=== PATIENT | male | born 1930 | race American Indian/Alaskan Native ===

== ENCOUNTER 2017-10-19 05:39 | Day surgery (SDC) | payer MEDICARE ==
[2017-10-19] MEDS ORDERED: TETRACAINE 0.5% OS PRN (06:00)
[2017-10-19] MEDS ORDERED: NACL BACTERIOSTATIC INFILTRATI ONE (06:23)
[2017-10-19] MEDS: AK-Dilate OS SCH ×3 (06:30→06:40)
[2017-10-19] MEDS: MYDRIACYL OS SCH ×3 (06:30→06:40)
[2017-10-19] MEDS: VIGAMOX OS SCH ×3 (06:30→06:40)
--- NOTE | 2017-10-19 07:54 | Anesthesia Consultation ---
Anesthesia Consult and Med Hx Date of service: 10/19/17 - Airway Anesthetic Teeth Evaluation: Dentures, Edentulous ROM Head & Neck: Adequate Mental/Hyoid Distance: Adequate Mallampati Class: Class II Intubation Access Assessment: Probably Good - Pulmonary Exam CTA: Yes - Cardiac Exam Cardiac Exam: RRR - Pre-Operative Health Status ASA Pre-Surgery Classification: ASA3 Proposed Anesthetic Plan: IV Sedation - Pulmonary Hx Smoking: Yes (SINCE HE WAS 13 STOPPED IN ) Hx Sleep Apnea: No - Cardiovascular System Hx Hypertension: Yes (2 YEARS) Hx Heart Attack/AMI: No - Central Nervous System Hx Psychiatric Problems: No - Gastrointestinal Hx Ulcer: Yes - Other Systems Hx Alcohol Use: No Hx Substance Use: No Hx Cancer: Yes (prostate CA)
[2017-10-19] MEDS ORDERED: SUBLIMAZE ONE (07:58)
[2017-10-19] MEDS ORDERED: VERSED ONE (07:59)
--- NOTE | 2017-10-19 08:25 | Operative Report ---
Operative Report Operative Report: PATIENT'S NAME: DATE OF : DATE OF SURGERY: 10/19/2017 PREOPERATIVE DIAGNOSIS: Cataract left eye POSTOPERATIVE DIAGNOSIS: Same OPERATIVE PROCEDURE: Phacoemulsification with intraocular lens implantation, left eye SURGEON: Gaviota Vidal M.D. LAMPS TESTER AND INSPECTOR SURGEON: Tamy Lens: [id number] 20.5 D ANESTHESIA: Monitored anesthesia care in combination with topical and intracameral anesthesia because of the established specific risk of reflux, arrhythmias, or anxiety attacks associated with ocular manipulation, as well as the difficulty of the crew dispatcher to manage such potentially catastrophic events while simultaneously attempting to complete the surgical procedure and was deemed necessary for the patient's safety to have an Media Intern present during the procedure whenever possible. An Media Intern was utilized to regulate the intravenous sedation of the patient so the patient was cooperative yet not asleep in order for the patient to successfully maintain fixation of the eye on the operating light of the microscope. COMPLICATIONS: No surgical complications No blood loss. ALLERGIES: No known drug allergies PROGNOSIS: Excellent INDICATIONS FOR SURGERY: The patient is undergoing surgery in the hopes of eliminating or improving these visual difficulties. PROCEDURE: After arriving at the surgery center, the patient was given topical anesthetic and dilating drops, as noted in the record. The patient was then taken into the operating room and given more anesthetic drops. The eyelids , lashes, and lid margins were scrubbed with Betadine solution, and the patient was draped. The Nurse Media Intern administered IV sedation and monitored the patient during the procedure. The eye was then fixated with a 0.12, and a stab incision was made in the peripheral clear cornea into the anterior chamber. This was made on my left side. Viscoelastic was next used to fill the anterior chamber. The eye was once again fixated with the 0.12 forceps and a keratome was used make an incision in clear cornea peripherally on my right hand side temporally. The capsule forceps were used to open the central anterior capsule and then make a continuous round capsulotomy. Hydrodissection was carried out utilizing a cannula and balanced salt solution to delineate the cortical material from the capsule and the nucleus from the cortical material. The phaco tip was introduced into the eye and used to remove the anterior cortical material in the area of the capsulotomy. Then the phaco tip was buried into the nucleus, and a chopping instrument was introduced into the eye and used to provide countertraction in the nucleus between this instrument and the phaco tip fracturing the nucleus. This procedure was repeated multiple times, providing multiple small segments of the lens, and then the phaco tip was used to remove each of these segments. An I/A tip was then used to remove the remaining cortex. The anterior chamber was refilled with viscoelastic. An one-piece, acrylic intraocular lens was then placed into an inserting cartridge. The tip of the inserting cartridge was introduced into the keratome incision and into the anterior chamber. The implant was gently advanced through the cartridge and into the eye, where it unfolded, and both haptics were placed in the capsular bag, where it centered nicely and appeared to be well fixated. After placement of the intraocular lens, the I~and~A handpiece was placed back into the eye and used to remove the viscoelastic, including viscoelastic that was behind the optic of the intraocular lens. The anterior chamber was then filled with balanced salt solution, and hydration of the wound was used to cause swelling of the wound and more appropriate watertight closure. When the wound was found to be firm, the patient was asked to comment on how bright the light was. If there was no light perception at all or if the light was substantially dimmer than during the rest of the surgery, the amount of fluid in the eye was decompressed to lower the intraocular pressure until the patient could see the bright light again. This was done to avoid any damage or decreased blood flow to the optic nerve. MEDICATIONS APPLIED AT END OF SURGERY: One drop of Pred Forte and Vigamox The patient was given a shield to wear at night and was instructed not to rub or push on the eye. DISCHARGE SUMMARY: The patient was released in stable condition. The patient and those with the patient were given a written sheet of postoperative instructions and counseling on any abnormal laboratory studies. The patient is to see us tomorrow for follow-up in the office and is to call immediately for any difficulties. Gaviota Vidal M.D. Date
--- NOTE | 2017-10-19 08:26 | Short Stay Summary ---
Short Stay Documentation Date of service: 10/19/17 - History H&P: obtained from office - Allergies and Medications Current Medications: Allergies No Known Allergies Allergy (Verified 10/11/17 15:29) Home Medications Medication Instructions Recorded Confirmed Last Taken Type Latanoprost 1 drops OU QHS 07/14/16 10/11/17 07/13/16 History Losartan Potassium 100 mg PO QDAY 07/14/16 10/11/17 07/13/16 History Nebivolol (Nf) [Bystolic (Nf)] 5 mg PO QDAY 07/14/16 10/11/17 07/13/16 History Diazepam [Valium] 10 mg PO DAILY 10/11/17 10/11/17 Unknown History Active Medications Moxifloxacin HCl (Vigamox) 1 drops OS Q5MIN [facility] Stop: 10/19/17 23:59 Last Admin: 10/19/17 06:40 Dose: 1 drops Phenylephrine HCl (Ak-Dilate) 1 drops OS Q5MIN [facility] Stop: 10/19/17 23:59 Last Admin: 10/19/17 06:40 Dose: 1 drops Prednisolone Acetate (Pred Forte 1%) 1 drops OS QID [facility] Tetracaine HCl (Tetracaine 0.5%) 1 drops OS Q5M PRN PRN Reason: Analgesia Stop: 10/19/17 23:59 Last Admin: 10/19/17 06:26 Dose: 1 drops Tropicamide (Mydriacyl) 1 drops OS Q5M [facility] Stop: 10/19/17 23:59 Last Admin: 10/19/17 06:40 Dose: 1 drops - Brief post op/procedure progress note Date of procedure: 10/19/17 Pre-op diagnosis: left cataract Post-op diagnosis: same Procedure: Phacoemulsification with intraocular lens insertion left eye Anesthesia: MAC Surgeon: ZHANG BEAUCHAMP Pathology: none Condition: stable - Disposition Condition at discharge: Good Disposition: [id number] TO HOME OR SELFCARE - Discharge Diagnoses (1) Cataract Status: Resolved Qualifiers: Cataract type: age-related Age-related cataract type: nuclear Laterality : left Qualified Code(s): H25.12 - Age-related nuclear cataract, left eye Short Stay Discharge Plan Follow up with: VALENTINA MORATAYA MD, PHD [Primary Care Provider] - 7 Days
[2017-10-19 09:21] VITALS: BP 132/86
--- NOTE | 2017-10-19 09:37 | Post Anesthesia Evaluation ---
- Post Anesthesia Evaluation Patient Participated: Yes Airway Patent: Yes Stable Respiratory Function: Yes Temp > 96.8F: Yes Pain Manageable: Yes Adequeate Hydration: Yes Anesthesia Complications: No Block Receding Appropriately: Not Applicable
--- NOTE | 2017-10-19 09:37 | Anesthesia Day of Surgery ---
Anesthesia Day of Surgery - Day of Surgery Patient Examined: Yes Patient H&P Reviewed: Yes Patient is NPO: Yes
[2017-10-19] MEDS ORDERED: PRED FORTE 1% OS SCH (10:00)
--- NOTE | 2017-10-19 11:17 | Post Anesthesia Evaluation ---
- Post Anesthesia Evaluation Patient Participated: Yes Airway Patent: Yes Stable Respiratory Function: Yes Nausea/Vomiting: No Temp > 96.8F: Yes Pain Manageable: Yes Adequeate Hydration: Yes Anesthesia Complications: No
== END 2017-10-19 09:25 | disposition home or self-care (01) ==
LOC: OR 05:39
DX: H26.9 Unspecified cataract (principal)
CPT/HCPCS: 66984; J2250; J3010; V2632

== ENCOUNTER 2017-10-30 09:51 | Outpatient (CLI) | payer MEDICARE ==
--- NOTE | 2017-10-30 14:45 | Cat Scan Report ---
The CT abdomen without and with IV contrast: Abdominal pain. Following administration of both intravenous and oral contrast transverse images are obtained from lower chest to the iliac crest with coronal and sagittal reformatted images. Images seem to include the low lungs demonstrates some coronary vascular calcification as well as increased interstitial pulmonary markings. There are few scattered calcifications in the liver. The liver is normal in size and contour. 2 small circumscribed masses are noted consistent with cysts. The abdominal and retroperitoneal organs are otherwise unremarkable. There is no periaortic adenopathy. The abdominal aorta is normal in size and contour throughout most of its course however distally just proximal to the bifurcation it dilates to maximum dimension of 3.7 cm with an area of asymmetric mural thrombus on the left. The bifurcation is not completely included but the thrombus diminishes at the bifurcation. Small bowel is mostly opacified and appears unremarkable. The unopacified colon also appears grossly normal with only mild areas of gaseous distention. The normal appearing appendix is visualized. The bones are demineralized but no destructive lesion is identified. Impressions: Mildly dilated distal abdominal aorta but exam otherwise unremarkable for patient age.
== END 2017-10-30 09:52 | disposition home or self-care (01) ==
LOC: SPVIMAG 09:51
DX: K76.89 Other specified diseases of liver (principal); I77.811 Abdominal aortic ectasia; I25.10 Atherosclerotic heart disease of native coronary artery without angina pectoris
CPT/HCPCS: 74170; Q9967

== ENCOUNTER 2017-11-02 05:50 | Day surgery (SDC) | payer MEDICARE ==
[2017-11-02] MEDS ORDERED: TETRACAINE 0.5% OD PRN (06:00)
[2017-11-02] MEDS ORDERED: NACL BACTERIOSTATIC INFILTRATI ONE (06:17)
[2017-11-02] MEDS: MYDRIACYL OD SCH ×3 (06:40→06:50)
[2017-11-02] MEDS: VIGAMOX OD SCH ×3 (06:40→06:50)
[2017-11-02] MEDS: AK-Dilate OD SCH ×3 (06:40→06:50)
[2017-11-02] MEDS ORDERED: TYLENOL PO PRN (07:11)
[2017-11-02] MEDS ORDERED: DILAUDID IV PRN (07:11)
[2017-11-02] MEDS ORDERED: ZOFRAN IV PRN (07:11)
--- NOTE | 2017-11-02 07:15 | Anesthesia Consultation ---
Anesthesia Consult and Med Hx Date of service: 11/02/17 - Airway Anesthetic Teeth Evaluation: Edentulous ROM Head & Neck: Adequate Mental/Hyoid Distance: Adequate Mallampati Class: Class II Intubation Access Assessment: Possibly Difficult - Cardiac Exam Anesthetic Concerns: irregular heartbeat - Pre-Operative Health Status ASA Pre-Surgery Classification: ASA3 Proposed Anesthetic Plan: MAC - Pulmonary Hx Smoking: Yes (smoked for 35-40 yrs) SOB: Yes (hx) COPD: Yes (hx) Hx Sleep Apnea: No (possible indication) - Cardiovascular System Hx Hypertension: Yes Hx Heart Attack/AMI: No - Central Nervous System Hx Psychiatric Problems: No - Gastrointestinal Hx Ulcer: Yes Hx Gastroesophageal Reflux Disease: Yes (pt said yes) - Other Systems Hx Cancer: Yes (prostate CA)
--- NOTE | 2017-11-02 07:16 | Anesthesia Day of Surgery ---
Anesthesia Day of Surgery - Day of Surgery Patient Examined: Yes Patient H&P Reviewed: Yes Patient is NPO: Yes Beta Blockers: Yes (pt didn't take any meds this am, pt usually takes one in am and pm)
--- NOTE | 2017-11-02 07:17 | Progress Note ---
Subjective Date of service: 11/02/17 Principal diagnosis: Right eye cataract
[2017-11-02] MEDS ORDERED: VERSED ONE (07:23)
[2017-11-02] MEDS ORDERED: SUBLIMAZE ONE (07:23)
--- NOTE | 2017-11-02 07:58 | Operative Report ---
Operative Report Operative Report: PATIENT'S NAME: DATE OF : DATE OF SURGERY: 11/02/2017 PREOPERATIVE DIAGNOSIS: Cataract right eye POSTOPERATIVE DIAGNOSIS: Same OPERATIVE PROCEDURE: Phacoemulsification with intraocular lens implantation, right eye SURGEON: Gaviota Vidal M.D. QA AUTOMATION ARCHITECT SURGEON: Tamy Lens: SA60WF 20.5 D ANESTHESIA: Monitored anesthesia care in combination with topical and intracameral anesthesia because of the established specific risk of reflux, arrhythmias, or anxiety attacks associated with ocular manipulation, as well as the difficulty of the ship rigger apprentice to manage such potentially catastrophic events while simultaneously attempting to complete the surgical procedure and was deemed necessary for the patient's safety to have an Structures Engineer present during the procedure whenever possible. An Structures Engineer was utilized to regulate the intravenous sedation of the patient so the patient was cooperative yet not asleep in order for the patient to successfully maintain fixation of the eye on the operating light of the microscope. COMPLICATIONS: No surgical complications No blood loss. ALLERGIES: No known drug allergies PROGNOSIS: Excellent INDICATIONS FOR SURGERY: The patient is undergoing surgery in the hopes of eliminating or improving these visual difficulties. PROCEDURE: After arriving at the surgery center, the patient was given topical anesthetic and dilating drops, as noted in the record. The patient was then taken into the operating room and given more anesthetic drops. The eyelids , lashes, and lid margins were scrubbed with Betadine solution, and the patient was draped. The Nurse Structures Engineer administered IV sedation and monitored the patient during the procedure. The eye was then fixated with a 0.12, and a stab incision was made in the peripheral clear cornea into the anterior chamber. This was made on my left side. Viscoelastic was next used to fill the anterior chamber. The eye was once again fixated with the 0.12 forceps and a keratome was used make an incision in clear cornea peripherally on my right hand side temporally. The capsule forceps were used to open the central anterior capsule and then make a continuous round capsulotomy. Hydrodissection was carried out utilizing a cannula and balanced salt solution to delineate the cortical material from the capsule and the nucleus from the cortical material. The phaco tip was introduced into the eye and used to remove the anterior cortical material in the area of the capsulotomy. Then the phaco tip was buried into the nucleus, and a chopping instrument was introduced into the eye and used to provide countertraction in the nucleus between this instrument and the phaco tip fracturing the nucleus. This procedure was repeated multiple times, providing multiple small segments of the lens, and then the phaco tip was used to remove each of these segments. An I/A tip was then used to remove the remaining cortex. The anterior chamber was refilled with viscoelastic. An one-piece, acrylic intraocular lens was then placed into an inserting cartridge. The tip of the inserting cartridge was introduced into the keratome incision and into the anterior chamber. The implant was gently advanced through the cartridge and into the eye, where it unfolded, and both haptics were placed in the capsular bag, where it centered nicely and appeared to be well fixated. After placement of the intraocular lens, the I~and~A handpiece was placed back into the eye and used to remove the viscoelastic, including viscoelastic that was behind the optic of the intraocular lens. The anterior chamber was then filled with balanced salt solution, and hydration of the wound was used to cause swelling of the wound and more appropriate watertight closure. When the wound was found to be firm, the patient was asked to comment on how bright the light was. If there was no light perception at all or if the light was substantially dimmer than during the rest of the surgery, the amount of fluid in the eye was decompressed to lower the intraocular pressure until the patient could see the bright light again. This was done to avoid any damage or decreased blood flow to the optic nerve. MEDICATIONS APPLIED AT END OF SURGERY: One drop of Pred Forte and Vigamox The patient was given a shield to wear at night and was instructed not to rub or push on the eye. DISCHARGE SUMMARY: The patient was released in stable condition. The patient and those with the patient were given a written sheet of postoperative instructions and counseling on any abnormal laboratory studies. The patient is to see us tomorrow for follow-up in the office and is to call immediately for any difficulties. Gaviota Vidal M.D. Date
[2017-11-02] MEDS ORDERED: NACL 0.9% 1000 ML 1,000 ML IV SCH (08:00)
[2017-11-02] MEDS ORDERED: PEPCID IV NR (08:00)
[2017-11-02] MEDS ORDERED: SODIUM CHLORIDE FLUSH SYRINGE 10 ML IV NR (08:00)
[2017-11-02] MEDS ORDERED: VERSED IV NR (08:00)
--- NOTE | 2017-11-02 08:00 | Short Stay Summary ---
Short Stay Documentation Date of service: 11/02/17 - History H&P: obtained from office - Allergies and Medications Current Medications: Allergies No Known Allergies Allergy (Verified 10/11/17 15:29) Home Medications Medication Instructions Recorded Confirmed Last Taken Type Latanoprost 1 drops OU QHS 07/14/16 10/25/17 11/01/17 History Losartan Potassium 100 mg PO QDAY 07/14/16 10/25/17 11/01/17 History Nebivolol (Nf) [Bystolic (Nf)] 5 mg PO QDAY 07/14/16 10/25/17 11/01/17 History Diazepam [Valium] 10 mg PO DAILY 10/11/17 10/25/17 11/01/17 History Acetaminophen [Pain Relief] 325 mg PO BID PRN 10/25/17 10/25/17 11/01/17 History Bisacodyl [Dulcolax] 5 mg PO DAILY PRN 10/25/17 10/25/17 11/01/17 History Gabapentin [Neurontin] 100 mg PO BID 10/25/17 10/25/17 11/01/17 History Ibuprofen [Ibuprofen Ib] 200 mg PO PRN PRN 10/25/17 10/25/17 11/01/17 History Naproxen Sodium [Aleve] 220 mg PO PRN PRN 10/25/17 10/25/17 11/01/17 History Active Medications Moxifloxacin HCl (Vigamox) 1 drops OD Q5MIN [facility] Stop: 11/04/17 18:00 Last Admin: 11/02/17 06:50 Dose: 1 drops Ondansetron HCl (Zofran) 4 mg IV ONCE PRN PRN Reason: Nausea And Vomiting Stop: 11/02/17 09:00 Phenylephrine HCl (Ak-Dilate) 1 drops OD Q5M [facility] Stop: 11/02/17 18:00 Last Admin: 11/02/17 06:50 Dose: 1 drops Prednisolone Acetate (Pred Forte 1%) 1 drops OD QID [facility] Sodium Chloride (Sodium Chloride Flush Syringe 10 Ml) 10 ml IV PRN NR Stop: 11/12/17 07:59 Tetracaine HCl (Tetracaine 0.5%) 1 drops OD Q5M PRN PRN Reason: Pain Last Admin: 11/02/17 06:40 Dose: 1 drops Tropicamide (Mydriacyl) 1 drops OD Q5MIN [facility] Stop: 11/04/17 18:00 Last Admin: 11/02/17 06:50 Dose: 1 drops - Brief post op/procedure progress note Date of procedure: 11/02/17 Pre-op diagnosis: right cataract Post-op diagnosis: same Procedure: Phacoemulsification with intraocular lens insertion right eye Anesthesia: MAC Surgeon: ZHANG BEAUCHAMP Estimated blood loss: none Pathology: none Condition: stable - Disposition Disposition: - TO HOME OR SELFCARE - Discharge Diagnoses (1) Cataract Status: Resolved Qualifiers: Cataract type: age-related Age-related cataract type: nuclear Laterality : right Qualified Code(s): H25.11 - Age-related nuclear cataract, right eye Short Stay Discharge Plan Follow up with: VALENTINA MORATAYA MD, PHD [Primary Care Provider] - 7 Days
[2017-11-02] MEDS ORDERED: PRED FORTE 1% OD SCH (09:00)
[2017-11-02 09:45] VITALS: BP 122/69
== END 2017-11-02 08:45 | disposition home or self-care (01) ==
LOC: OR 05:50
DX: H26.9 Unspecified cataract (principal); I10 Essential (primary) hypertension; K21.9 Gastro-esophageal reflux disease without esophagitis; J44.9 Chronic obstructive pulmonary disease, unspecified; F17.200 Nicotine dependence, unspecified, uncomplicated; Z85.46 Personal history of malignant neoplasm of prostate; Z98.890 Other specified postprocedural states
CPT/HCPCS: 66984; J2250; J3010; V2632

== ENCOUNTER 2017-11-12 18:18 | Emergency (ER) | payer MEDICARE ==
--- NOTE | 2017-11-12 20:04 | Emergency Department Report ---
ED Neuro Deficit HPI - General Chief Complaint: Neuro Symptoms/Deficit Stated Complaint: LEFT ARM,HIP PAIN/HEADACHE Time Seen by Provider: 11/12/17 19:45 Source: patient Mode of arrival: Ambulatory Limitations: No Limitations - History of Present Illness Initial Comments: This is an 87-year-old gentleman who presents to the emergency room with a chief complaint of numbness to the left side. He reports that last Monday he had 3 mini strokes. He states that today at around 4 PM he began to feel numbness in his left lower and upper extremities as well as part of his face. He states he had difficulty opening his mouth. He did take a pain pill. He is ambulatory at this time moving all extremities well and is able to speak well without any deficits. He states he does not hurt anywhere at this time. He is alert and oriented 3. -: Sudden Location: speech (resolved), left face, left arm, left leg Place: home Severity: mild Quality: weak, numb, tingling, improving Improves With: time Worsens With: none On Anticoagulants: No Context: sudden onset Associated Symptoms: denies other symptoms Treatments Prior to Arrival: none - Related Data Home Medications: Home Medications Medication Instructions Recorded Confirmed Last Taken Latanoprost 1 drops OU QHS 07/14/16 11/05/17 11/01/17 Losartan Potassium 100 mg PO QDAY 07/14/16 11/05/17 11/01/17 Nebivolol (Nf) [Bystolic (Nf)] 5 mg PO QDAY 07/14/16 11/05/17 11/01/17 Diazepam [Valium] 10 mg PO DAILY 10/11/17 11/05/17 11/01/17 Acetaminophen [Pain Relief] 325 mg PO BID PRN 10/25/17 11/05/17 11/01/17 Bisacodyl [Dulcolax tab] 5 mg PO DAILY PRN 10/25/17 11/05/17 11/01/17 Ibuprofen [Ibuprofen Ib] 200 mg PO PRN PRN 10/25/17 11/05/17 11/01/17 Naproxen Sodium [Aleve] 220 mg PO PRN PRN 10/25/17 11/05/17 11/01/17 Previous Rx's Medication Instructions Recorded Last Taken Type Aspirin EC [Aspirin Enteric Coated 325 mg PO QDAY #30 tablet. 11/07/17 Unknown Rx TAB] AtorvaSTATin [Lipitor] 20 mg PO QHS #30 tab 11/07/17 Unknown Rx Gabapentin [Neurontin] 100 mg PO BID #60 capsule 11/07/17 Unknown Rx Allergies/Adverse Reactions: Allergies Allergy/AdvReac Type Severity Reaction Status Date / Time No Known Allergies Allergy Verified 11/12/17 18:22 ED Review of Systems ROS: Stated complaint: LEFT ARM,HIP PAIN/HEADACHE Other details as noted in HPI Comment: All other systems reviewed and negative Constitutional: see HPI Eyes: as per HPI ENT: as per HPI Respiratory: see HPI Cardiovascular: as per HPI Endocrine: see HPI Gastrointestinal: as per HPI Genitourinary: as per HPI Musculoskeletal: as per HPI Skin: as per HPI Neurological: as per HPI Psychiatric: as per HPI Hematological/Lymphatic: as per HPI ED Past Medical Hx - Past Medical History Hx Hypertension: Yes Hx Heart Attack/AMI: No Hx Congestive Heart Failure: No Hx GERD: Yes Hx COPD: Yes (hx) - Surgical History Additional Surgical History: Cataract - Social History Smoking Status: Never Smoker Substance Use Type: None - Medications Home Medications: Home Medications Medication Instructions Recorded Confirmed Last Taken Type Latanoprost 1 drops OU QHS 07/14/16 11/05/17 11/01/17 History Losartan Potassium 100 mg PO QDAY 07/14/16 11/05/17 11/01/17 History Nebivolol (Nf) [Bystolic (Nf)] 5 mg PO QDAY 07/14/16 11/05/17 11/01/17 History Diazepam [Valium] 10 mg PO DAILY 10/11/17 11/05/17 11/01/17 History Acetaminophen [Pain Relief] 325 mg PO BID PRN 10/25/17 11/05/17 11/01/17 History Bisacodyl [Dulcolax tab] 5 mg PO DAILY PRN 10/25/17 11/05/17 11/01/17 History Ibuprofen [Ibuprofen Ib] 200 mg PO PRN PRN 10/25/17 11/05/17 11/01/17 History Naproxen Sodium [Aleve] 220 mg PO PRN PRN 10/25/17 11/05/17 11/01/17 History Aspirin EC [Aspirin Enteric Coated 325 mg PO QDAY #30 tablet. 11/07/17 Unknown Rx TAB] AtorvaSTATin [Lipitor] 20 mg PO QHS #30 tab 11/07/17 Unknown Rx Gabapentin [Neurontin] 100 mg PO BID #60 capsule 11/07/17 Unknown Rx ED Neuro Physical Exam - General Limitations: No Limitations General appearance: alert, in no apparent distress Suspected Stroke: Yes - Head Head exam: Present: atraumatic, normocephalic - Eye Eye exam: Present: normal appearance, PERRL, EOMI - ENT ENT exam: Present: normal exam, normal orophraynx - Neck Neck exam: Present: normal inspection - Respiratory Respiratory exam: Present: normal lung sounds bilaterally. Absent: respiratory distress, wheezes, rales, rhonchi - Cardiovascular Cardiovascular Exam: Present: bradycardia - GI/Abdominal GI/Abdominal exam: Present: soft, normal bowel sounds. Absent: distended, tenderness - Extremities Exam Extremities exam: Present: normal inspection, full ROM. Absent: tenderness, joint swelling - Back Exam Back exam: Present: normal inspection - Neurological Exam Neurological exam: Present: alert, oriented X3 - NIHSS Assessment Interval: Baseline 1a. Level of Consciousness: alert 1b. LOC Questions: answers correctly 1c. LOC Commands: performs tasks correctly 2. Best Gaze: normal 3. Visual: no visual loss 4. Facial Palsy: normal symmetrical movement 5b. Motor Arm Right: no drift 5a. Motor Arm Left: no drift 6a. Motor Leg Left: no drift 6b. Motor Leg Right: no drift 7. Limb Ataxia: absent 8. Sensory: normal 9. Best Language: no aphasia 10. Dysarthria: normal 11. Extinction/Inattention: no abnormality Total Score: 0 Stroke Severity: No Stroke Symptoms - Psychiatric Psychiatric exam: Present: normal affect, normal mood - Skin Skin exam: Present: warm, dry, intact ED Course Vital Signs 11/12/17 11/12/17 11/12/17 18:22 19:40 19:46 Temperature 97.8 F Pulse Rate 60 56 L 49 L Respiratory 20 11 L 18 Rate Blood Pressure 120/66 125/43 O2 Sat by Pulse 99 98 Oximetry 11/12/17 11/12/17 11/12/17 19:56 19:57 20:00 Temperature 98.9 F Pulse Rate 54 L 49 L Respiratory 19 19 Rate Blood Pressure 111/60 O2 Sat by Pulse 98 98 Oximetry 02/04/18 02/04/18 02/04/18 20:16 20:30 20:48 Temperature Pulse Rate 49 L 48 L 55 L Respiratory 21 13 22 Rate Blood Pressure 111/60 116/54 116/54 O2 Sat by Pulse 99 95 96 Oximetry 11/12/17 11/12/17 11/12/17 21:00 21:16 21:30 Temperature Pulse Rate 51 L 51 L 52 L Respiratory 18 15 15 Rate Blood Pressure 114/62 114/62 106/60 O2 Sat by Pulse 98 97 94 Oximetry 11/12/17 21:46 Temperature Pulse Rate 51 L Respiratory 19 Rate Blood Pressure 114/62 O2 Sat by Pulse 99 Oximetry - Reevaluation(s) Reevaluation #1: 11/12/17 20:16 This likely the patient has had a TIA. Based upon his history of previous mini strokes, feel will go ahead and work up the patient. He is bradycardic. His heart rate on telemetry has been around 50 bpm. He states this is not normal for him. We'll go ahead and order set of cardiac enzymes as well. He is not complaining of any chest pain at this time. 11/12/17 21:[address] is essentially negative for any acute findings at this time. His blood work is also unremarkable. His cardiac enzymes are normal. He does not complain of any chest pain nor has he. At this time I do not have any findings that indicate that he is having an active stroke in progress or acute coronary event. Advised the patient he needs to follow up with his primary care doctor. He also needs to continue with his home medications. At this time we will go ahead and discharge the patient. 11/12/17 21:26 - Lab Data Result diagrams: 11/12/17 20:16 11/12/17 20:16 Lab Results 11/12/17 11/12/17 11/12/17 Range/Units 20:16 20:16 20:16 WBC 4.6 (4.5-11.0) K/mm3 RBC 3.96 (3.65-5.03) M/mm3 Hgb 11.8 (11.8-15.2) gm/dl Hct 36.5 (35.5-45.6) % MCV 92 (84-94) fl MCH 30 (28-32) pg MCHC 32 (32-34) % RDW 13.9 (13.2-15.2) % Plt Count 159 (140-440) K/mm3 Lymph % (Auto) 34.0 (13.4-35.0) % [place]eman % (Auto) 12.7 H (0.0-7.3) % Eos % (Auto) 3.6 (0.0-4.3) % Baso % (Auto) 0.5 (0.0-1.8) % Lymph # 1.6 (1.2-5.4) K/mm3 Hardeman # 0.6 (0.0-0.8) K/mm3 Eos # 0.2 (0.0-0.4) K/mm3 Baso # 0.0 (0.0-0.1) K/mm3 Seg Neutrophils % 49.2 (40.0-70.0) % Seg Neutrophils # 2.3 (1.8-7.7) K/mm3 PT 15.9 H (12.2-14.9) Sec. INR 1.20 H (0.87-1.13) APTT 30.8 (24.2-36.6) Sec. Thrombin Time 15.4 (15.1-19.6) Sec. Sodium 139 (137-145) mmol/L Potassium 4.4 (3.6-5.0) mmol/L Chloride 100.3 (98-107) mmol/L Carbon Dioxide 26 (22-30) mmol/L Anion Gap 17 mmol/L BUN 16 (9-20) mg/dL Creatinine 1.6 H (0.8-1.5) mg/dL Estimated GFR 50 ml/min BUN/Creatinine Ratio 10 % Glucose 90 (75-100) mg/dL POC Glucose (70-105) Calcium 8.9 (8.4-10.2) mg/dL Total Bilirubin 0.20 (0.1-1.2) mg/dL AST 15 (5-40) units/L ALT 12 (7-56) units/L Alkaline Phosphatase 52 (35-129) units/L Total Creatine Kinase 203 H (55-170) units/L CK-MB (CK-2) 3.1 (0.0-4.0) ng/mL CK-MB (CK-2) Rel Index 1.5 (0-4) Troponin T < 0.010 (0.00-0.029) ng/mL Total Protein 6.2 L (6.3-8.2) g/dL Albumin 3.6 L (3.9-5) g/dL Albumin/Globulin Ratio 1.4 % Urine Color (Yellow) Urine Turbidity (Clear) Urine pH (5.0-7.0) Ur Specific Garita (1.003-1.030) Urine Protein (Negative) mg/dL Urine Glucose (UA) (Negative) mg/dL Urine Ketones (Negative) mg/dL Urine Blood (Negative) Urine Nitrite (Negative) Urine Bilirubin (Negative) Urine Urobilinogen (<2.0) mg/dL Ur Leukocyte Esterase (Negative) Urine WBC (Auto) (0.0-6.0) /HPF Urine RBC (Auto) (0.0-6.0) /HPF Urine Bacteria (Auto) (Negative) /HPF Urine Mucus /HPF Urine Opiates Screen Urine Methadone Screen Ur Barbiturates Screen Ur Phencyclidine Scrn Ur Amphetamines Screen U Benzodiazepines Scrn Urine Cocaine Screen U Marijuana (THC) Screen Drugs of Abuse Note Plasma/Serum Alcohol (0-0.07) % 11/12/17 11/12/17 11/12/17 Range/Units 20:16 20:24 20:43 WBC (4.5-11.0) K/mm3 RBC (3.65-5.03) M/mm3 Hgb (11.8-15.2) gm/dl Hct (35.5-45.6) % MCV (84-94) fl MCH (28-32) pg MCHC (32-34) % RDW (13.2-15.2) % Plt Count (140-440) K/mm3 Lymph % (Auto) (13.4-35.0) % Hardeman % (Auto) (0.0-7.3) % Eos % (Auto) (0.0-4.3) % Baso % (Auto) (0.0-1.8) % Lymph # (1.2-5.4) K/mm3 Hardeman # (0.0-0.8) K/mm3 Eos # (0.0-0.4) K/mm3 Baso # (0.0-0.1) K/mm3 Seg Neutrophils % (40.0-70.0) % Seg Neutrophils # (1.8-7.7) K/mm3 PT (12.2-14.9) Sec. INR (0.87-1.13) APTT (24.2-36.6) Sec. Thrombin Time (15.1-19.6) Sec. Sodium (137-145) mmol/L Potassium (3.6-5.0) mmol/L Chloride (98-107) mmol/L Carbon Dioxide (22-30) mmol/L Anion Gap mmol/L BUN (9-20) mg/dL Creatinine (0.8-1.5) mg/dL Estimated GFR ml/min BUN/Creatinine Ratio % Glucose (75-100) mg/dL POC Glucose 101 (70-105) Calcium (8.4-10.2) mg/dL Total Bilirubin (0.1-1.2) mg/dL AST (5-40) units/L ALT (7-56) units/L Alkaline Phosphatase (35-129) units/L Total Creatine Kinase (55-170) units/L CK-MB (CK-2) (0.0-4.0) ng/mL CK-MB (CK-2) Rel Index (0-4) Troponin T (0.00-0.029) ng/mL Total Protein (6.3-8.2) g/dL Albumin (3.9-5) g/dL Albumin/Globulin Ratio % Urine Color Yellow (Yellow) Urine Turbidity Clear (Clear) Urine pH 6.0 (5.0-7.0) Ur Specific Garita 1.009 (1.003-1.030) Urine Protein <15 mg/dl (Negative) mg/dL Urine Glucose (UA) Neg (Negative) mg/dL Urine Ketones Neg (Negative) mg/dL Urine Blood Neg (Negative) Urine Nitrite Neg (Negative) Urine Bilirubin Neg (Negative) Urine Urobilinogen < 2.0 (<2.0) mg/dL Ur Leukocyte Esterase Neg (Negative) Urine WBC (Auto) 1.0 (0.0-6.0) /HPF Urine RBC (Auto) 1.0 (0.0-6.0) /HPF Urine Bacteria (Auto) 1+ (Negative) /HPF Urine Mucus Few /HPF Urine Opiates Screen Urine Methadone Screen Ur Barbiturates Screen Ur Phencyclidine Scrn Ur Amphetamines Screen U Benzodiazepines Scrn Urine Cocaine Screen U Marijuana (THC) Screen Drugs of Abuse Note Plasma/Serum Alcohol < 0.01 (0-0.07) % 11/12/17 Range/Units 20:43 WBC (4.5-11.0) K/mm3 RBC (3.65-5.03) M/mm3 Hgb (11.8-15.2) gm/dl Hct (35.5-45.6) % MCV (84-94) fl MCH (28-32) pg MCHC (32-34) % RDW (13.2-15.2) % Plt Count (140-440) K/mm3 Lymph % (Auto) (13.4-35.0) % Hardeman % (Auto) (0.0-7.3) % Eos % (Auto) (0.0-4.3) % Baso % (Auto) (0.0-1.8) % Lymph # (1.2-5.4) K/mm3 Hardeman # (0.0-0.8) K/mm3 Eos # (0.0-0.4) K/mm3 Baso # (0.0-0.1) K/mm3 Seg Neutrophils % (40.0-70.0) % Seg Neutrophils # (1.8-7.7) K/mm3 PT (12.2-14.9) Sec. INR (0.87-1.13) APTT (24.2-36.6) Sec. Thrombin Time (15.1-19.6) Sec. Sodium (137-145) mmol/L Potassium (3.6-5.0) mmol/L Chloride (98-107) mmol/L Carbon Dioxide (22-30) mmol/L Anion Gap mmol/L BUN (9-20) mg/dL Creatinine (0.8-1.5) mg/dL Estimated GFR ml/min BUN/Creatinine Ratio % Glucose (75-100) mg/dL POC Glucose (70-105) Calcium (8.4-10.2) mg/dL Total Bilirubin (0.1-1.2) mg/dL AST (5-40) units/L ALT (7-56) units/L Alkaline Phosphatase (35-129) units/L Total Creatine Kinase (55-170) units/L CK-MB (CK-2) (0.0-4.0) ng/mL CK-MB (CK-2) Rel Index (0-4) Troponin T (0.00-0.029) ng/mL Total Protein (6.3-8.2) g/dL Albumin (3.9-5) g/dL Albumin/Globulin Ratio % Urine Color (Yellow) Urine Turbidity (Clear) Urine pH (5.0-7.0) Ur Specific Garita (1.003-1.030) Urine Protein (Negative) mg/dL Urine Glucose (UA) (Negative) mg/dL Urine Ketones (Negative) mg/dL Urine Blood (Negative) Urine Nitrite (Negative) Urine Bilirubin (Negative) Urine Urobilinogen (<2.0) mg/dL Ur Leukocyte Esterase (Negative) Urine WBC (Auto) (0.0-6.0) /HPF Urine RBC (Auto) (0.0-6.0) /HPF Urine Bacteria (Auto) (Negative) /HPF Urine Mucus /HPF Urine Opiates Screen Presumptive positive Urine Methadone Screen Presumptive negative Ur Barbiturates Screen Presumptive negative Ur Phencyclidine Scrn Presumptive negative Ur Amphetamines Screen Presumptive negative U Benzodiazepines Scrn Presumptive positive Urine Cocaine Screen Presumptive negative U Marijuana (THC) Screen Presumptive negative Drugs of Abuse Note Disclamer Plasma/Serum Alcohol (0-0.07) % Critical care attestation.: If time is entered above; I have spent that time in minutes in the direct care of this critically ill patient, excluding procedure time. ED Disposition Clinical Impression: TIA (transient ischemic attack) Qualifiers: Transient cerebral ischemia type: unspecified Qualified Code(s): G45.9 - Transient cerebral ischemic attack, unspecified Disposition: DC-01 TO HOME OR SELFCARE Is pt being admited?: No Does the pt Need Aspirin: No Condition: Stable Instructions: Transient Ischemic Attack (ED) Additional Instructions: Rest. fluids, watch for worsening, new symptoms, return as needed, follow up with your primary care doctor of choice.
[2017-11-12 20:35] LABS: Basophils % (Auto) 0.5 % (0.0-1.8); Eosinophils # (Auto) 0.2 K/mm3 (0.0-0.4); Eosinophils % (Auto) 3.6 % (0.0-4.3); Hematocrit 36.5 % (35.5-45.6); Hemoglobin 11.8 gm/dl (11.8-15.2); Lymphocytes # (Auto) 1.6 K/mm3 (1.2-5.4); Mean Corpuscular HGB Conc 32 % (32-34); Mean Corpuscular Hemoglobin 30 pg (28-32); Mean Corpuscular Volume 92 fl (84-94); Monocytes # (Auto) 0.6 K/mm3 (0.0-0.8); Monocytes % (Auto) 12.7 % (0.0-7.3); Platelet Count 159 K/mm3 (140-440); Red Blood Count 3.96 M/mm3 (3.65-5.03); Red Cell Distribution Width 13.9 % (13.2-15.2)
[2017-11-12 20:45] LABS: INR 1.2 (0.87-1.13)
[2017-11-12 20:46] LABS: Partial Thromboplastin Time 30.8 Sec. (24.2-36.6); Thrombin Time 15.4 Sec. (15.1-19.6)
[2017-11-12 20:53] LABS: Creatine Kinase MB 3.1 ng/mL (0.0-4.0)
[2017-11-12 20:55] LABS: Alanine Aminotransferase 12 units/L (7-56); Albumin 3.6 g/dL (3.9-5); BUN/Creatinine Ratio 10; Blood Urea Nitrogen 16 mg/dL (9-20); Calcium 8.9 mg/dL (8.4-10.2); Hemolysis Index 13
[2017-11-12 21:05] LABS: Bacteria,Urine 1+ /HPF (Negative); Bilirubin,Urine NEG (Negative); Blood,Urine NEG (Negative); Color,Urine Yellow (Yellow); Mucus,Urine FEW /HPF; Nitrite,Urine NEG (Negative); Protein,Urine <15 mg/dL mg/dL (Negative); Urobilinogen,Urine < 2.0 mg/dL (<2.0)
--- NOTE | 2017-11-12 21:16 | Cat Scan Report ---
FINAL REPORT PROCEDURE: CT HEAD/BRAIN WO CON TECHNIQUE: Computerized tomography of the head was performed without contrast material. HISTORY: suspected stroke COMPARISON: No prior studies are available for comparison. FINDINGS: Skull and scalp: Normal. Paranasal sinuses: Normal. Ventricles and subarachnoid spaces: Moderate dilatation. Cerebrum: No evidence of hemorrhage, acute infarction or mass. Atrophy with periventricular and deep white matter diminished densities consistent with microangiopathy. Basal ganglia calcifications. Cerebellum and brainstem: No evidence of hemorrhage, acute infarction or mass. Atrophy. Vasculature: Normal. Comments: None. IMPRESSION: Involutional change with atrophy and microangiopathy. No hemorrhage
[2017-11-12 21:20] LABS: Amphetamine Screen,Urine PRESUMPTIVE NEGATIVE; Cannabinoid Screen,Urine PRESUMPTIVE NEGATIVE; Cocaine Screen,Urine PRESUMPTIVE NEGATIVE; Methadone Screen,Urine PRESUMPTIVE NEGATIVE
[2017-11-12 21:33] LABS: Benzodiazepines Screen,Urine PRESUMPTIVE POSITIVE; Opiate Screen,Urine PRESUMPTIVE POSITIVE
[2017-11-12 22:54] VITALS: BP 100/49
== END 2017-11-12 22:54 | disposition home or self-care (01) ==
LOC: ED 18:18
DX: G45.9 Transient cerebral ischemic attack, unspecified (principal); I10 Essential (primary) hypertension; K21.9 Gastro-esophageal reflux disease without esophagitis; J44.9 Chronic obstructive pulmonary disease, unspecified; Z88.2 Allergy status to sulfonamides
CPT/HCPCS: 36415; 70450; 80053; 80307; 81001; 82550; 82553; 82962; 84484; 85025; 85610; 85670; 85730; 93005; 93010; 99284; G0480; 80320

== ENCOUNTER 2018-07-25 11:23 | Emergency (ER) | payer MEDICARE ==
[2018-07-25 11:40] VITALS: BP 149/77
--- NOTE | 2018-07-25 12:29 | Emergency Department Report ---
Blank Doc - Documentation Documentation: Patient presents to emergency department with chief complaint of a headache. Patient states that he ran out of his blood pressure medication and has had a headache since that time. Patient denies any slurred speech, weakness, dizziness. Physical exam the patient has no neurological deficits. Patient does have a history of a CVA. Patient will be transferred to the main side of the emergency department for further evaluation and workup.
[2018-07-25] MEDS ORDERED: PROVENTIL IH ONE (12:50)
[2018-07-25] MEDS ORDERED: ATROVENT IH ONE (12:50)
--- NOTE | 2018-07-25 12:58 | Emergency Department Report ---
HPI - General Chief Complaint: Headache Time Seen by Provider: 07/25/18 12:14 - HPI HPI: Room 7 The patient is an 88-year-old male presenting with chief complaint of headache. The patient states he developed a frontal headache last night. Patient denies any preceding trauma or fever. Patient states he thinks he developed a headache because he ran out of his atorvastatin. When asked if anything else was bothering him the patient states he also has shortness of breath. The patient has a history of COPD but is not on home O2. Patient denies cough Location: [See above] Duration: One set Last night Quality: Headache Severity: Moderate Modifying factors: [see above] Context: [see above] Mode of transportation: [not driving] ED Past Medical Hx - Past Medical History Hx Hypertension: Yes Hx CVA: Yes Hx GERD: Yes Hx COPD: Yes (no home O2) - Surgical History Additional Surgical History: Cataract, neck surgery - Family History Family history: no significant - Social History Smoking Status: Never Smoker Substance Use Type: None - Medications Home Medications: Home Medications Medication Instructions Recorded Confirmed Last Taken Type Latanoprost 1 drops OU QHS 07/14/16 11/05/17 11/01/17 History Losartan Potassium 100 mg PO QDAY 07/14/16 11/05/17 11/01/17 History Nebivolol (Nf) [Bystolic (Nf)] 5 mg PO QDAY 07/14/16 11/05/17 11/01/17 History Diazepam [Valium] 10 mg PO DAILY 10/11/17 11/05/17 11/01/17 History Acetaminophen [Pain Relief] 325 mg PO BID PRN 10/25/17 11/05/17 11/01/17 History Bisacodyl [Dulcolax tab] 5 mg PO DAILY PRN 10/25/17 11/05/17 11/01/17 History Ibuprofen [Ibuprofen Ib] 200 mg PO PRN PRN 10/25/17 11/05/17 11/01/17 History Naproxen Sodium [Aleve] 220 mg PO PRN PRN 10/25/17 11/05/17 11/01/17 History Aspirin EC [Aspirin Enteric Coated 325 mg PO QDAY #30 tablet.dr 11/07/17 Unknown Rx TAB] Gabapentin [Neurontin] 100 mg PO BID #60 capsule 11/07/17 Unknown Rx ALBUTEROL Inhaler (OR & NICU) 2 puff IH QID PRN #1 inhalation 07/25/18 Unknown Rx [Proair] AtorvaSTATin [Lipitor] 20 mg PO QHS #30 tab 07/25/18 Unknown Rx Butalb/Acetamin/Caff 50-325-40 1 - 2 tab PO Q8HR PRN #10 tablet 07/25/18 Unknown Rx [Fioricet] ED Review of Systems ROS: Stated complaint: HEADACHE Other details as noted in HPI Constitutional: no symptoms reported Eyes: denies: eye pain ENT: denies: throat pain Respiratory: shortness of breath Cardiovascular: denies: chest pain Endocrine: no symptoms reported Gastrointestinal: denies: abdominal pain Genitourinary: denies: dysuria Musculoskeletal: denies: back pain Neurological: headache Physical Exam - Physical Exam Vital Signs: Vital Signs 07/25/18 11:37 Temperature 98.4 F Pulse Rate 87 Respiratory 18 Rate Blood Pressure 149/77 O2 Sat by Pulse 95 Oximetry Physical Exam: GENERAL: The patient is well-developed well-nourished male lying on stretcher not appearing to be in acute distress. [] HEENT: Normocephalic. Atraumatic. Extraocular motions are intact. Patient has moist mucous membranes. NECK: Supple. No meningitic signs are noted. Trachea midline CHEST/LUNGS: Clear to auscultation. There is no respiratory distress noted. HEART/CARDIOVASCULAR: Regular. There is no tachycardia. There is no gallop rub or murmur. ABDOMEN: Abdomen is soft, nontender. Patient has normal bowel sounds. There is no abdominal distention. SKIN: There is no rash. There is no edema. There is no diaphoresis. NEURO: The patient is awake, alert, and oriented. The patient is cooperative. The patient has no focal neurologic deficits. The patient has normal speech. Cranial nerves II through XII grossly intact, no drift MUSCULOSKELETAL: There is no evidence of acute injury. ED Course Vital Signs 07/25/18 11:37 Temperature 98.4 F Pulse Rate 87 Respiratory 18 Rate Blood Pressure 149/77 O2 Sat by Pulse 95 Oximetry ED Medical Decision Making - Lab Data Result diagrams: 07/25/18 13:21 07/25/18 12:55 Laboratory Tests 07/25/18 07/25/18 12:55 13:21 WBC 6.4 RBC 3.85 Hgb 12.2 Hct 36.0 MCV 94 MCH 32 MCHC 34 RDW 14.3 Plt Count 120 L Lymph % (Auto) Plan Checker [place] % (Auto) Plan Checker Eos % (Auto) Plan Checker Baso % (Auto) Plan Checker Lymph # Plan Checker [place] # Plan Checker Eos # Plan Checker Baso # Plan Checker Seg Neutrophils % Plan Checker Seg Neutrophils # Plan Checker Sodium 141 Potassium 4.7 Chloride 108.8 H Carbon Dioxide 22 Anion Gap 15 BUN 11 Creatinine 1.3 Estimated GFR > 60 BUN/Creatinine Ratio 8 Glucose 109 H Calcium 8.7 Total Creatine Kinase 218 H CK-MB (CK-2) 2.3 CK-MB (CK-2) Rel Index 1.0 Troponin T < 0.010 - Radiology Data Radiology results: report reviewed (CT head, chest x-ray), image reviewed (CT head, chest x-ray) interpreted by me: Chest x-ray-no focal infiltrates, no pneumothorax CT head (read by radiologist)-no acute intracranial abnormality [address] [address] XRay Report Signed Patient: DAVONTE SEGURA MR#: [id number] : 1930 Acct:[id number] Age/Sex: 88 / M ADM Date: 07/25/18 Loc: ED Attending Dr: Ordering Physician: ANISH BLISS MD Date of Service: 07/25/18 Procedure(s): XR chest 1V ap Accession Number(s): [id number] cc: ANISH BLISS MD Fluoro Time In Minutes: AP CHEST: HISTORY: Shortness of breath AP view of the chest demonstrates a normal mediastinal and cardiac contour with clear lungs and normal bony and soft tissue structures. IMPRESSION: Unremarkable AP chest. Transcribed By: TTR Dictated By: ERENDIRA PAUL JR, MD Electronically Authenticated By: ERENDIRA PAUL JR, MD Signed Date/Time: 07/25/181332 DD/ 32 TD/TT: 07/25/181332 - Differential Diagnosis headache, ICH, cranial mass, COPD exacerbation Critical care attestation.: If time is entered above; I have spent that time in minutes in the direct care of this critically ill patient, excluding procedure time. ED Disposition Clinical Impression: Headache, COPD (chronic obstructive pulmonary disease) Disposition: DC-01 TO HOME OR SELFCARE Is pt being admited?: No Does the pt Need Aspirin: No Condition: Stable Instructions: Chronic Obstructive Pulmonary Disease (ED) Additional Instructions: Return to the emergency department immediately should you develop worsening symptoms, fever, inability to tolerate food or liquid or any other concerns. Prescriptions: ALBUTEROL Inhaler (OR & NICU) [Proair] 2 puff IH QID PRN #1 inhalation PRN Reason: Shortness Of Breath AtorvaSTATin [Lipitor] 20 mg PO QHS #30 tab Butalb/Acetamin/Caff 50-325-40 [Fioricet] 1 - 2 tab PO Q8HR PRN #10 tablet PRN Reason: Headache Referrals: PRIMARY CARE, [Primary Care Provider] - 3-5 Days NA HAWK MD [Staff Physician] - 3-5 Days (Dr. Hawk is a primary physician. Please follow up with him to be established as a patient) Time of Disposition: 14:12
[2018-07-25 13:33] LABS: Creatine Kinase MB 2.3 ng/mL (0.0-4.0)
[2018-07-25 13:35] LABS: BUN/Creatinine Ratio 8; Blood Urea Nitrogen 11 mg/dL (9-20); Calcium 8.7 mg/dL (8.4-10.2); Hemolysis Index 13
--- NOTE | 2018-07-25 13:35 | XRay Report ---
AP CHEST: HISTORY: Shortness of breath AP view of the chest demonstrates a normal mediastinal and cardiac contour with clear lungs and normal bony and soft tissue structures. IMPRESSION: Unremarkable AP chest.
[2018-07-25 13:42] LABS: Hemoglobin 12.2 gm/dl (11.8-15.2); Mean Corpuscular HGB Conc 34 % (32-34); Mean Corpuscular Hemoglobin 32 pg (28-32); Mean Corpuscular Volume 94 fl (84-94); Platelet Count 120 K/mm3 (140-440); Red Blood Count 3.85 M/mm3 (3.65-5.03); Red Cell Distribution Width 14.3 % (13.2-15.2)
--- NOTE | 2018-07-25 14:08 | Cat Scan Report ---
CT HEAD WITHOUT CONTRAST: HISTORY: Headache. TECHNIQUE: Sequential CT images without contrast. FINDINGS: Images obtained show bilateral prominence of the sulci and ventricles. There are no abnormal intra- or extra-axial blood or fluid collections. There are no focal masses or evidence of mass effect. The vasquez white matter differentiation appears within normal limits. Regions of periventricular decreased attenuation are consistent with microangiopathic ischemic disease. The posterior fossa structures including the fourth ventricle, cerebellum, and brainstem appear normal. IMPRESSION: Evidence of atrophy and microangiopathic ischemic disease. No acute intracranial process noted. No change since 11/12/17.
== END 2018-07-25 14:28 | disposition home or self-care (01) ==
LOC: ED 11:23
DX: R51 Headache (principal); J44.9 Chronic obstructive pulmonary disease, unspecified; K21.9 Gastro-esophageal reflux disease without esophagitis; Z86.73 Personal history of transient ischemic attack (TIA), and cerebral infarction without residual deficits; Z98.49 Cataract extraction status, unspecified eye
CPT/HCPCS: 36415; 70450; 71045; 80048; 82550; 82553; 84484; 85025; 93005; 93010; 94640

== ENCOUNTER 2019-03-18 10:15 | Inpatient (IN) | payer MEDICARE ==
[2019-03-18 10:43] LABS: Basophils % (Auto) 0.6 % (0.0-1.8); Eosinophils # (Auto) 0.1 K/mm3 (0.0-0.4); Eosinophils % (Auto) 2.6 % (0.0-4.3); Hemoglobin 12.6 gm/dl (11.8-15.2); Lymphocytes # (Auto) 1.7 K/mm3 (1.2-5.4); Lymphocytes % (Auto) 40.8 % (13.4-35.0); Mean Corpuscular HGB Conc 33 % (32-34); Mean Corpuscular Volume 93 fl (84-94); Monocytes # (Auto) 0.4 K/mm3 (0.0-0.8); Monocytes % (Auto) 10.2 % (0.0-7.3); Platelet Count 168 K/mm3 (140-440); Red Blood Count 4.09 M/mm3 (3.65-5.03)
[2019-03-18 11:04] LABS: BUN/Creatinine Ratio 8; Blood Urea Nitrogen 13 mg/dL (9-20); Calcium 8.8 mg/dL (8.4-10.2); Hemolysis Index 9
--- NOTE | 2019-03-18 11:25 | XRay Report ---
ROUTINE CHEST, TWO VIEWS: HISTORY: Dyspnea. The trachea, heart, mediastinal contour, lung cisse and bony thorax are unremarkable. No change since 10/08/18. IMPRESSION: Unremarkable chest x-ray.
--- NOTE | 2019-03-18 12:26 | Emergency Department Report ---
ED Chest Pain HPI - General Chief Complaint: Dyspnea/Respdistress Stated Complaint: SOB/WEIGHT LOSS Time Seen by Provider: 03/18/19 12:09 Source: patient Mode of arrival: Ambulatory Limitations: No Limitations - History of Present Illness Initial Comments: 88-year-old -[place] male, with a past medical history of nonobstructive coronary artery disease, hypertension, previous CVA, hypertension, presents to the emergency department with a complaint of some left-sided chest pain, shortness of breath and back pain that has been going on since last night. He did not take anything for his symptoms prior to arrival today. He has both a primary care physician and a waste handling technician but is unable to give me the names at this time. He denies any tobacco or illicit drug use. No recent travel or sick contacts at home. The patient had a cardiac catheterization done here in 2015 that showed mild to moderate three-vessel nonobstructive coronary artery disease. He was also seen here in September of last year for some intermittent chest pains,was ruled out for GA at that time, and recommended outpatient GI follow-up. Severity scale (0 -10): 6 - Related Data Home Medications Medication Instructions Recorded Confirmed Last Taken Losartan Potassium 100 mg PO QDAY 07/14/16 03/18/19 11/01/17 Nebivolol (Nf) [Bystolic (Nf)] 5 mg PO QDAY 07/14/16 03/18/19 11/01/17 Pantoprazole [Protonix] 40 mg PO QDAY 03/18/19 03/18/19 Unknown Previous Rx's Medication Instructions Recorded Last Taken Type ALBUTEROL Inhaler (OR & NICU) 2 puff IH QID PRN #1 inhalation 07/25/18 Unknown Rx [ProAir HFA Inhaler] AtorvaSTATin [Lipitor] 20 mg PO QHS tablet 09/24/18 Unknown Rx Allergies Allergy/AdvReac Type Severity Reaction Status Date / Time No Known Allergies Allergy Verified 03/18/19 10:18 Heart Score - HEART Score History: Moderately suspicious EKG: Normal Age: > 65 Risk factors: > 3 risk factors or hx of atherosclerotic disease Troponin: < normal limit HEART Score: 5 - Critical Actions Critical Actions: 4-6 pts:12-16.6% risk of adverse cardiac event. Should be admitted ED Review of Systems ROS: Stated complaint: SOB/WEIGHT LOSS Other details as noted in HPI Constitutional: denies: chills, fever Eyes: denies: eye pain, vision change ENT: denies: ear pain, throat pain Respiratory: shortness of breath. denies: cough Cardiovascular: chest pain. denies: palpitations Gastrointestinal: denies: abdominal pain, vomiting Genitourinary: denies: dysuria, discharge Musculoskeletal: back pain. denies: arthralgia Skin: denies: rash, lesions Neurological: denies: headache, weakness ED Past Medical Hx - Past Medical History Previous Medical History?: Yes Hx Hypertension: No Hx CVA: Yes Hx Heart Attack/AMI: Yes Hx GERD: No Hx COPD: Yes (no home O2) Hx HIV: No - Surgical History Past Surgical History?: Yes Additional Surgical History: Cataract, neck surgery - Social History Smoking Status: Never Smoker Substance Use Type: None - Medications Home Medications: Home Medications Medication Instructions Recorded Confirmed Last Taken Type Losartan Potassium 100 mg PO QDAY 07/14/16 03/18/19 11/01/17 History Nebivolol (Nf) [Bystolic (Nf)] 5 mg PO QDAY 07/14/16 03/18/19 11/01/17 History ALBUTEROL Inhaler (OR & NICU) 2 puff IH QID PRN #1 inhalation 07/25/18 03/18/19 Unknown Rx [ProAir HFA Inhaler] AtorvaSTATin [Lipitor] 20 mg PO QHS tablet 09/24/18 03/18/19 Unknown Rx Pantoprazole [Protonix] 40 mg PO QDAY 03/18/19 03/18/19 Unknown History ED Physical Exam - General Limitations: No Limitations - Other Other exam information: GENERAL: The patient is well-developed well-nourished. HENT: Normocephalic. Atraumatic. Patient has moist mucous membranes. EYES: Extraocular motions are intact. NECK: Supple. Trachea is midline. CHEST/LUNGS: Clear to auscultation. There is no respiratory distress noted. HEART/CARDIOVASCULAR: Regular. There is no tachycardia. There is no murmur. ABDOMEN: Abdomen is soft, nontender. Patient has normal bowel sounds. There is no abdominal distention. SKIN: Skin is warm and dry. NEURO: The patient is awake, alert, and cooperative. The patient has no focal neurologic deficits. The patient has normal speech. MUSCULOSKELETAL: There is no tenderness or deformity. There is no limitation range of motion. There is no evidence of acute injury. ED Course Vital Signs 03/18/19 03/18/19 10:32 14:22 Temperature 97.4 F L Pulse Rate 84 85 Respiratory 20 16 Rate Blood Pressure 142/66 160/75 [Left] O2 Sat by Pulse 97 95 Oximetry RAVI score - Arvi Score Age > 65: (1) Yes Aspirin use within the Past 7 Days: (0) No 3 or more CAD Risk Factors: (1) Yes 2 or more Angina events in past 24 hrs: (1) Yes Known CAD with more than 50% Stenosis: (0) No Elevated Cardiac Markers: (0) No ST Deviation Greater than 0.5mm: (0) No RAVI Score: 3 ED Medical Decision Making - Lab Data Result diagrams: 03/18/19 10:32 03/18/19 10:32 - EKG Data -: EKG Interpreted by Me EKG shows normal: sinus rhythm (PACs), axis, intervals, QRS complexes, ST-T waves Rate: normal - EKG Data When compared to previous EKG there are: no significant change Interpretation: normal EKG, unchanged when compared t (10/08/19) - Radiology Data Radiology results: image reviewed interpreted by me: Chest x-ray does not show any acute process. There are no pleural effusions, obvious pneumonia and there is no pneumothorax. - Medical Decision Making This patient presents with some chest pain or shortness of breath since last night. He has a history of coronary artery disease, previous stroke. It is unknown whether he has ever had a stress test. EKG does not show any signs of ST elevation GA. Chest x-ray does not show any acute process. His labs and mostly unremarkable with a small including a negative troponin and negative d- dimer. However given his history, his age, and unknown stress test or cardiac cath history, the patient will be admitted to the hospital for further evaluation and treatment, cardiac risk stratification. The patient was except for admission by the hospitalist, Dr. Sanders. - Differential Diagnosis GA, PE, CHF, Pneumonia, Costochondritis, GERD Critical Care Time: No Critical care attestation.: If time is entered above; I have spent that time in minutes in the direct care of this critically ill patient, excluding procedure time. ED Disposition Clinical Impression: Acute chest pain, History of coronary artery disease Disposition: [id number] OP ADMIT IP TO THIS HOSP Is pt being admited?: Yes Condition: Fair Instructions: Chest Pain (ED) Referrals: DHEERAJ MARCUS MD [Primary Care Provider] - 3-5 Days
--- NOTE | 2019-03-18 14:03 | Cat Scan Report ---
CT CHEST WITHOUT CONTRAST: HISTORY: chest pain. COMPARISON: The CTA chest dated 09/22/18. TECHNIQUE: Helical CT in 1.25mm intervals without IV contrast. Sagittal and coronal reformatted images. FINDINGS: Thyroid gland: Normal. Tracheobronchial tree: Normal. Esophagus: Normal. Heart: The heart is normal size. Moderate three-vessel coronary artery calcifications are noted. Pericardium: Normal. Mediastinum: Calcified mediastinal lymph nodes are noted consistent with chronic granulomatous disease. Lung Lux: Within normal limits. A few scattered calcified granulomas are noted bilaterally. Pleural Spaces: Normal. Musculoskeletal: Mild thoracic spondylosis. No fracture or suspicious bony lesion. IMPRESSION: No acute cardiopulmonary process. Evidence of chronic granulomatous disease.
--- NOTE | 2019-03-18 14:29 | Nuclear Medicine Report ---
LUNG SCAN, VENTILATION AND PERFUSION: History: Chest pain, shortness of breath. Technique: 5mci of Tc99m MAA was infused for the perfusion images. 15mci XE 133 gas was inhaled for the ventilatory images. Correlation is made with a chest x-ray dated 03/18/19. Findings: Inhalation of Xenon gas demonstrates a normal distribution of the activity throughout both lungs. The wash out phases mild retention of the radiotracer bilaterally suggestive of obstructive pulmonary disease. After injection of Technetium 99m macroaggregated albumin gamma camera imaging of the lungs in multiple projections demonstrates normal pulmonary contours with a homogeneous distribution of activity. No focal areas of perfusion deficiency are identified. IMPRESSION: Low probability for pulmonary embolus. Findings suggestive of mild obstructive pulmonary disease.
[2019-03-18] MEDS ORDERED: MORPHINE IV ONE (14:42)
[2019-03-18] MEDS ORDERED: BABY ASPIRIN PO ONE (14:42)
[2019-03-18] MEDS ORDERED: PROAIR IH PRN (21:38)
[2019-03-18] MEDS ORDERED: MORPHINE IV PRN (21:38)
[2019-03-18] MEDS ORDERED: ZOFRAN IV PRN (21:38)
[2019-03-18] MEDS ORDERED: TYLENOL PO PRN (21:38)
[2019-03-18] MEDS ORDERED: PERCOCET 5/325 PO PRN (21:38)
[2019-03-18] MEDS ORDERED: SODIUM CHLORIDE FLUSH SYRINGE 10 ML IV PRN (21:38)
[2019-03-18] MEDS ORDERED: NEBIVOLOL 5 MG PO SCH (21:45)
[2019-03-18] MEDS ORDERED: NON-FORMULARY (Losartan Potassium [Losartan Potassium] 100 MG) PO SCH (21:45)
[2019-03-18] MEDS ORDERED: NACL 0.9% 1000 ML 1,000 ML IV SCH (22:00)
[2019-03-18] MEDS ORDERED: PEPCID PO SCH (22:00)
[2019-03-18] MEDS ORDERED: COZAAR PO SCH (22:00)
[2019-03-18] MEDS ORDERED: PROVENTIL IH PRN (22:24)
[2019-03-19] MEDS: TOPROL XL PO SCH ×2 (03:38→09:18)
[2019-03-19] MEDS: PROTONIX PO SCH ×2 (03:38→09:15)
[2019-03-19] MEDS: SODIUM CHLORIDE FLUSH SYRINGE 10 ML IV SCH ×2 (03:38→09:15)
--- NOTE | 2019-03-19 05:20 | History and Physical Report ---
History of Present Illness Date of examination: 03/18/19 Date of admission: 03/18/19 15:12 Chief complaint: Chest Pain for 1 day -since last night History of present illness: 88-year-old -Citizen Of [place] male, with past medical history of coronary artery disease, hypertension annd previous CVA to the emergency department with a complaint of left-sided chest pain, shortness of breath and back pain since last night.No diaphoresis.Some SOB present.Radiation to back present. No recent travel or sick contacts at home. The patient had a cardiac catheterization done here in 2015 that showed mild to moderate three-vessel nonobstructive coronary artery disease. He was also seen here in September of last year for some intermittent chest pains and was ruled out for CA at that time--recommended outpatient follow-up. Past Medical History Htn Cad HLD Gerd Surgical History Past Surgical History?: Yes Additional Surgical History: Cataract, neck surgery Social History Smoking Status: Never Smoker Substance Use Type: None Family History Htn Cad Medications Home Medications: Home Medications Medication Instructions Recorded Confirmed Last Taken Type Losartan Potassium 100 mg PO QDAY 07/14/16 03/18/19 11/01/17 History Nebivolol (Nf) [Bystolic (Nf)] 5 mg PO QDAY 07/14/16 03/18/19 11/01/17 History ALBUTEROL Inhaler (OR & NICU) 2 puff IH QID PRN #1 inhalation 07/25/18 03/18/19 Unknown Rx [ProAir HFA Inhaler] AtorvaSTATin [Lipitor] 20 mg PO QHS tablet 09/24/18 03/18/19 Unknown Rx Pantoprazole [Protonix] 40 mg PO QDAY 03/18/19 03/18/19 Unknown History Review of Systems ROS: Stated complaint: SOB/WEIGHT LOSS Other details as noted in HPI Constitutional: denies: chills, fever Eyes: denies: eye pain, vision change ENT: denies: ear pain, throat pain Respiratory: shortness of breath. denies: cough Cardiovascular: chest pain. denies: palpitations Gastrointestinal: denies: abdominal pain, vomiting Genitourinary: denies: dysuria, discharge Musculoskeletal: back pain. denies: arthralgia Skin: denies: rash, lesions Neurological: denies: headache, weakness Medications and Allergies Allergies Allergy/AdvReac Type Severity Reaction Status Date / Time No Known Allergies Allergy Verified 03/18/19 10:18 Home Medications Medication Instructions Recorded Confirmed Last Taken Type Losartan Potassium 100 mg PO QDAY 07/14/16 03/18/19 11/01/17 History Nebivolol (Nf) [Bystolic (Nf)] 5 mg PO QDAY 07/14/16 03/18/19 11/01/17 History ALBUTEROL Inhaler (OR & NICU) 2 puff IH QID PRN #1 inhalation 07/25/18 03/18/19 Unknown Rx [ProAir HFA Inhaler] AtorvaSTATin [Lipitor] 20 mg PO QHS tablet 09/24/18 03/18/19 Unknown Rx Pantoprazole [Protonix] 40 mg PO QDAY 03/18/19 03/18/19 Unknown History Active Meds: Active Medications Acetaminophen (Tylenol) 650 mg PO Q4H PRN PRN Reason: Pain MILD(1-3)/Fever >100.5/HERNANDEZ Albuterol (Proventil) 2.5 mg IH Q4HRT PRN PRN Reason: Shortness Of Breath Atorvastatin Calcium (Lipitor) 20 mg PO QHS [facility] Last Admin: 03/19/19 03:45 Dose: 20 mg Documented by: Sodium Chloride (Nacl 0.9% 1000 Ml) 1,000 mls @ 42 mls/hr IV DIRECT [facility] Losartan Potassium (Cozaar) 100 mg PO QDAY [facility] Last Admin: 03/19/19 03:37 Dose: Not Given Documented by: Metoprolol Succinate (Toprol Xl) 50 mg PO QDAY [facility] Last Admin: 03/19/19 03:38 Dose: Not Given Documented by: Morphine Sulfate (Morphine) 2 mg IV Q4H PRN PRN Reason: Pain, Moderate (4-6) Ondansetron HCl (Zofran) 4 mg IV Q8H PRN PRN Reason: Nausea And Vomiting Oxycodone/Acetaminophen (Percocet 5/325) 1 tab PO Q6H PRN PRN Reason: Pain, Moderate (4-6) Last Admin: 03/19/19 03:40 Dose: 1 tab Documented by: Pantoprazole Sodium (Protonix) 40 mg PO QDAY [facility] Last Admin: 03/19/19 03:38 Dose: Not Given Documented by: Sodium Chloride (Sodium Chloride Flush Syringe 10 Ml) 10 ml IV BID [facility] Last Admin: 03/19/19 03:38 Dose: Not Given Documented by: Sodium Chloride (Sodium Chloride Flush Syringe 10 Ml) 10 ml IV PRN PRN PRN Reason: LINE FLUSH Exam - Constitutional Vitals: Temp Pulse Resp BP Pulse Ox 97.7 F 60 17 127/76 99 03/19/19 03:59 03/19/19 03:59 03/19/19 03:59 03/19/19 03:59 03/19/19 03:59 General appearance: Present: no acute distress, well-nourished - EENT Eyes: Present: PERRL ENT: hearing intact, clear oral mucosa - Neck Neck: Present: supple, normal ROM - Respiratory Respiratory effort: normal Respiratory: bilateral: CTA - Cardiovascular Heart rate: 78 Rhythm: regular Heart Sounds: Present: S1 & S2. Absent: rub, click - Extremities Extremities: no ischemia, pulses intact, pulses symmetrical, No edema Peripheral Pulses: within normal limits - Abdominal General gastrointestinal: Present: soft, non-tender, non-distended, normal bowel sounds Male genitourinary: Present: normal - Rectal Rectal Exam: deferred - Integumentary Integumentary: Present: clear, warm, dry - Musculoskeletal Musculoskeletal: gait normal, strength equal bilaterally - Psychiatric Psychiatric: appropriate mood/affect, intact judgment & insight - Neurologic Neurologic: CNII-XII intact, moves all extremities - Allied Health Allied health notes reviewed: nursing, case management Results - Labs CBC & Chem 7: 03/18/19 10:32 03/18/19 10:32 Labs: Laboratory Last Values WBC 4.1 K/mm3 (4.5-11.0) L 03/18/19 10:32 RBC 4.09 M/mm3 (3.65-5.03) 03/18/19 10:32 Hgb 12.6 gm/dl (11.8-15.2) 03/18/19 10:32 Hct 38.0 % (35.5-45.6) 03/18/19 10:32 MCV 93 fl (84-94) 03/18/19 10:32 MCH 31 pg (28-32) 03/18/19 10:32 MCHC 33 % (32-34) 03/18/19 10:32 RDW 15.0 % (13.2-15.2) 03/18/19 10:32 Plt Count 168 K/mm3 (140-440) 03/18/19 10:32 Lymph % (Auto) 40.8 % (13.4-35.0) H 03/18/19 10:32 [place] % (Auto) 10.2 % (0.0-7.3) H 03/18/19 10:32 Eos % (Auto) 2.6 % (0.0-4.3) 03/18/19 10:32 Baso % (Auto) 0.6 % (0.0-1.8) 03/18/19 10:32 Lymph # 1.7 K/mm3 (1.2-5.4) 03/18/19 10:32 [place] # 0.4 K/mm3 (0.0-0.8) 03/18/19 10:32 Eos # 0.1 K/mm3 (0.0-0.4) 03/18/19 10:32 Baso # 0.0 K/mm3 (0.0-0.1) 03/18/19 10:32 Seg Neutrophils % 45.8 % (40.0-70.0) 03/18/19 10:32 Seg Neutrophils # 1.9 K/mm3 (1.8-7.7) 03/18/19 10:32 1932.83 ng/mlDDU (0-234) H 03/18/19 12:26 Sodium 141 mmol/L (137-145) 03/18/19 10:32 Potassium 4.9 mmol/L (3.6-5.0) 03/18/19 10:32 Chloride 104.2 mmol/L (98-107) 03/18/19 10:32 Carbon Dioxide 23 mmol/L (22-30) 03/18/19 10:32 19 mmol/L 03/18/19 10:32 BUN 13 mg/dL (9-20) 03/18/19 10:32 1.6 mg/dL (0.8-1.5) H 03/18/19 10:32 Estimated GFR 50 ml/min 03/18/19 10:32 8 % 03/18/19 10:32 Glucose 108 mg/dL (75-100) H 03/18/19 10:32 5.4 % (4-6) 03/18/19 21:44 Calcium 8.8 mg/dL (8.4-10.2) 03/18/19 10:32 < 0.010 ng/mL (0.00-0.029) 03/18/19 23:39 NT-Pro-B Natriuret Pep 438.3 pg/mL (0-900) 03/18/19 10:32 Short CBC 03/18/19 Range/Units 10:32 WBC 4.1 L (4.5-11.0) K/mm3 Hgb 12.6 (11.8-15.2) gm/dl Hct 38.0 (35.5-45.6) % Plt Count 168 (140-440) K/mm3 BMP 03/18/19 10:32 Sodium 141 Potassium 4.9 Chloride 104.2 Carbon Dioxide 23 BUN 13 Creatinine 1.6 H Glucose 108 H Calcium 8.8 Cardiac Enzymes 03/18/19 03/18/19 Range/Units 10:32 23:39 Troponin T < 0.010 < 0.010 (0.00-0.029) ng/mL - Imaging and Cardiology EKG: report reviewed (NSR 76 atrial premature complexes) Chest x-ray: report reviewed (NAF) CT scan - chest: report reviewed (NAF) Imaging and Cardiology: V/q scan IMPRESSION: Low probability for pulmonary embolus. Findings suggestive of mild obstructive pulmonary disease. Assessment and Plan Advance Directives: Yes (Full code) VTE prophylaxis?: Chemical Plan of care discussed with patient/family: Yes - Patient Problems (1) Chest pain Current Visit: No Status: Acute Qualifiers: Chest pain type: unspecified Qualified Code(s): R07.9 - Chest pain, unspecified Plan to address problem: Chest pain r/o CA protocol Serial troponins and Lexiscan in AM Costochondritis and GERD in Differential diagnosis (2) Coronary artery disease Current Visit: No Status: Chronic Qualifiers: Coronary Disease-Associated Artery/Lesion type: [place] artery [place] vs. transplanted heart: [place] heart Associated angina: with stable angina Qualified Code(s): I25.118 - Atherosclerotic heart disease of [place] coronary artery with other forms of angina pectoris Plan to address problem: Cont ASA (3) HTN (hypertension) Current Visit: No Status: Chronic Qualifiers: Hypertension type: essential hypertension Qualified Code(s): I10 - Essential (primary) hypertension Plan to address problem: Cont antihypertensives (4) HLD (hyperlipidemia) Current Visit: Yes Status: Chronic Qualifiers: Hyperlipidemia type: mixed hyperlipidemia Qualified Code(s): E78.2 - Mixed hyperlipidemia Plan to address problem: Cont statins (5) GERD (gastroesophageal reflux disease) Current Visit: Yes Status: Chronic Qualifiers: Esophagitis presence: without esophagitis Qualified Code(s): K21.9 - Gastro-esophageal reflux disease without esophagitis Plan to address problem: COnt PPI's (6) Glaucoma Current Visit: Yes Status: Chronic Qualifiers: Glaucoma type: unspecified Laterality: bilateral Qualified Code(s): H40.9 - Unspecified glaucoma Plan to address problem: Cont Latanoprost eye drops (7) COPD (chronic obstructive pulmonary disease) Current Visit: Yes Status: Chronic Qualifiers: Emphysema type: unspecified Plan to address problem: Cont duonebs prn (8) DVT prophylaxis Current Visit: No Status: Acute Plan to address problem: On Lovenox and GI prophylaxis
[2019-03-19] MEDS ORDERED: DUONEB *Not for PRN Use IH (05:30)
[2019-03-19 05:36] LABS: Basophils % (Auto) 0.9 % (0.0-1.8); Eosinophils # (Auto) 0.2 K/mm3 (0.0-0.4); Eosinophils % (Auto) 4.5 % (0.0-4.3); Hematocrit 36.1 % (35.5-45.6); Hemoglobin 12.1 gm/dl (11.8-15.2); Lymphocytes # (Auto) 1.5 K/mm3 (1.2-5.4); Mean Corpuscular HGB Conc 34 % (32-34); Mean Corpuscular Volume 93 fl (84-94); Monocytes # (Auto) 0.3 K/mm3 (0.0-0.8); Monocytes % (Auto) 9.5 % (0.0-7.3); Platelet Count 145 K/mm3 (140-440); Red Cell Distribution Width 14.7 % (13.2-15.2)
[2019-03-19] MEDS ORDERED: NACL 0.9% 1000 ML 1,000 ML IV SCH (06:00)
[2019-03-19 06:04] LABS: Alanine Aminotransferase 11 units/L (7-56); Albumin 3.5 g/dL (3.9-5); BUN/Creatinine Ratio 11; Blood Urea Nitrogen 14 mg/dL (9-20); Calcium 8.8 mg/dL (8.4-10.2); Hemolysis Index 19
[2019-03-19] MEDS ORDERED: PROVENTIL IH PRN (06:10)
[2019-03-19] MEDS ORDERED: KIONEX PO PRN (07:51)
--- NOTE | 2019-03-19 12:17 | Consultation ---
History of Present Illness Consult date: 03/19/19 Consult reason: chest pain History of present illness: This is an 88 year old male with a cardiac history of mild to moderate non- obstructive coronary artery disease with a well preserved ejection fraction documented by cardiac catheterization done 3 years ago. Patient had no recent cardiac workup. Patient presented to this hospital with complaints of shortness of breath, back pain and some chest discomfort. Ventilation perfusion scan reports a low probability for PE. Cardiac enzymes were normal and his ECG is sinus rhythm with occasional premature atrial complexes. No acute ischemic changes. Patient was admitted for further evaluation and is planned for a stress thallium test tomorrow. A cardiac consultation has been requested for further evaluation of chest pain. Medications and Allergies Allergies Allergy/AdvReac Type Severity Reaction Status Date / Time No Known Allergies Allergy Verified 03/18/19 10:18 Home Medications Medication Instructions Recorded Confirmed Last Taken Type Losartan Potassium 100 mg PO QDAY 07/14/16 03/18/19 11/01/17 History Nebivolol (Nf) [Bystolic (Nf)] 5 mg PO QDAY 07/14/16 03/18/19 11/01/17 History ALBUTEROL Inhaler (OR & NICU) 2 puff IH QID PRN #1 inhalation 07/25/18 03/18/19 Unknown Rx [ProAir HFA Inhaler] AtorvaSTATin [Lipitor] 20 mg PO QHS tablet 09/24/18 03/18/19 Unknown Rx Pantoprazole [Protonix] 40 mg PO QDAY 03/18/19 03/18/19 Unknown History Active Meds: Active Medications Acetaminophen (Tylenol) 650 mg PO Q4H PRN PRN Reason: Pain MILD(1-3)/Fever >100.5/HERNANDEZ Albuterol (Proventil) 2.5 mg IH Q3HRT PRN PRN Reason: Wheezing/ SOB Atorvastatin Calcium (Lipitor) 20 mg PO QHS [facility] Last Admin: 03/19/19 03:45 Dose: 20 mg Documented by: Enoxaparin Sodium (Lovenox) 40 mg SUB-Q QDAY@2200 [facility]ENDING [facility] TO [facility] Sodium Chloride (Nacl 0.9% 1000 Ml) 1,000 mls @ 75 mls/hr IV DIRECT [facility]IL Latanoprost (Latanoprost 0.005%) 1 drops OU QPM [facility]ENDING [facility] TO [facility] Metoprolol Succinate (Toprol Xl) 50 mg PO QDAY [facility]ING [facility] Last Admin: 03/19/19 09:18 Dose: 50 mg Documented by: Morphine Sulfate (Morphine) 2 mg IV Q4H PRN PRN Reason: Pain, Moderate (4-6) Ondansetron HCl (Zofran) 4 mg IV Q8H PRN PRN Reason: Nausea And Vomiting Oxycodone/Acetaminophen (Percocet 5/325) 1 tab PO Q6H PRN PRN Reason: Pain, Moderate (4-6) Last Admin: 03/19/19 03:40 Dose: 1 tab Documented by: Pantoprazole Sodium (Protonix) 40 mg PO QDAY [facility] Last Admin: 03/19/19 09:15 Dose: 40 mg Documented by: Sodium Chloride (Sodium Chloride Flush Syringe 10 Ml) 10 ml IV BID [facility] Last Admin: 03/19/19 09:15 Dose: 10 ml Documented by: Sodium Chloride (Sodium Chloride Flush Syringe 10 Ml) 10 ml IV PRN PRN PRN Reason: LINE FLUSH Sodium Polystyrene Sulfonate (Kionex) 15 gm PO Q6H PRN PRN Reason: Hyperkalemia Last Admin: 03/19/19 09:15 Dose: 15 gm Documented by: Physical Examination Vital Signs Temp Pulse Resp BP Pulse Ox 97.4 F L 84 20 142/66 97 03/18/19 10:32 03/18/19 10:32 03/18/19 10:32 03/18/19 10:32 03/18/19 10:32 General appearance: no acute distress HEENT: Positive: PERRL Neck: Positive: trachea midline Cardiac: Positive: Reg Rate and Rhythm Lungs: Positive: Decreased Breath Sounds Neuro: Positive: Grossly Intact Extremities: Absent: edema Results 03/19/19 05:28 03/19/19 05:28 Cardiac Enzymes 03/19/19 Range/Units 05:28 AST 14 (5-40) units/L CBC 03/19/19 Range/Units 05:28 WBC 3.5 L (4.5-11.0) K/mm3 RBC 3.90 (3.65-5.03) M/mm3 Hgb 12.1 (11.8-15.2) gm/dl Hct 36.1 (35.5-45.6) % Plt Count 145 (140-440) K/mm3 Lymph # 1.5 (1.2-5.4) K/mm3 [place] # 0.3 (0.0-0.8) K/mm3 Eos # 0.2 (0.0-0.4) K/mm3 Baso # 0.0 (0.0-0.1) K/mm3 Comprehensive Metabolic Panel 03/19/19 Range/Units 05:28 Sodium 140 (137-145) mmol/L Potassium 5.2 H (3.6-5.0) mmol/L Chloride 105.3 (98-107) mmol/L Carbon Dioxide 25 (22-30) mmol/L BUN 14 (9-20) mg/dL Creatinine 1.3 (0.8-1.5) mg/dL Glucose 103 H (75-100) mg/dL Calcium 8.8 (8.4-10.2) mg/dL AST 14 (5-40) units/L ALT 11 (7-56) units/L Alkaline Phosphatase 63 (35-129) units/L Total Protein 5.7 L (6.3-8.2) g/dL Albumin 3.5 L (3.9-5) g/dL Assessment and Plan Chest pain Hypertension [facility] 2016: mild to moderate non-obstructive coronary artery disease. EF 55-65% by echo 10/2017. Agree with persantine thallium stress test tomorrow.
--- NOTE | 2019-03-19 15:14 | Progress Note ---
Assessment and Plan /Chest pain Chest pain r/o MN protocol Serial troponins and Lexiscan in AM Costochondritis and GERD in Differential diagnosis /Hyperkalemia, give 1 dose of Kayexalate hold losartan repeat BMP in the morning /AK I, could be due to vasomotor nephropathy versus medication induced continue to monitor BMP, hold ACEI for now / Coronary artery disease Cont ASA, statin / HTN (hypertension) Cont antihypertensives, hold losartan for hyperkalemia / HLD (hyperlipidemia) Cont statins / GERD (gastroesophageal reflux disease) COnt PPI's / Glaucoma Cont Latanoprost eye drops / COPD (chronic obstructive pulmonary disease) Cont duonebs prn / DVT prophylaxis On Lovenox and GI prophylaxis Brief History: 88-year-old -Malagasy male, with past medical history of coronary artery disease, hypertension annd previous CVA to the emergency department with a complaint of left-sided chest pain, shortness of breath and back pain for 1 day. The patient had a cardiac catheterization done here in 2015 that showed mild to moderate three-vessel nonobstructive coronary artery disease. He was also seen here in September of last year for some intermittent chest pains and was ruled out for [facility] at that time--recommended outpatient follow-up. He was admitted for further evaluation and management. Radiological data: VQ scan: Low probably due for pulmonary embolus, findings suggestive of mild obstructive pulmonary disease. Hospitalist Physical exam: GENERAL: well-developed and well-nourished elderly male lying on bed appeared to be in no discomfort. HEENT: Normocephalic. Atraumatic. No conjunctival congestion or icterus. Patient has moist mucous membranes. NECK: Supple. Trachea midline. CHEST/LUNGS: Clear to auscultated bilaterally, breathing nonlabored. No wheezes crackles or rhonchi. HEART/CARDIOVASCULAR: Regular in rate and rhythm. S1 and S2 positive. ABDOMEN: Abdomen is soft, nontender. Patient has normal bowel sounds. SKIN: There is no rash. Warm and dry. NEURO: No focal motor deficit. Follows command. MUSCULOSKELETAL: No joint effusion or tenderness. EXTRIMITY: No edema, no cyanosis or clubbing. PSYCH: Cooperative. Subjective Date of service: 03/19/19 Interval history: Patient seen and examined. Medical records and medication list reviewed. No acute event overnight noted by the RN. Patient denies any difficulty breathing but complains of intermittent chest pain. Patient is tolerating diet. Discussed plan of care at bedside with patient. Objective - Constitutional Vitals: Vital Signs - 12hr 03/19/19 03/19/19 03/19/19 03:37 03:38 03:59 Temperature 97.7 F Pulse Rate 55 L 55 L 60 Respiratory 17 Rate Blood Pressure 108/64 127/76 O2 Sat by Pulse 99 Oximetry 03/19/19 03/19/19 03/19/19 05:39 07:35 11:56 Temperature 97.7 F 98.0 F Pulse Rate 58 L Respiratory 18 18 Rate Blood Pressure 138/64 118/51 O2 Sat by Pulse Oximetry 03/19/19 12:00 Temperature Pulse Rate Respiratory 18 Rate Blood Pressure O2 Sat by Pulse Oximetry - Labs CBC & Chem 7: 03/19/19 05:28 03/19/19 05:28 Labs: Abnormal lab results 03/19/19 03/19/19 Range/Units 05:28 05:28 WBC 3.5 L (4.5-11.0) K/mm3 Lymph % (Auto) 43.0 H (13.4-35.0) % [place] % (Auto) 9.5 H (0.0-7.3) % Eos % (Auto) 4.5 H (0.0-4.3) % Seg Neutrophils # 1.5 L (1.8-7.7) K/mm3 Potassium 5.2 H (3.6-5.0) mmol/L Glucose 103 H (75-100) mg/dL Total Protein 5.7 L (6.3-8.2) g/dL Albumin 3.5 L (3.9-5) g/dL
[2019-03-19] MEDS ORDERED: LATANOPROST 0.005% OU SCH (18:00)
[2019-03-19] MEDS ORDERED: LOVENOX SUB-Q SCH (22:00)
[2019-03-20] MEDS: SODIUM CHLORIDE FLUSH SYRINGE 10 ML IV SCH ×2 (01:42→10:54)
[2019-03-20 06:17] LABS: BUN/Creatinine Ratio 13; Blood Urea Nitrogen 15 mg/dL (9-20); Calcium 8.8 mg/dL (8.4-10.2); Hemolysis Index 13
[2019-03-20] MEDS ORDERED: LEXISCAN IV ONE ×2 (08:50→08:54)
[2019-03-20 10:13] VITALS: BP 158/72
[2019-03-20] MEDS: TOPROL XL PO SCH (10:54)
[2019-03-20] MEDS: PROTONIX PO SCH (10:54)
--- NOTE | 2019-03-20 11:23 | Progress Note ---
Assessment and Plan Chest Pain MPI this admission, no ischemia, normal LVEF Non-obstructive CAD by cath 2015 Systemic Hypertension Recommendations: Continue medical therapy with aspirin, statins No further cardiac work-up is needed Subjective Date of service: 03/20/19 Principal diagnosis: Chest Pain Interval history: Lexiscan done today without complications He denies chest pain No events on tele Objective Vital Signs Temp Pulse Resp BP Pulse Ox 03/20/19 09:17 158/72 03/20/19 09:15 154/73 03/20/19 09:13 137/68 03/20/19 09:11 146/70 03/20/19 09:09 148/69 03/20/19 08:54 139/63 03/20/19 04:25 50 L 03/20/19 04:23 98.0 F 52 L 18 129/75 99 03/20/19 00:00 22 03/19/19 23:37 98.4 F 62 17 144/75 96 03/19/19 21:00 55 L 03/19/19 19:29 97.4 F L 55 L 16 154/63 95 03/19/19 16:41 98.2 F 18 114/69 03/19/19 12:00 18 03/19/19 11:56 98.0 F 18 118/51 - Physical Examination HEENT: Positive: PERRL Neck: Positive: trachea midline Cardiac: Positive: Reg Rate and Rhythm Lungs: Positive: Normal Exam Neuro: Positive: Grossly Intact Extremities: Absent: edema - Labs and Meds Comprehensive Metabolic Panel 03/20/19 Range/Units 05:24 Sodium 140 (137-145) mmol/L Potassium 4.5 (3.6-5.0) mmol/L Chloride 104.5 (98-107) mmol/L Carbon Dioxide 24 (22-30) mmol/L BUN 15 (9-20) mg/dL Creatinine 1.2 (0.8-1.5) mg/dL Glucose 97 (75-100) mg/dL Calcium 8.8 (8.4-10.2) mg/dL - Imaging and Cardiology EKG: report reviewed (NSR 76 atrial premature complexes)
--- NOTE | 2019-03-20 12:36 | Discharge Summary ---
Providers - Providers Date of Admission: 03/19/19 08:20 Date of discharge: 03/20/19 Attending physician: JOY FORMAN 03/18/19 21:38 Consult to Physician [CONS] Routine Comment: Consulting Provider: YANELIS NELSON Physician Instructions: Reason For Exam: Chest pain [facility] Condition: Fair Hospital course: Brief History: 88-year-old -[place] male, with past medical history of coronary artery disease, hypertension annd previous CVA to the emergency department with a complaint of left-sided chest pain, shortness of breath and back pain for 1 day. The patient had a cardiac catheterization done here in 2015 that showed mild to moderate three-vessel nonobstructive coronary artery disease. He was also seen here in September of last year for some intermittent chest pains and was ruled out for [facility] at that time--recommended outpatient follow-up. He was admitted for further evaluation and management. Radiological data: VQ scan: Low probably due for pulmonary embolus, findings suggestive of mild obstructive pulmonary disease. CT chest: No infiltrates, chronic renal matter changes MPS stress tests: No ischemia Discharge diagnosis and management: /Chest pain likely from GERD negative troponins and Lexiscan in AM showed no ischemia We'll continue outpatient follow-up, discharged on PPI will continue outpt followup /Hyperkalemia, s/p 1 dose of Kayexalate, held losartan, resolved /AK I, could be due to vasomotor nephropathy versus medication induced continue to monitor BMP, hold ACEI for now / Coronary artery disease Cont ASA, statin / HTN (hypertension) Cont antihypertensives, hold losartan for hyperkalemia / HLD (hyperlipidemia) Cont statins / GERD (gastroesophageal reflux disease) COnt PPI's / Glaucoma Cont Latanoprost eye drops / COPD (chronic obstructive pulmonary disease) Cont duonebs prn / DVT prophylaxis On Lovenox and GI prophylaxis Hospitalist Physical exam: GENERAL: well-developed and well-nourished elderly male lying on bed appeared to be in no discomfort. HEENT: Normocephalic. Atraumatic. No conjunctival congestion or icterus. Patient has moist mucous membranes. NECK: Supple. Trachea midline. CHEST/LUNGS: Clear to auscultated bilaterally, breathing nonlabored. No wheezes crackles or rhonchi. HEART/CARDIOVASCULAR: Regular in rate and rhythm. S1 and S2 positive. ABDOMEN: Abdomen is soft, nontender. Patient has normal bowel sounds. SKIN: There is no rash. Warm and dry. NEURO: No focal motor deficit. Follows command. MUSCULOSKELETAL: No joint effusion or tenderness. EXTRIMITY: No edema, no cyanosis or clubbing. PSYCH: Cooperative. Disposition: DC-01 TO HOME OR SELFCARE Time spent for discharge: 35 minutes Core Measure Documentation - Palliative Care Palliative Care/ Comfort Measures: Not Applicable - Core Measures Any of the following diagnoses?: none Exam - Constitutional Vitals: Temp Pulse Resp BP Pulse Ox 98.0 F 50 L 18 158/72 99 03/20/19 04:23 03/20/19 04:25 03/20/19 04:23 03/20/19 09:17 03/20/19 04:23 Plan Activity: advance as tolerated Weight Bearing Status: Non-Weight Bearing Diet: low fat, low salt Special Instructions: record daily BP diary Follow up with: CASSIE HUGGINSDAYTONA BEACH MD ANGEL [Primary Care Provider] - 3-5 Days Prescriptions: Aspirin EC 81 mg PO QDAY #30 tablet. amLODIPine [Norvasc] 5 mg PO QDAY #30 tablet Pantoprazole [Protonix TAB] 40 mg PO QDAY #30 tablet
[2019-03-20] MEDS ORDERED: NORVASC PO SCH (13:00)
--- NOTE | 2019-03-21 01:46 | Treadmill Report ---
INDICATION: Chest pain. ORDERING PHYSICIAN: Dr. Colton Auguste. FINDINGS: There is no scintigraphic evidence of myocardial ischemia. There is evidence of a moderate sized fixed inferior wall defect that is consistent with diaphragmatic attenuation. Gated wall imaging reveals normal wall motion with an ejection fraction of 62% and normal LV size. CONCLUSION: 1. No scintigraphic evidence of myocardial ischemia. 2. Moderate size fixed inferior wall defect most likely due to diaphragmatic attenuation. 3. Normal left ventricular size and systolic function with an ejection fraction measured at 62%. 4. This is a low risk myocardial perfusion study associated with a 1-year cardiovascular event rate of less than 1%. [facility]# [id number] LAUREN/DELIO
== END 2019-03-20 15:27 | disposition home or self-care (01) | DRG 391 ==
LOC: ED 10:15 → 4A 15:12 → OBSVTOIN 03-19 08:20
PROVIDERS: ADMIT Internal Medicine; ATTEND Internal Medicine
DX: K21.9 Gastro-esophageal reflux disease without esophagitis (principal); N17.0 Acute kidney failure with tubular necrosis; E87.5 Hyperkalemia; J44.9 Chronic obstructive pulmonary disease, unspecified; I25.10 Atherosclerotic heart disease of native coronary artery without angina pectoris; H40.9 Unspecified glaucoma; I10 Essential (primary) hypertension; Z79.899 Other long term (current) drug therapy; Z86.73 Personal history of transient ischemic attack (TIA), and cerebral infarction without residual deficits; I25.2 Old myocardial infarction; Z98.49 Cataract extraction status, unspecified eye
CPT/HCPCS: 36415; 71046; 71250; 78452; 78582; 80048; 80053; 83036; 83880; 84484; 85025; 85379; 93005; 93010; 93017; 96372; 96374; G0378; A9270-GY; A9502; A9540; A9558; J1650; J2270; J2785; J7030

== ENCOUNTER 2019-03-26 10:35 | Emergency (ER) | payer MEDICARE ==
[2019-03-26 11:50] LABS: Basophils % (Auto) 0.6 % (0.0-1.8); Eosinophils # (Auto) 0.1 K/mm3 (0.0-0.4); Eosinophils % (Auto) 2.2 % (0.0-4.3); Hematocrit 38.6 % (35.5-45.6); Hemoglobin 12.8 gm/dl (11.8-15.2); Lymphocytes # (Auto) 1.6 K/mm3 (1.2-5.4); Mean Corpuscular HGB Conc 33 % (32-34); Mean Corpuscular Volume 94 fl (84-94); Monocytes # (Auto) 0.5 K/mm3 (0.0-0.8); Monocytes % (Auto) 10.8 % (0.0-7.3); Platelet Count 152 K/mm3 (140-440); Red Blood Count 4.12 M/mm3 (3.65-5.03); Red Cell Distribution Width 14.4 % (13.2-15.2)
--- NOTE | 2019-03-26 11:57 | Emergency Department Report ---
ED Male HPI - General Chief complaint: Urogenital-Male Stated complaint: BLOOD IN URINE Time Seen by Provider: 03/26/19 11:29 Source: patient Mode of arrival: Ambulatory Limitations: No Limitations - History of Present Illness Initial comments: 88-year-old male with a past medical history COPD, CVA, and CAD presents to the hospital complaining of hematuria since yesterday. Patient denies dysuria, straining with urination, abdominal pain, previous prostate or bladder issues, or weakness. He initially stated in triage that "I think I take Coumadin". After reviewing patient's medications at the bedside it appears that he only takes a baby aspirin. - Related Data Home Medications Medication Instructions Recorded Confirmed Last Taken Nebivolol (Nf) [Bystolic (Nf)] 5 mg PO QDAY 07/14/16 03/18/19 11/01/17 Pantoprazole [Protonix TAB] 40 mg PO QDAY 03/18/19 03/18/19 Unknown Previous Rx's Medication Instructions Recorded Last Taken Type ALBUTEROL Inhaler (OR & NICU) 2 puff IH QID PRN #1 inhalation 07/25/18 Unknown Rx [ProAir HFA Inhaler] AtorvaSTATin [Lipitor] 20 mg PO QHS tablet 09/24/18 Unknown Rx Aspirin EC 81 mg PO QDAY #30 tablet. 03/20/19 Unknown Rx Pantoprazole [Protonix TAB] 40 mg PO QDAY #30 tablet 03/20/19 Unknown Rx amLODIPine [Norvasc] 5 mg PO QDAY #30 tablet 03/20/19 Unknown Rx Docusate Sodium [Colace] 100 mg PO BID PRN #20 capsule 03/26/19 Unknown Rx Allergies Allergy/AdvReac Type Severity Reaction Status Date / Time No Known Allergies Allergy Verified 03/18/19 10:18 ED Review of Systems ROS: Stated complaint: BLOOD IN URINE Other details as noted in HPI Comment: All other systems reviewed and negative ED Past Medical Hx - Past Medical History Previous Medical History?: Yes Hx Hypertension: No Hx CVA: Yes Hx Heart Attack/AMI: Yes Hx GERD: No Hx COPD: Yes (no home O2) Hx HIV: No - Surgical History Past Surgical History?: Yes Additional Surgical History: Cataract. neck surgery. hernia repair. Prostate seed implant - Social History Smoking Status: Never Smoker Substance Use Type: None - Medications Home Medications: Home Medications Medication Instructions Recorded Confirmed Last Taken Type Nebivolol (Nf) [Bystolic (Nf)] 5 mg PO QDAY 07/14/16 03/18/19 11/01/17 History ALBUTEROL Inhaler (OR & NICU) 2 puff IH QID PRN #1 inhalation 07/25/18 03/18/19 Unknown Rx [ProAir HFA Inhaler] AtorvaSTATin [Lipitor] 20 mg PO QHS tablet 09/24/18 03/18/19 Unknown Rx Pantoprazole [Protonix TAB] 40 mg PO QDAY 03/18/19 03/18/19 Unknown History Aspirin EC 81 mg PO QDAY #30 tablet.dr 03/20/19 Unknown Rx Pantoprazole [Protonix TAB] 40 mg PO QDAY #30 tablet 03/20/19 Unknown Rx amLODIPine [Norvasc] 5 mg PO QDAY #30 tablet 03/20/19 Unknown Rx Docusate Sodium [Colace] 100 mg PO BID PRN #20 capsule 03/26/19 Unknown Rx ED Physical Exam - General Limitations: No Limitations - Other Other exam information: General: No limitations, patient is alert in no acute distress Head exam: Atraumatic, normocephalic Eyes exam: Normal appearance ENT: Moist mucous membrane, normal oropharynx Neck exam: Normal inspection, full range of motion, no meningismus nontender Respiratory exam: Clear to auscultation bilateral, no wheezes, rales, crackles Cardiovascular: Normal rate and rhythm, normal heart sounds Abdomen: Soft, nondistended, and nontender, with normal bowel sounds, no rebound, or guarding : Circumcised, no penile lesions or discharge, no testicular pain or tenderness. Extremity: Full range of motion normal inspection no deformity Back: Normal Inspection, full range of motion, no tenderness Neurologic: Alert, oriented x3, cranial nerves intact, no motor or sensory deficit Psychiatric: normal affect, normal mood Skin: Warm, dry, intact ED Course Vital Signs 03/26/19 03/26/19 10:39 12:24 Temperature 97.9 F Pulse Rate 94 H Respiratory 16 16 Rate Blood Pressure 129/53 [Right] O2 Sat by Pulse 98 Oximetry ED Medical Decision Making - Lab Data Result diagrams: 03/26/19 11:34 03/26/19 11:34 Lab Results 03/26/19 03/26/19 03/26/19 Range/Units 11:34 11:34 11:34 WBC 4.5 (4.5-11.0) K/mm3 RBC 4.12 (3.65-5.03) M/mm3 Hgb 12.8 (11.8-15.2) gm/dl Hct 38.6 (35.5-45.6) % MCV 94 (84-94) fl MCH 31 (28-32) pg MCHC 33 (32-34) % RDW 14.4 (13.2-15.2) % Plt Count 152 (140-440) K/mm3 Lymph % (Auto) 35.0 (13.4-35.0) % [place] % (Auto) 10.8 H (0.0-7.3) % Eos % (Auto) 2.2 (0.0-4.3) % Baso % (Auto) 0.6 (0.0-1.8) % Lymph # 1.6 (1.2-5.4) K/mm3 [place] # 0.5 (0.0-0.8) K/mm3 Eos # 0.1 (0.0-0.4) K/mm3 Baso # 0.0 (0.0-0.1) K/mm3 Seg Neutrophils % 51.4 (40.0-70.0) % Seg Neutrophils # 2.3 (1.8-7.7) K/mm3 PT 15.5 H (12.2-14.9) Sec. INR 1.26 H (0.87-1.13) APTT 29.0 (24.2-36.6) Sec. Sodium 137 (137-145) mmol/L Potassium 4.4 (3.6-5.0) mmol/L Chloride 101.1 (98-107) mmol/L Carbon Dioxide 25 (22-30) mmol/L Anion Gap 15 mmol/L BUN 17 (9-20) mg/dL Creatinine 1.5 (0.8-1.5) mg/dL Estimated GFR 54 ml/min BUN/Creatinine Ratio 11 % Glucose 101 H (75-100) mg/dL Calcium 8.9 (8.4-10.2) mg/dL Total Bilirubin 0.60 (0.1-1.2) mg/dL AST 18 (5-40) units/L ALT 15 (7-56) units/L Alkaline Phosphatase 59 (35-129) units/L Total Protein 7.0 (6.3-8.2) g/dL Albumin 3.9 (3.9-5) g/dL Albumin/Globulin Ratio 1.3 % Urine Color (Yellow) Urine Turbidity (Clear) Urine pH (5.0-7.0) Ur Specific [place] (1.003-1.030) Urine Protein (Negative) mg/dL Urine Glucose (UA) (Negative) mg/dL Urine Ketones (Negative) mg/dL Urine Blood (Negative) Urine Nitrite (Negative) Urine Bilirubin (Negative) Urine Urobilinogen (<2.0) mg/dL Ur Leukocyte Esterase (Negative) Urine WBC (Auto) (0.0-6.0) /HPF Urine RBC (Auto) (0.0-6.0) /HPF U Epithel Cells (Auto) (0-13.0) /HPF Hyaline Casts /LPF 03/26/19 Range/Units Unknown WBC (4.5-11.0) K/mm3 RBC (3.65-5.03) M/mm3 Hgb (11.8-15.2) gm/dl Hct (35.5-45.6) % MCV (84-94) fl MCH (28-32) pg MCHC (32-34) % RDW (13.2-15.2) % Plt Count (140-440) K/mm3 Lymph % (Auto) (13.4-35.0) % [place] % (Auto) (0.0-7.3) % Eos % (Auto) (0.0-4.3) % Baso % (Auto) (0.0-1.8) % Lymph # (1.2-5.4) K/mm3 [place] # (0.0-0.8) K/mm3 Eos # (0.0-0.4) K/mm3 Baso # (0.0-0.1) K/mm3 Seg Neutrophils % (40.0-70.0) % Seg Neutrophils # (1.8-7.7) K/mm3 PT (12.2-14.9) Sec. INR (0.87-1.13) APTT (24.2-36.6) Sec. Sodium (137-145) mmol/L Potassium (3.6-5.0) mmol/L Chloride (98-107) mmol/L Carbon Dioxide (22-30) mmol/L Anion Gap mmol/L BUN (9-20) mg/dL Creatinine (0.8-1.5) mg/dL Estimated GFR ml/min BUN/Creatinine Ratio % Glucose (75-100) mg/dL Calcium (8.4-10.2) mg/dL Total Bilirubin (0.1-1.2) mg/dL AST (5-40) units/L ALT (7-56) units/L Alkaline Phosphatase (35-129) units/L Total Protein (6.3-8.2) g/dL Albumin (3.9-5) g/dL Albumin/Globulin Ratio % Urine Color Yellow (Yellow) Urine Turbidity Clear (Clear) Urine pH 5.0 (5.0-7.0) Ur Specific [place] 1.012 (1.003-1.030) Urine Protein <15 mg/dl (Negative) mg/dL Urine Glucose (UA) Neg (Negative) mg/dL Urine Ketones Neg (Negative) mg/dL Urine Blood Sm (Negative) Urine Nitrite Neg (Negative) Urine Bilirubin Neg (Negative) Urine Urobilinogen < 2.0 (<2.0) mg/dL Ur Leukocyte Esterase Neg (Negative) Urine WBC (Auto) 1.0 (0.0-6.0) /HPF Urine RBC (Auto) 4.0 (0.0-6.0) /HPF U Epithel Cells (Auto) < 1.0 (0-13.0) /HPF Hyaline Casts 3 /LPF - Radiology Data Radiology results: report reviewed PROCEDURE: CT ABDOMEN PELVIS WO CON TECHNIQUE: CT examination of the abdomen wi thout IV contrast CT examination of the pelvis without IV contrast HISTORY: new onset hematuria COMPARISONS: 09/22/2018 FINDINGS: Prominent stool from cecum to rectum suggestive of constipation. There is also prominent gas and caliber scattered in the colon which may reflect additional paralytic ileus. Stable linear scar both lung bases. No acute lung base finding. Degenerative change in the regional skeleton. No evidence of acute fracture. Coronary artery calcification. Benign calcified granulomas in the liver and left lower lobe lung. Smoothly marginated hypodense right hepatic lobe lesions are nonspecific and statistically most likely reflect cysts and/or hemangiomas. These are unchanged from comparison. Normal-appearing gallbladder, adrenals, pancreas, and spleen. Distal abdominal aortic aneurysm at the level of the bifurcation with 3.6 cm diameter. 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 Moderate to severe calcified plaque in the aorta and its branches. Normal caliber IVC. Normal- appearing right kidney and ureter. Normal-appearing left kidney and ureter. No urinary tract calculus or hydronephrosis. Very small fat-containing umbilical hernia. Small fat-containing bilateral inguinal hernia, slightly more prominent on the right. No retroperitoneal adenopathy. No evidence of mesenteric mass. N ormal-appearing stomach and duodenum. No small bowel distention in the abdomen and pelvis. No pelvic free fluid. No gross ascites, free air, or colonic distention. Normal-appearing terminal ileum and appendix. Slight sigmoid diverticulosis without CT evidence of acute inflammation. 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 Normal-appearing seminal vesicles. Nonspecific diffuse urinary bladder mural thickening may be from partial outlet obstruction. Differential includes cystitis. IMPRESSION: Prominent stool, gas, and caliber in the colon may reflect a combination of constipation with paralytic ileus 3.6 cm diameter distal abdominal aortic aneurysm at the bifurcation level. Aneurysm extends into the proximal iliac arteries bilaterally Slight sigmoid diverticulosis Radiation seeds in the prostate. Diffuse urinary bladder thickening may be from partial outlet obstruction. Differential includes cystitis. No evidence of urinary tract calculus Coronary artery calcification Small fat-containing hernias - Medical Decision Making Patient does not have gross hematuria in the ED and very minimal microscopic blood seen on urinalysis. Labs unremarkable with exception of mild elevation of INR and PT. CT shows several incidental findings including an abdominal aneurysm which is less than 5 cm and despite patient's denial of previous prostate issues he has prostate seeds. Patient will require outpatient follow- up with urology and vascular for further management. He will be discharged at this time - Differential Diagnosis cancer, kidney stone, infection, coagulopathy Critical Care Time: No Critical care attestation.: If time is entered above; I have spent that time in minutes in the direct care of this critically ill patient, excluding procedure time. ED Disposition Clinical Impression: Hematuria, Abdominal aortic aneurysm, Constipation Disposition: - TO HOME OR SELFCARE Is pt being admited?: No Does the pt Need Aspirin: No Condition: Stable Instructions: Acute Hematuria (ED), Abdominal Aortic Aneurysm Repair (ED), Constipation (ED) Additional Instructions: Take the medication as prescribed. Follow up with your doctor or the clini c/doctor provided. Ist is also important she follow up with a vascular specialist and a urologist. Return if symptoms worsen as indicated by your discharge instructions Prescriptions: Docusate Sodium [Colace] 100 mg PO BID PRN #20 capsule PRN Reason: Constipation Referrals: [facility] MD ANGEL [Primary Care Provider] - 3-5 Days LANCE EDDY MD [Staff Physician] - 3-5 Days (Urologist) KWADWO ALMAGUER MD [Staff Physician] - 3-5 Days (Vascular surgeon) Time of Disposition: 14:02
[2019-03-26 12:00] LABS: INR 1.26 (0.87-1.13)
[2019-03-26 12:12] LABS: Albumin 3.9 g/dL (3.9-5); Calcium 8.9 mg/dL (8.4-10.2)
[2019-03-26 12:14] LABS: Bilirubin,Urine NEG (Negative); Blood,Urine SM (Negative); Color,Urine Yellow (Yellow); Hyaline Casts,Urine 3 /LPF; Protein,Urine <15 mg/dL mg/dL (Negative); Urobilinogen,Urine < 2.0 mg/dL (<2.0)
--- NOTE | 2019-03-26 13:51 | Cat Scan Report ---
PROCEDURE: CT ABDOMEN PELVIS WO CON TECHNIQUE: CT examination of the abdomen without IV contrast CT examination of the pelvis without IV contrast HISTORY: new onset hematuria COMPARISONS: 09/22/2018 FINDINGS: Prominent stool from cecum to rectum suggestive of constipation. There is also prominent gas and lillian karin scattered in the colon which may reflect additional paralytic ileus. Stable linear scar both lung bases. No acute lung base finding. Degenerative change in the regional s [place]. No evidence of acute fracture. Coronary artery calcification. Benign calcified granulomas in the liver and left lower lobe lung. Smo othly marginated hypodense right hepatic lobe lesions are nonspecific and statistically most likely r eflect cysts and/or hemangiomas. These are unchanged from comparison. Normal-appearing gallbladder, adrenals, pancreas, and spleen. Distal abdominal aortic aneurysm at the level of the bifurcation with 3.6 cm diameter. Fusiform aneur ysm of the proximal common iliac artery bilateral with diameter of 2.8 cm on the right and 2.1 cm on the left. Moderate to severe calcified plaque in the aorta and its branches. Normal caliber IVC. Normal-appearing right kidney and ureter. Normal-appearing left kidney and ureter. No urinary tract c alculus or hydronephrosis. Very small fat-containing umbilical hernia. Small fat-containing bilateral inguinal hernia, slightly more prominent on the right. No retroperitoneal adenopathy. No evidence of mesenteric mass. Normal-appearing stomach and duodenum. No small bowel distention in the abdomen and pelvis. No pelvic free fluid. No gross ascites, free air, or colonic distention. Normal-appearing terminal il eum and appendix. Slight sigmoid diverticulosis without CT evidence of acute inflammation. 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 Normal-appearing seminal vesicles. Nonspecific diffuse urin [place] bladder mural thickening may be from partial outlet obstruction. Differential includes cystitis. IMPRESSION: Prominent stool, gas, and caliber in the colon may reflect a combination of constipation with paralyt ic ileus 3.6 cm diameter distal abdominal aortic aneurysm at the bifurcation level. Aneurysm extends into the proximal iliac arteries bilaterally Slight sigmoid diverticulosis Radiation seeds in the prostate. Diffuse urinary bladder thickening may be from partial outlet obstru ction. Differential includes cystitis. No evidence of urinary tract calculus Coronary artery calcification Small fat-containing hernias This document is electronically signed by Marcus Grimm MD., March 26 2019 01:49:45 PM ET
[2019-03-26 14:19] VITALS: BP 132/70
== END 2019-03-26 14:19 | disposition home or self-care (01) ==
LOC: ED 10:35
DX: I71.4 Abdominal aortic aneurysm, without rupture (principal); K59.00 Constipation, unspecified; R31.9 Hematuria, unspecified; I25.10 Atherosclerotic heart disease of native coronary artery without angina pectoris; I25.2 Old myocardial infarction; J44.9 Chronic obstructive pulmonary disease, unspecified; Z86.73 Personal history of transient ischemic attack (TIA), and cerebral infarction without residual deficits; Z79.82 Long term (current) use of aspirin; Z79.899 Other long term (current) drug therapy
CPT/HCPCS: 36415; 74176; 80053; 81001; 85025; 85610; 85730; 99284

== ENCOUNTER 2019-04-21 07:40 | Emergency (ER) | payer MEDICARE ==
[2019-04-21 07:46] VITALS: BP 132/61
[2019-04-21] MEDS ORDERED: NACL 0.9% 1000 ML 1,000 ML IV ONE (08:07)
[2019-04-21] MEDS ORDERED: MORPHINE IV ONE (08:07)
[2019-04-21] MEDS ORDERED: ZOFRAN IV ONE (08:07)
--- NOTE | 2019-04-21 08:40 | Emergency Department Report ---
ED Back Pain/Injury HPI - General Chief Complaint: Back Pain/Injury Stated Complaint: BACK PAIN Time Seen by Provider: 04/21/19 08:07 Source: patient, family Limitations: Physical Limitation - History of Present Illness Initial Comments: This is a 88-year-old male nontoxic, well nourished in appearance, no acute signs of distress presents to the ED with c/o of acute lower back pain that radiates to bilateral flank area. Patient denies any radiation of pain to lower extremities. Patient denies any trauma. Denies any bladder or bowel instability. Patient denies any urinary symptoms. Denies any fever, chills, nausea, vomiting, headache, stiff neck, chest pain or shortness of breath. Patient denies any numbness or tingling. Denies any allergies. MD Complaint: back pain -: days(s) Similar Symptoms Previously: No Radiation: flank Severity: mild Severity scale (0 -10): 3 Quality: aching Improves With: immobilization, sitting upright Worsens With: movement, walking Associated Symptoms: denies other symptoms. denies: confusion, weakness, chest pain, numbness, difficulty walking, cough, difficulty urinating, diaphoresis, incontinence, constipation, headaches, abdominal pain, loss of appetite, malaise, nausea/vomiting, rash, seizure, shortness of breath, syncope - Related Data Home Medications Medication Instructions Recorded Confirmed Last Taken Nebivolol (Nf) [Bystolic (Nf)] 5 mg PO QDAY 07/14/16 03/18/19 11/01/17 Pantoprazole [Protonix TAB] 40 mg PO QDAY 03/18/19 03/18/19 Unknown Previous Rx's Medication Instructions Recorded Last Taken Type ALBUTEROL Inhaler (OR & NICU) 2 puff IH QID PRN #1 inhalation 07/25/18 Unknown Rx [ProAir HFA Inhaler] AtorvaSTATin [Lipitor] 20 mg PO QHS tablet 09/24/18 Unknown Rx Aspirin EC 81 mg PO QDAY #30 tablet.dr 03/20/19 Unknown Rx Pantoprazole [Protonix TAB] 40 mg PO QDAY #30 tablet 03/20/19 Unknown Rx amLODIPine [Norvasc] 5 mg PO QDAY #30 tablet 03/20/19 Unknown Rx Docusate Sodium [Colace] 100 mg PO BID PRN #20 capsule 03/26/19 Unknown Rx Cyclobenzaprine [Flexeril] 10 mg PO QHS PRN #10 tablet 04/21/19 Unknown Rx Naproxen [Naprosyn] 500 mg PO Q8H PRN #12 tablet 04/21/19 Unknown Rx Allergies Allergy/AdvReac Type Severity Reaction Status Date / Time No Known Allergies Allergy Verified 03/18/19 10:18 ED Review of Systems ROS: Stated complaint: BACK PAIN Other details as noted in HPI Constitutional: denies: chills, fever Eyes: denies: eye pain, eye discharge, vision change ENT: denies: ear pain, throat pain Respiratory: denies: cough, shortness of breath, wheezing Cardiovascular: denies: chest pain, palpitations Endocrine: no symptoms reported Gastrointestinal: denies: abdominal pain, nausea, diarrhea Genitourinary: denies: urgency, dysuria Musculoskeletal: back pain. denies: joint swelling, arthralgia Skin: denies: rash, lesions Neurological: denies: headache, weakness, paresthesias Psychiatric: denies: anxiety, depression Hematological/Lymphatic: denies: easy bleeding, easy bruising ED Past Medical Hx - Past Medical History Previous Medical History?: Yes Hx Hypertension: No Hx CVA: Yes Hx Heart Attack/AMI: Yes Hx GERD: No Hx COPD: Yes (no home O2) Hx HIV: No - Surgical History Past Surgical History?: Yes Additional Surgical History: Cataract. neck surgery. hernia repair. Prostate seed implant - Social History Smoking Status: Former Smoker Substance Use Type: Prescribed - Medications Home Medications: Home Medications Medication Instructions Recorded Confirmed Last Taken Type Nebivolol (Nf) [Bystolic (Nf)] 5 mg PO QDAY 07/14/16 03/18/19 11/01/17 History ALBUTEROL Inhaler (OR & NICU) 2 puff IH QID PRN #1 inhalation 07/25/18 03/18/19 Unknown Rx [ProAir HFA Inhaler] AtorvaSTATin [Lipitor] 20 mg PO QHS tablet 09/24/18 03/18/19 Unknown Rx Pantoprazole [Protonix TAB] 40 mg PO QDAY 03/18/19 03/18/19 Unknown History Aspirin EC 81 mg PO QDAY #30 tablet. 03/20/19 Unknown Rx Pantoprazole [Protonix TAB] 40 mg PO QDAY #30 tablet 03/20/19 Unknown Rx amLODIPine [Norvasc] 5 mg PO QDAY #30 tablet 03/20/19 Unknown Rx Docusate Sodium [Colace] 100 mg PO BID PRN #20 capsule 03/26/19 Unknown Rx Cyclobenzaprine [Flexeril] 10 mg PO QHS PRN #10 tablet 04/21/19 Unknown Rx Naproxen [Naprosyn] 500 mg PO Q8H PRN #12 tablet 04/21/19 Unknown Rx ED Physical Exam - General Limitations: Physical Limitation General appearance: alert, in no apparent distress - Head Head exam: Present: atraumatic, normocephalic - Neck Neck exam: Present: normal inspection, full ROM. Absent: tenderness, meningismus, lymphadenopathy - Respiratory Respiratory exam: Present: normal lung sounds bilaterally. Absent: respiratory distress, wheezes, rales, rhonchi, stridor, chest wall tenderness, accessory muscle use, decreased breath sounds, prolonged expiratory - Cardiovascular Cardiovascular Exam: Present: regular rate, normal rhythm, normal heart sounds. Absent: bradycardia, tachycardia, irregular rhythm, systolic murmur, diastolic murmur, rubs, gallop - GI/Abdominal GI/Abdominal exam: Present: soft, normal bowel sounds. Absent: distended, tenderness, guarding, rebound, rigid, diminished bowel sounds - Extremities Exam Extremities exam: Present: normal inspection, full ROM - Back Exam Back exam: Present: normal inspection, full ROM, paraspinal tenderness (lumbar paraspinal). Absent: tenderness, CVA tenderness (R), CVA tenderness (L), muscle spasm, vertebral tenderness, rash noted - Expanded Back Exam Expanded Back exam: Absent: saddle anesthesia Back exam: Negative Straight Leg Raising: Left, Right - Neurological Exam Neurological exam: Present: alert, oriented X3, normal gait - Psychiatric Psychiatric exam: Present: normal affect, normal mood - Skin Skin exam: Present: warm, dry, intact, normal color. Absent: rash ED Course Vital Signs 04/21/19 07:40 Temperature 97.9 F Pulse Rate 69 Respiratory 18 Rate Blood Pressure 132/61 O2 Sat by Pulse 99 Oximetry - Reevaluation(s) Reevaluation #1: 04/21/19 08:38 Patient is speaking in full sentences with no signs of distress noted. ED Medical Decision Making - Lab Data Result diagrams: 04/21/19 08:13 04/21/19 08:13 - Medical Decision Making This is a 88-year-old male that presents with low back strain. Patient is stable was examined by me. There is no spinal tenderness. There is no cauda e quina syndrome during examination. No bladder or bowel instability. Patient received morphine and normal saline in the ED which stated that his symptoms has resolved and subsided. Patients family members currently present at bedside and stated he will junk the patient home after discharge due to possible drowsiness. A CT scan of abdomen with contrast has been obtained and unremarkable and dictated by radiologist. Labs are within normal limits. Urine within normal limits. Patient is discharged with muscle relaxant and Motrin. Patient was instructed not to operate any machinery while taking muscle relaxant as they cause her drowsiness. Patient was referred to Follow-up with a primary care doctor in 3-5 days or if symptoms worsen and continue return to emergency room as soon as possible. At time of discharge, the patient does not seem toxic or ill in appearance. No acute signs of distress noted. Patient agrees to discharge treatment plan of care. No further questions noted by the patient. This chart is dictated with using [employer] Dictation Program Critical care attestation.: If time is entered above; I have spent that time in minutes in the direct care of this critically ill patient, excluding procedure time. ED Disposition Clinical Impression: Low back strain Qualifiers: Encounter type: initial encounter Qualified Code(s): S39.012A - Strain of muscle, fascia and tendon of lower back, initial encounter Disposition: DC-01 TO HOME OR SELFCARE Is pt being admited?: No Does the pt Need Aspirin: No Condition: Stable Instructions: Low Back Strain (ED), Cyclobenzaprine (By mouth) Additional Instructions: Follow-up with your primary care doctor in 3-5 days or if symptoms worsen such as bladder or bowel stability, chest pain, short of breath, numbness or tingling sensation in extremities, headache, dizziness, visual changes, nausea vomiting, or abdominal pain, return back to emergency room as was possible. Take naproxen and Fexeril as prescribed. Do not operate heavy machinery while taking Flexeril due to sedation Prescriptions: Cyclobenzaprine [Flexeril] 10 mg PO QHS PRN #10 tablet PRN Reason: Muscle Spasm Naproxen [Naprosyn] 500 mg PO Q8H PRN #12 tablet PRN Reason: Pain , Severe (7-10) Referrals: NIKHIL CURRY MD [Primary Care Provider] - 3-5 Days PRIMARY CAREMD [Referring] - 3-5 Days AMBER TRIMBLE MD [Staff Physician] - 3-5 Days [facility] [Outside] - 3-5 Days [facility] [Outside] - 3-5 Days
[2019-04-21 08:42] LABS: Bilirubin,Urine NEG (Negative); Blood,Urine SM (Negative); Color,Urine Yellow (Yellow); Mucus,Urine FEW /HPF; Protein,Urine <15 mg/dL mg/dL (Negative); Urobilinogen,Urine < 2.0 mg/dL (<2.0)
[2019-04-21 08:44] LABS: Basophils % (Auto) 0.5 % (0.0-1.8); Eosinophils # (Auto) 0.1 K/mm3 (0.0-0.4); Eosinophils % (Auto) 2.9 % (0.0-4.3); Hematocrit 34.7 % (35.5-45.6); Hemoglobin 11.9 gm/dl (11.8-15.2); Lymphocytes # (Auto) 1.5 K/mm3 (1.2-5.4); Lymphocytes % (Auto) 32.5 % (13.4-35.0); Mean Corpuscular HGB Conc 34 % (32-34); Mean Corpuscular Volume 93 fl (84-94); Monocytes # (Auto) 0.5 K/mm3 (0.0-0.8); Monocytes % (Auto) 11.2 % (0.0-7.3); Platelet Count 141 K/mm3 (140-440); Red Blood Count 3.73 M/mm3 (3.65-5.03); Red Cell Distribution Width 14.5 % (13.2-15.2)
[2019-04-21 08:46] LABS: Alanine Aminotransferase 11 units/L (7-56); Albumin 3.6 g/dL (3.9-5); BUN/Creatinine Ratio 12; Blood Urea Nitrogen 16 mg/dL (9-20); Calcium 8.9 mg/dL (8.4-10.2); Hemolysis Index 5
--- NOTE | 2019-04-21 10:36 | Cat Scan Report ---
CT ABDOMEN AND PELVIS WITH CONTRAST INDICATION: maya flank pain, back pain, duration less than 24 hours CONTRAST: 100 cc Omnipaque 300 IV COMPARISON: 03/26/2019, 09/22/[address] scans at this location are performed using CT dose reduction for ALARA by means of automated e xposure control. FINDINGS: Chronic changes are again seen in the lung bases. No pneumoperitoneum is seen. Heavy athero sclerotic changes are noted. Mild coronary artery calcifications are seen. 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 No acute changes are seen in this area. Gallbladder appears within normal limits. Smal l cysts and probable cysts are noted in the liver and both kidneys. No definite urinary obstructive c hanges are seen. The distal portion of the left ureter is mildly prominent relative to the right but no obstructive change is seen. The bladder wall again is diffusely thickened. Prostatic brachytherapy seeds are again seen. No lymphadenopathy is noted. No significant focal bony are noted. No evidence of bowel obstruction is seen. Appendix appears within normal limits. The wall of the stomach again ap pears diffusely thickened similar to appearance on prior study in March though more noticeable than in September, without obvious ulcer or mass seen. Duodenum appears within normal limits. No bowel wall t hickening is seen. No free fluid is noted. Small bilateral inguinal hernias are again noted without s ignificant change and without bowel. IMPRESSION: 1. No definite change is seen from study last month. 2. Continued evidence of diffuse gastric wall thickening without duodenal abnormality seen. I do not see a defined ulcer or mass and no surrounding inflammation is seen. Follow-up and clinical correlati on are suggested. 3. 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 No change in appearance of the small bilateral inguinal hernias 5. Continued diffuse mild bladder wall thickening/hypertrophy 6. Chronic pulmonary changes Signer Name: Trev Harris MD Signed: 04/21/2019 10:32 AM Workstation Name: [id number]
== END 2019-04-21 11:04 | disposition home or self-care (01) ==
LOC: ED 07:40
DX: S39.012A Strain of muscle, fascia and tendon of lower back, initial encounter (principal); I63.9 Cerebral infarction, unspecified; I25.2 Old myocardial infarction; J44.9 Chronic obstructive pulmonary disease, unspecified; Z87.891 Personal history of nicotine dependence; Z79.899 Other long term (current) drug therapy; Z98.890 Other specified postprocedural states; X58.XXXA Exposure to other specified factors, initial encounter; Y93.89 Activity, other specified; Y92.89 Other specified places as the place of occurrence of the external cause; Y99.8 Other external cause status
CPT/HCPCS: 36415; 74177; 80053; 81001; 85025; 87086; 96374; 96375; 99284; J2270; J2405; J7030; Q9967

== ENCOUNTER 2019-05-01 08:13 | Emergency (ER) | payer MEDICARE ==
[2019-05-01] MEDS ORDERED: TYLENOL #3 PO ONE (09:07)
[2019-05-01 09:38] LABS: Bilirubin,Urine NEG (Negative); Blood,Urine SM (Negative); Color,Urine Yellow (Yellow); Mucus,Urine FEW /HPF; Protein,Urine <15 mg/dL mg/dL (Negative); Urobilinogen,Urine < 2.0 mg/dL (<2.0)
[2019-05-01 09:55] VITALS: BP 105/52
--- NOTE | 2019-05-01 09:58 | XRay Report ---
LUMBAR SPINE 3 VIEWS INDICATION / CLINICAL INFORMATION: back pain. COMPARISON: CT abdomen dated 04/21/19 FINDINGS: VERTEBRAE: No acute fracture. No significant malalignment. DISC SPACES / FACET JOINTS:No significant abnormality. PARASPINAL SOFT TISSUES:Mild to moderate atherosclerotic calcification of the aortoiliac arteries wit h mild ectasia, unchanged. ADDITIONAL FINDINGS: Radiation implants in the prostate are unchanged. IMPRESSION: 1. No acute findings. No change. Signer Name: Gil Sweeney MD Signed: 05/01/2019 9:53 AM Workstation Name: [id number]
--- NOTE | 2019-05-01 10:48 | Emergency Department Report ---
ED Back Pain/Injury HPI - General Chief Complaint: Back Pain/Injury Stated Complaint: BACK PAIN Time Seen by Provider: 05/01/19 09:06 Source: patient Limitations: No Limitations - Related Data Home Medications Medication Instructions Recorded Confirmed Last Taken Nebivolol (Nf) [Bystolic (Nf)] 5 mg PO QDAY 07/14/16 03/18/19 11/01/17 Pantoprazole [Protonix TAB] 40 mg PO QDAY 03/18/19 03/18/19 Unknown Previous Rx's Medication Instructions Recorded Last Taken Type ALBUTEROL Inhaler (OR & NICU) 2 puff IH QID PRN #1 inhalation 07/25/18 Unknown Rx [ProAir HFA Inhaler] AtorvaSTATin [Lipitor] 20 mg PO QHS tablet 09/24/18 Unknown Rx Aspirin EC 81 mg PO QDAY #30 tablet.dr 03/20/19 Unknown Rx Pantoprazole [Protonix TAB] 40 mg PO QDAY #30 tablet 03/20/19 Unknown Rx amLODIPine [Norvasc] 5 mg PO QDAY #30 tablet 03/20/19 Unknown Rx Docusate Sodium [Colace] 100 mg PO BID PRN #20 capsule 03/26/19 Unknown Rx Cyclobenzaprine [Flexeril] 10 mg PO QHS PRN #10 tablet 04/21/19 Unknown Rx Naproxen [Naprosyn] 500 mg PO Q8H PRN #12 tablet 04/21/19 Unknown Rx Cyclobenzaprine [Flexeril] 10 mg PO TID PRN #15 tablet 05/01/19 Unknown Rx Allergies Allergy/AdvReac Type Severity Reaction Status Date / Time No Known Allergies Allergy Verified 03/18/19 10:18 ED Review of Systems ROS: Stated complaint: BACK PAIN Other details as noted in HPI ED Past Medical Hx - Past Medical History Hx Hypertension: No Hx CVA: Yes Hx Heart Attack/AMI: Yes Hx GERD: No Hx COPD: Yes (no home O2) Hx HIV: No - Surgical History Past Surgical History?: Yes Additional Surgical History: Cataract. neck surgery. hernia repair. Prostate seed implant - Social History Smoking Status: Never Smoker Substance Use Type: None - Medications Home Medications: Home Medications Medication Instructions Recorded Confirmed Last Taken Type Nebivolol (Nf) [Bystolic (Nf)] 5 mg PO QDAY 07/14/16 03/18/19 11/01/17 History ALBUTEROL Inhaler (OR & NICU) 2 puff IH QID PRN #1 inhalation 07/25/18 03/18/19 Unknown Rx [ProAir HFA Inhaler] AtorvaSTATin [Lipitor] 20 mg PO QHS tablet 09/24/18 03/18/19 Unknown Rx Pantoprazole [Protonix TAB] 40 mg PO QDAY 03/18/19 03/18/19 Unknown History Aspirin EC 81 mg PO QDAY #30 tablet. 03/20/19 Unknown Rx Pantoprazole [Protonix TAB] 40 mg PO QDAY #30 tablet 03/20/19 Unknown Rx amLODIPine [Norvasc] 5 mg PO QDAY #30 tablet 03/20/19 Unknown Rx Docusate Sodium [Colace] 100 mg PO BID PRN #20 capsule 03/26/19 Unknown Rx Cyclobenzaprine [Flexeril] 10 mg PO QHS PRN #10 tablet 04/21/19 Unknown Rx Naproxen [Naprosyn] 500 mg PO Q8H PRN #12 tablet 04/21/19 Unknown Rx Cyclobenzaprine [Flexeril] 10 mg PO TID PRN #15 tablet 05/01/19 Unknown Rx ED Physical Exam - General Limitations: No Limitations ED Course Vital Signs 05/01/19 05/01/19 05/01/19 08:38 09:54 09:55 Temperature 98 F Pulse Rate 66 58 L Respiratory 16 16 Rate Blood Pressure 105/52 Blood Pressure 130/65 [Left] O2 Sat by Pulse 98 98 Oximetry Critical care attestation.: If time is entered above; I have spent that time in minutes in the direct care of this critically ill patient, excluding procedure time. ED Disposition Clinical Impression: Acute low back pain Qualifiers: Back pain laterality: unspecified Sciatica presence: without sciatica Qualified Code(s): M54.5 - Low back pain Disposition: -01 TO HOME OR SELFCARE Is pt being admited?: No Does the pt Need Aspirin: No Condition: Stable Instructions: Low Back Strain (ED), Acute Low Back Pain (ED) Referrals: NIKHIL CURRY MD [Primary Care Provider] - 3-5 Days
== END 2019-05-01 10:55 | disposition home or self-care (01) ==
LOC: ED 08:13
DX: M54.5 Low back pain (principal); I25.2 Old myocardial infarction; J44.9 Chronic obstructive pulmonary disease, unspecified; Z86.73 Personal history of transient ischemic attack (TIA), and cerebral infarction without residual deficits; Z98.890 Other specified postprocedural states; Z79.82 Long term (current) use of aspirin; Z79.899 Other long term (current) drug therapy
CPT/HCPCS: 72100; 81001; 99283

== ENCOUNTER 2019-05-06 11:50 | Emergency (ER) | payer MEDICARE ==
--- NOTE | 2019-05-06 11:58 | Emergency Department Report ---
Blank Doc - Documentation Documentation: This is a 88-year-old male that presents with headache, epigastric pain and back pain. This initial assessment/diagnostic orders/clinical plan/treatment(s) is/are subject to change based on patient's health status, clinical progression and re- assessment by fellow clinical providers in the ED. Further treatment and workup at subsequent clinical providers discretion. Patient/guardians urged not to elope from the ED as their condition may be serious if not clinically assessed and managed. Initial orders include: 1- Patient sent to MAIN ED for further evaluation and treatment 2- EKG 3- labs
[2019-05-06 12:01] VITALS: BP 115/74
[2019-05-06 12:25] LABS: Basophils % (Auto) 0.5 % (0.0-1.8); Eosinophils # (Auto) 0.1 K/mm3 (0.0-0.4); Eosinophils % (Auto) 2.4 % (0.0-4.3); Hematocrit 38.4 % (35.5-45.6); Hemoglobin 12.8 gm/dl (11.8-15.2); Lymphocytes # (Auto) 1.4 K/mm3 (1.2-5.4); Lymphocytes % (Auto) 35.6 % (13.4-35.0); Mean Corpuscular HGB Conc 33 % (32-34); Mean Corpuscular Volume 93 fl (84-94); Monocytes # (Auto) 0.4 K/mm3 (0.0-0.8); Monocytes % (Auto) 10.5 % (0.0-7.3); Platelet Count 139 K/mm3 (140-440); Red Blood Count 4.12 M/mm3 (3.65-5.03); Red Cell Distribution Width 14.5 % (13.2-15.2)
[2019-05-06 12:35] LABS: INR 1.29 (0.87-1.13)
[2019-05-06 12:36] LABS: Partial Thromboplastin Time 29.7 Sec. (24.2-36.6)
[2019-05-06 12:52] LABS: Alanine Aminotransferase 9 units/L (7-56); BUN/Creatinine Ratio 11; Blood Urea Nitrogen 19 mg/dL (9-20); Calcium 9.5 mg/dL (8.4-10.2); Hemolysis Index 9
[2019-05-06 15:53] LABS: Bilirubin,Urine NEG (Negative); Blood,Urine MOD (Negative); Color,Urine Yellow (Yellow); Mucus,Urine FEW /HPF; Protein,Urine <15 mg/dL mg/dL (Negative); Urobilinogen,Urine < 2.0 mg/dL (<2.0); WBC,Urine < 1.0 /HPF (0.0-6.0)
[2019-05-06] MEDS ORDERED: TYLENOL PO ONE (17:04)
[2019-05-06] MEDS ORDERED: NACL 0.9% 1000 ML 1,000 ML IV ONE (17:16)
[2019-05-06] MEDS ORDERED: CARAFATE PO ONE (18:43)
--- NOTE | 2019-05-06 18:44 | Emergency Department Report ---
<BEVERLY DOZIER - Last Filed: 05/06/19 18:40> ED General Adult HPI - General Chief complaint: Headache Stated complaint: HEADACHE/BACK/STOMACH PAIN Time Seen by Provider: 05/06/19 11:55 Source: patient Mode of arrival: Ambulatory Limitations: No Limitations - History of Present Illness Initial comments: 88-year-old -British male presents to the emergency room for headache this located frontal since last night. He also complains of lower back pain and epigastric abdominal pain. Patient denies any nausea vomiting. Patient does have a past medical history of COPD, CVA, heart attack and prostate cancer. Patient was recently seen here on 05/01/2019 as well as March 20 last admission to the hospital. She denies any fever no chills no nausea no vomiting no dysuria no urinary urgency no urinary frequency. -: Last night Location: head, back, abdomen Radiation: non-radiation Severity scale (0 -10): 6 Quality: aching Consistency: intermittent Improves with: none Worsens with: none Associated Symptoms: denies: chest pain, cough, diaphoresis, fever/chills, loss of appetite, nausea/vomiting Treatments Prior to Arrival: none - Related Data Home Medications Medication Instructions Recorded Confirmed Last Taken Nebivolol (Nf) [Bystolic (Nf)] 5 mg PO QDAY 07/14/16 03/18/19 11/01/17 Pantoprazole [Protonix TAB] 40 mg PO QDAY 03/18/19 03/18/19 Unknown Previous Rx's Medication Instructions Recorded Last Taken Type ALBUTEROL Inhaler (OR & NICU) 2 puff IH QID PRN #1 inhalation 07/25/18 Unknown Rx [ProAir HFA Inhaler] AtorvaSTATin [Lipitor] 20 mg PO QHS tablet 09/24/18 Unknown Rx Aspirin EC 81 mg PO QDAY #30 tablet.dr 03/20/19 Unknown Rx Pantoprazole [Protonix TAB] 40 mg PO QDAY #30 tablet 03/20/19 Unknown Rx amLODIPine [Norvasc] 5 mg PO QDAY #30 tablet 03/20/19 Unknown Rx Docusate Sodium [Colace] 100 mg PO BID PRN #20 capsule 03/26/19 Unknown Rx Cyclobenzaprine [Flexeril] 10 mg PO QHS PRN #10 tablet 04/21/19 Unknown Rx Naproxen [Naprosyn] 500 mg PO Q8H PRN #12 tablet 04/21/19 Unknown Rx Cyclobenzaprine [Flexeril] 10 mg PO TID PRN #15 tablet 05/01/19 Unknown Rx Acetaminophen [Acetaminophen TAB] 1,000 mg PO Q6HR PRN #30 tablet 05/06/19 Unknown Rx Metoclopramide [Reglan] 10 mg PO Q6H PRN #30 tablet 05/06/19 Unknown Rx diphenhydrAMINE [Benadryl CAP] 25 mg PO Q6HR PRN #30 capsule 05/06/19 Unknown Rx Allergies Allergy/AdvReac Type Severity Reaction Status Date / Time No Known Allergies Allergy Verified 03/18/19 10:18 ED Review of Systems Comment: All other systems reviewed and negative ED Past Medical Hx - Past Medical History Hx Hypertension: No Hx CVA: Yes Hx Heart Attack/AMI: Yes Hx GERD: No Hx COPD: Yes (no home O2) Hx HIV: No - Surgical History Past Surgical History?: Yes Additional Surgical History: Cataract. neck surgery. hernia repair. Prostate seed implant - Social History Smoking Status: Former Smoker Substance Use Type: None - Medications Home Medications: Home Medications Medication Instructions Recorded Confirmed Last Taken Type Nebivolol (Nf) [Bystolic (Nf)] 5 mg PO QDAY 07/14/16 03/18/19 11/01/17 History ALBUTEROL Inhaler (OR & NICU) 2 puff IH QID PRN #1 inhalation 07/25/18 03/18/19 Unknown Rx [ProAir HFA Inhaler] AtorvaSTATin [Lipitor] 20 mg PO QHS tablet 09/24/18 03/18/19 Unknown Rx Pantoprazole [Protonix TAB] 40 mg PO QDAY 03/18/19 03/18/19 Unknown History Aspirin EC 81 mg PO QDAY #30 tablet. 03/20/19 Unknown Rx Pantoprazole [Protonix TAB] 40 mg PO QDAY #30 tablet 03/20/19 Unknown Rx amLODIPine [Norvasc] 5 mg PO QDAY #30 tablet 03/20/19 Unknown Rx Docusate Sodium [Colace] 100 mg PO BID PRN #20 capsule 03/26/19 Unknown Rx Cyclobenzaprine [Flexeril] 10 mg PO QHS PRN #10 tablet 04/21/19 Unknown Rx Naproxen [Naprosyn] 500 mg PO Q8H PRN #12 tablet 04/21/19 Unknown Rx Cyclobenzaprine [Flexeril] 10 mg PO TID PRN #15 tablet 05/01/19 Unknown Rx Acetaminophen [Acetaminophen TAB] 1,000 mg PO Q6HR PRN #30 tablet 05/06/19 Unknown Rx Metoclopramide [Reglan] 10 mg PO Q6H PRN #30 tablet 05/06/19 Unknown Rx diphenhydrAMINE [Benadryl CAP] 25 mg PO Q6HR PRN #30 capsule 05/06/19 Unknown Rx ED Physical Exam - General Limitations: No Limitations General appearance: alert, in no apparent distress - Head Head exam: Present: atraumatic, normocephalic - Eye Eye exam: Present: normal appearance - ENT ENT exam: Present: mucous membranes moist - Neck Neck exam: Present: normal inspection - Respiratory Respiratory exam: Present: normal lung sounds bilaterally. Absent: respiratory distress - Cardiovascular Cardiovascular Exam: Present: regular rate, normal rhythm. Absent: systolic murmur, diastolic murmur, rubs, gallop - GI/Abdominal GI/Abdominal exam: Present: soft. Absent: distended, tenderness, guarding, rebound - Back Exam Back exam: Present: full ROM. Absent: tenderness, CVA tenderness (R), CVA tende rness (L) - Neurological Exam Neurological exam: Present: alert, oriented X3 - Psychiatric Psychiatric exam: Present: normal affect, normal mood - Skin Skin exam: Present: warm, dry, intact, normal color. Absent: rash ED Medical Decision Making - Lab Data Result diagrams: 05/06/19 12:14 05/06/19 12:14 ED Disposition Clinical Impression: Headache Qualifiers: Headache type: unspecified Headache chronicity pattern: acute headache Intractability: not intractable Qualified Code(s): R51 - Headache Disposition: DC-01 TO HOME OR SELFCARE Condition: Stable Instructions: Acute Headache (ED) Prescriptions: Acetaminophen [Acetaminophen TAB] 1,000 mg PO Q6HR PRN #30 tablet PRN Reason: pain diphenhydrAMINE [Benadryl CAP] 25 mg PO Q6HR PRN #30 capsule PRN Reason: Headache Metoclopramide [Reglan] 10 mg PO Q6H PRN #30 tablet PRN Reason: Headache Referrals: JUANCHO,FILEMON S, MD [Staff Physician] - 3-5 Days Forms: Work/School Release Form(ED) <EDUARDO BELLA - Last Filed: 05/06/19 20:21> ED Review of Systems ROS: Stated complaint: HEADACHE/BACK/STOMACH PAIN Other details as noted in HPI ED Course Vital Signs 05/06/19 05/06/19 11:57 17:15 Temperature 97.9 F Pulse Rate 90 Respiratory 20 18 Rate Blood Pressure 115/74 O2 Sat by Pulse 97 Oximetry ED Medical Decision Making - Lab Data Result diagrams: 05/06/19 12:14 05/06/19 12:14 - Radiology Data Radiology results: report reviewed, image reviewed Ordering Physician: JACKIE SORIA Date of Service: 05/06/19 Procedure(s): CT abdomen pelvis wo con Accession Number(s): [id number] cc: JACKIE SORIA CT of the abdomen and pelvis without contrast INDICATION: Bilateral flank pain COMPARISON: 04/21/2019 FINDINGS: Lung bases remain clear. Hepatic cysts are again seen unchanged. The spleen, pancreas, adrenal glands and kidneys are all unchanged. A definite gallbladder or biliary tree abnormality. No fluid or adenopathy in the upper abdomen. 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 No evidence of hemorrhage. No pelvic fluid or adenopathy. Brachytherapy seeds are seen in the prostate. There is no diverticulitis or bowel obstruction. Inguinal hernias are unchanged. IMPRESSION: No acute abnormality and no significant change. Automated exposure control was utilized to diminish radiation dose. Signer Name: Hermes Rao MD Signed: 05/06/2019 7:13 PM Workstation Name: [id number] Transcribed By: SABA Dictated By: Hermes Rao MD Electronically Authenticated By: Hermes Rao MD Signed Date/Time: 05/06/191912 DD/ 01 TD/TT: - Medical Decision Making ct abd and pelvis unchanged from baseline exam pt denies headache no dysuria frequency or hematuria , advise that he is ready to go home plan dc to home with rx for tylenol reglan, benadryl prn headache pt will follow up with pcp in 2-3 days , will return to ed immediately if symptoms worsen or change. pt is currently a/o x 3 ambulatory with steady gait at this time. Critical care attestation.: If time is entered above; I have spent that time in minutes in the direct care of this critically ill patient, excluding procedure time. ED Disposition Is pt being admited?: No Does the pt Need Aspirin: No Time of Disposition: 20:20
--- NOTE | 2019-05-06 19:18 | Cat Scan Report ---
CT of the abdomen and pelvis without contrast INDICATION: Bilateral flank pain COMPARISON: 04/21/2019 FINDINGS: Lung bases remain clear. Hepatic cysts are again seen unchanged. The spleen, pancreas, adre nal glands and kidneys are all unchanged. A definite gallbladder or biliary tree abnormality. No flui d or adenopathy in the upper abdomen. 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 No evidence of hemorrhage. No pelvic fluid or adenopathy. Brachytherapy seeds are seen in the pr ostate. There is no diverticulitis or bowel obstruction. Inguinal hernias are unchanged. IMPRESSION: No acute abnormality and no significant change. Automated exposure control was utilized to diminish radiation dose. Signer Name: Hermes Rao MD Signed: 05/06/2019 7:13 PM Workstation Name: [id number]
== END 2019-05-06 20:25 | disposition home or self-care (01) ==
LOC: ED 11:50
DX: R51 Headache (principal); I25.2 Old myocardial infarction; J44.9 Chronic obstructive pulmonary disease, unspecified; Z86.73 Personal history of transient ischemic attack (TIA), and cerebral infarction without residual deficits; Z98.890 Other specified postprocedural states; Z87.891 Personal history of nicotine dependence; Z79.82 Long term (current) use of aspirin; Z79.899 Other long term (current) drug therapy
CPT/HCPCS: 36415; 74176; 80053; 81001; 82140; 83690; 84484; 85025; 85610; 85730; 93005; 93010; 99284; J7030; 96360

== ENCOUNTER 2019-05-17 22:32 | Inpatient (IN) | payer MEDICARE ==
[2019-05-17] MEDS ORDERED: ASPIRIN PO ONE (22:48)
--- NOTE | 2019-05-17 23:20 | Emergency Department Report ---
ED Chest Pain HPI - General Chief Complaint: Chest Pain Stated Complaint: CHEST PAIN Time Seen by Provider: 05/17/19 23:10 Source: patient Mode of arrival: Ambulatory Limitations: No Limitations - History of Present Illness Initial Comments: 88 yo M with hx of CAD presents to the ED with complaint of left-sided chest pain. Pt states pain onset at 3pm this afternoon while at rest and has been constant. Reports mild SOB. Denies cough, fever, N/V, diaphoresis, leg pain or swelling. Pain is non-radiating, no aggravating or alleviating factors. MD Complaint: chest pain -: This afternoon Onset: during rest Pain Location: left chest Pain Radiation: none Severity: moderate Severity scale (0 -10): 10 Quality: tightness Consistency: constant Improves With: nothing Worsens With: nothing re: dyspnea. denies: nausea, vomting, diaphoresis Other Symptoms: denies: cough, fever, leg swelling Treatments Prior to Arrival: none - Related Data Home Medications Medication Instructions Recorded Confirmed Last Taken Nebivolol (Nf) [Bystolic (Nf)] 5 mg PO QDAY 07/14/16 03/18/19 11/01/17 Pantoprazole [Protonix TAB] 40 mg PO QDAY 03/18/19 03/18/19 Unknown Previous Rx's Medication Instructions Recorded Last Taken Type ALBUTEROL Inhaler (OR & NICU) 2 puff IH QID PRN #1 inhalation 07/25/18 Unknown Rx [ProAir HFA Inhaler] AtorvaSTATin [Lipitor] 20 mg PO QHS tablet 09/24/18 Unknown Rx Aspirin EC 81 mg PO QDAY #30 tablet. 03/20/19 Unknown Rx Pantoprazole [Protonix TAB] 40 mg PO QDAY #30 tablet 03/20/19 Unknown Rx amLODIPine [Norvasc] 5 mg PO QDAY #30 tablet 03/20/19 Unknown Rx Docusate Sodium [Colace] 100 mg PO BID PRN #20 capsule 03/26/19 Unknown Rx Cyclobenzaprine [Flexeril] 10 mg PO QHS PRN #10 tablet 04/21/19 Unknown Rx Naproxen [Naprosyn] 500 mg PO Q8H PRN #12 tablet 04/21/19 Unknown Rx Cyclobenzaprine [Flexeril] 10 mg PO TID PRN #15 tablet 05/01/19 Unknown Rx Acetaminophen [Acetaminophen TAB] 1,000 mg PO Q6HR PRN #30 tablet 05/06/19 Unknown Rx Metoclopramide [Reglan] 10 mg PO Q6H PRN #30 tablet 05/06/19 Unknown Rx diphenhydrAMINE [Benadryl CAP] 25 mg PO Q6HR PRN #30 capsule 05/06/19 Unknown Rx Allergies Allergy/AdvReac Type Severity Reaction Status Date / Time No Known Allergies Allergy Verified 03/18/19 10:18 Heart Score - HEART Score History: Slightly suspicious EKG: Normal Age: > 65 Risk factors: > 3 risk factors or hx of atherosclerotic disease Troponin: < normal limit HEART Score: 4 - Critical Actions Critical Actions: 4-6 pts:12-16.6% risk of adverse cardiac event. Should be admitted ED Review of Systems ROS: Stated complaint: CHEST PAIN Other details as noted in HPI Comment: All other systems reviewed and negative Constitutional: denies: chills, fever Respiratory: denies: shortness of breath Cardiovascular: chest pain Gastrointestinal: denies: nausea, vomiting Musculoskeletal: other (denies leg pain or swelling) ED Past Medical Hx - Past Medical History Previous Medical History?: Yes Hx Hypertension: No Hx CVA: Yes Hx Heart Attack/AMI: Yes Hx GERD: No Hx COPD: Yes (no home O2) Hx HIV: No - Surgical History Past Surgical History?: Yes Additional Surgical History: Cataract. neck surgery. hernia repair. Prostate seed implant - Social History Smoking Status: Former Smoker Substance Use Type: None - Medications Home Medications: Home Medications Medication Instructions Recorded Confirmed Last Taken Type Nebivolol (Nf) [Bystolic (Nf)] 5 mg PO QDAY 07/14/16 03/18/19 11/01/17 History ALBUTEROL Inhaler (OR & NICU) 2 puff IH QID PRN #1 inhalation 07/25/18 03/18/19 Unknown Rx [ProAir HFA Inhaler] AtorvaSTATin [Lipitor] 20 mg PO QHS tablet 09/24/18 03/18/19 Unknown Rx Pantoprazole [Protonix TAB] 40 mg PO QDAY 03/18/19 03/18/19 Unknown History Aspirin EC 81 mg PO QDAY #30 tablet. 03/20/19 Unknown Rx Pantoprazole [Protonix TAB] 40 mg PO QDAY #30 tablet 03/20/19 Unknown Rx amLODIPine [Norvasc] 5 mg PO QDAY #30 tablet 03/20/19 Unknown Rx Docusate Sodium [Colace] 100 mg PO BID PRN #20 capsule 03/26/19 Unknown Rx Cyclobenzaprine [Flexeril] 10 mg PO QHS PRN #10 tablet 04/21/19 Unknown Rx Naproxen [Naprosyn] 500 mg PO Q8H PRN #12 tablet 04/21/19 Unknown Rx Cyclobenzaprine [Flexeril] 10 mg PO TID PRN #15 tablet 05/01/19 Unknown Rx Acetaminophen [Acetaminophen TAB] 1,000 mg PO Q6HR PRN #30 tablet 05/06/19 Unknown Rx Metoclopramide [Reglan] 10 mg PO Q6H PRN #30 tablet 05/06/19 Unknown Rx diphenhydrAMINE [Benadryl CAP] 25 mg PO Q6HR PRN #30 capsule 05/06/19 Unknown Rx ED Physical Exam - General Limitations: No Limitations General appearance: alert, in no apparent distress - Head Head exam: Present: atraumatic, normocephalic - Eye Eye exam: Present: normal appearance, PERRL, EOMI - ENT ENT exam: Present: mucous membranes moist - Neck Neck exam: Present: normal inspection - Respiratory Respiratory exam: Present: normal lung sounds bilaterally. Absent: respiratory distress - Cardiovascular Cardiovascular Exam: Present: regular rate, normal rhythm - GI/Abdominal GI/Abdominal exam: Present: soft. Absent: distended, tenderness - Extremities Exam Extremities exam: Present: normal inspection. Absent: pedal edema, calf tenderness - Neurological Exam Neurological exam: Present: alert, oriented X3 - Psychiatric Psychiatric exam: Present: normal affect, normal mood - Skin Skin exam: Present: warm, dry, intact, normal color. Absent: rash ED Course Vital Signs 05/17/19 05/18/19 22:49 00:05 Temperature 97.7 F Pulse Rate 76 Respiratory 20 16 Rate Blood Pressure 150/74 [Left] O2 Sat by Pulse 96 Oximetry RAVI score - Ravi Score Age > 65: (1) Yes Aspirin use within the Past 7 Days: (0) No 3 or more CAD Risk Factors: (1) Yes 2 or more Angina events in past 24 hrs: (1) Yes Known CAD with more than 50% Stenosis: (0) No Elevated Cardiac Markers: (0) No ST Deviation Greater than 0.5mm: (0) No RAVI Score: 3 ED Medical Decision Making - Lab Data Result diagrams: 05/17/19 23:06 05/18/19 01:17 - EKG Data -: EKG Interpreted by Me EKG shows normal: sinus rhythm, axis, intervals, QRS complexes, ST-T waves Rate: normal - EKG Data Interpretation: no acute changes Critical care attestation.: If time is entered above; I have spent that time in minutes in the direct care of this critically ill patient, excluding procedure time. ED Disposition Clinical Impression: Acute chest pain Disposition: OP ADMIT IP TO THIS HOSP Is pt being admited?: Yes Condition: Stable Instructions: Chest Pain (ED) Referrals: DHEERAJ MARCUS MD [Primary Care Provider] - 3-5 Days Time of Disposition: 01:57
--- NOTE | 2019-05-17 23:28 | XRay Report ---
CHEST 1 VIEW INDICATION: Chest Pain. COMPARISON: 10/08/2018 FINDINGS: Support devices: None. Heart: Within normal limits. Lungs/Pleura: No acute air space or interstitial disease. Additional findings: None. IMPRESSION: 1. No acute findings. Signer Name: Christofer Mcclelland MD Signed: 05/17/2019 11:23 PM Workstation Name: [id number]
[2019-05-17 23:46] LABS: Basophils # (Auto) 0.1 K/mm3 (0.0-0.1); Basophils % (Auto) 1.4 % (0.0-1.8); Eosinophils # (Auto) 0.1 K/mm3 (0.0-0.4); Eosinophils % (Auto) 2.5 % (0.0-4.3); Hematocrit 33.4 % (35.5-45.6); Hemoglobin 11.5 gm/dl (11.8-15.2); Lymphocytes # (Auto) 1.1 K/mm3 (1.2-5.4); Lymphocytes % (Auto) 27.7 % (13.4-35.0); Mean Corpuscular HGB Conc 35 % (32-34); Mean Corpuscular Volume 93 fl (84-94); Monocytes # (Auto) 0.4 K/mm3 (0.0-0.8); Monocytes % (Auto) 9.6 % (0.0-7.3); Platelet Count 136 K/mm3 (140-440); Red Blood Count 3.61 M/mm3 (3.65-5.03); Red Cell Distribution Width 14.3 % (13.2-15.2)
[2019-05-18 00:04] LABS: BUN/Creatinine Ratio 14; Blood Urea Nitrogen 18 mg/dL (9-20); Hemolysis Index 490
[2019-05-18] MEDS ORDERED: MORPHINE IV PRN (02:34)
[2019-05-18] MEDS ORDERED: NITROSTAT SL PRN (02:34)
[2019-05-18] MEDS ORDERED: ZOFRAN IV PRN (02:34)
[2019-05-18] MEDS ORDERED: TYLENOL PR PRN (02:35)
--- NOTE | 2019-05-18 04:24 | History and Physical Report ---
CHIEF COMPLAINT: Chest pain. HISTORY OF PRESENT ILLNESS: The patient is an 88-year-old male who was having sharp chest pain located in the precordial area and radiating to the left upper extremity. Pain remained constant and was associated with shortness of breath, but there was no history of diaphoresis, nausea or vomiting. Pain was not affected by movement or breathing and pain was slightly relieved with pain medication. PAST MEDICAL HISTORY: Pertinent for cerebrovascular accident, coronary artery disease, status post myocardial infarction, COPD, home O2 dependent. PAST SURGICAL HISTORY: Pertinent for cataract surgery, neck surgery, hernia repair, prostate seed implant. FAMILY HISTORY: Noncontributory. SOCIAL HISTORY: The patient is a former cigarette smoker. Does not smoke currently, does not drink alcohol and does not use illicit drugs. MEDICATIONS: The patient is on Bystolic 5 mg by mouth daily, albuterol inhaler 2 puffs by inhalation q.i.d., atorvastatin 20 mg by mouth at bedtime, pantoprazole, Protonix 40 mg by mouth daily, aspirin 81 mg by mouth daily, amlodipine 5 mg by mouth daily, docusate sodium 100 mg by mouth twice daily, Flexeril 10 mg by mouth every night as needed for muscle cramps, naproxen 500 mg by mouth every 8 hours as needed for pain, Tylenol 1000 mg by mouth every 6 hours as needed for fever and headache, Reglan 10 mg by mouth every 6 hours as needed for nausea and vomiting, Benadryl 25 mg by mouth every 6 hours as needed for itching. ALLERGIES: There are no known drug allergies. REVIEW OF SYSTEMS: CONSTITUTIONAL: There is no fever, no chills, no diaphoresis. HEENT: There is no headache or sore throat. CARDIOVASCULAR SYSTEM: Chest pain is present. No orthopnea. RESPIRATORY SYSTEM: Shortness of breath is present. No cough. GASTROINTESTINAL SYSTEM: There is no nausea, no vomiting, no abdominal pain, diarrhea or constipation. NEUROLOGICAL SYSTEM: There is no numbness, no dizziness, no altered mental status. MUSCULOSKELETAL SYSTEM: There is no joint pain or swelling. DERMATOLOGICAL SYSTEM: There is no skin rash or itching. GENITOURINARY SYSTEM: There is no dysuria, hematuria, or flank pain. Rest of system review is normal. PHYSICAL EXAMINATION: GENERAL: At the time of exam, the patient was found to be alert, oriented x 3 and not in acute distress. VITAL SIGNS: At the initial time of presentation show temperature of 97.7 degrees Fahrenheit, pulse of 76, respirations 20, blood pressure 150/74, O2 sat of 96% on room air. HEENT: Showed pupils to be equal, round, reactive to light and accommodating. Extraocular muscles are intact. NECK: Supple with no JVD or carotid bruit. CARDIOVASCULAR SYSTEM: Showed normal first and second heart sounds with no gallops or murmurs. RESPIRATORY SYSTEM: Showed good air entry on both sides of the lungs with no abnormal breath sounds. GASTROINTESTINAL SYSTEM: Showed abdomen to be full, soft, nontender with no organomegaly or rigidity. NEUROLOGICAL: Shows no focal deficit. MUSCULOSKELETAL SYSTEM: Show no joint swelling or tenderness. DERMATOLOGICAL SYSTEM: Show no skin rash. GENITOURINARY SYSTEM: Showing no costovertebral angle tenderness. PERTINENT LABORATORY AND IMAGING STUDIES: The patient had chest x-ray done that shows no acute findings. The patient's lab result shows CBC with low white count of 4000, low hemoglobin of 11.5 and low hematocrit of 33.4 with CBC differential showing elevated monocyte count of 9.4%. The patient's chemistry initially showed potassium level of 5.8, which was repeated and then noted to be 4.0. The patient's rest of chemistry was unremarkable. Troponin level came back normal. DIAGNOSIS: Chest pain. PLAN OF CARE: 1. The patient will be admitted to telemetry. 2. The patient will remain n.p.o. and will have Lexiscan stress test in the morning. 3. The patient will have serial cardiac enzyme involving troponin, total CK, and CK-MB checked every 6 hours x 2 more levels. 4. The patient will have Tylenol 650 mg rectally every 4 hours as needed for fever and headache and will be on heparin 5000 units subcutaneous q. 12 hours. 5. The patient will be on IV morphine 2 mg every 3 hours as needed for pain and IV Zofran 4 mg every 8 hours for nausea and vomiting. 6. The patient will be on nitro paste half inch to anterior chest wall q.i.d. and Nitrostat 0.4 mg every 5 minutes as needed for breakthrough chest pain. 7. The patient will be on oxygen by nasal cannula at 2 liter per minute. JOB# [id number] OCN/NTS
[2019-05-18 07:48] LABS: Creatine Kinase MB 3.4 ng/mL (0.0-4.0)
[2019-05-18] MEDS: NITRO-BID 2% TP SCH ×3 (07:49→13:36)
[2019-05-18] MEDS ORDERED: ASPIRIN PO SCH (10:00)
[2019-05-18] MEDS ORDERED: HEPARIN SUB-Q SCH (10:00)
--- NOTE | 2019-05-18 10:53 | Progress Note ---
Assessment and Plan Assessment and plan: Chest pain. Patient with a recent BMP on 03/20/2019 that showed no ischemia and normal LVEF. Patient with nonobstructive CAD by catheterization on 2016. Cardiology consultation for further evaluation. Stress test canceled for today. Continue medical therapy with aspirin and statins. Pain is reproducible with palpation. We will likely discharge if cleared by cardiology. History of coronary artery disease. As above. Hypertension. Resume Ancef hypertensive medications. Hyperlipidemia. Continue statins. GERD. Continue PPIs. History of glaucoma. COPD. Compensated. Continue duo nebs when necessary. History Interval history: Patient denies any chest pain currently. Patient's pain is reproducible with palpation. Hospitalist Physical - Constitutional Vitals: Temp Pulse Resp BP Pulse Ox 97.8 F 68 16 133/55 95 05/18/19 08:04 05/18/19 09:52 05/18/19 08:15 05/18/19 09:52 05/18/19 09:24 General appearance: Present: no acute distress, well-nourished - EENT Eyes: Present: PERRL, EOM intact ENT: hearing intact, clear oral mucosa, dentition normal - Neck Neck: Present: supple, normal ROM - Respiratory Respiratory effort: normal Respiratory: bilateral: CTA - Cardiovascular Rhythm: regular Heart Sounds: Present: S1 & S2. Absent: gallop, rub - Extremities Extremities: no ischemia, No edema, Full ROM - Abdominal General gastrointestinal: soft, non-tender, non-distended, normal bowel sounds - Integumentary Integumentary: Present: clear, warm, dry - Neurologic Neurologic: CNII-XII intact, moves all extremities Results - Labs CBC & Chem 7: 05/17/19 23:06 05/18/19 01:17 Labs: Laboratory Last Values WBC 4.0 K/mm3 (4.5-11.0) L 05/17/19 23:06 RBC 3.61 M/mm3 (3.65-5.03) L 05/17/19 23:06 Hgb 11.5 gm/dl (11.8-15.2) L 05/17/19 23:06 Hct 33.4 % (35.5-45.6) L 05/17/19 23:06 MCV 93 fl (84-94) 05/17/19 23:06 MCH 32 pg (28-32) 05/17/19 23:06 MCHC 35 % (32-34) H 05/17/19 23:06 RDW 14.3 % (13.2-15.2) 05/17/19 23:06 Plt Count 136 K/mm3 (140-440) L 05/17/19 23:06 Lymph % (Auto) 27.7 % (13.4-35.0) 05/17/19 23:06 Baker % (Auto) 9.6 % (0.0-7.3) H 05/17/19 23:06 Eos % (Auto) 2.5 % (0.0-4.3) 05/17/19 23:06 Baso % (Auto) 1.4 % (0.0-1.8) 05/17/19 23:06 Lymph # 1.1 K/mm3 (1.2-5.4) L 05/17/19 23:06 Baker # 0.4 K/mm3 (0.0-0.8) 05/17/19 23:06 Eos # 0.1 K/mm3 (0.0-0.4) 05/17/19 23:06 Baso # 0.1 K/mm3 (0.0-0.1) 05/17/19 23:06 Seg Neutrophils % 58.8 % (40.0-70.0) 05/17/19 23:06 Seg Neutrophils # 2.3 K/mm3 (1.8-7.7) 05/17/19 23:06 Sodium 139 mmol/L (137-145) 05/17/19 23:06 Potassium 4.0 mmol/L (3.6-5.0) D 05/18/19 01:17 Chloride 106.6 mmol/L (98-107) 05/17/19 23:06 Carbon Dioxide 19 mmol/L (22-30) L 05/17/19 23:06 19 mmol/L 05/17/19 23:06 BUN 18 mg/dL (9-20) 05/17/19 23:06 1.3 mg/dL (0.8-1.5) 05/17/19 23:06 Estimated GFR > 60 ml/min 05/17/19 23:06 14 % 05/17/19 23:06 Glucose 89 mg/dL (75-100) 05/17/19 23:06 Calcium 9.0 mg/dL (8.4-10.2) 05/17/19 23:06 200 units/L (55-170) H 05/18/19 07:02 CK-MB (CK-2) 3.4 ng/mL (0.0-4.0) 05/18/19 07:02 CK-MB (CK-2) Rel Index 1.7 (0-4) 05/18/19 07:02 < 0.010 ng/mL (0.00-0.029) 05/18/19 07:02 Active Medications - Current Medications Current Medications: Generic Name Dose Route Start Last Admin Trade Name Freq PRN Reason Stop Dose Admin Acetaminophen 650 mg 05/18/19 02:35 Tylenol AR Q4H PRN Headache Aspirin 325 mg 05/18/19 10:00 05/18/19 09:51 Aspirin PO 325 mg QDAY WIL Administration Heparin Sodium (Porcine) 5,000 unit 05/18/19 10:00 05/18/19 09:58 Heparin SUB-Q 5,000 unit Q12HR WIL Administration Morphine Sulfate 2 mg 05/18/19 02:34 Morphine IV Q3H PRN Pain, Moderate (4-6) Nitroglycerin 0.5 inch 05/18/19 06:00 05/18/19 09:52 Nitro-Bid 2% TP 0.5 inch QIDNTG WIL Administration Protocol Nitroglycerin 0.4 mg 05/18/19 02:34 Nitrostat SL .Q5MIN PRN Chest Pain Ondansetron HCl 4 mg 05/18/19 02:34 Zofran IV Q8H PRN Nausea And Vomiting
[2019-05-18 13:34] VITALS: BP 128/68
[2019-05-18 14:18] LABS: Creatine Kinase MB 3.1 ng/mL (0.0-4.0)
--- NOTE | 2019-05-18 15:31 | Consultation ---
<ARMEN TAYLOR - Last Filed: 05/18/19 16:04> History of Present Illness Consult date: 05/18/19 Requesting physician: RETA PAVON Consult reason: chest pain History of present illness: Mr. Hatch is an 88 y/o male admitted to [facility] with chest pain. He is not known to our practice. He has a history of CAD, hypertension, hyperlipidemia, GERD, COPD and glaucoma. He reports that the chest pain began yesterday and describes it as sharp, left-sided and constant. It is reproducible on palpation during examination. The pain remains constant, but has diminished since the application of Nitropaste. An EKG was NAF and troponins were negative x4. He underwent a stress test in March 2019 that was negative for ischemia and found an EF of 62%. On examination, he is lying in bed in NAD with a bag of medications. He still c/o CP. Past History Past Medical History: CAD, COPD, GERD, hypertension, hyperlipidemia, other (glaucoma) Social history: lives with family Medications and Allergies Allergies Allergy/AdvReac Type Severity Reaction Status Date / Time No Known Allergies Allergy Verified 03/18/19 10:18 Home Medications Medication Instructions Recorded Confirmed Last Taken Type Pantoprazole [Protonix TAB] 40 mg PO QDAY 03/18/19 05/18/19 Unknown History Aspirin EC 81 mg PO QDAY #30 tablet. 03/20/19 05/18/19 05/17/19 Rx amLODIPine [Norvasc] 5 mg PO QDAY #30 tablet 03/20/19 05/18/19 Unknown Rx Docusate Sodium [Colace] 100 mg PO BID PRN #20 capsule 03/26/19 05/18/19 Unknown Rx Cyclobenzaprine [Flexeril] 10 mg PO TID PRN #15 tablet 05/01/19 05/18/19 Unknown Rx Acetaminophen [Acetaminophen TAB] 1,000 mg PO Q6HR PRN #30 tablet 05/06/19 0 05/18/19 Unknown Rx Active Meds: Active Medications Acetaminophen (Tylenol) [address] Q4H PRN PRN Reason: Headache Aspirin (Aspirin) 325 mg PO QDAY [facility] Last Admin: 05/18/19 09:51 Dose: 325 mg Documented by: Heparin Sodium (Porcine) (Heparin) 5,000 unit SUB-Q Q12HR [facility] Last Admin: 05/18/19 09:58 Dose: 5,000 unit Documented by: Morphine Sulfate (Morphine) 2 mg IV Q3H PRN PRN Reason: Pain, Moderate (4-6) Nitroglycerin (Nitro-Bid 2%) 0.5 inch TP QIDNTG [facility]; Protocol Last Admin: 05/18/19 13:36 Dose: 0.5 inch Documented by: Nitroglycerin (Nitrostat) 0.4 mg SL .Q5MIN PRN PRN Reason: Chest Pain Ondansetron HCl (Zofran) 4 mg IV Q8H PRN PRN Reason: Nausea And Vomiting Review of Systems All systems: negative Cardiovascular: chest pain Physical Examination Vital Signs Temp Pulse Resp BP Pulse Ox 97.7 F 76 20 150/74 96 05/17/19 22:49 05/17/19 22:49 05/17/19 22:49 05/17/19 22:49 05/17/19 22:49 General appearance: no acute distress HEENT: Positive: PERRL Neck: Positive: neck supple Cardiac: Positive: Reg Rate and Rhythm Lungs: Positive: Normal Exam Neuro: Positive: Grossly Intact Abdomen: Positive: Unremarkable Male genitourinary: Positive: deferred Skin: Positive: Clear Musculoskeletal: Normal Range of Motion Extremities: Present: normal Results 05/17/19 23:06 05/18/19 01:17 Cardiac Enzymes 05/18/19 05/18/19 Range/Units 07:02 13:31 CK-MB (CK-2) 3.4 3.1 (0.0-4.0) ng/mL CBC 05/17/19 Range/Units 23:06 WBC 4.0 L (4.5-11.0) K/mm3 RBC 3.61 L (3.65-5.03) M/mm3 Hgb 11.5 L (11.8-15.2) gm/dl Hct 33.4 L (35.5-45.6) % Plt Count 136 L (140-440) K/mm3 Lymph # 1.1 L (1.2-5.4) K/mm3 Bennett # 0.4 (0.0-0.8) K/mm3 Eos # 0.1 (0.0-0.4) K/mm3 Baso # 0.1 (0.0-0.1) K/mm3 Comprehensive Metabolic Panel 05/17/19 05/18/19 Range/Units 23:06 01:17 Sodium 139 (137-145) mmol/L Potassium 5.8 H 4.0 D (3.6-5.0) mmol/L Chloride 106.6 (98-107) mmol/L Carbon Dioxide 19 L (22-30) mmol/L BUN 18 (9-20) mg/dL Creatinine 1.3 (0.8-1.5) mg/dL Glucose 89 (75-100) mg/dL Calcium 9.0 (8.4-10.2) mg/dL - Imaging and Cardiology Echo: pending, report reviewed EKG: report reviewed (SR) - EKG Interpretation EKG: sinus rhythm EKG interpretations - Telemetry EKG Rhythm: Sinus Rhythm - EKG Sinus rhythms and dysrhythmias: sinus rhythm Assessment and Plan Mr. Hatch is an 88 y/o male with a past medical history significant for CAD, hypertension, hyperlipidemia, GERD and COPD who presented to [facility] with chest pain. Troponins and EKG negative; stress test from March 2019 also negative. We have nothing to add from a cardiac perspective. CP is likely atypical. He is stable from our standpoint and may be discharged home. The patient has been seen in conjunction with Dr. Polanco, who agrees with assessment and plan. - Patient Problems (1) Acute chest pain Status: Acute (2) History of coronary artery disease Status: Chronic (3) COPD (chronic obstructive pulmonary disease) Status: Chronic Qualifiers: Emphysema type: unspecified (4) GERD (gastroesophageal reflux disease) Status: Chronic Qualifiers: Esophagitis presence: without esophagitis Qualified Code(s): K21.9 - Gastro-esophageal reflux disease without esophagitis (5) Glaucoma Status: Chronic Qualifiers: Glaucoma type: open-angle Laterality: bilateral (6) HLD (hyperlipidemia) Status: Chronic Qualifiers: Hyperlipidemia type: mixed hyperlipidemia Qualified Code(s): E78.2 - Mixed hyperlipidemia (7) HTN (hypertension) Status: Chronic Qualifiers: Hypertension type: essential hypertension Qualified Code(s): I10 - Essential (primary) hypertension <ЕЛЕНА POLANCO R - Last Filed: 05/19/19 08:56> Physical Examination Vital Signs Temp Pulse Resp BP Pulse Ox 97.7 F 76 20 150/74 96 08/09/19 22:49 05/17/19 22:49 05/17/19 22:49 05/17/19 22:49 05/17/19 22:49 Results 05/17/19 23:06 05/18/19 01:17 Cardiac Enzymes 05/18/19 Range/Units 13:31 CK-MB (CK-2) 3.1 (0.0-4.0) ng/mL Assessment and Plan chest pain is atypical probably gi vs costochondrtis treat medically
--- NOTE | 2019-05-19 08:33 | Discharge Summary ---
Providers - Providers Date of Admission: 05/18/19 04:45 Date of discharge: 05/19/19 Attending physician: RETA PAVON 05/18/19 10:49 Consult to Physician [CONS] Routine Comment: Consulting Provider: ЕЕЛНА ALVAREZ Physician Instructions: Reason For Exam: cp, nl stress March 2019 Primary care physician: [facility], Hospitalization Reason for admission: cp Condition: Stable Hospital course: Mr. Hatch is an 88 y/o male with PMH of CAD, hypertension, hyperlipidemia, GERD, COPD and glaucoma who was admitted to [facility] with dx of chest pain. He reports that the chest pain began the day [employer] and described it as sharp, left-sided and constant. It was reproducible on palpation during examination. The pain remained constant, but diminished since the application of Nitropaste. An EKG was NAF and troponins were negative x4. He underwent a stress test in March 2019 that was negative for ischemia and found an EF of 62%. Cardiology saw the patient in consultation and felt that chest pain was noncardiac. Etiology of chest pain likely costochondritis. Therefore, patient was discharged home and is to follow-up as an outpatient. Dedicated discharge time 32 minutes. Disposition: DC-01 TO HOME OR SELFCARE - Discharge Diagnoses (1) Costochondral chest pain Status: Acute (2) Chest pain Status: Acute Qualifiers: Chest pain type: unspecified Qualified Code(s): R07.9 - Chest pain, unspecified Core Measure Documentation - Palliative Care Palliative Care/ Comfort Measures: Not Applicable - Core Measures Any of the following diagnoses?: none Exam - Constitutional Vitals: Temp Pulse Resp BP Pulse Ox 98.3 F 66 18 128/68 97 05/18/19 12:18 05/18/19 13:36 05/18/19 12:18 05/18/19 13:36 05/18/19 13:28 General appearance: Present: no acute distress, well-nourished - EENT Eyes: Present: PERRL ENT: hearing intact, clear oral mucosa - Neck Neck: Present: supple, normal ROM - Respiratory Respiratory effort: normal Respiratory: bilateral: CTA - Cardiovascular Heart Sounds: Present: S1 & S2. Absent: rub, click - Extremities Extremities: pulses symmetrical, No edema Peripheral Pulses: within normal limits - Abdominal General gastrointestinal: Present: soft, non-tender, non-distended, normal bowel sounds Male genitourinary: Present: normal - Integumentary Integumentary: Present: clear, warm, dry - Musculoskeletal Musculoskeletal: gait normal, strength equal bilaterally - Psychiatric Psychiatric: appropriate mood/affect, intact judgment & insight - Neurologic Neurologic: CNII-XII intact, moves all extremities Plan Activity: no restrictions Weight Bearing Status: Full Weight Bearing Follow up with: DHEERAJ MARCUS MD [Primary Care Provider] - 3-5 Days
== END 2019-05-18 17:46 | disposition home or self-care (01) | DRG 206 ==
LOC: ED 22:32 → 4A 05-18 04:45
PROVIDERS: ADMIT Internal Medicine; ATTEND Hospitalist
DX: M94.0 Chondrocostal junction syndrome [Tietze] (principal); I25.10 Atherosclerotic heart disease of native coronary artery without angina pectoris; I10 Essential (primary) hypertension; K21.9 Gastro-esophageal reflux disease without esophagitis; H40.10X0 Unspecified open-angle glaucoma, stage unspecified; E78.2 Mixed hyperlipidemia; J44.9 Chronic obstructive pulmonary disease, unspecified; Z79.82 Long term (current) use of aspirin; Z79.899 Other long term (current) drug therapy; Z86.73 Personal history of transient ischemic attack (TIA), and cerebral infarction without residual deficits; I25.2 Old myocardial infarction; Z87.891 Personal history of nicotine dependence
CPT/HCPCS: 36415; 71045; 80048; 82550; 82553; 84132; 84484; 85025; 93005; 93010; G0378; J1644

== ENCOUNTER 2019-05-20 09:14 | Emergency (ER) | payer MEDICARE ==
[2019-05-20 09:24] VITALS: BP 122/73
[2019-05-20] MEDS ORDERED: TYLENOL PO ONE (10:35)
--- NOTE | 2019-05-20 11:03 | Emergency Department Report ---
ED General Adult HPI - General Chief complaint: Headache Stated complaint: HEAD/NECK PAIN Time Seen by Provider: 05/20/19 10:22 Source: patient Mode of arrival: Ambulatory Limitations: No Limitations - History of Present Illness Initial comments: 88-year-old -Citizen Of [place] male with one known by this provider comes in for complaint of headache and neck pain reporting that is chronic in nature but did not take any pain medication today. Patient reports that the pain is worse when he sits but improves when he gets up and moves. Patient reports he was able to walk here to the emergency room to be evaluated. Patient reports he lives with his son that is still sleep at home. Patient denies any recent trauma or falls. Patient reports he takes his medications as prescribed. Patient denies any dizziness no nausea no vomiting no change of vision. 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 -: week(s) Location: head, neck Radiation: non-radiation Severity scale (0 -10): 4 Quality: aching, sharp Consistency: intermittent Improves with: none Worsens with: none Associated Symptoms: denies other symptoms - Related Data Home Medications Medication Instructions Recorded Confirmed Last Taken Pantoprazole [Protonix TAB] 40 mg PO QDAY 03/18/19 05/18/19 Unknown Previous Rx's Medication Instructions Recorded Last Taken Type Aspirin EC [Halfprin EC] 81 mg PO QDAY #30 tablet. 03/20/19 05/17/19 Rx amLODIPine [Norvasc] 5 mg PO QDAY #30 tablet 03/20/19 Unknown Rx Docusate Sodium [Colace] 100 mg PO BID PRN #20 capsule 03/26/19 Unknown Rx Cyclobenzaprine [Flexeril] 10 mg PO TID PRN #15 tablet 05/01/19 Unknown Rx Acetaminophen [Acetaminophen TAB] 1,000 mg PO Q6HR PRN #30 tablet 05/06/19 Unknown Rx Allergies Allergy/AdvReac Type Severity Reaction Status Date / Time No Known Allergies Allergy Verified 03/18/19 10:18 ED Review of Systems ROS: Stated complaint: HEAD/NECK PAIN Other details as noted in HPI ED Past Medical Hx - Past Medical History Previous Medical History?: Yes Hx Hypertension: Yes Hx CVA: Yes Hx Heart Attack/AMI: Yes Hx GERD: No Hx COPD: Yes Hx HIV: No - Surgical History Past Surgical History?: Yes Additional Surgical History: Cataract. neck surgery. hernia repair. Prostate seed implant - Social History Smoking Status: Never Smoker Substance Use Type: None - Medications Home Medications: Home Medications Medication Instructions Recorded Confirmed Last Taken Type Pantoprazole [Protonix TAB] 40 mg PO QDAY 03/18/19 05/18/19 Unknown History Aspirin EC [Halfprin EC] 81 mg PO QDAY #30 tablet. 03/20/19 05/18/19 05/17/19 Rx amLODIPine [Norvasc] 5 mg PO QDAY #30 tablet 03/20/19 05/18/19 Unknown Rx Docusate Sodium [Colace] 100 mg PO BID PRN #20 capsule 03/26/19 05/18/19 Unknown Rx Cyclobenzaprine [Flexeril] 10 mg PO TID PRN #15 tablet 05/01/19 05/18/19 Unknown Rx Acetaminophen [Acetaminophen TAB] 1,000 mg PO Q6HR PRN #30 tablet 05/06/19 05/18/19 Unknown Rx ED Physical Exam - General Limitations: No Limitations General appearance: alert, in no apparent distress - Head Head exam: Present: atraumatic, normocephalic - Eye Eye exam: Present: normal appearance - ENT ENT exam: Present: mucous membranes moist - Neck Neck exam: Present: normal inspection - Respiratory Respiratory exam: Present: normal lung sounds bilaterally. Absent: respiratory distress - Cardiovascular Cardiovascular Exam: Present: regular rate, normal rhythm. Absent: systolic murmur, diastolic murmur, rubs, gallop - GI/Abdominal GI/Abdominal exam: Present: soft, normal bowel sounds - Rectal Rectal exam: Present: deferred - Extremities Exam Extremities exam: Present: normal inspection - Back Exam Back exam: Present: normal inspection - Neurological Exam Neurological exam: Present: alert, oriented X3 - Expanded Neurological Exam Expanded Cranial nerves: EOM's Intact: Normal, Gag Reflex: Normal, Tongue Deviation: Normal, Nystagmus: Normal, Facial Sensation: Normal, Facial Palsy with Forehead Movement: Normal, Facial Palsy without Forehead Movement: Normal Cerebellar function: Finger to Nose: Normal, Heel to Laws: Normal, Romberg: Normal Sensory exam: Upper Extremity Light Touch: Normal, Upper Extremity Pin Prick: Normal, Upper Extremity Temperature: Normal, UE 2 Point Discrimination: Normal, Lower Extremity Light Touch: Normal, Lower Extremity Pin Prick: Normal Motor strength exam: RUE: 4, LUE: 4, RLE: 4, LLE: 4 - Psychiatric Psychiatric exam: Present: normal affect, normal mood - Skin Skin exam: Present: warm, dry, intact, normal color. Absent: rash ED Course Vital Signs 05/20/19 09:22 Temperature 97.7 F Pulse Rate 93 H Respiratory 20 Rate Blood Pressure 122/73 O2 Sat by Pulse 97 Oximetry ED Medical Decision Making - Medical Decision Making 88-year-old -Citizen Of [place] male with one known by this provider comes in for complaint of headache and neck pain reporting that is chronic in nature but did not take any pain medication today. Patient reports that the pain is worse when he sits but improves when he gets up and moves. Patient reports he was able to walk here to the emergency room to be evaluated. Patient reports he lives with his son that is still sleep at home. Patient denies any recent trauma or falls. Patient reports he takes his medications as prescribed. Patient denies any dizziness no nausea no vomiting no change of vision. She'll be given Tylenol 650 mg for pain management. Critical care attestation.: If time is entered above; I have spent that time in minutes in the direct care of this critically ill patient, excluding procedure time. ED Disposition Clinical Impression: Chronic neck pain, Intermittent headache Disposition: DC-01 TO HOME OR SELFCARE Is pt being admited?: No Does the pt Need Aspirin: No Condition: Stable Instructions: Acute Headache (ED), Cervical Spinal Stenosis (ED) Additional Instructions: He is to continue with pain medications as prescribed on 05/06/2019. Patient is instructed to follow-up with his primary care provider if his symptoms persist or gets worse. Referrals: NIKHIL CURRY MD [Primary Care Provider] - 3-5 Days
== END 2019-05-20 11:16 | disposition home or self-care (01) ==
LOC: ED 09:14
DX: G89.29 Other chronic pain (principal); R51 Headache; M54.2 Cervicalgia; I10 Essential (primary) hypertension; I25.2 Old myocardial infarction; J44.9 Chronic obstructive pulmonary disease, unspecified; Z86.73 Personal history of transient ischemic attack (TIA), and cerebral infarction without residual deficits; Z79.82 Long term (current) use of aspirin; Z79.899 Other long term (current) drug therapy
CPT/HCPCS: 99282

== ENCOUNTER 2019-05-23 08:04 | Outpatient (CLI) | payer MEDICARE ==
--- NOTE | 2019-05-23 12:40 | Nuclear Medicine Report ---
NUCLEAR MEDICINE BONE SCAN, WHOLE BODY INDICATION: C61) MALIGNANT NEOPLASM OF PROSTATE. TECHNIQUE: 26.3 mCi of Tc-99m MDP were injected IV. Whole body images were obtained. COMPARISON: CT abdomen pelvis without contrast on 05/03 06/27. CT chest dated 03/18/2019. No previous b one scan at this facility. FINDINGS: Skeletal Structures: Fairly symmetric, likely degenerative uptake is present involving the sternocla vicular joints, shoulders and ankles.. Skeletal Lesions: Small foci of increased radiotracer activity are identified overlying the bilateral seventh ribs anteriorly near the costochondral junctions. Subtle deformity of the left anterior tavon nth rib is suggested on CT chest without contrast dated 03/18/2019. This uptake could be post traumati c in nature. No correlating blastic bony lesions are identified on CT.. Soft Tissues: Normal. Kidneys: Normal, symmetric activity. Additional Findings: Mild contamination the perineum is noted.. IMPRESSION: 2 foci of increased radiotracer activity are identified in the anterior seventh ribs bilaterally. Eid btle cortical deformity is suggested in the left anterior seventh rib suggesting these could be post traumatic uptake. No convincing metastatic pattern is identified on bone scan. Please correlate with the patient's clinical history and PSA levels. Signer Name: Jh Richardson Jr, MD Signed: 05/23/2019 12:36 PM Workstation Name: [id number]
== END 2019-05-23 08:05 | disposition home or self-care (01) ==
LOC: NM 08:04
PROVIDERS: ATTEND Urology
DX: C61 Malignant neoplasm of prostate (principal); I10 Essential (primary) hypertension; I25.10 Atherosclerotic heart disease of native coronary artery without angina pectoris; E78.5 Hyperlipidemia, unspecified; K21.9 Gastro-esophageal reflux disease without esophagitis; J44.9 Chronic obstructive pulmonary disease, unspecified; E78.00 Pure hypercholesterolemia, unspecified
CPT/HCPCS: 78306; A9503

== ENCOUNTER 2019-05-26 16:22 | Emergency (ER) | payer MEDICARE ==
[2019-05-26 17:27] VITALS: BP 155/81
--- NOTE | 2019-05-26 17:29 | Emergency Department Report ---
Chief Complaint: Extremity Problem,Nontraumatic Stated Complaint: (R) SHOULDER/BACK PAIN Time Seen by Provider: 05/26/19 17:23 - HPI History of Present Illness: 88 y/o male comes in for chronic back and shoulder pain. Patient denies any recent trauma or falls. 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 Took pain medication. Patient denies any change in his pain. - ROS Review of Systems: back and shoulder right pain - Exam Vital Signs: Vital Signs 05/26/19 17:06 Temperature 98.3 F Pulse Rate 103 H Respiratory 16 Rate Blood Pressure 119/78 O2 Sat by Pulse 100 Oximetry Physical Exam: AxO times 3. FROM of right shoulder. Right trapezes tenderness mild paraspinal tenderness MSE screening note: Focused history and physical exam performed. Due to findings the following was ordered: Discuss with patient he has arthritis and he can continue to take his pain medication. Referral to orthopaedics and PCP. ED Disposition for MSE Clinical Impression: Chronic pain in right shoulder, Chronic back pain greater than 3 months duration Disposition: DC-01 TO HOME OR SELFCARE Is pt being admited?: No Does the pt Need Aspirin: No Condition: Stable Instructions: Chronic Back Pain (ED) Additional Instructions: Continue to take pain medication as prescribed.
== END 2019-05-26 18:00 | disposition home or self-care (01) ==
LOC: ED 16:22
DX: M25.511 Pain in right shoulder (principal); M54.9 Dorsalgia, unspecified; G89.29 Other chronic pain
CPT/HCPCS: 99281

== ENCOUNTER 2019-06-18 08:05 | Emergency (ER) | payer MEDICARE ==
[2019-06-18 08:52] LABS: Basophils % (Auto) 1.3 % (0.0-1.8); Eosinophils # (Auto) 0.2 K/mm3 (0.0-0.4); Eosinophils % (Auto) 4.5 % (0.0-4.3); Hematocrit 33.6 % (35.5-45.6); Hemoglobin 11.3 gm/dl (11.8-15.2); Lymphocytes # (Auto) 1.2 K/mm3 (1.2-5.4); Mean Corpuscular HGB Conc 34 % (32-34); Mean Corpuscular Volume 92 fl (84-94); Monocytes # (Auto) 0.4 K/mm3 (0.0-0.8); Monocytes % (Auto) 10.5 % (0.0-7.3); Platelet Count 172 K/mm3 (140-440); Red Blood Count 3.66 M/mm3 (3.65-5.03); Red Cell Distribution Width 14.3 % (13.2-15.2)
[2019-06-18 09:03] LABS: INR 1.24 (0.87-1.13)
[2019-06-18 09:04] LABS: Partial Thromboplastin Time 29.7 Sec. (24.2-36.6)
[2019-06-18 09:14] LABS: Albumin 3.5 g/dL (3.9-5); BUN/Creatinine Ratio 18; Blood Urea Nitrogen 21 mg/dL (9-20); Calcium 8.6 mg/dL (8.4-10.2); Hemolysis Index 98
--- NOTE | 2019-06-18 09:21 | Cat Scan Report ---
CT HEAD WITHOUT CONTRAST HISTORY: Headache for one day. TECHNIQUE: Axial imaging performed from the skull apex through the skull base without the use of con trast. All CT scans at this location are performed using CT dose reduction for ALARA by means of aut omated exposure control. COMPARISON: None FINDINGS: Parenchyma: No acute intracranial hemorrhage or parenchymal abnormality.. Mild hypoattenuation thro ughout the white matter is noted and consistent with chronic microvascular ischemic disease. Ventricles: There is mild diffuse brain atrophy with commensurate ventricular enlargement which is l ikely age appropriate. Soft tissues: Soft tissues including the orbits appear normal. Bones: No acute osseous abnormality. Sinuses: Sinuses and mastoid air cells are clear. IMPRESSION: No acute abnormality. Signer Name: Jh Richardson Jr, MD Signed: 06/18/2019 9:17 AM Workstation Name: [id number]
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
[2019-06-18 09:50] VITALS: BP 139/67
[2019-06-18 09:53] LABS: Alanine Aminotransferase 9 units/L (7-56)
== END 2019-06-18 09:50 | disposition home or self-care (01) ==
LOC: ED 08:05
DX: S09.90XA Unspecified injury of head, initial encounter (principal); Z79.899 Other long term (current) drug therapy; V78.4XXA Person boarding or alighting from bus injured in noncollision transport accident, initial encounter; Y93.89 Activity, other specified; Y92.410 Unspecified street and highway as the place of occurrence of the external cause; Y99.8 Other external cause status
CPT/HCPCS: 36415; 70450; 80053; 85025; 85610; 85730

== ENCOUNTER 2019-08-20 02:55 | Emergency (ER) | payer MEDICARE ==
[2019-08-20] MEDS ORDERED: ASPIRIN 325 MG TAB PO ONE (03:03)
[2019-08-20 03:37] LABS: Basophils % (Auto) 0.5 % (0.0-1.8); Eosinophils # (Auto) 0.1 K/mm3 (0.0-0.4); Hematocrit 36.5 % (35.5-45.6); Hemoglobin 12.2 gm/dl (11.8-15.2); Lymphocytes # (Auto) 1.1 K/mm3 (1.2-5.4); Lymphocytes % (Auto) 17.6 % (13.4-35.0); Mean Corpuscular HGB Conc 33 % (32-34); Mean Corpuscular Volume 92 fl (84-94); Monocytes # (Auto) 0.5 K/mm3 (0.0-0.8); Monocytes % (Auto) 7.9 % (0.0-7.3); Platelet Count 145 K/mm3 (140-440); Red Blood Count 3.97 M/mm3 (3.65-5.03); Red Cell Distribution Width 14.3 % (13.2-15.2)
--- NOTE | 2019-08-20 03:45 | XRay Report ---
CHEST 1 VIEW INDICATION / CLINICAL INFORMATION: Chest Pain. COMPARISON: 05/17/2019 FINDINGS: SUPPORT DEVICES: None. HEART / MEDIASTINUM: No significant abnormality. LUNGS / PLEURA: No significant pulmonary or pleural abnormality. No pneumothorax. ADDITIONAL FINDINGS: No visible fractures. IMPRESSION: 1. No acute findings. No interval change. Signer Name: Aurelia Rivera MD Signed: 08/20/2019 3:40 AM Workstation Name: [id number]
[2019-08-20 04:04] LABS: BUN/Creatinine Ratio 16; Blood Urea Nitrogen 22 mg/dL (9-20); Calcium 9.5 mg/dL (8.4-10.2); Hemolysis Index 11
[2019-08-20] MEDS ORDERED: ACETAMINOPHEN 500 MG TAB PO ONE (04:28)
--- NOTE | 2019-08-20 04:37 | Emergency Department Report ---
ED Fall HPI - General Chief Complaint: Chest Pain Stated Complaint: FALL Time Seen by Provider: 08/20/19 04:28 Source: patient, EMS Mode of arrival: Wheelchair - History of Present Illness Initial Comments: Mr. Hatch is an 89-year-old male with past medical history of coronary artery disease, hypertension, hyperlipidemia, GERD, COPD and glaucoma who presents after a fall. He fell today outside onto hard pavement. He scraped his left brow. After the fall, he developed chest pain neck pain right shoulder pain. Mild symptoms. He has A laceration above his left eye. He lives with his son In May, admitted for chest pain evaluatiion. Chest pain felt to be noncardia c. In March stress negative for ischemia EF 62%. MD Complaint: fall -: This evening Fall From: standing When Fall Occurred: unsure Place Fall Occurred: street Loss of Consciousness: none Prolonged Down Time?: no Symptoms Prior to Fall: none Location: head Severity: mild Quality: dull Context: tripped/slipped Associated Symptoms: chest paint - Related Data Home Medications Medication Instructions Recorded Confirmed Last Taken Pantoprazole [Protonix TAB] 40 mg PO QDAY 03/18/19 05/18/19 Unknown Previous Rx's Medication Instructions Recorded Last Taken Type Aspirin EC [Halfprin EC] 81 mg PO QDAY #30 tablet. 03/20/19 05/17/19 Rx amLODIPine 5 mg PO QDAY #30 tablet 03/20/19 Unknown Rx Docusate Sodium [Colace] 100 mg PO BID PRN #20 capsule 03/26/19 Unknown Rx Cyclobenzaprine [Flexeril] 10 mg PO TID PRN #15 tablet 05/01/19 Unknown Rx Acetaminophen [Acetaminophen TAB] 1,000 mg PO Q6HR PRN #30 tablet 05/06/19 Unknown Rx Butalb/Acetamin/Caff 50-325-40 1 tab PO Q6HR PRN #24 tab 06/18/19 Unknown Rx [Fioricet] Butalb/Acetamin/Caff 50-325-40 1 tab PO Q6HR PRN #7 tab 06/28/19 Unknown Rx [Fioricet 50-325-40] Allergies Allergy/AdvReac Type Severity Reaction Status Date / Time No Known Allergies Allergy Verified 03/18/19 10:18 ED Review of Systems ROS: Stated complaint: FALL Other details as noted in HPI Comment: All other systems reviewed and negative Constitutional: denies: fever, malaise Cardiovascular: chest pain Skin: lesions ED Past Medical Hx - Past Medical History Previous Medical History?: Yes Hx Hypertension: Yes Hx CVA: Yes Hx Heart Attack/AMI: Yes Hx GERD: No Hx COPD: Yes Hx HIV: No - Surgical History Additional Surgical History: Cataract. neck surgery. hernia repair. Prostate seed implant - Social History Smoking Status: Never Smoker - Medications Home Medications: Home Medications Medication Instructions Recorded Confirmed Last Taken Type Pantoprazole [Protonix TAB] 40 mg PO QDAY 03/18/19 05/18/19 Unknown History Aspirin EC [Halfprin EC] 81 mg PO QDAY #30 tablet. 03/20/19 05/18/19 05/17/19 Rx amLODIPine 5 mg PO QDAY #30 tablet 03/20/19 05/18/19 Unknown Rx Docusate Sodium [Colace] 100 mg PO BID PRN #20 capsule 03/26/19 05/18/19 Unknown Rx Cyclobenzaprine [Flexeril] 10 mg PO TID PRN #15 tablet 05/01/19 05/18/19 Unknown Rx Acetaminophen [Acetaminophen TAB] 1,000 mg PO Q6HR PRN #30 tablet 05/06/19 05/18/19 Unknown Rx Butalb/Acetamin/Caff 50-325-40 1 tab PO Q6HR PRN #24 tab 06/18/19 Unknown Rx [Fioricet] Butalb/Acetamin/Caff 50-325-40 1 tab PO Q6HR PRN #7 tab 06/28/19 Unknown Rx [Fioricet 50-325-40] ED Physical Exam - General Limitations: No Limitations General appearance: alert, in no apparent distress, other (alert appropriate insightful GCS 15) - Head Head exam: Present: normocephalic, other (superficial 1 cm laceration with small hematoma above the left eyebrow) - Eye Eye exam: Present: normal appearance - ENT ENT exam: Present: mucous membranes moist - Neck Neck exam: Present: normal inspection, full ROM - Respiratory Respiratory exam: Present: normal lung sounds bilaterally. Absent: respiratory distress, wheezes, rales, rhonchi - Cardiovascular Cardiovascular Exam: Present: regular rate, normal rhythm, normal heart sounds. Absent: systolic murmur, diastolic murmur, rubs, gallop - GI/Abdominal GI/Abdominal exam: Present: soft, normal bowel sounds. Absent: distended, tenderness, guarding, rebound - Rectal Rectal exam: Present: deferred - Extremities Exam Extremities exam: Present: normal inspection - Back Exam Back exam: Present: normal inspection - Neurological Exam Neurological exam: Present: alert, oriented X3 - Psychiatric Psychiatric exam: Present: normal affect, normal mood - Skin Skin exam: Present: warm, dry, intact, normal color. Absent: rash ED Course Vital Signs 08/20/19 08/20/19 02:58 02:59 Temperature 97.4 F L 97.4 F L Pulse Rate 75 78 Respiratory 18 18 Rate Blood Pressure 143/88 143/88 O2 Sat by Pulse 98 97 Oximetry ED Medical Decision Making - Lab Data Result diagrams: 08/20/19 03:19 08/20/19 03:19 Laboratory Results - last 24 hr 08/20/19 08/20/19 03:19 03:19 WBC 6.2 RBC 3.97 Hgb 12.2 Hct 36.5 MCV 92 MCH 31 MCHC 33 RDW 14.3 Plt Count 145 Lymph % (Auto) 17.6 [place] % (Auto) 7.9 H Eos % (Auto) 1.0 Baso % (Auto) 0.5 Lymph # 1.1 L [place] # 0.5 Eos # 0.1 Baso # 0.0 Seg Neutrophils % 73.0 H Seg Neutrophils # 4.5 Sodium 144 Potassium 4.6 Chloride 107.1 H Carbon Dioxide 24 Anion Gap 18 BUN 22 H Creatinine 1.4 Estimated GFR 58 BUN/Creatinine Ratio 16 Glucose 88 Calcium 9.5 Troponin T < 0.010 - EKG Data 08/20/19 04:37 EKG obtained 0307 Normal sinus rhythm rate 70 beats a minute with PACs no signs of ischemia no ST elevation normal QT interval - Radiology Data Radiology results: report reviewed Chest radiograph no acute findings according to radiology impression - Medical Decision Making Fall, laceration, no significant head injury to suspect intracranial hemorrhage. Laceration does not need repair. Superficial laceration well approximated appropriately treated with bandage Chest pain appears to be chest wall pain. Troponin negative. EKG without acute changes. Critical care attestation.: If time is entered above; I have spent that time in minutes in the direct care of this critically ill patient, excluding procedure time. ED Disposition Clinical Impression: Fall, Facial laceration, Chest wall pain Disposition: DC- TO HOME OR SELFCARE Is pt being admited?: No Does the pt Need Aspirin: No Condition: Stable Instructions: Chest Pain (ED) Referrals: PRIMARY CARE,MD [Referring] - 3-5 Days
[2019-08-20 04:44] VITALS: BP 130/58
== END 2019-08-20 05:35 | disposition home or self-care (01) ==
LOC: ED 02:55
DX: S01.81XA Laceration without foreign body of other part of head, initial encounter (principal); R07.89 Other chest pain; M54.2 Cervicalgia; I10 Essential (primary) hypertension; I25.2 Old myocardial infarction; J44.9 Chronic obstructive pulmonary disease, unspecified; Z86.73 Personal history of transient ischemic attack (TIA), and cerebral infarction without residual deficits; Z98.890 Other specified postprocedural states; Z79.899 Other long term (current) drug therapy; W01.0XXA Fall on same level from slipping, tripping and stumbling without subsequent striking against object, initial encounter; Y93.89 Activity, other specified; Y92.488 Other paved roadways as the place of occurrence of the external cause; Y99.8 Other external cause status
CPT/HCPCS: 36415; 71045; 80048; 84484; 85025; 93005; 93010

== ENCOUNTER 2019-08-22 11:07 | Emergency (ER) | payer MEDICARE ==
--- NOTE | 2019-08-22 11:24 | Emergency Department Report ---
Blank Doc - Documentation Documentation: 89-year-old male that presents with CP and SOB. This initial assessment/diagnostic orders/clinical plan/treatment(s) is/are subject to change based on patient's health status, clinical progression and re- assessment by fellow clinical providers in the ED. Further treatment and workup at subsequent clinical providers discretion. Patient/guardians urged not to elope from the ED as their condition may be serious if not clinically assessed and managed. Initial orders include: 1- Patient sent to Main for further evaluation and treatment 2- labs 3- EKG 4- CXR
[2019-08-22] MEDS ORDERED: SODIUM CHLORIDE 0.9% 250ML 250 ML IV ONE (11:52)
--- NOTE | 2019-08-22 12:12 | Emergency Department Report ---
ED General Adult HPI - General Chief complaint: Chest Pain Stated complaint: CHEST PAIN Time Seen by Provider: 08/22/19 11:22 Source: patient Mode of arrival: Ambulatory Limitations: No Limitations - History of Present Illness Initial comments: 89 yo male comes to ER with chest pain- left sided. No sob. no fever. no chills. ambulatory and in no acute distress. 09/25 CTA neg BP L 112/65 and R 112/50 PCP none PMH htn dyslipidemia gerd copd glaucoma CVA and VT 2019 echo 02/24 EF 20-25 stress test 03/27 negative for ischemia NOK son -: Gradual, days(s) Location: chest Improves with: none Worsens with: none Associated Symptoms: chest pain Treatments Prior to Arrival: none - Related Data Home Medications Medication Instructions Recorded Confirmed Last Taken Pantoprazole [Protonix TAB] 40 mg PO QDAY 03/18/19 05/18/19 Unknown Previous Rx's Medication Instructions Recorded Last Taken Type Aspirin EC [Halfprin EC] 81 mg PO QDAY #30 tablet. 03/20/19 05/17/19 Rx amLODIPine 5 mg PO QDAY #30 tablet 03/20/19 Unknown Rx Docusate Sodium [Colace] 100 mg PO BID PRN #20 capsule 03/26/19 Unknown Rx Allergies Allergy/AdvReac Type Severity Reaction Status Date / Time No Known Allergies Allergy Verified 03/18/19 10:18 ED Review of Systems ROS: Stated complaint: CHEST PAIN Other details as noted in HPI Comment: All other systems reviewed and negative ED Past Medical Hx - Past Medical History Previous Medical History?: Yes Hx Hypertension: Yes Hx CVA: Yes Hx Heart Attack/AMI: Yes Hx Congestive Heart Failure: No Hx Diabetes: No Hx Deep Vein Thrombosis: No Hx Pulmonary Embolism: No Hx GERD: Yes Hx Liver Disease: No Hx Renal Disease: No Hx of Cancer: No Hx Sickle Cell Disease: No Hx Arthritis: No Hx Headaches / Migraines: No Hx Seizures: No Hx Kidney Stones: No Hx Psychiatric Treatment: No Hx Asthma: Yes Hx COPD: Yes Hx Tuberculosis: No Hx Dementia: No Hx HIV: No - Surgical History Past Surgical History?: Yes Additional Surgical History: Cataract. neck surgery. hernia repair. Prostate seed implant - Family History Family history: no significant - Social History Smoking Status: Never Smoker Substance Use Type: None - Medications Home Medications: Home Medications Medication Instructions Recorded Confirmed Last Taken Type Pantoprazole [Protonix TAB] 40 mg PO QDAY 03/18/19 05/18/19 Unknown History Aspirin EC [Halfprin EC] 81 mg PO QDAY #30 tablet. 03/20/19 05/18/19 05/17/19 Rx amLODIPine 5 mg PO QDAY #30 tablet 03/20/19 05/18/19 Unknown Rx Docusate Sodium [Colace] 100 mg PO BID PRN #20 capsule 03/26/19 05/18/19 Unknown Rx ED Physical Exam - General Limitations: No Limitations General appearance: alert, in no apparent distress - Head Head exam: Present: atraumatic, normocephalic - Eye Eye exam: Present: normal appearance - ENT ENT exam: Present: mucous membranes moist - Neck Neck exam: Present: normal inspection - Respiratory Respiratory exam: Present: normal lung sounds bilaterally. Absent: respiratory distress - Cardiovascular Cardiovascular Exam: Present: regular rate, normal rhythm. Absent: systolic murmur, diastolic murmur, rubs, gallop - GI/Abdominal GI/Abdominal exam: Present: soft, normal bowel sounds - Rectal Rectal exam: Present: deferred - Extremities Exam Extremities exam: Present: normal inspection - Back Exam Back exam: Present: normal inspection - Neurological Exam Neurological exam: Present: alert, oriented X3 - Psychiatric Psychiatric exam: Present: normal affect, normal mood - Skin Skin exam: Present: warm, dry, intact, normal color. Absent: rash ED Course Vital Signs 08/22/19 08/22/19 08/22/19 11:23 12:13 12:29 Temperature 98.2 F Pulse Rate 77 66 Respiratory 20 16 Rate Blood Pressure 92/38 Blood Pressure 118/51 [Right] O2 Sat by Pulse 92 Oximetry 08/22/19 15:58 Temperature Pulse Rate 64 Respiratory 15 Rate Blood Pressure Blood Pressure 116/91 [Right] O2 Sat by Pulse 96 Oximetry ED Medical Decision Making - Lab Data Result diagrams: 08/22/19 11:44 08/22/19 11:44 - EKG Data -: EKG Interpreted by Me EKG shows normal: sinus rhythm Rate: normal - EKG Data When compared to previous EKG there are: no significant change Interpretation: no acute changes - Radiology Data Radiology results: report reviewed, image reviewed - Medical Decision Making Vital Signs 08/22/19 08/22/19 11:23 12:29 Temperature 98.2 F Pulse Rate 77 Respiratory 20 16 Rate Blood Pressure 92/38 O2 Sat by Pulse 92 Oximetry Labs 08/22/19 08/22/19 08/22/19 11:44 11:44 11:44 WBC 5.3 RBC 3.78 Hgb 11.6 L Hct 34.6 L MCV 92 MCH 31 MCHC 34 RDW 14.3 Plt Count 143 Lymph % (Auto) 22.9 [place] % (Auto) 10.5 H Eos % (Auto) 1.5 Baso % (Auto) 0.5 Lymph # 1.2 [place] # 0.6 Eos # 0.1 Baso # 0.0 Seg Neutrophils % 64.6 Seg Neutrophils # 3.4 PT 15.5 H INR 1.24 H APTT 29.2 Sodium 138 Potassium 4.7 Chloride 102.5 Carbon Dioxide 21 L Anion Gap 19 BUN 23 H Creatinine 1.4 Estimated GFR 58 BUN/Creatinine Ratio 16 Glucose 73 L Calcium 9.2 Total Bilirubin 0.30 AST 21 ALT 12 Alkaline Phosphatase 63 Troponin T < 0.010 Total Protein 6.7 Albumin 4.1 Albumin/Globulin Ratio 1.6 ekg noted labs noted staffed with Dr Shaver Given hx - CTA completed CTA neg 1540 reports felling better. No cp or sob. VSS. Will dc home with dc plan of care and pcp follow up. dc pt home with dc plan of care and follow up. - Differential Diagnosis ro acs/pe/aaa Critical care attestation.: If time is entered above; I have spent that time in minutes in the direct care of this critically ill patient, excluding procedure time. ED Disposition Clinical Impression: Chest pain, COPD (chronic obstructive pulmonary disease) Disposition: DC-01 TO HOME OR SELFCARE Is pt being admited?: No Does the pt Need Aspirin: No Condition: Stable Instructions: Chest Pain (ED), Chronic Obstructive Pulmonary Disease (ED) Additional Instructions: low fat diet meds per routine activity as tolerated follow up with PCP and CAR[facility] this week Let them know you were here referrals below Referrals: [facility] [Outside] - 3-5 Days YANELIS NELSON MD [Staff Physician] - 3-5 Days Time of Disposition: 15:42
[2019-08-22 12:14] LABS: Basophils % (Auto) 0.5 % (0.0-1.8); Eosinophils # (Auto) 0.1 K/mm3 (0.0-0.4); Eosinophils % (Auto) 1.5 % (0.0-4.3); Hematocrit 34.6 % (35.5-45.6); Hemoglobin 11.6 gm/dl (11.8-15.2); Lymphocytes # (Auto) 1.2 K/mm3 (1.2-5.4); Lymphocytes % (Auto) 22.9 % (13.4-35.0); Mean Corpuscular HGB Conc 34 % (32-34); Mean Corpuscular Volume 92 fl (84-94); Monocytes # (Auto) 0.6 K/mm3 (0.0-0.8); Monocytes % (Auto) 10.5 % (0.0-7.3); Platelet Count 143 K/mm3 (140-440); Red Blood Count 3.78 M/mm3 (3.65-5.03); Red Cell Distribution Width 14.3 % (13.2-15.2)
[2019-08-22 12:16] LABS: INR 1.24 (0.87-1.13)
[2019-08-22 12:17] LABS: Partial Thromboplastin Time 29.2 Sec. (24.2-36.6)
[2019-08-22 12:20] LABS: Alanine Aminotransferase 12 units/L (7-56); Albumin 4.1 g/dL (3.9-5); BUN/Creatinine Ratio 16; Blood Urea Nitrogen 23 mg/dL (9-20); Calcium 9.2 mg/dL (8.4-10.2); Hemolysis Index 31
--- NOTE | 2019-08-22 15:23 | Cat Scan Report ---
CTA CHEST WITH CONTRAST INDICATION : Recurring chest pain. TECHNIQUE: Axial imaging performed through the chest, with contrast bolus timing set to maximize opa cification of the pulmonary arteries. Sagittal and coronal reformatted images. 3-plane MIP reformatte d images were obtained. All CT scans at this location are performed using CT dose reduction for ALAR A by means of automated exposure control. 100 mL of intravenous contrast administered. COMPARISON: 03/18/2019 FINDINGS: Bolus: Contrast bolus timing is adequate. PTE: No filling defect is present to suggest PTE. Mediastinum: Heart and great vessels appear normal. No pathologic mediastinal adenopathy. Lungs: Mild centrilobular emphysematous changes are identified in the upper lobes. A tiny left apica l pneumothorax is identified which is estimated at 1-2%. The remainder of the lungs are clear. No alia dence for mass, infiltrate or pleural fluid. Bones: Degenerative changes in the spine with nothing acute. Upper abdomen: Limited imaging of the upper abdomen shows nothing acute. IMPRESSION: No pulmonary embolus is identified. Tiny left apical pneumothorax. Mild emphysematous changes. Signer Name: Jh Richardson Jr, MD Signed: 08/22/2019 3:18 PM Workstation Name: [id number]
[2019-08-22 15:58] VITALS: BP 116/91
== END 2019-08-22 16:55 | disposition home or self-care (01) ==
LOC: ED 11:07
DX: J44.9 Chronic obstructive pulmonary disease, unspecified (principal); R07.89 Other chest pain; I51.9 Heart disease, unspecified; K21.9 Gastro-esophageal reflux disease without esophagitis; Z98.890 Other specified postprocedural states; Z79.899 Other long term (current) drug therapy
CPT/HCPCS: 36415; 71275; 80053; 84484; 85025; 85610; 85730; 93005; 93010; 99284; J7050; Q9967

== ENCOUNTER 2019-10-06 10:58 | Emergency (ER) | payer MEDICARE ==
[2019-10-06 11:24] VITALS: BP 147/65
== END 2019-10-06 20:11 | disposition left against medical advice (07) ==
LOC: ED 10:58
DX: M54.2 Cervicalgia (principal); Z53.21 Procedure and treatment not carried out due to patient leaving prior to being seen by health care provider

== ENCOUNTER 2019-11-24 09:18 | Emergency (ER) | payer MEDICARE ==
[2019-11-24 09:25] VITALS: BP 131/63
== END 2019-11-24 10:41 | disposition left against medical advice (07) ==
LOC: ED 09:18
DX: R52 Pain, unspecified (principal); Z53.21 Procedure and treatment not carried out due to patient leaving prior to being seen by health care provider

== ENCOUNTER 2019-11-24 20:25 | Emergency (ER) | payer MEDICARE ==
--- NOTE | 2019-11-24 21:13 | Emergency Department Report ---
Chief Complaint: Chest Pain Stated Complaint: HEADACHE/RT KNEE PAIN - HPI History of Present Illness: 89 y.o. male with history of HTN, COPD, CVA, GERD, CAD presents with complaint of chest pain since yesterday. Patient complains of substernal chest pain that is present that does not radiate. Patient denies nausea or vomiting. Patient complains of right lower extremity primarily in lateral aspect of right lower extremity. pateint denies trauma to lower extremity. Patient denies history of PE or DVT. Patient denies calf pain. - Exam Vital Signs: Vital Signs 11/24/19 20:38 Temperature 98.5 F Pulse Rate 78 Respiratory 18 Rate Blood Pressure 133/63 O2 Sat by Pulse 96 Oximetry MSE screening note: Focused history and physical exam performed. Due to findings the following was ordered: Patient to have cardiac panel ordered and chest xray. EKG shows no acute process. ED Disposition for MSE Condition: Stable
--- NOTE | 2019-11-24 22:05 | XRay Report ---
CHEST 2 VIEWS INDICATION / CLINICAL INFORMATION: Chest Pain. COMPARISON: 08/20/2019 FINDINGS: SUPPORT DEVICES: None. HEART / MEDIASTINUM: No significant abnormality. LUNGS / PLEURA: No significant pulmonary or pleural abnormality. No pneumothorax. Lungs appear hyperi nflated consistent with COPD. ADDITIONAL FINDINGS: No significant additional findings. IMPRESSION: 1. No acute findings. No interval change. 2. COPD. Signer Name: Aurelia Rivera MD Signed: 11/24/2019 10:00 PM Workstation Name: [id number]
[2019-11-24 22:11] LABS: Basophils % (Auto) 0.3 % (0.0-1.8); Eosinophils # (Auto) 0.1 K/mm3 (0.0-0.4); Eosinophils % (Auto) 1.3 % (0.0-4.3); Hematocrit 37.3 % (35.5-45.6); Hemoglobin 12.7 gm/dl (11.8-15.2); Lymphocytes # (Auto) 2.2 K/mm3 (1.2-5.4); Lymphocytes % (Auto) 38.4 % (13.4-35.0); Mean Corpuscular HGB Conc 34 % (32-34); Mean Corpuscular Volume 92 fl (84-94); Monocytes # (Auto) 0.5 K/mm3 (0.0-0.8); Monocytes % (Auto) 8.9 % (0.0-7.3); Platelet Count 144 K/mm3 (140-440); Red Blood Count 4.07 M/mm3 (3.65-5.03); Red Cell Distribution Width 14.6 % (13.2-15.2)
[2019-11-24 22:23] LABS: INR 1.12 (0.87-1.13)
[2019-11-24 22:39] LABS: Alanine Aminotransferase 19 units/L (7-56); Albumin 4.3 g/dL (3.9-5); BUN/Creatinine Ratio 18; Blood Urea Nitrogen 24 mg/dL (9-20); Calcium 9.8 mg/dL (8.4-10.2); Hemolysis Index 2
[2019-11-24] MEDS ORDERED: HYDROcodone/ACETAMINOPHEN 5-325 MG TAB PO ONE (22:40)
--- NOTE | 2019-11-24 23:13 | Emergency Department Report ---
ED General Adult HPI - General Chief complaint: Chest Pain Stated complaint: HEADACHE/RT KNEE PAIN Time Seen by Provider: 11/24/19 22:34 Source: patient Mode of arrival: Ambulatory Limitations: Physical Limitation - History of Present Illness Initial comments: 89 y.o. male with history of HTN, COPD, CVA, GERD, CAD presents with complaint of chest pain since yesterday. Patient complains of substernal chest pain that is present that does not radiate. Patient denies nausea or vomiting. Patient complains of right lower extremity primarily in lateral aspect of right lower extremity. pateint denies trauma to lower extremity. Patient denies history of PE or DVT. Patient denies calf pain. Severity scale (0 -10): 9 - Related Data Home Medications Medication Instructions Recorded Confirmed Last Taken Pantoprazole [Protonix TAB] 40 mg PO QDAY 03/18/19 05/18/19 Unknown Previous Rx's Medication Instructions Recorded Last Taken Type Aspirin EC [Halfprin EC] 81 mg PO QDAY #30 tablet. 03/20/19 05/17/19 Rx amLODIPine 5 mg PO QDAY #30 tablet 03/20/19 Unknown Rx Docusate Sodium [Colace] 100 mg PO BID PRN #20 capsule 03/26/19 Unknown Rx HYDROcodone/APAP 5-325 [[place] 1 each PO Q6HR PRN #20 tablet 11/25/19 Unknown Rx 5/325] Allergies Allergy/AdvReac Type Severity Reaction Status Date / Time No Known Allergies Allergy Verified 10/06/19 19:47 ED Review of Systems ROS: Stated complaint: HEADACHE/RT KNEE PAIN Other details as noted in HPI Constitutional: denies: chills, fever Eyes: denies: eye pain, eye discharge, vision change ENT: denies: ear pain, throat pain Respiratory: denies: cough, shortness of breath, wheezing Cardiovascular: chest pain Endocrine: no symptoms reported Gastrointestinal: denies: abdominal pain, nausea, diarrhea Genitourinary: denies: urgency, dysuria Musculoskeletal: myalgia Skin: denies: rash, lesions Neurological: denies: headache, weakness, paresthesias Psychiatric: denies: anxiety, depression Hematological/Lymphatic: denies: easy bleeding, easy bruising ED Past Medical Hx - Past Medical History Previous Medical History?: Yes Hx Hypertension: Yes Hx CVA: Yes Hx Heart Attack/AMI: Yes Hx Congestive Heart Failure: No Hx Diabetes: No Hx Deep Vein Thrombosis: No Hx Pulmonary Embolism: No Hx GERD: Yes Hx Liver Disease: No Hx Renal Disease: No Hx Sickle Cell Disease: No Hx Arthritis: No Hx Headaches / Migraines: No Hx Seizures: No Hx Kidney Stones: No Hx Psychiatric Treatment: No Hx Asthma: Yes Hx COPD: Yes Hx Tuberculosis: No Hx Dementia: No Hx HIV: No - Surgical History Past Surgical History?: Yes Additional Surgical History: Cataract. neck surgery. hernia repair. Prostate seed implant - Social History Smoking Status: Never Smoker Substance Use Type: None - Medications Home Medications: Home Medications Medication Instructions Recorded Confirmed Last Taken Type Pantoprazole [Protonix TAB] 40 mg PO QDAY 03/18/19 05/18/19 Unknown History Aspirin EC [Halfprin EC] 81 mg PO QDAY #30 tablet. 03/20/19 05/18/19 05/17/19 Rx amLODIPine 5 mg PO QDAY #30 tablet 03/20/19 05/18/19 Unknown Rx Docusate Sodium [Colace] 100 mg PO BID PRN #20 capsule 03/26/19 05/18/19 Unknown Rx HYDROcodone/APAP 5-325 [[place] 1 each PO Q6HR PRN #20 tablet 11/25/19 Unknown Rx 5/325] ED Physical Exam - General Limitations: Physical Limitation General appearance: alert, in no apparent distress - Head Head exam: Present: atraumatic, normocephalic - Eye Eye exam: Present: normal appearance - ENT ENT exam: Present: mucous membranes moist - Neck Neck exam: Present: normal inspection - Respiratory Respiratory exam: Present: normal lung sounds bilaterally. Absent: respiratory distress - Cardiovascular Cardiovascular Exam: Present: regular rate, normal rhythm. Absent: systolic murmur, diastolic murmur, rubs, gallop - GI/Abdominal GI/Abdominal exam: Present: soft, normal bowel sounds - Rectal Rectal exam: Present: deferred - Extremities Exam Extremities exam: Present: normal inspection, other (tender on lateral aspect of right lower extremity with no evidence of erythema or ecchymosis). Absent: calf tenderness - Back Exam Back exam: Present: normal inspection - Neurological Exam Neurological exam: Present: alert, oriented X3 - Psychiatric Psychiatric exam: Present: normal affect, normal mood - Skin Skin exam: Present: warm, dry, intact, normal color. Absent: rash ED Course Vital Signs 11/24/19 11/24/19 11/24/19 20:38 22:25 22:30 Temperature 98.5 F Pulse Rate 78 78 Respiratory 18 15 17 Rate Blood Pressure 133/63 100/52 Blood Pressure 100/52 [Left] O2 Sat by Pulse 96 97 95 Oximetry 11/24/19 11/24/19 11/25/19 23:00 23:30 00:00 Temperature Pulse Rate 75 73 74 Respiratory 17 18 14 Rate Blood Pressure 129/45 141/47 138/47 Blood Pressure [Left] O2 Sat by Pulse 95 97 97 Oximetry ED Medical Decision Making - Lab Data Result diagrams: 11/24/19 21:48 11/24/19 21:48 - EKG Data -: EKG Interpreted by [place] EKG shows normal: sinus rhythm Rate: normal - EKG Data Interpretation: no acute changes - Medical Decision Making Patient seen in ER and is in no acute distress. Patient has an ultrasound which shows no evidence of acute DVT. Patient has 2 set troponin which are normal as well. Patient to be discharged with hydrocodone therapy and follow-up with cardiology as an outpatient. - Differential Diagnosis STEMI; NSTEMI; Dehydration; ANemia; Electrolyte abnormality Critical care attestation.: If time is entered above; I have spent that time in minutes in the direct care of this critically ill patient, excluding procedure time. ED Disposition Clinical Impression: Chest pain, Lower extremity pain, HTN (hypertension) Disposition: TO HOME OR SELFCARE Is pt being admited?: No Does the pt Need Aspirin: No Condition: Stable Instructions: Chest Pain (ED), Hypertension (ED) Prescriptions: HYDROcodone/APAP 5-325 [[place] 5/325] 1 each PO Q6HR PRN #20 tablet PRN Reason: Pain Referrals: PRIMARY CAREMD [Primary Care Provider] - 3-5 Days ANH NELSON MD [Staff Physician] - 3-5 Days Time of Disposition: 01:18 Print Language: ITALIAN
--- NOTE | 2019-11-24 23:56 | Vascular Lab Report ---
DUPLEX DOPPLER LOWER EXTREMITY VEINS, RIGHT INDICATION: right lower extremity pain. TECHNIQUE: Duplex doppler imaging was performed through the veins of the right lower extremity using venous comp ression and other maneuvers. COMPARISON: None available. FINDINGS: Common femoral vein: Negative. Superficial femoral vein: Negative. Popliteal vein: Negative. Calf veins: Negative. Additional findings: None. IMPRESSION: 1. No sonographic evidence for DVT in the right lower extremity. Signer Name: Emre Painting MD Signed: 11/24/2019 11:51 PM Workstation Name: [id number]
[2019-11-25 00:14] VITALS: BP 138/47
== END 2019-11-25 01:30 | disposition home or self-care (01) ==
LOC: ED 20:25
DX: R07.89 Other chest pain (principal); M25.561 Pain in right knee; I10 Essential (primary) hypertension; I25.2 Old myocardial infarction; K21.9 Gastro-esophageal reflux disease without esophagitis; Z86.73 Personal history of transient ischemic attack (TIA), and cerebral infarction without residual deficits; Z79.899 Other long term (current) drug therapy
CPT/HCPCS: 36415; 71046; 80053; 83880; 84484; 85025; 85610; 85730; 93005; 93010

== ENCOUNTER 2020-03-15 07:57 | Emergency (ER) | payer MEDICARE ==
[2020-03-15 08:31] VITALS: BP 117/59
--- NOTE | 2020-03-15 09:08 | Emergency Department Report ---
ED Lower Extremity HPI - General Chief Complaint: Extremity Injury, Lower Stated Complaint: LEG PAIN Time Seen by Provider: 03/15/20 08:13 Source: patient Mode of arrival: Ambulatory Limitations: No Limitations - History of Present Illness Initial Comments: This is a 89-year-old male nontoxic, well nourished in appearance, no acute signs of distress presents to the ED with c/o of acute on chronic intermittnet left foot and right knee pain x several months. Patient was seen last month for left foot pain after a fall. Patient denies any new injuries or trauma. Deneis any other complaints or pains. Patient denies any numbness, tingling, fever, chills, nausea, vomiting, chest pain, shortness of breath, headache, stiff neck. Patient denies any joint swelling or joint redness. Patient denies decreased range of motion. Patient denies decreased or abnormal gait. Patient denies any allergies. Patient has a walker present. MD Complaint: knee injury, foot injury - Related Data Home Medications Medication Instructions Recorded Confirmed Last Taken RX: Pantoprazole [Protonix TAB] 40 mg PO QDAY 03/18/19 05/18/19 Unknown Previous Rx's Medication Instructions Recorded Last Taken Type RX: Aspirin EC [Halfprin EC] 81 mg PO QDAY #30 tablet. 03/20/19 05/17/19 Rx RX: amLODIPine 5 mg PO QDAY #30 tablet 03/20/19 Unknown Rx Docusate Sodium [Colace] 100 mg PO BID PRN #20 capsule 03/26/19 Unknown Rx HYDROcodone/APAP 5-325 [[place] 1 each PO Q6HR PRN #20 tablet 11/25/19 Unknown Rx 5/325] RX: Acetaminophen/Codeine [Tylenol 1 tab PO Q6H #12 tablet 03/04/20 Unknown Rx /Codeine # 3 tab] RX: Naproxen 500 mg PO Q12H PRN #12 tablet 03/15/20 Unknown Rx Allergies Allergy/AdvReac Type Severity Reaction Status Date / Time No Known Allergies Allergy Verified 10/06/19 19:47 ED Review of Systems ROS: Stated complaint: LEG PAIN Other details as noted in HPI Constitutional: denies: chills, fever Eyes: denies: eye pain, eye discharge, vision change ENT: denies: ear pain, throat pain Respiratory: denies: cough, shortness of breath, wheezing Cardiovascular: denies: chest pain, palpitations Endocrine: no symptoms reported Gastrointestinal: denies: abdominal pain, nausea, diarrhea Genitourinary: denies: urgency, dysuria Musculoskeletal: arthralgia. denies: back pain, joint swelling Skin: denies: rash, lesions Neurological: denies: headache, weakness, paresthesias Psychiatric: denies: anxiety, depression Hematological/Lymphatic: denies: easy bleeding, easy bruising ED Past Medical Hx - Past Medical History Previous Medical History?: Yes Hx Hypertension: Yes Hx CVA: Yes Hx Heart Attack/AMI: Yes Hx Congestive Heart Failure: No Hx Diabetes: No Hx Deep Vein Thrombosis: No Hx Pulmonary Embolism: No Hx GERD: Yes Hx Liver Disease: No Hx Renal Disease: No Hx Sickle Cell Disease: No Hx Arthritis: No Hx Headaches / Migraines: No Hx Seizures: No Hx Kidney Stones: No Hx Psychiatric Treatment: No Hx Asthma: Yes Hx COPD: Yes Hx Tuberculosis: No Hx Dementia: No Hx HIV: No - Surgical History Past Surgical History?: Yes Additional Surgical History: Cataract. neck surgery. hernia repair. Prostate seed implant - Social History Smoking Status: Former Smoker Substance Use Type: None - Medications Home Medications: Home Medications Medication Instructions Recorded Confirmed Last Taken Type RX: Pantoprazole [Protonix TAB] 40 mg PO QDAY 03/18/19 05/18/19 Unknown History RX: Aspirin EC [Halfprin EC] 81 mg PO QDAY #30 tablet. 03/20/19 05/18/19 05/17/19 Rx RX: amLODIPine 5 mg PO QDAY #30 tablet 03/20/19 05/18/19 Unknown Rx Docusate Sodium [Colace] 100 mg PO BID PRN #20 capsule 03/26/19 05/18/19 Unknown Rx HYDROcodone/APAP 5-325 [[place] 1 each PO Q6HR PRN #20 tablet 11/25/19 Unknown Rx 5/325] RX: Acetaminophen/Codeine [Tylenol 1 tab PO Q6H #12 tablet 03/04/20 Unknown Rx /Codeine # 3 tab] RX: Naproxen 500 mg PO Q12H PRN #12 tablet 03/15/20 Unknown Rx ED Physical Exam - General Limitations: No Limitations General appearance: alert, in no apparent distress - Head Head exam: Present: atraumatic, normocephalic - Eye Eye exam: Present: normal appearance - Neck Neck exam: Present: normal inspection, full ROM - Extremities Exam Extremities exam: Present: normal inspection, full ROM, tenderness, normal capillary refill. Absent: joint swelling, calf tenderness - Expanded Lower Extremity Exam Left Hip exam: Present: normal inspection, full ROM. Absent: tenderness, swelling Upper Leg exam: Present: normal inspection, full ROM. Absent: tenderness, swelling Knee exam: Present: normal inspection, full ROM, tenderness, full knee extension. Absent: swelling, abrasion, laceration, ecchymosis, deformity, crepidus, dislocation, erythema, effusion, pain w/ pronation/supination, posterior draw sign, pain/laxity with valgus, pain/laxity with varus Lower Leg exam: Present: normal inspection, full ROM. Absent: tenderness, swelling, abrasion, laceration, ecchymosis, deformity, crepidus, dislocation, erythema, palpable cord, Zena's sign Ankle exam: Present: normal inspection, full ROM. Absent: tenderness, swelling, abrasion, laceration, ecchymosis, deformity, crepidus, dislocation, erythema, anterior draw sign Foot/Toe exam: Present: normal inspection, full ROM. Absent: tenderness, swe lling, abrasion, laceration, ecchymosis, deformity, crepidus, dislocation, erythema, amputation, puncture wound, foreign body, calcaneal tenderness, tenderness at base of 5th metatarsal, nail avulsion, subungual hematoma Neuro vascular tendon exam: Present: no vascular compromise Gait: Positive: observed and normal Right Hip exam: Present: normal inspection, full ROM. Absent: tenderness, swelling Upper Leg exam: Present: normal inspection, full ROM. Absent: tenderness, swelling Knee exam: Present: normal inspection, full ROM. Absent: tenderness, swelling Lower Leg exam: Present: normal inspection, full ROM. Absent: tenderness, swell ing, abrasion, laceration, ecchymosis, deformity, crepidus, dislocation, erythema, palpable cord, Zena's sign Ankle exam: Present: normal inspection, full ROM. Absent: tenderness, swelling, abrasion, laceration, ecchymosis, deformity, crepidus, dislocation, erythema, anterior draw sign Foot/Toe exam: Present: normal inspection, full ROM. Absent: tenderness, swelling, abrasion, laceration, ecchymosis, deformity, crepidus, dislocation, erythema, amputation, puncture wound, foreign body, calcaneal tenderness, tenderness at base of 5th metatarsal, nail avulsion, subungual hematoma Neuro vascular tendon exam: Present: no vascular compromise Gait: Positive: observed and normal - Back Exam Back exam: Present: normal inspection, full ROM. Absent: tenderness, CVA tenderness (R), CVA tenderness (L), muscle spasm, paraspinal tenderness, vertebral tenderness, rash noted - Neurological Exam Neurological exam: Present: alert, oriented X3, normal gait - Psychiatric Psychiatric exam: Present: normal affect, normal mood - Skin Skin exam: Present: warm, dry, intact, normal color. Absent: rash ED Course Vital Signs 03/15/20 08:05 Temperature 97.8 F Pulse Rate 82 Respiratory 18 Rate Blood Pressure 117/59 O2 Sat by Pulse 97 Oximetry - Reevaluation(s) Reevaluation #1: 03/15/20 09:13 Patient is speaking in full sentences with no signs of distress noted. ED Lower Extremity MDM - Radiology Data Previous foot x-ray: LEFT FOOT 3 VIEWS INDICATION / CLINICAL INFORMATION: pain. COMPARISON: None available. FINDINGS: There is deformity of the distal half of the proximal phalange of the great toe with mild degenerative change in the first metatarsophalangeal joint. No other significant skeletal abnormality Signer Name: Ankur Gould MD FACR Signed: 03/04/2020 3:32 PM Workstation Name: [id number] Current knee x-ray: RIGHT KNEE 3 VIEWS INDICATION / CLINICAL INFORMATION: Right knee pain. COMPARISON: None available. FINDINGS: BONES / JOINT(S): There are minimal degenerative changes. There is no evidence of fracture, subluxation or destructive lesion. SOFT TISSUES: Moderate atherosclerotic calcifications are noted. ADDITIONAL FINDINGS: None. Signer Name: Michelle Weir MD Signed: 03/15/2020 8:13 AM Workstation Name: [id number] - Medical Decision Making This is a 89-year-old male that presents with right knee strain and chronic left foot pain. Patient is stable and was examined by me. I referred patient to an orthopedic doctor for further evaluation for possible MRI. X-ray has been obtained and dictated by the radiologist. Patient is notified of the x-ray report with noted by the patient. Patient does have normal gait with no tenderness and no joint swelling. No ecchymosis. no joint redness or swelling. Not warm to touch. No signs of cellulites present. Patient has a walker present. VARGAS wrap to right knee applied. Patient was instructed to RICE therapy. Patient is discharged with Naproxen. At time of discharge, the patient does not seem toxic or ill in appearance. No acute signs of distress noted. Patient agrees to discharge treatment plan of care. No further questions noted by the patient. Critical care attestation.: If time is entered above; I have spent that time in minutes in the direct care of this critically ill patient, excluding procedure time. ED Disposition Clinical Impression: Pain, foot, left, chronic, Strain of right knee Disposition: - TO HOME OR SELFCARE Is pt being admited?: No Does the pt Need Aspirin: No Condition: Stable Additional Instructions: Follow-up with a orthopedic doctor in 3-5 days or if symptoms worsen and continue return to emergency room as soon as possible. Prescriptions: RX: Naproxen 500 mg PO Q12H PRN #12 tablet PRN Reason: Pain , Severe (7-10) Referrals: PRIMARY MD FRANCIS [Primary Care Provider] - 3-5 Days MICHELLE GILBERT MD [Staff Physician] - 3-5 Days
== END 2020-03-15 09:51 | disposition home or self-care (01) ==
LOC: ED 07:57
DX: S86.911A Strain of unspecified muscle(s) and tendon(s) at lower leg level, right leg, initial encounter (principal); M25.572 Pain in left ankle and joints of left foot; G89.29 Other chronic pain; I25.2 Old myocardial infarction; I10 Essential (primary) hypertension; K21.9 Gastro-esophageal reflux disease without esophagitis; J44.9 Chronic obstructive pulmonary disease, unspecified; Z86.73 Personal history of transient ischemic attack (TIA), and cerebral infarction without residual deficits; Z98.890 Other specified postprocedural states; Z87.891 Personal history of nicotine dependence; Z79.899 Other long term (current) drug therapy; W19.XXXA Unspecified fall, initial encounter; Y93.89 Activity, other specified; Y92.89 Other specified places as the place of occurrence of the external cause; Y99.8 Other external cause status

== ENCOUNTER 2020-04-05 21:30 | Emergency (ER) | payer MEDICARE ==
[2020-04-05] MEDS ORDERED: ASPIRIN 325 MG TAB PO ONE (21:46)
[2020-04-05 22:09] LABS: Basophils # (Auto) 0.1 K/mm3 (0.0-0.1); Basophils % (Auto) 0.7 % (0.0-1.8); Eosinophils % (Auto) 0.5 % (0.0-4.3); Hematocrit 35.2 % (35.5-45.6); Hemoglobin 11.7 gm/dl (11.8-15.2); Lymphocytes # (Auto) 0.8 K/mm3 (1.2-5.4); Lymphocytes % (Auto) 12.3 % (13.4-35.0); Mean Corpuscular HGB Conc 33 % (32-34); Mean Corpuscular Volume 96 fl (84-94); Monocytes # (Auto) 0.6 K/mm3 (0.0-0.8); Monocytes % (Auto) 8.3 % (0.0-7.3); Platelet Count 136 K/mm3 (140-440); Red Blood Count 3.69 M/mm3 (3.65-5.03); Red Cell Distribution Width 15.6 % (13.2-15.2)
--- NOTE | 2020-04-05 22:22 | XRay Report ---
CHEST 1 VIEW INDICATION / CLINICAL INFORMATION: Chest Pain. COMPARISON: 08/20/2019 FINDINGS: SUPPORT DEVICES: None. HEART / MEDIASTINUM: No significant abnormality. LUNGS / PLEURA: No significant pulmonary or pleural abnormality. No pneumothorax. ADDITIONAL FINDINGS: No significant additional findings. IMPRESSION: 1. No acute findings. No interval change. Signer Name: Aurelia Rivera MD Signed: 04/05/2020 10:18 PM Workstation Name: [id number]
[2020-04-05 22:31] LABS: BUN/Creatinine Ratio 11; Blood Urea Nitrogen 21 mg/dL (9-20); Calcium 9.5 mg/dL (8.4-10.2)
[2020-04-05] MEDS ORDERED: diphenhydrAMINE 50 MG/ML VIAL IV ONE (22:36)
[2020-04-05] MEDS ORDERED: ACETAMINOPHEN 325 MG TAB PO ONE (22:36)
[2020-04-05] MEDS ORDERED: METOCLOPRAMIDE 10 MG/2 ML INJ IV ONE (22:36)
--- NOTE | 2020-04-05 22:38 | Emergency Department Report ---
ED General Adult HPI - General Chief complaint: Chest Pain Stated complaint: SHORT OF BREATH, CHEST PAIN PUI?: No Time Seen by Provider: 04/05/20 21:53 Source: patient, RN notes reviewed, old records reviewed Mode of arrival: Ambulatory Limitations: No Limitations - History of Present Illness Initial comments: This is an 89-year-old gentleman. 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 Ejection fraction 50%. Also has a history of CAD, hypertension, high cholesterol, GERD, COPD. Recently seen by cardiology May 2019, apparently had a negative stress test March 2019. As per cardiology recommendations documentation: We have nothing to add from a cardiac perspective. Chest pain is likely atypical. He is stable from our standpoint and may be discharged home." Patient has had multiple negative troponins at this hospital in the past. In addition, he had 2 CT angiograms of the chest which were negative for pulmonary embolism, August 2019, September 2018, negative lower extremity DVT study November 2019, and had low probability nuclear medicine study March 2019 The patient presents to the ER today with multiple complaints. His first complaint is left-sided chest wall pain, present for months, which is posttraumatic after mechanical fall. The pain is left-sided and throbbing, does not radiate anywhere, does not have exacerbating or relieving factors that he is aware of. His next complaint is abdominal pain, it is supraumbilical, and epigastric. It started today. It does not radiate anywhere. He does not have descriptive for. He does not describe exacerbating or relieving factors. He denies nausea, vomiting, diarrhea, testicular pain, irritative and obstructive urinary symptoms. His final complaint is headache. The headache is frontal. The headache is throbbing. It is not sudden or thunderclap in nature. It is not maximal in intensity. It is not the worst headache of his life. He denies temporal pain, claudication in the jaw, and loss of vision. -: hour(s), days(s), month(s) Location: head, chest, abdomen Radiation: other Quality: other Consistency: other Improves with: other Worsens with: other Associated Symptoms: other - Related Data Home Medications Medication Instructions Recorded Confirmed Last Taken Pantoprazole [Protonix TAB] 40 mg PO QDAY 03/18/19 05/18/19 Unknown Previous Rx's Medication Instructions Recorded Last Taken Type Aspirin EC [Halfprin EC] 81 mg PO QDAY #30 tablet. 03/20/19 05/17/19 Rx amLODIPine 5 mg PO QDAY #30 tablet 03/20/19 Unknown Rx Docusate Sodium [Colace] 100 mg PO BID PRN #20 capsule 03/26/19 Unknown Rx Nitrofurantoin Hill/M-Cryst 100 mg PO Q12HR #14 capsule 04/06/20 Unknown Rx [Macrobid CAP] Allergies Allergy/AdvReac Type Severity Reaction Status Date / Time No Known Allergies Allergy Verified 10/06/19 19:47 ED Review of Systems ROS: Stated complaint: SHORT OF BREATH, CHEST PAIN Other details as noted in HPI Constitutional: denies: fever Eyes: denies: eye pain, eye discharge, vision change ENT: denies: throat pain Respiratory: denies: cough Cardiovascular: chest pain (Chest wall pain) Gastrointestinal: abdominal pain Genitourinary: denies: dysuria Musculoskeletal: denies: back pain Skin: denies: lesions Neurological: headache. denies: weakness, numbness, paresthesias, confusion Hematological/Lymphatic: denies: easy bleeding ED Past Medical Hx - Past Medical History Previous Medical History?: Yes Hx Hypertension: Yes Hx CVA: Yes Hx Heart Attack/AMI: Yes Hx Congestive Heart Failure: No Hx Diabetes: No Hx Deep Vein Thrombosis: No Hx Pulmonary Embolism: No Hx GERD: Yes Hx Liver Disease: No Hx Renal Disease: No Hx Sickle Cell Disease: No Hx Arthritis: No Hx Headaches / Migraines: No Hx Seizures: No Hx Kidney Stones: No Hx Psychiatric Treatment: No Hx Asthma: Yes Hx COPD: Yes Hx Tuberculosis: No Hx Dementia: No Hx HIV: No - Surgical History Past Surgical History?: Yes Additional Surgical History: Cataract. neck surgery. hernia repair. Prostate seed implant - Social History Smoking Status: Never Smoker Substance Use Type: None - Medications Home Medications: Home Medications Medication Instructions Recorded Confirmed Last Taken Type Pantoprazole [Protonix TAB] 40 mg PO QDAY 03/18/19 05/18/19 Unknown History Aspirin EC [Halfprin EC] 81 mg PO QDAY #30 tablet. 03/20/19 05/18/19 05/17/19 Rx amLODIPine 5 mg PO QDAY #30 tablet 03/20/19 05/18/19 Unknown Rx Docusate Sodium [Colace] 100 mg PO BID PRN #20 capsule 03/26/19 05/18/19 Unknown Rx Nitrofurantoin Hill/M-Cryst 100 mg PO Q12HR #14 capsule 04/06/20 Unknown Rx [Macrobid CAP] ED Physical Exam - General Limitations: No Limitations General appearance: alert, in no apparent distress - Head Head exam: Present: atraumatic, normocephalic - Eye Eye exam: Present: normal appearance, PERRL, EOMI, other (Visual acuity intact to finger counting, color perception, reading at a close distance). Absent: nystagmus - ENT ENT exam: Present: normal exam, normal orophraynx, mucous membranes moist, nor mal external ear exam - Neck Neck exam: Present: normal inspection, full ROM. Absent: tenderness, meningismus - Respiratory Respiratory exam: Present: normal lung sounds bilaterally, chest wall tenderness. Absent: respiratory distress, wheezes, rales, rhonchi, stridor - Cardiovascular Cardiovascular Exam: Present: regular rate, normal rhythm, normal heart sounds. Absent: bradycardia, tachycardia, irregular rhythm, systolic murmur, diastolic murmur, rubs, gallop - GI/Abdominal GI/Abdominal exam: Present: soft, normal bowel sounds. Absent: distended, tenderness, guarding, rebound, rigid, pulsatile mass - Rectal Rectal exam: Present: deferred - exam: Present: normal inspection, other (There is normal testicular lie. There is normal cremasteric reflex. There is no testicular tenderness. There is no testicular swelling). Absent: testicular tenderness, scrotal swelling, vertical testicular lie External exam: Present: normal external exam, other (Chaperoned by city attorney/plant technician/control room operator A Dial) - Extremities Exam Extremities exam: Present: normal inspection, full ROM, other (2+ pulses noted in the bilateral upper and lower extremities. There is no palpable cord. negative Homans sign. Muscular compartments are soft. The pelvis is stable.). Absent: pedal edema, calf tenderness - Back Exam Back exam: Present: normal inspection, full ROM. Absent: tenderness, CVA tenderness (R), CVA tenderness (L), paraspinal tenderness, vertebral tenderness - Neurological Exam Neurological exam: Present: alert, other (No facial droop. Tongue midline. Extraocular movements intact bilaterally. Facial sensation intact to light touch in V1, V2, V3 distribution bilaterally. 5 and a 5 strength in 4 extremities. Sensation intact to light touch in 4 extremities.). Absent: motor sensory deficit - Psychiatric Psychiatric exam: Present: normal affect, normal mood - Skin Skin exam: Present: warm, dry, intact, normal color. Absent: rash ED Course Vital Signs 04/05/20 04/05/20 04/05/20 21:35 21:55 22:00 Temperature 97.4 F L Pulse Rate 85 86 79 Respiratory 16 13 19 Rate Blood Pressure 141/64 O2 Sat by Pulse 96 96 Oximetry 04/05/20 04/05/20 04/05/20 22:16 22:30 22:46 Temperature Pulse Rate 75 73 73 Respiratory 17 14 15 Rate Blood Pressure 118/56 124/58 124/58 O2 Sat by Pulse 97 96 97 Oximetry 04/05/20 04/05/20 04/05/20 23:00 23:26 23:30 Temperature Pulse Rate 68 78 74 Respiratory 19 16 21 Rate Blood Pressure 136/64 136/64 135/63 O2 Sat by Pulse 97 98 96 Oximetry 04/05/20 04/05/20 04/06/20 23:46 23:52 00:00 Temperature Pulse Rate 78 75 73 Respiratory 15 21 19 Rate Blood Pressure 135/63 135/63 135/63 O2 Sat by Pulse 97 97 97 Oximetry 04/06/20 04/06/20 04/06/20 00:02 00:03 00:09 Temperature Pulse Rate 73 Respiratory 20 16 Rate Blood Pressure O2 Sat by Pulse 97 100 Oximetry 04/06/20 04/06/20 04/06/20 00:16 00:30 00:46 Temperature Pulse Rate 77 73 84 Respiratory 22 21 18 Rate Blood Pressure 139/70 143/74 143/74 O2 Sat by Pulse 99 98 98 Oximetry 04/06/20 04/06/20 04/06/20 01:00 01:16 01:30 Temperature Pulse Rate 76 71 71 Respiratory 15 16 19 Rate Blood Pressure 143/74 147/68 133/64 O2 Sat by Pulse 98 97 96 Oximetry - Reevaluation(s) Reevaluation #1: 04/06/20 01:06 Differential diagnosis, including but not limited to: GERD, gastritis, hiatal hernia, pneumonia, costochondritis, coronary artery disease, obstruction, urinary tract infection, migraine headache, tension headache, cluster headache, structural intracranial lesion Assessment and plan: 89-year-old gentleman, GCS 15, not currently tachycardic, tachypneic or hypoxic, who denies DVT and pulmonary embolism risk factors, who is low risk by Wells criteria for pulmonary embolism, with multiple complaints. Complaint #1, abdominal pain. No significant abdominal tenderness. No rebound, guarding or peritoneal signs. Patient resting comfortably for hours and history of chart, and in no acute distress, and is asking to be discharged. Laboratory studies fairly unremarkable with exception of mild renal insufficiency. IV fluids ordered. Urinalysis pending. CT scan of the abdomen pelvis negative for acute pathology when compared to prior. Complaints #2, chest wall pain after mechanical fall a few weeks ago 2 months ago. EKG unchanged x1. Troponin negative x1. Do not suspect pulmonary embolism. Had a cardiac catheterization in 2016, cardiac nuclear stress test in 2019, and has been seen by cardiology in the past. Given duration of symptoms, unchanged objective testing this evening, the patient is unlikely to benefit from hospitalization for accelerated cardiac risk ratification. He can follow- up with an outpatient campaign marketing specialist for this. Complaints #3, nonspecific headache. GCS 15. No temporal tenderness, no loss of vision, no jaw claudication, cornea is not cloudy or hazy, visual acuity intact, no meningeal signs, history and physical are not suggestive or consistent with subarachnoid hemorrhage, temporal arteritis, ischemic stroke or hemorrhagic stroke, and a noncontrast CT scan of the brain is negative for acute findings. We will treat him supportively and symptomatically. Troponin #2, EKG #2, urinalysis, repeat creatinine pending at this time Reevaluation #2: 04/06/20 02:18 Patient reassessed multiple times while here in the emergency room. On multiple assessments he is sitting comfortably in her stretcher, and in no acute distress. He is noted to be playing on a cellular phone. No active vomiting. Troponin negative x2. EKG unchanged x2. Renal function improving. Patient suitable to follow-up with an outpatient primary care doctor. Return precautions are reviewed. Reevaluation #3: 04/06/20 02:44 Repeat EKG unchanged from prior. Small AAA unchanged from prior. ED Medical Decision Making - Lab Data Result diagrams: 04/05/20 22:01 04/06/20 01:02 Vital Signs 04/05/20 04/05/20 04/05/20 21:35 21:55 22:00 Temperature 97.4 F L Pulse Rate 85 86 79 Respiratory 16 13 19 Rate Blood Pressure 141/64 O2 Sat by Pulse 96 96 Oximetry 04/05/20 04/05/20 04/05/20 22:16 22:30 22:46 Temperature Pulse Rate 75 73 73 Respiratory 17 14 15 Rate Blood Pressure 118/56 124/58 124/58 O2 Sat by Pulse 97 96 97 Oximetry 04/05/20 04/05/20 04/05/20 23:00 23:26 23:30 Temperature Pulse Rate 68 78 74 Respiratory 19 16 21 Rate Blood Pressure 136/64 136/64 135/63 O2 Sat by Pulse 97 98 96 Oximetry 04/05/20 04/06/20 04/06/20 23:46 00:02 00:03 Temperature Pulse Rate 78 73 Respiratory 15 20 16 Rate Blood Pressure 135/63 O2 Sat by Pulse 97 97 Oximetry 04/06/20 00:09 Temperature Pulse Rate Respiratory Rate Blood Pressure O2 Sat by Pulse 100 Oximetry Lab Results 04/05/20 04/05/20 04/05/20 Range/Units 22:01 22:01 22:45 WBC 6.9 (4.5-11.0) K/mm3 RBC 3.69 (3.65-5.03) M/mm3 Hgb 11.7 L (11.8-15.2) gm/dl Hct 35.2 L (35.5-45.6) % MCV 96 H (84-94) fl MCH 32 (28-32) pg MCHC 33 (32-34) % RDW 15.6 H (13.2-15.2) % Plt Count 136 L (140-440) K/mm3 Lymph % (Auto) 12.3 L (13.4-35.0) % Hill % (Auto) 8.3 H (0.0-7.3) % Eos % (Auto) 0.5 (0.0-4.3) % Baso % (Auto) 0.7 (0.0-1.8) % Lymph # 0.8 L (1.2-5.4) K/mm3 Hill # 0.6 (0.0-0.8) K/mm3 Eos # 0.0 (0.0-0.4) K/mm3 Baso # 0.1 (0.0-0.1) K/mm3 Seg Neutrophils % 78.2 H (40.0-70.0) % Seg Neutrophils # 5.4 (1.8-7.7) K/mm3 PT 16.6 H (12.2-14.9) Sec. INR 1.37 H (0.87-1.13) Sodium 147 H (137-145) mmol/L Potassium 4.1 (3.6-5.0) mmol/L Chloride 112.2 H (98-107) mmol/L Carbon Dioxide 21 L (22-30) mmol/L Anion Gap 18 mmol/L BUN 21 H (9-20) mg/dL Creatinine 1.9 H (0.8-1.5) mg/dL Estimated GFR 41 ml/min BUN/Creatinine Ratio 11 % Glucose 108 H (75-100) mg/dL Lactic Acid (0.7-2.0) mmol/L Calcium 9.5 (8.4-10.2) mg/dL Total Bilirubin (0.1-1.2) mg/dL Direct Bilirubin (0-0.2) mg/dL Indirect Bilirubin mg/dL AST (5-40) units/L ALT (7-56) units/L Alkaline Phosphatase (35-129) units/L Troponin T < 0.010 (0.00-0.029) ng/mL Total Protein (6.3-8.2) g/dL Albumin (3.9-5) g/dL Albumin/Globulin Ratio % Lipase (13-60) units/L 04/05/20 04/05/20 Range/Units 22:45 22:45 WBC (4.5-11.0) K/mm3 RBC (3.65-5.03) M/mm3 Hgb (11.8-15.2) gm/dl Hct (35.5-45.6) % MCV (84-94) fl MCH (28-32) pg MCHC (32-34) % RDW (13.2-15.2) % Plt Count (140-440) K/mm3 Lymph % (Auto) (13.4-35.0) % Hill % (Auto) (0.0-7.3) % Eos % (Auto) (0.0-4.3) % Baso % (Auto) (0.0-1.8) % Lymph # (1.2-5.4) K/mm3 Hill # (0.0-0.8) K/mm3 Eos # (0.0-0.4) K/mm3 Baso # (0.0-0.1) K/mm3 Seg Neutrophils % (40.0-70.0) % Seg Neutrophils # (1.8-7.7) K/mm3 PT (12.2-14.9) Sec. INR (0.87-1.13) Sodium (137-145) mmol/L Potassium (3.6-5.0) mmol/L Chloride (98-107) mmol/L Carbon Dioxide (22-30) mmol/L Anion Gap mmol/L BUN (9-20) mg/dL Creatinine (0.8-1.5) mg/dL Estimated GFR ml/min BUN/Creatinine Ratio % Glucose (75-100) mg/dL Lactic Acid 1.00 (0.7-2.0) mmol/L Calcium (8.4-10.2) mg/dL Total Bilirubin 0.20 (0.1-1.2) mg/dL Direct Bilirubin 0.2 (0-0.2) mg/dL Indirect Bilirubin 0.0 mg/dL AST 19 (5-40) units/L ALT 13 (7-56) units/L Alkaline Phosphatase 66 (35-129) units/L Troponin T (0.00-0.029) ng/mL Total Protein 6.4 (6.3-8.2) g/dL Albumin 4.0 (3.9-5) g/dL Albumin/Globulin Ratio 1.7 % Lipase 16 (13-60) units/L - EKG Data -: EKG Interpreted by [place] EKG shows normal: sinus rhythm Rate: normal - EKG Data 04/06/20 01:06 EKG today appears to be unchanged from prior EKG from November 2019 Sinus rhythm, 83 bpm, left ventricular hypertrophy, normal axis, normal intervals, otherwise, not a STEMI. Unchanged from prior. - Radiology Data Radiology results: report reviewed, image reviewed Print Report Referring Physician: SILVIA ANDERS Patient Name: DAVONTE SEGURA Date of : 1930 Sex: Male Report Date: 2020-04-05 Report Status: Finalized Findings [facility] [address] [place] [address] Cat Scan Report Signed Patient: DAVONTE SEGURA MR#: [id number] 9 : 1930 Acct:[id number] Age/Sex: 89 / M ADM Date: 04/05/20 Loc: ED Attending Dr: Ordering Physician: SILVIA ANDERS MD Date of Service: 04/05/20 Procedure(s): CT head/brain wo con Accession Number(s): [id number] cc: SILVIA ANDERS MD CT HEAD WITHOUT CONTRAST INDICATION: headache. TECHNIQUE: All CT scans at this [facility] ation are performed using CT dose reduction for ALARA by means of automated exposure control. COMPARISON: 06/28/2019 FINDINGS: HEMORRHAGE: None. EXTRA-AXIAL SPACES: Normal in size and morphology for the patient's age. VENTRICULAR SYSTEM: Normal in size and morphology for the patient's age. BRAIN PARENCHYMA: No acute findings. 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 MIDLINE SHIFT OR HERNIATION: None. ORBITS: Normal as visualized. SOFT TISSUES OF HEAD: Normal. CALVARIUM: Normal. VISUALIZED PARANASAL SINUSES AND MASTOID AIR CELLS: Clear. ADDITIONAL FINDINGS: None. IMPRESSION: 1. No acute intracranial abnormality. Signer Name: Ryan Patton MD Signed: 04/05/2020 11:32 PM Workstation Name: [id number] Transcribed By: SW Dictated By: Ryan Patton MD Electronically Authenticated By: Ryan Patton MD Signed Date/Time: 04/05/20 2332 DD/ 2329 Print Report Referring Physician: SILVIA ANDERS Patient Name: DAVONTE SEGURA Date of : 1930 Sex: Male Report Date: 2020-04-05 Report Status: Finalized Findings [facility] [address] [place] [address] Cat Scan Report Signed Patient: DAVONTE SEGURA MR#: [id number] 9 : 1930 Acct:[id number] Age/Sex: 89 / M ADM Date: 04/05/20 Loc: ED Attending Dr: Ordering Physician: SILVIA ANDERS MD Date of Service: 04/05/20 Procedure(s): CT abdomen pelvis wo con Accession Number(s): [id number] cc: SILVIA ANDERS MD CT ABDOMEN AND PELVIS WITHOUT IV CONTRAST INDICATION: acute abd pain. COMPARISON: CT 05/06/2019 TECHNIQUE: All CT scans at this facility use dose modulation, automated exposure control, iterative reconstruction or weight based dosing, when appropriate, to reduce radiation dose to as low as reasonably achievable. FINDINGS: Lung Bases: No significant abnormality. Skeletal System: No acute abnormality. ABDOMEN: Liver: No significant abnormality. Gallbladder: No significant abnormality. Bile Ducts: No significant abnormality. Pancreas: No significant abnormality. Spleen: No significant abnormality. Adrenals: No significant abnormality. Right Kidney: No significant abnormality. Left Kidney: No significant abnormality. Upper GI tract: No significant abnormality. Lymph Nodes: No significant adenopathy. Aorta: There is mild aneurysmal dilatation of the infrarenal abdominal aorta with maximum transverse measurements of 3.1 (AP) by 3.6 cm on axial image 103. 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 This is unchanged. Additional Findings: No significant abnormality. PELVIS: Colon: No acute abnormality. Diverticulosis is noted. Urinary Bladder and Distal Ureters: No significant abnormality. Appendix: Not visualized. Lymph Nodes: No significant adenopathy. Additional Findings: Brachytherapy seeds are again seen in the prostate. Small bilateral inguinal hernias are unchanged. IMPRESSION: 1. Within the limitations of non contrast technique, no acute process in the abdomen or pelvis. 2. Incidental findings, as above. Signer Name: Ryan Patton MD Signed: 04/05/2020 11:41 PM Workstation Name: [id number] Transcribed By: Dictated By: Ryan Patton MD Electronically Authenticated By: Ryan Patton MD Signed Date/Time: 04/05/20 2341 DD/ 2336 Print Report Referring Physician: SILVIA ANDERS Patient Name: DAVONTE SEGURA Date of : 1930 Sex: Male Report Date: 2020-04-05 Report Status: Finalized Findings [address] [address] XRay Report Signed Patient: DAVONTE SEGURA MR#: [id number] 9 : 1930 Acct:[id number] Age/Sex: 89 / M ADM Date: 04/05/20 Loc: ED Attending Dr: Ordering Physician: SILVIA ANDERS MD Date of Service: 04/05/20 Procedure(s): XR chest 1V ap Accession Number(s): [id number] cc: SILVIA ANDERS MD Fluoro Time In Minutes: CHEST 1 VIEW INDICATION / CLINICAL INFORMATION: Chest Pain. C OMPARISON: 08/20/2019 FINDINGS: SUPPORT DEVICES: None. HEART / MEDIASTINUM: No significant abnormality. LUNGS / PLEURA: No significant pulmonary or pleural abnormality. No pneumothorax. ADDITIONAL FINDINGS: No significant additional findings. IMPRESSION: 1. No acute findings. No interval change. Signer Name: Aurelia Rivera MD Signed: 04/05/2020 10:18 PM Workstation Name: [id number] Transcribed By: JR Dictated By: Aurelia Rivera MD Electronically Authenticated By: Aurelia Rivera MD Signed Date/Time: 04/05/202217 DD/ 17 TD/TT: Critical care attestation.: If time is entered above; I have spent that time in minutes in the direct care of this critically ill patient, excluding procedure time. ED Disposition Clinical Impression: Costochondral chest pain, Abdominal pain, History of headache, Renal insufficiency Disposition: DC-01 TO HOME OR SELFCARE Is pt being admited?: No Does the pt Need Aspirin: No Condition: Stable Instructions: Chest Pain (ED) Additional Instructions: Please continue current outpatient medications. Avoid consumption of Motrin, ibuprofen, Naprosyn, Aleve. Please follow-up with a primary care doctor or campaign marketing specialist within the next 3 to 5 days. Patient may take [id number] Tylenol as needed for pain. Please return to the emergency room right away with new pain, worsening pain, migration of pain, projectile vomiting, change in mental status, confusion, inability to tolerate liquid feeds, new, worsened or different symptoms not present on the initial emergency room evaluation Prescriptions: Nitrofurantoin Hill/M-Cryst [Macrobid CAP] 100 mg PO Q12HR #14 capsule Referrals: NIKHIL CURRY MD [Staff Physician] - 3-5 Days [facility] [Provider Group] - 3-5 Days
[2020-04-05 23:16] LABS: INR 1.37 (0.87-1.13)
--- NOTE | 2020-04-05 23:37 | Cat Scan Report ---
CT HEAD WITHOUT CONTRAST INDICATION: headache. TECHNIQUE: All CT scans at this location are performed using CT dose reduction for ALARA by means of automated e xposure control. COMPARISON: 06/28/2019 FINDINGS: HEMORRHAGE: None. EXTRA-AXIAL SPACES: Normal in size and morphology for the patient's age. VENTRICULAR SYSTEM: Normal in size and morphology for the patient's age. BRAIN PARENCHYMA: No acute findings. Mild bilateral basal ganglia calcifications and small chronic la cunar infarcts in the left basal ganglia are again noted, unchanged. 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 MIDLINE SHIFT OR HERNIATION: None. ORBITS: Normal as visualized. SOFT TISSUES OF HEAD: Normal. CALVARIUM: Normal. VISUALIZED PARANASAL SINUSES AND MASTOID AIR CELLS: Clear. ADDITIONAL FINDINGS: None. IMPRESSION: 1. No acute intracranial abnormality. Signer Name: Ryan Patton MD Signed: 04/05/2020 11:32 PM Workstation Name: [id number]
[2020-04-05 23:44] LABS: Bilirubin,Direct 0.2 mg/dL (0-0.2)
--- NOTE | 2020-04-05 23:46 | Cat Scan Report ---
CT ABDOMEN AND PELVIS WITHOUT IV CONTRAST INDICATION: acute abd pain. COMPARISON: CT 05/06/2019 TECHNIQUE: All CT scans at this facility use dose modulation, automated exposure control, iterative reconstructi on or weight based dosing, when appropriate, to reduce radiation dose to as low as reasonably achieva ble. FINDINGS: Lung Bases: No significant abnormality. Skeletal System: No acute abnormality. ABDOMEN: Liver: No significant abnormality. Gallbladder: No significant abnormality. Bile Ducts: No significant abnormality. Pancreas: No significant abnormality. Spleen: No significant abnormality. Adrenals: No significant abnormality. Right Kidney: No significant abnormality. Left Kidney: No significant abnormality. Upper GI tract: No significant abnormality. Lymph Nodes: No significant adenopathy. Aorta: There is mild aneurysmal dilatation of the infrarenal abdominal aorta with maximum transverse measurements of 3.1 (AP) by 3.6 cm on axial image 103. Mild aneurysmal dilatation of the common iliac s is noted. This is unchanged. Additional Findings: No significant abnormality. PELVIS: Colon: No acute abnormality. Diverticulosis is noted. Urinary Bladder and Distal Ureters: No significant abnormality. Appendix: Not visualized. Lymph Nodes: No significant adenopathy. Additional Findings: Brachytherapy seeds are again seen in the prostate. Small bilateral inguinal her nias are unchanged. IMPRESSION: 1. Within the limitations of non contrast technique, no acute process in the abdomen or pelvis. 2. Incidental findings, as above. Signer Name: Ryan Patton MD Signed: 04/05/2020 11:41 PM Workstation Name: [id number]
[2020-04-06] MEDS ORDERED: SODIUM CHLORIDE 0.9% 500 ML 500 ML IV ONE ×2 (00:44→00:45)
[2020-04-06 01:58] LABS: Bacteria,Urine 1+ /HPF (Negative); Bilirubin,Urine NEG (Negative); Blood,Urine NEG (Negative); Color,Urine Yellow (Yellow); Mucus,Urine 3+ /HPF
[2020-04-06 04:28] VITALS: BP 130/61
== END 2020-04-06 05:00 | disposition home or self-care (01) ==
LOC: ED 21:30
DX: R07.89 Other chest pain (principal); R51 Headache; N28.9 Disorder of kidney and ureter, unspecified; R10.9 Unspecified abdominal pain; I10 Essential (primary) hypertension; I25.2 Old myocardial infarction; J45.909 Unspecified asthma, uncomplicated; J44.9 Chronic obstructive pulmonary disease, unspecified
CPT/HCPCS: 36415; 70450; 71045; 74176; 80048; 80076; 81001; 82140; 82565; 83690; 84484; 85025; 85610; 93005; 96374; 96375; 99284; J1200; J2765; J7040

== ENCOUNTER 2020-06-16 12:02 | Observation (INO) | payer MEDICARE ==
[2020-06-16] MEDS ORDERED: MORPHINE 4 MG/1 ML INJ IV ONE (13:03)
[2020-06-16] MEDS ORDERED: ONDANSETRON 4 MG/2 ML INJ IV ONE (13:03)
--- NOTE | 2020-06-16 13:09 | Emergency Department Report ---
ED Chest Pain HPI - General Chief Complaint: Abdominal Pain Stated Complaint: CHEST, ABD PAIN Time Seen by Provider: 06/16/20 12:56 Source: patient Mode of arrival: Ambulatory Limitations: No Limitations - History of Present Illness Initial Comments: Patient is 89 years old male with history of hypertension, CVA, coronary artery disease and COPD. Patient presented to the ER complaining of substernal chest pain that radiated to the left chest and down to the epigastric area. Patient stated that pain started when he was unloading his truck and when he went up the hill he started having shortness of breath and the pain get worse. Patient describes his pain now as 9 out of 10. He said it is sharp and sometimes tightness. Patient denied any fever, chills, nausea or vomiting. Patient denied any focal weakness numbness or tingling sensation. MD Complaint: chest pain -: This morning Onset: during exertion Pain Location: substernal Pain Radiation: abdomen Quality: tightness, sharp - Related Data Home Medications Medication Instructions Recorded Confirmed Last Taken Pantoprazole [Protonix TAB] 40 mg PO QDAY 03/18/19 05/18/19 Unknown Previous Rx's Medication Instructions Recorded Last Taken Type Aspirin EC [Halfprin EC] 81 mg PO QDAY #30 tablet. 03/20/19 05/17/19 Rx amLODIPine 5 mg PO QDAY #30 tablet 03/20/19 Unknown Rx Docusate Sodium [Colace] 100 mg PO BID PRN #20 capsule 03/26/19 Unknown Rx Nitrofurantoin [place]/M-Cryst 100 mg PO Q12HR #14 capsule 04/06/20 Unknown Rx [Macrobid CAP] Allergies Allergy/AdvReac Type Severity Reaction Status Date / Time No Known Allergies Allergy Verified 10/06/19 19:47 Heart Score - HEART Score History: Moderately suspicious EKG: Non-specific Age: > 65 Risk factors: > 3 risk factors or hx of atherosclerotic disease Troponin: < normal limit HEART Score: 6 - Critical Actions Critical Actions: 4-6 pts:12-16.6% risk of adverse cardiac event. Should be admitted ED Review of Systems ROS: Stated complaint: CHEST, ABD PAIN Other details as noted in HPI Comment: All other systems reviewed and negative Constitutional: denies: chills, fever Respiratory: shortness of breath, SOB with exertion, SOB at rest. denies: cough Cardiovascular: chest pain. denies: palpitations, dyspnea on exertion Gastrointestinal: abdominal pain. denies: nausea, vomiting, diarrhea, constipation, hematemesis, melena, hematochezia Musculoskeletal: denies: back pain Neurological: denies: headache, weakness, numbness, paresthesias, confusion ED Past Medical Hx - Past Medical History Hx Hypertension: Yes Hx CVA: Yes Hx Heart Attack/AMI: Yes Hx Congestive Heart Failure: No Hx Diabetes: No Hx Deep Vein Thrombosis: No Hx Pulmonary Embolism: No Hx GERD: Yes Hx Liver Disease: No Hx Renal Disease: No Hx Sickle Cell Disease: No Hx Arthritis: No Hx Headaches / Migraines: No Hx Seizures: No Hx Kidney Stones: No Hx Psychiatric Treatment: No Hx Asthma: Yes Hx COPD: Yes Hx Tuberculosis: No Hx Dementia: No Hx HIV: No - Surgical History Additional Surgical History: Cataract. neck surgery. hernia repair. Prostate seed implant - Social History Smoking Status: Never Smoker - Medications Home Medications: Home Medications Medication Instructions Recorded Confirmed Last Taken Type Pantoprazole [Protonix TAB] 40 mg PO QDAY 03/18/19 05/18/19 Unknown History Aspirin EC [Halfprin EC] 81 mg PO QDAY #30 tablet. 03/20/19 05/18/19 05/17/19 Rx amLODIPine 5 mg PO QDAY #30 tablet 03/20/19 05/18/19 Unknown Rx Docusate Sodium [Colace] 100 mg PO BID PRN #20 capsule 03/26/19 05/18/19 Unknown Rx Nitrofurantoin [place]/M-Cryst 100 mg PO Q12HR #14 capsule 04/06/20 Unknown Rx [Macrobid CAP] ED Physical Exam - General Limitations: No Limitations General appearance: alert, in no apparent distress - Head Head exam: Present: atraumatic, normocephalic, normal inspection - Eye Eye exam: Present: normal appearance - ENT ENT exam: Present: normal exam, normal orophraynx, mucous membranes moist - Neck Neck exam: Present: normal inspection, full ROM. Absent: tenderness, meningismus - Respiratory Respiratory exam: Present: normal lung sounds bilaterally - Cardiovascular Cardiovascular Exam: Present: regular rate, normal rhythm, normal heart sounds - GI/Abdominal GI/Abdominal exam: Present: soft, normal bowel sounds. Absent: distended, tenderness, guarding, rebound, rigid, organomegaly, mass, bruit, pulsatile mass, hernia - Extremities Exam Extremities exam: Present: normal inspection, full ROM, normal capillary refill - Back Exam Back exam: Present: normal inspection, full ROM. Absent: CVA tenderness (R), CVA tenderness (L), muscle spasm, paraspinal tenderness, vertebral tenderness - Neurological Exam Neurological exam: Present: alert, oriented X3, CN II-XII intact - Psychiatric Psychiatric exam: Present: normal mood - Skin Skin exam: Present: warm, intact, normal color ED Course Vital Signs 06/16/20 06/16/20 06/16/20 12:11 13:00 13:15 Temperature 98.3 F Pulse Rate 73 Respiratory 18 18 Rate Blood Pressure 132/68 Blood Pressure [Right] O2 Sat by Pulse 96 98 100 Oximetry 06/16/20 06/16/20 06/16/20 13:16 13:22 13:23 Temperature 98.1 F Pulse Rate 64 68 Respiratory 25 H 18 18 Rate Blood Pressure 142/68 Blood Pressure 142/68 [Right] O2 Sat by Pulse 99 100 Oximetry 06/16/20 06/16/20 06/16/20 13:30 13:46 14:00 Temperature Pulse Rate 59 L 56 L 60 Respiratory 16 18 18 Rate Blood Pressure 142/68 142/68 144/73 Blood Pressure [Right] O2 Sat by Pulse 97 99 95 Oximetry 06/16/20 06/16/20 06/16/20 14:16 14:30 14:46 Temperature Pulse Rate 64 62 60 Respiratory 22 16 13 Rate Blood Pressure 144/73 144/73 144/73 Blood Pressure [Right] O2 Sat by Pulse 99 98 99 Oximetry 06/16/20 06/16/20 06/16/20 15:00 15:15 15:42 Temperature Pulse Rate 61 67 Respiratory 24 18 Rate Blood Pressure 132/68 132/68 132/68 Blood Pressure [Right] O2 Sat by Pulse 97 98 Oximetry 06/16/20 06/16/20 06/16/20 15:46 16:00 16:16 Temperature Pulse Rate Respiratory Rate Blood Pressure 132/68 132/68 111/27 Blood Pressure [Right] O2 Sat by Pulse 100 100 100 Oximetry 06/16/20 06/16/20 16:30 16:46 Temperature Pulse Rate Respiratory Rate Blood Pressure 111/27 111/27 Blood Pressure [Right] O2 Sat by Pulse 99 99 Oximetry RAVI score - Ravi Score Age > 65: (1) Yes Aspirin use within the Past 7 Days: (0) No 3 or more CAD Risk Factors: (1) Yes 2 or more Angina events in past 24 hrs: (1) Yes Known CAD with more than 50% Stenosis: (0) No Elevated Cardiac Markers: (0) No ST Deviation Greater than 0.5mm: (0) No RAVI Score: 3 ED Medical Decision Making - Lab Data Result diagrams: 06/16/20 13:22 06/16/20 13:22 - EKG Data -: EKG Interpreted by Me EKG shows normal: sinus rhythm Rate: normal - EKG Data Interpretation: no acute changes - Radiology Data Radiology results: report reviewed - Medical Decision Making Patient is 89 years old male with history of hypertension, CVA, coronary artery disease and COPD. Patient presented to the ER complaining of substernal chest pain that radiated to the left chest and down to the epigastric area. Patient stated that pain started when he was unloading his truck and when he went up the hill he started having shortness of breath and the pain get worse. Patient describes his pain now as 9 out of 10. He said it is sharp and sometimes tightness. Patient denied any fever, chills, nausea or vomiting. Patient denied any focal weakness numbness or tingling sensation. EKG shows sinus rhythm with no ST elevation or depression. D-dimer came back significantly elevated however patient had a CTA chest which is unremarkable. Patient also had a CT abdomen and pelvis with IV contrast showed no significant abnormalities. First troponin is negative. Discussed the patient with Dr. Kyleigh nichols, he agreed to admit the patient to medical service for further management. Critical Care Time: Yes Critical care time in (mins) excluding proc time.: 30 Critical care attestation.: If time is entered above; I have spent that time in minutes in the direct care of this critically ill patient, excluding procedure time. ED Disposition Clinical Impression: Chest pain Disposition: OP ADMIT IP TO THIS HOSP Is pt being admited?: Yes Condition: Stable Instructions: Chest Pain (ED) Referrals: PRIMARY CARE, [Primary Care Provider] - 3-5 Days
--- NOTE | 2020-06-16 14:02 | XRay Report ---
CHEST 1 VIEW INDICATION: Abdominal Pain. COMPARISON: 04/05/2020 FINDINGS: Support devices: None. Heart: Within normal limits. Lungs/Pleura: No acute air space or interstitial disease. Additional findings: None. IMPRESSION: No acute findings. Signer Name: Jh Richardson Jr, MD Signed: 06/16/2020 1:57 PM Workstation Name: [id number]
[2020-06-16 14:24] LABS: Basophils % (Auto) 0.5 % (0.0-1.8); Eosinophils # (Auto) 0.1 K/mm3 (0.0-0.4); Hematocrit 39.2 % (35.5-45.6); Hemoglobin 12.7 gm/dl (11.8-15.2); Lymphocytes # (Auto) 1.4 K/mm3 (1.2-5.4); Mean Corpuscular HGB Conc 32 % (32-34); Mean Corpuscular Volume 94 fl (84-94); Monocytes # (Auto) 0.5 K/mm3 (0.0-0.8); Monocytes % (Auto) 8.4 % (0.0-7.3); Platelet Count 142 K/mm3 (140-440); Red Blood Count 4.15 M/mm3 (3.65-5.03); Red Cell Distribution Width 14.6 % (13.2-15.2)
[2020-06-16 14:32] LABS: INR 1.23 (0.87-1.13)
[2020-06-16 14:33] LABS: Partial Thromboplastin Time 28.6 Sec. (24.2-36.6)
[2020-06-16 14:36] LABS: Bilirubin,Urine NEG (Negative); Blood,Urine SM (Negative); Color,Urine Yellow (Yellow); Mucus,Urine FEW /HPF; Protein,Urine <15 mg/dL mg/dL (Negative)
[2020-06-16 14:53] LABS: Alanine Aminotransferase 13 units/L (7-56); Albumin 3.6 g/dL (3.9-5); BUN/Creatinine Ratio 16; Bilirubin,Direct < 0.2 mg/dL (0-0.2); Blood Urea Nitrogen 22 mg/dL (9-20); Hemolysis Index 10
--- NOTE | 2020-06-16 16:19 | Cat Scan Report ---
CTA CHEST WITH CONTRAST INDICATION / CLINICAL INFORMATION: CHEST PAIN WITH SYNCOPE. TECHNIQUE: Axial CT images were obtained through the chest after injection of 100 cc Omnipaque 350 IV contrast. 3 plane MIP and/or 3D reconstructions were produced. All CT scans at this location are performed usin CT dose reduction for ALARA by means of automated exposure control. COMPARISON: CTA chest dated 08/22/2019. FINDINGS: PULMONARY ARTERIES: No pulmonary emboli. THORACIC AORTA: No significant abnormality. HEART: Borderline enlarged. CORONARY ARTERIES: Coronary artery calcifications are noted. MEDIASTINUM / ANTHONY: There are partially calcified mediastinal lymph nodes which may represent prior g ranulomatous disease exposure. PLEURA: No pleural effusion. No pneumothorax. LUNGS: Mild apical predominant centrilobular emphysema. Bibasilar subsegmental atelectasis. No focal airspace consolidation. No suspicious pulmonary mass or nodule. ADDITIONAL FINDINGS: None. UPPER ABDOMEN: No acute findings. SKELETAL STRUCTURES: No significant osseous abnormality. IMPRESSION: 1. No CT evidence for pulmonary embolism or aortic dissection. 2. Mild apical predominant centrilobular emphysema. 3. Borderline cardiomegaly. Signer Name: Star Gould MD Signed: 06/16/2020 4:15 PM Workstation Name: [id number]
--- NOTE | 2020-06-16 16:26 | Cat Scan Report ---
CT ABDOMEN AND PELVIS WITH CONTRAST INDICATION / CLINICAL INFORMATION: abdominal pain. TECHNIQUE: Axial CT images were obtained through the abdomen and pelvis after 100 cc Omnipaque [address] scans at this location are performed using CT dose reduction for ALARA by means of automated exposure control. COMPARISON: CT abdomen/pelvis dated 04/05/2020. FINDINGS: LIVER: Multiple small hypodensities are compatible with benign cysts. GALLBLADDER: No significant abnormality. BILE DUCTS: No significant abnormality. PANCREAS: No significant abnormality. SPLEEN: No significant abnormality. ADRENALS: No significant abnormality. RIGHT KIDNEY / URETER: No significant abnormality. LEFT KIDNEY / URETER: No significant abnormality. STOMACH / SMALL BOWEL: No significant abnormality. COLON: No significant abnormality. APPENDIX: No significant abnormality. PERITONEUM: No free fluid. No free air. No fluid collection. LYMPH NODES: No significant adenopathy. AORTA / ARTERIES: Moderate atherosclerotic calcification without acute abnormality. There is stable a neurysmal dilation of the distal aorta at the bifurcation, again measuring 3.6 x 3.1 cm. 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 IVC / VEINS: No significant abnormality. URINARY BLADDER: There is circumferential urinary bladder wall thickening which could represent cysti tis or chronic bladder outlet obstruction. REPRODUCTIVE ORGANS: Prostate brachytherapy seeds. ADDITIONAL FINDINGS: Small fat-containing right inguinal hernia. SKELETAL SYSTEM: No significant abnormality. IMPRESSION: 1. No acute abdominopelvic abnormality. 2. Urinary bladder wall thickening could indicate a cystitis in the right clinical setting, although this can also be seen with decompression. Correlation with urinalysis is recommended. 3. 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 Signer Name: Star Gould MD Signed: 06/16/2020 4:21 PM Workstation Name: [id number]
[2020-06-16] MEDS ORDERED: ASPIRIN 81 MG TAB CHEW PO ONE (16:56)
--- NOTE | 2020-06-16 20:55 | History and Physical Report ---
History of Present Illness Date of examination: 06/16/20 Date of admission: 06/16/20 18:02 Chief complaint: Chest pain since a.m. History of present illness: 89-year-old male with history of hypertension comes in for substernal chest pain while unloading from his truck. Chest pain happened during exertion. Chest pain is 9 out of 10. It is retrosternal. Intermittent in nature. Sharp sometimes. No radiation. No shortness of breath no nausea. No diaphoresis. No MIs in the past. Patient has a history of coronary artery disease COPD and hypertension and CVA in the past. No exposure to coronavirus. No fever or chills. - Past Medical History Hypertension: Yes CVA: Yes Asthma: Yes COPD: Yes - Surgical History Additional Surgical History: Cataract. neck surgery. hernia repair. Prostate seed implant - Social History Smoking Status: Never Smoker - Medications Home Medications: Home Medications Medication Instructions Recorded Confirmed Last Taken Type Pantoprazole [Protonix TAB] 40 mg PO QDAY 03/18/19 05/18/19 Unknown History Aspirin EC [Halfprin EC] 81 mg PO QDAY #30 tablet. 03/20/19 05/18/19 05/17/19 Rx amLODIPine 5 mg PO QDAY #30 tablet 03/20/19 05/18/19 Unknown Rx Docusate Sodium [Colace] 100 mg PO BID PRN #20 capsule 03/26/19 05/18/19 Unknown Rx Nitrofurantoin [place]/M-Cryst 100 mg PO Q12HR #14 capsule 04/06/20 Unknown Rx [Macrobid CAP] Review of Systems ROS: Stated complaint: CHEST, ABD PAIN Other details as noted in HPI Comment: All other systems reviewed and negative Constitutional: denies: chills, fever Respiratory: shortness of breath, SOB with exertion, SOB at rest. denies: cough Cardiovascular: chest pain. denies: palpitations, dyspnea on exertion Gastrointestinal: abdominal pain. denies: nausea, vomiting, diarrhea, constipation, hematemesis, melena, hematochezia Musculoskeletal: denies: back pain Neurological: denies: headache, weakness, numbness, paresthesias, confusion Medications and Allergies Allergies Allergy/AdvReac Type Severity Reaction Status Date / Time No Known Allergies Allergy Verified 10/06/19 19:47 Home Medications Medication Instructions Recorded Confirmed Last Taken Type Pantoprazole [Protonix TAB] 40 mg PO QDAY 03/18/19 05/18/19 Unknown History Aspirin EC [Halfprin EC] 81 mg PO QDAY #30 tablet. 03/20/19 05/18/19 05/17/19 Rx amLODIPine 5 mg PO QDAY #30 tablet 03/20/19 05/18/19 Unknown Rx Docusate Sodium [Colace] 100 mg PO BID PRN #20 capsule 03/26/19 05/18/19 Unknown Rx Nitrofurantoin [place]/M-Cryst 100 mg PO Q12HR #14 capsule 04/06/20 Unknown Rx [Macrobid CAP] Exam - Constitutional Vitals: Temp Pulse Resp BP Pulse Ox 97.7 F 58 L 18 141/48 99 06/16/20 20:38 06/16/20 20:38 06/16/20 15:15 06/16/20 20:00 06/16/20 20:00 General appearance: Present: no acute distress, well-nourished - EENT Eyes: Present: PERRL ENT: hearing intact, clear oral mucosa - Neck Neck: Present: supple, normal ROM - Respiratory Respiratory effort: normal Respiratory: bilateral: CTA - Cardiovascular Heart rate: 78 Rhythm: regular Heart Sounds: Present: S1 & S2. Absent: rub, click - Extremities Extremities: pulses symmetrical, No edema Peripheral Pulses: within normal limits - Abdominal General gastrointestinal: Present: soft, non-tender, non-distended, normal bowel sounds Male genitourinary: Present: normal - Integumentary Integumentary: Present: clear, warm, dry - Musculoskeletal Musculoskeletal: gait normal, strength equal bilaterally - Psychiatric Psychiatric: appropriate mood/affect, intact judgment & insight - Neurologic Neurologic: CNII-XII intact, moves all extremities HEART Score - HEART Score History: Highly suspicious EKG: Non-specific Age: > 65 Risk factors: > 3 risk factors or hx of atherosclerotic disease Troponin: Troponin T < 0.010 ng/mL (0.00-0.029) 06/16/20 13:22 Troponin: 1-3x normal limit HEART Score: 8 - Critical Actions Critical Actions: 4-6 pts:12-16.6% risk of adverse cardiac event. Should be admitted Results - Labs CBC & Chem 7: 06/17/20 05:49 06/17/20 05:49 Labs: Laboratory Last Values WBC 5.4 K/mm3 (4.5-11.0) 06/16/20 13:22 RBC 4.15 M/mm3 (3.65-5.03) 06/16/20 13:22 Hgb 12.7 gm/dl (11.8-15.2) 06/16/20 13:22 Hct 39.2 % (35.5-45.6) 06/16/20 13:22 MCV 94 fl (84-94) 06/16/20 13:22 MCH 31 pg (28-32) 06/16/20 13:22 MCHC 32 % (32-34) 06/16/20 13:22 RDW 14.6 % (13.2-15.2) 06/16/20 13:22 Plt Count 142 K/mm3 (140-440) 06/16/20 13:22 Lymph % (Auto) 25.0 % (13.4-35.0) 06/16/20 13:22 [place] % (Auto) 8.4 % (0.0-7.3) H 06/16/20 13:22 Eos % (Auto) 2.0 % (0.0-4.3) 06/16/20 13:22 Baso % (Auto) 0.5 % (0.0-1.8) 06/16/20 13:22 Lymph # 1.4 K/mm3 (1.2-5.4) 06/16/20 13:22 [place] # 0.5 K/mm3 (0.0-0.8) 06/16/20 13:22 Eos # 0.1 K/mm3 (0.0-0.4) 06/16/20 13:22 Baso # 0.0 K/mm3 (0.0-0.1) 06/16/20 13:22 Seg Neutrophils % 64.1 % (40.0-70.0) 06/16/20 13:22 Seg Neutrophils # 3.5 K/mm3 (1.8-7.7) 06/16/20 13:22 PT 15.8 Sec. (12.2-14.9) H 06/16/20 13:22 INR 1.23 (0.87-1.13) H 06/16/20 13:22 APTT 28.6 Sec. (24.2-36.6) 06/16/20 13:22 D-Dimer 1571.12 ng/mlDDU (0-234) H 06/16/20 13:22 Sodium 141 mmol/L (137-145) 06/16/20 13:22 Potassium 4.5 mmol/L (3.6-5.0) 06/16/20 13:22 Chloride 106.1 mmol/L (98-107) 06/16/20 13:22 Carbon Dioxide 21 mmol/L (22-30) L 06/16/20 13:22 Anion Gap 18 mmol/L 06/16/20 13:22 BUN 22 mg/dL (9-20) H 06/16/20 13:22 Creatinine 1.4 mg/dL (0.8-1.3) H 06/16/20 13:22 Estimated GFR 58 ml/min 06/16/20 13:22 BUN/Creatinine Ratio 16 % 06/16/20 13:22 Glucose 85 mg/dL (75-100) 06/16/20 13:22 Calcium 9.0 mg/dL (8.4-10.2) 06/16/20 13:22 Total Bilirubin 0.20 mg/dL (0.1-1.2) 06/16/20 13:22 Direct Bilirubin < 0.2 mg/dL (0-0.2) 06/16/20 13:22 Indirect Bilirubin 0.0 mg/dL 06/16/20 13:22 AST 19 units/L (5-40) 06/16/20 13:22 ALT 13 units/L (7-56) 06/16/20 13:22 Alkaline Phosphatase 75 units/L (35-129) 06/16/20 13:22 Troponin T < 0.010 ng/mL (0.00-0.029) 06/16/20 13:22 NT-Pro-B Natriuret Pep 193.7 pg/mL (0-900) 06/16/20 13:22 Total Protein 6.4 g/dL (6.3-8.2) 06/16/20 13:22 Albumin 3.6 g/dL (3.9-5) L 06/16/20 13:22 Albumin/Globulin Ratio 1.3 % 06/16/20 13:22 Lipase 20 units/L (13-60) 06/16/20 13:22 Urine Color Yellow (Yellow) 06/16/20 14:20 Urine Turbidity Clear (Clear) 06/16/20 14:20 Urine pH 5.0 (5.0-7.0) 06/16/20 14:20 Ur Specific [place] 1.029 (1.003-1.030) 06/16/20 14:20 Urine Protein <15 mg/dl mg/dL (Negative) 06/16/20 14:20 Urine Glucose (UA) Neg mg/dL (Negative) 06/16/20 14:20 Urine Ketones Neg mg/dL (Negative) 06/16/20 14:20 Urine Blood Sm (Negative) 06/16/20 14:20 Urine Nitrite Neg (Negative) 06/16/20 14:20 Ur Reducing Substances Not Reportable 06/16/20 14:20 Urine Bilirubin Neg (Negative) 06/16/20 14:20 Urine Ictotest Not Reportable 06/16/20 14:20 Urine Urobilinogen 2.0 mg/dL (<2.0) 06/16/20 14:20 Ur Leukocyte Esterase Neg (Negative) 06/16/20 14:20 Urine WBC (Auto) 1.0 /HPF (0.0-6.0) 06/16/20 14:20 Urine RBC (Auto) 2.0 /HPF (0.0-6.0) 06/16/20 14:20 Urine Mucus Few /HPF 06/16/20 14:20 Short CBC 06/16/20 Range/Units 13:22 WBC 5.4 (4.5-11.0) K/mm3 Hgb 12.7 (11.8-15.2) gm/dl Hct 39.2 (35.5-45.6) % Plt Count 142 (140-440) K/mm3 BMP 06/16/20 13:22 Sodium 141 Potassium 4.5 Chloride 106.1 Carbon Dioxide 21 L BUN 22 H Creatinine 1.4 H Glucose 85 Calcium 9.0 Cardiac Enzymes 06/16/20 Range/Units 13:22 Troponin T < 0.010 (0.00-0.029) ng/mL Liver Function 06/16/20 Range/Units 13:22 Total Bilirubin 0.20 (0.1-1.2) mg/dL Direct Bilirubin < 0.2 (0-0.2) mg/dL AST 19 (5-40) units/L ALT 13 (7-56) units/L Alkaline Phosphatase 75 (35-129) units/L Albumin 3.6 L (3.9-5) g/dL Urine 06/16/20 Range/Units 14:20 Urine Color Yellow (Yellow) Urine pH 5.0 (5.0-7.0) Ur Specific [place] 1.029 (1.003-1.030) Urine Protein <15 mg/dl (Negative) mg/dL Urine Glucose (UA) Neg (Negative) mg/dL - Imaging and Cardiology EKG: report reviewed Chest x-ray: report reviewed (No acute findings) Imaging and Cardiology: CTA chest IMPRESSION: 1. No CT evidence for pulmonary embolism or aortic dissection. 2. Mild apical predominant centrilobular emphysema. 3. Borderline cardiomegaly. 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 [place]/IV: IV Catheter Type [Right Hand] INT / Saline Lock Assessment and Plan Advance Directives: Yes Plan of care discussed with patient/family: Yes - Patient Problems (1) Acute chest pain Current Visit: No Status: Acute Plan to address problem: Chest pain work-up Serial troponins Lexiscan in the morning (2) CALEB (acute kidney injury) Current Visit: Yes Status: Acute Plan to address problem: IV fluids for now Possible vasomotor nephropathy (3) HLD (hyperlipidemia) Current Visit: No Status: Chronic Qualifiers: Hyperlipidemia type: mixed hyperlipidemia Qualified Code(s): E78.2 - Mixed hyperlipidemia Plan to address problem: Continue statins (4) HTN (hypertension) Current Visit: No Status: Chronic Qualifiers: Plan to address problem: Adjust blood pressure medications as necessary (5) DVT prophylaxis Current Visit: No Status: Acute Plan to address problem: Patient on heparin and GI prophylaxis
[2020-06-16] MEDS ORDERED: DOCUSATE SODIUM 100 MG CAP PO PRN (23:01)
[2020-06-16] MEDS ORDERED: ACETAMINOPHEN 325 MG TAB PO PRN (23:02)
[2020-06-16] MEDS ORDERED: oxyCODONE /ACETAMINOPHEN 5-325MG TAB PO PRN (23:02)
[2020-06-16] MEDS ORDERED: ONDANSETRON 4 MG/2 ML INJ IV PRN (23:02)
[2020-06-16] MEDS ORDERED: HYDROmorphone 1 MG/1 ML INJ IV PRN (23:02)
[2020-06-16] MEDS ORDERED: SODIUM CHLORIDE 0.9% 1000 ML 1,000 ML IV SCH (23:15)
[2020-06-16] MEDS: FAMOTIDINE 20 MG TAB PO SCH (23:24)
[2020-06-16] MEDS: HEPARIN 5,000 UNIT/1 ML VIAL SUB-Q SCH (23:25)
[2020-06-17 06:39] LABS: Basophils % (Auto) 0.6 % (0.0-1.8); Eosinophils # (Auto) 0.2 K/mm3 (0.0-0.4); Eosinophils % (Auto) 5.3 % (0.0-4.3); Hemoglobin 12.2 gm/dl (11.8-15.2); Lymphocytes # (Auto) 1.4 K/mm3 (1.2-5.4); Mean Corpuscular HGB Conc 34 % (32-34); Mean Corpuscular Volume 91 fl (84-94); Monocytes # (Auto) 0.4 K/mm3 (0.0-0.8); Monocytes % (Auto) 10.6 % (0.0-7.3); Platelet Count 132 K/mm3 (140-440); Red Blood Count 3.94 M/mm3 (3.65-5.03); Red Cell Distribution Width 14.5 % (13.2-15.2)
[2020-06-17 06:53] LABS: Albumin 3.3 g/dL (3.9-5); Calcium 8.5 mg/dL (8.4-10.2)
[2020-06-17 08:33] VITALS: BP 129/62
[2020-06-17] MEDS ORDERED: REGADENOSON 0.4 MG/5 ML INJ IV ONE ×2 (08:40→08:46)
[2020-06-17] MEDS ORDERED: amLODIPine 5 MG TAB PO SCH (10:00)
[2020-06-17] MEDS ORDERED: PANTOPRAZOLE 40 MG TAB PO SCH (10:00)
[2020-06-17] MEDS ORDERED: NITROFURANTOIN MONOHYD/M-CRYST 100 MG CAP PO SCH (10:00)
[2020-06-17] MEDS ORDERED: ASPIRIN EC 81 MG TAB PO SCH (10:00)
[2020-06-17] MEDS: HEPARIN 5,000 UNIT/1 ML VIAL SUB-Q SCH (10:08)
[2020-06-17] MEDS: FAMOTIDINE 20 MG TAB PO SCH (10:08)
[2020-06-17] MEDS ORDERED: TAMSULOSIN 0.4 MG CAP PO SCH (11:00)
--- NOTE | 2020-06-17 15:51 | Discharge Summary ---
<MAURY ANDREW - Last Filed: 06/17/20 17:37> Providers - Providers Date of Admission: 06/16/20 18:02 Attending physician: JOY FORMAN Primary care physician: FEATHER EDGER Hospitalization Condition: Stable Pertinent studies: 06/16 CTA chest shows no CT evidence for pulmonary embolism or aortic dissection, mild apical predominant centrilobular emphysema and borderline cardiomegaly. 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 06/16 CXR shows No acute findings. Hospital course: 89-year-old male with hypertension, CVA, asthma, COPD, and CAD presents to the emergency department on 06/16 for sharp retrosternal chest pain while unloading from his truck rated a 9/10 and treatment sent chest pain is 9 out of 10 with no radiation, shortness of breath, nausea, or diaphoresis intermittent in nature. Work-up in the emergency department showed a d-dimer of 1571 and the subsequent CTA of the chest showed no pulmonary embolism. 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 Patient was continued on Macrobid and his lexiscan was canceled due to recent cardiac work-up for chest pain. He will be discharged with a PPI and he will need to follow-up with urology and GI outpatient. Please follow-up with your primary care physician within 1 to 2 weeks of discharge. (1) Acute chest pain Current Visit: No Status: Acute Plan to address problem: Chest pain work-up Serial troponins (-) The nuclear stress test was cancelled per Dr. Auguste, because the patient had a low-risk perfusion study one year ago and is primarily complaining of abdominal pain. Continue your PPI and follow-up outpatient with GI (2) CALEB (acute kidney injury) Current Visit: Yes Status: Acute Plan to address problem: IV fluids for now Possible vasomotor nephropathy (3) HLD (hyperlipidemia) Current Visit: No Status: Chronic Qualifiers: Hyperlipidemia type: mixed hyperlipidemia Qualified Code(s): E78.2 - Mixed hyperlipidemia Plan to address problem: Continue statins (4) HTN (hypertension) Current Visit: No Status: Chronic Qualifiers: Plan to address problem: To home antihypertensive regimen Blood pressure monitoring per primary care physician Disposition: TO HOME OR SELFCARE Time spent for discharge: 40 Core Measure Documentation - Palliative Care Palliative Care/ Comfort Measures: Not Applicable - Core Measures Any of the following diagnoses?: history only Exam - Constitutional Vitals: Temp Pulse Resp BP Pulse Ox 97.7 F 62 16 129/62 97 06/17/20 08:01 06/17/20 15:00 06/17/20 15:00 06/17/20 10:03 06/17/20 15:00 General appearance: Present: no acute distress - EENT Eyes: Present: PERRL, EOM intact ENT: hearing decreased, poor dentition - Neck Neck: Present: normal ROM - Respiratory Respiratory effort: normal Respiratory: bilateral: CTA - Cardiovascular Rhythm: regular Heart Sounds: Present: S1 & S2. Absent: systolic murmur, diastolic murmur - Extremities Extremities: no ischemia, pulses intact, pulses symmetrical, No edema, normal temperature, normal color, Full ROM Peripheral Pulses: within normal limits - Abdominal General gastrointestinal: Present: soft, tender, non-distended, normal bowel sounds - Integumentary Integumentary: Present: clear, warm - Musculoskeletal Musculoskeletal: strength equal bilaterally - Psychiatric Psychiatric: cooperative - Neurologic Neurologic: CNII-XII intact, no focal deficits, moves all extremities - Allied Health Allied health notes reviewed: nursing Plan Activity: advance as tolerated Diet: low cholesterol, low salt, diabetic Special Instructions: record daily BP diary Additional Instructions: Please contact your primary care physician or report to nearest emergency department if experience worsening symptoms. Please follow-up with your primary care physician within 1 to 2 weeks of discharge. Please follow-up with urology and gastroenterology outpatient. Follow up with: OBINNA BLANCO MD [Primary Care Provider] - 3-5 Days LANCE EDDY MD [Staff Physician] - 7 YANG Johnson MD [Staff Physician] - 7 Days Prescriptions: Tamsulosin [Flomax] 0.4 mg PO QDAY #30 capsule Pantoprazole [Protonix TAB] 40 mg PO QDAY #30 tab <JOY FORMAN - Last Filed: 06/18/20 09:58> Providers - Providers Date of Admission: 06/16/20 18:02 Date of discharge: 06/17/20 Attending physician: JOY FORMAN Primary care physician: FEATHER EDGER Hospitalization Hospital course: I saw and evaluated the patient. I agree with the findings and the plan of care as documented in the Nurse Practitioner's~note. Exam - Constitutional Vitals: Temp Pulse Resp BP Pulse Ox 97.7 F 62 16 129/62 97 06/17/20 08:01 06/17/20 15:00 06/17/20 15:00 06/17/20 10:03 06/17/20 15:00
--- NOTE | 2020-06-17 16:13 | Progress Note ---
<LORRIEMAURY RaquelJose R - Last Filed: 06/17/20 16:13> Assessment and Plan - Patient Problems (1) Acute chest pain Status: Acute Plan to address problem: -Patient presented with exertional retrosternal chest pain that was nonradiating and had no associated nausea or vomiting, diaphoresis -Patient was scheduled for a Lexiscan this morning however it was canceled by the patient coordinator front desk given recent low-risk perfusion study one year ago and patient complaints more consistent with abdominal pain. -Serial troponins have been negative -Patient does not complain of any chest pain on 06/17 (2) AAA (abdominal aortic aneurysm) without rupture Status: Acute Plan to address problem: -Stable abdominal aortic aneurysm found on CT abdomen and pelvis on this admission -Abdominal ultrasound pending (3) HTN (hypertension) Status: Chronic Plan to address problem: - BP monitoring per protocol - Resumed home antihypertensive treatments (4) GERD (gastroesophageal reflux disease) Status: Chronic Qualifiers: Esophagitis presence: without esophagitis Qualified Code(s): K21.9 - Gastro-esophageal reflux disease without esophagitis Plan to address problem: -Resume home PPI (5) DVT prophylaxis Status: Acute Plan to address problem: - DVT and GI prophylaxis History Interval history: 89-year-old male with hypertension, CVA, asthma, COPD, and CAD presents to the emergency department on 06/16 for sharp retrosternal chest pain while unloading from his truck rated a 9/10 and treatment sent chest pain is 9 out of 10 with no radiation, shortness of breath, nausea, or diaphoresis intermittent in nature. Work-up in the emergency department showed a d-dimer of 1571 and the subsequent CTA of the chest showed no pulmonary embolism. 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 Abdominal ultrasound pending. His Lexiscan stress test was canceled because the patient had a low-risk perfusion study one year ago. Hospitalist Physical - Constitutional Vitals: Temp Pulse Resp BP Pulse Ox 97.7 F 62 16 129/62 97 06/17/20 08:01 06/17/20 15:00 06/17/20 15:00 06/17/20 10:03 06/17/20 15:00 General appearance: Present: no acute distress - EENT Eyes: Present: PERRL ENT: hearing decreased, poor dentition - Neck Neck: Present: supple, normal ROM - Respiratory Respiratory effort: normal Respiratory: bilateral: CTA - Cardiovascular Rhythm: regular Heart Sounds: Present: S1 & S2. Absent: systolic murmur, diastolic murmur - Extremities Extremities: no ischemia, pulses intact, pulses symmetrical, No edema, normal temperature, normal color, Full ROM Peripheral Pulses: within normal limits - Abdominal General gastrointestinal: soft, non-tender, non-distended, normal bowel sounds - Integumentary Integumentary: Present: clear, warm, dry - Psychiatric Psychiatric: appropriate mood/affect, cooperative - Neurologic Neurologic: CNII-XII intact, no focal deficits, moves all extremities - Allied Health Allied health notes reviewed: nursing HEART Score - HEART Score EKG: Non-specific Age: > 65 Risk factors: > 3 risk factors or hx of atherosclerotic disease Troponin: Troponin T < 0.010 ng/mL (0.00-0.029) 06/17/20 05:49 Troponin: 1-3x normal limit - Critical Actions Critical Actions: 4-6 pts:12-16.6% risk of adverse cardiac event. Should be admitted Results - Labs CBC & Chem 7: 06/17/20 05:49 06/17/20 05:49 Labs: Laboratory Last Values WBC 3.6 K/mm3 (4.5-11.0) L 06/17/20 05:49 RBC 3.94 M/mm3 (3.65-5.03) 06/17/20 05:49 Hgb 12.2 gm/dl (11.8-15.2) 06/17/20 05:49 Hct 36.0 % (35.5-45.6) 06/17/20 05:49 MCV 91 fl (84-94) 06/17/20 05:49 MCH 31 pg (28-32) 06/17/20 05:49 MCHC 34 % (32-34) 06/17/20 05:49 RDW 14.5 % (13.2-15.2) 06/17/20 05:49 Plt Count 132 K/mm3 (140-440) L 06/17/20 05:49 Lymph % (Auto) 40.0 % (13.4-35.0) H 06/17/20 05:49 [place] % (Auto) 10.6 % (0.0-7.3) H 06/17/20 05:49 Eos % (Auto) 5.3 % (0.0-4.3) H 06/17/20 05:49 Baso % (Auto) 0.6 % (0.0-1.8) 06/17/20 05:49 Lymph # 1.4 K/mm3 (1.2-5.4) 06/17/20 05:49 [place] # 0.4 K/mm3 (0.0-0.8) 06/17/20 05:49 Eos # 0.2 K/mm3 (0.0-0.4) 06/17/20 05:49 Baso # 0.0 K/mm3 (0.0-0.1) 06/17/20 05:49 Seg Neutrophils % 43.5 % (40.0-70.0) 06/17/20 05:49 Seg Neutrophils # 1.5 K/mm3 (1.8-7.7) L 06/17/20 05:49 PT 15.8 Sec. (12.2-14.9) H 06/16/20 13:22 INR 1.23 (0.87-1.13) H 06/16/20 13:22 APTT 28.6 Sec. (24.2-36.6) 06/16/20 13:22 D-Dimer 1571.12 ng/mlDDU (0-234) H 06/16/20 13:22 Sodium 140 mmol/L (137-145) 06/17/20 05:49 Potassium 4.3 mmol/L (3.6-5.0) 06/17/20 05:49 Chloride 106.8 mmol/L (98-107) 06/17/20 05:49 Carbon Dioxide 24 mmol/L (22-30) 06/17/20 05:49 Anion Gap 14 mmol/L 06/17/20 05:49 BUN 18 mg/dL (9-20) 06/17/20 05:49 Creatinine 1.4 mg/dL (0.8-1.3) H 06/17/20 05:49 Estimated GFR 58 ml/min 06/17/20 05:49 BUN/Creatinine Ratio 13 % 06/17/20 05:49 Glucose 93 mg/dL (75-100) 06/17/20 05:49 Hemoglobin A1c 5.8 % (4-6) 06/17/20 00:11 Calcium 8.5 mg/dL (8.4-10.2) 06/17/20 05:49 Total Bilirubin 0.20 mg/dL (0.1-1.2) 06/17/20 05:49 Direct Bilirubin < 0.2 mg/dL (0-0.2) 06/16/20 13:22 Indirect Bilirubin 0.0 mg/dL 06/16/20 13:22 AST 16 units/L (5-40) 06/17/20 05:49 ALT 10 units/L (7-56) 06/17/20 05:49 Alkaline Phosphatase 65 units/L (35-129) 06/17/20 05:49 Troponin T < 0.010 ng/mL (0.00-0.029) 06/17/20 05:49 NT-Pro-B Natriuret Pep 193.7 pg/mL (0-900) 06/16/20 13:22 Total Protein 5.8 g/dL (6.3-8.2) L 06/17/20 05:49 Albumin 3.3 g/dL (3.9-5) L 06/17/20 05:49 Albumin/Globulin Ratio 1.3 % 06/17/20 05:49 Lipase 20 units/L (13-60) 06/16/20 13:22 Urine Color Yellow (Yellow) 06/16/20 14:20 Urine Turbidity Clear (Clear) 06/16/20 14:20 Urine pH 5.0 (5.0-7.0) 06/16/20 14:20 Ur Specific [place] 1.029 (1.003-1.030) 06/16/20 14:20 Urine Protein <15 mg/dl mg/dL (Negative) 06/16/20 14:20 Urine Glucose (UA) Neg mg/dL (Negative) 06/16/20 14:20 Urine Ketones Neg mg/dL (Negative) 06/16/20 14:20 Urine Blood Sm (Negative) 06/16/20 14:20 Urine Nitrite Neg (Negative) 06/16/20 14:20 Ur Reducing Substances Not Reportable 06/16/20 14:20 Urine Bilirubin Neg (Negative) 06/16/20 14:20 Urine Ictotest Not Reportable 06/16/20 14:20 Urine Urobilinogen 2.0 mg/dL (<2.0) 06/16/20 14:20 Ur Leukocyte Esterase Neg (Negative) 06/16/20 14:20 Urine WBC (Auto) 1.0 /HPF (0.0-6.0) 06/16/20 14:20 Urine RBC (Auto) 2.0 /HPF (0.0-6.0) 06/16/20 14:20 Urine Mucus Few /HPF 06/16/20 14:20 Herrera/IV: Voiding Method Urinal IV Catheter Type [Right Hand] INT / Saline Lock Active Medications - Current Medications Current Medications: Generic Name Dose Route Start Last Admin Trade Name Freq PRN Reason Stop Dose Admin Acetaminophen 650 mg 06/16/20 23:02 Tylenol PO Q4H PRN Pain MILD(1-3)/Fever >100.5/HERNANDEZ Amlodipine Besylate 5 mg 06/17/20 10:00 06/17/20 10:03 Amlodipine PO 5 mg QDAY WIL Administration Aspirin 81 mg 06/17/20 10:00 06/17/20 10:08 Halfprin Ec PO 81 mg QDAY WIL Administration Docusate Sodium 100 mg 06/16/20 23:01 Colace PO BID PRN Constipation Heparin Sodium (Porcine) 5,000 unit 06/16/20 23:15 06/17/20 10:08 Heparin SUB-Q 5,000 unit Q12HR WIL Administration Hydromorphone HCl 0.5 mg 06/16/20 23:02 Dilaudid IV Q3H PRN Pain , Severe (7-10) Sodium Chloride 1,000 mls @ 75 mls/hr 06/16/20 23:15 06/16/20 23:25 Nacl 0.9% 1000 Ml IV 75 mls/hr DIRECT WIL Administration Nitrofurantoin Macrocrystals 100 mg 06/17/20 10:00 06/17/20 10:08 Macrobid PO 100 mg Q12HR WIL Administration Ondansetron HCl 4 mg 06/16/20 23:02 Zofran IV Q8H PRN Nausea And Vomiting Oxycodone/Acetaminophen 1 tab 06/16/20 23:02 Percocet 5/325 PO Q6H PRN Pain, Moderate (4-6) Pantoprazole Sodium 40 mg 06/17/20 10:00 06/17/20 10:08 Protonix PO 40 mg QDAY WIL Administration Sodium Chloride 10 ml 06/17/20 10:00 06/17/20 10:08 Sodium Chloride Flush Syringe 10 Ml IV 10 ml BID WIL Administration Sodium Chloride 10 ml 06/16/20 23:02 Sodium Chloride Flush Syringe 10 Ml IV PRN PRN LINE FLUSH Tamsulosin HCl 0.4 mg 06/17/20 11:00 Flomax PO QDAY WIL <JOY FORMAN R - Last Filed: 06/18/20 10:01> Assessment and Plan Assessment and plan: I saw and evaluated the patient. I agree with the findings and the plan of care as documented in the Nurse Practitioner's~note, with the following corrections and additions. Patient tolerating diet, denies any chest pain. Noted CT abdomen findings and c ardiology recommendation. Will d/c patient with outpt f/u. cancel abdominal US. Hospitalist Physical - Constitutional Vitals: Temp Pulse Resp BP Pulse Ox 97.7 F 62 16 129/62 97 06/17/20 08:01 06/17/20 15:00 06/17/20 15:00 06/17/20 10:03 06/17/20 15:00 HEART Score - HEART Score Troponin: Troponin T < 0.010 ng/mL (0.00-0.029) 06/17/20 05:49 Results - Labs CBC & Chem 7: 06/17/20 05:49 06/17/20 05:49 Labs: Laboratory Last Values WBC 3.6 K/mm3 (4.5-11.0) L 06/17/20 05:49 RBC 3.94 M/mm3 (3.65-5.03) 06/17/20 05:49 Hgb 12.2 gm/dl (11.8-15.2) 06/17/20 05:49 Hct 36.0 % (35.5-45.6) 06/17/20 05:49 MCV 91 fl (84-94) 06/17/20 05:49 MCH 31 pg (28-32) 06/17/20 05:49 MCHC 34 % (32-34) 06/17/20 05:49 RDW 14.5 % (13.2-15.2) 06/17/20 05:49 Plt Count 132 K/mm3 (140-440) L 06/17/20 05:49 Lymph % (Auto) 40.0 % (13.4-35.0) H 06/17/20 05:49 [place] % (Auto) 10.6 % (0.0-7.3) H 06/17/20 05:49 Eos % (Auto) 5.3 % (0.0-4.3) H 06/17/20 05:49 Baso % (Auto) 0.6 % (0.0-1.8) 06/17/20 05:49 Lymph # 1.4 K/mm3 (1.2-5.4) 06/17/20 05:49 [place] # 0.4 K/mm3 (0.0-0.8) 06/17/20 05:49 Eos # 0.2 K/mm3 (0.0-0.4) 06/17/20 05:49 Baso # 0.0 K/mm3 (0.0-0.1) 06/17/20 05:49 Seg Neutrophils % 43.5 % (40.0-70.0) 06/17/20 05:49 Seg Neutrophils # 1.5 K/mm3 (1.8-7.7) L 06/17/20 05:49 PT 15.8 Sec. (12.2-14.9) H 06/16/20 13:22 INR 1.23 (0.87-1.13) H 06/16/20 13:22 APTT 28.6 Sec. (24.2-36.6) 06/16/20 13:22 D-Dimer 1571.12 ng/mlDDU (0-234) H 06/16/20 13:22 Sodium 140 mmol/L (137-145) 06/17/20 05:49 Potassium 4.3 mmol/L (3.6-5.0) 06/17/20 05:49 Chloride 106.8 mmol/L (98-107) 06/17/20 05:49 Carbon Dioxide 24 mmol/L (22-30) 06/17/20 05:49 Anion Gap 14 mmol/L 06/17/20 05:49 BUN 18 mg/dL (9-20) 06/17/20 05:49 Creatinine 1.4 mg/dL (0.8-1.3) H 06/17/20 05:49 Estimated GFR 58 ml/min 06/17/20 05:49 BUN/Creatinine Ratio 13 % 06/17/20 05:49 Glucose 93 mg/dL (75-100) 06/17/20 05:49 Hemoglobin A1c 5.8 % (4-6) 06/17/20 00:11 Calcium 8.5 mg/dL (8.4-10.2) 06/17/20 05:49 Total Bilirubin 0.20 mg/dL (0.1-1.2) 06/17/20 05:49 Direct Bilirubin < 0.2 mg/dL (0-0.2) 06/16/20 13:22 Indirect Bilirubin 0.0 mg/dL 06/16/20 13:22 AST 16 units/L (5-40) 06/17/20 05:49 ALT 10 units/L (7-56) 06/17/20 05:49 Alkaline Phosphatase 65 units/L (35-129) 06/17/20 05:49 Troponin T < 0.010 ng/mL (0.00-0.029) 06/17/20 05:49 NT-Pro-B Natriuret Pep 193.7 pg/mL (0-900) 06/16/20 13:22 Total Protein 5.8 g/dL (6.3-8.2) L 06/17/20 05:49 Albumin 3.3 g/dL (3.9-5) L 06/17/20 05:49 Albumin/Globulin Ratio 1.3 % 06/17/20 05:49 Lipase 20 units/L (13-60) 06/16/20 13:22 Urine Color Yellow (Yellow) 06/16/20 14:20 Urine Turbidity Clear (Clear) 06/16/20 14:20 Urine pH 5.0 (5.0-7.0) 06/16/20 14:20 Ur Specific [place] 1.029 (1.003-1.030) 06/16/20 14:20 Urine Protein <15 mg/dl mg/dL (Negative) 06/16/20 14:20 Urine Glucose (UA) Neg mg/dL (Negative) 06/16/20 14:20 Urine Ketones Neg mg/dL (Negative) 06/16/20 14:20 Urine Blood Sm (Negative) 06/16/20 14:20 Urine Nitrite Neg (Negative) 06/16/20 14:20 Ur Reducing Substances Not Reportable 06/16/20 14:20 Urine Bilirubin Neg (Negative) 06/16/20 14:20 Urine Ictotest Not Reportable 06/16/20 14:20 Urine Urobilinogen 2.0 mg/dL (<2.0) 06/16/20 14:20 Ur Leukocyte Esterase Neg (Negative) 06/16/20 14:20 Urine WBC (Auto) 1.0 /HPF (0.0-6.0) 06/16/20 14:20 Urine RBC (Auto) 2.0 /HPF (0.0-6.0) 06/16/20 14:20 Urine Mucus Few /HPF 06/16/20 14:20 Herrera/IV: Voiding Method Urinal IV Catheter Type [Right Hand] INT / Saline Lock
== END 2020-06-17 19:00 | disposition home or self-care (01) ==
LOC: ED 12:02 → 4A 18:02
PROVIDERS: ADMIT Internal Medicine; ATTEND Internal Medicine
DX: R07.89 Other chest pain (principal); N17.9 Acute kidney failure, unspecified; I10 Essential (primary) hypertension; E78.5 Hyperlipidemia, unspecified; I71.4 Abdominal aortic aneurysm, without rupture; J44.9 Chronic obstructive pulmonary disease, unspecified; I25.10 Atherosclerotic heart disease of native coronary artery without angina pectoris; K21.9 Gastro-esophageal reflux disease without esophagitis; Z86.73 Personal history of transient ischemic attack (TIA), and cerebral infarction without residual deficits; Z98.890 Other specified postprocedural states; Z98.49 Cataract extraction status, unspecified eye; Z79.82 Long term (current) use of aspirin; Z79.899 Other long term (current) drug therapy
CPT/HCPCS: 36415; 71045; 71275; 74177; 80048; 80053; 80076; 81001; 83036; 83690; 83880; 84484; 85025; 85379; 85610; 85730; 93005; 96361; 96372; 96374; 96375; 99291; G0378; J1644; J2270; J2405; J7030; Q9967; J2785

== ENCOUNTER 2020-06-20 00:02 | Emergency (ER) | payer MEDICARE ==
[2020-06-20 01:22] LABS: Basophils % (Auto) 0.5 % (0.0-1.8); Eosinophils # (Auto) 0.2 K/mm3 (0.0-0.4); Eosinophils % (Auto) 3.7 % (0.0-4.3); Hematocrit 38.5 % (35.5-45.6); Hemoglobin 12.6 gm/dl (11.8-15.2); Lymphocytes # (Auto) 1.5 K/mm3 (1.2-5.4); Lymphocytes % (Auto) 35.2 % (13.4-35.0); Mean Corpuscular HGB Conc 33 % (32-34); Mean Corpuscular Volume 93 fl (84-94); Monocytes # (Auto) 0.5 K/mm3 (0.0-0.8); Monocytes % (Auto) 11.5 % (0.0-7.3); Platelet Count 142 K/mm3 (140-440); Red Blood Count 4.15 M/mm3 (3.65-5.03); Red Cell Distribution Width 14.5 % (13.2-15.2)
[2020-06-20 01:46] LABS: Albumin 4.2 g/dL (3.9-5); Calcium 9.7 mg/dL (8.4-10.2)
--- NOTE | 2020-06-20 03:29 | Emergency Department Report ---
ED Abdominal Pain HPI - General Chief Complaint: Abdominal Pain Stated Complaint: ABDOMINAL PAIN PUI?: No Time Seen by Provider: 06/20/20 03:21 Source: patient Mode of arrival: Ambulatory Limitations: No Limitations - History of Present Illness Initial Comments: Patient is an 89-year-old male that presents emergency room with complaints of epigastric pain. Patient states his pain is nonradiating. Patient states his pain started yesterday. Patient states the pain is worsening. Patient states that the pain only happens when he eats. Patient describes the pain as a burning sensation. Patient states he does not have any pain right now. Patient states that the pain is worse with eating and better with rest. Patient denies fever and chills. Patient denies nausea vomiting. Patient denies pain at this time. Patient states the pain only happens when he eats. Patient states that he has been burping a lot. Patient states he has not acid taste in his mouth. Patient denies chest pain or shortness of breath. Patient denies constipation. Patient denies blood in his stool. Patient denies recent travel. Patient denies recent international travel. Patient denies exposure to the novel coronavirus. Patient denies sick contacts. Patient denies fever and chills. Patient denies cough. Patient denies diarrhea. Patient denies coming in contact with anybody with symptoms of the novel coronavirus. MD Complaint: abdominal pain -: Sudden Location: epigastric Radiation: none Migration to: no migration Severity: mild Severity scale (0 -10): 3 Quality: burning Consistency: intermittent Improves With: movement, rest Worsens With: eating Associated Symptoms: denies: nausea, vomiting, diarrhea, fever, chills, constipation, dysuria, hematemesis, hematochezia, hematuria, anorexia - Related Data Previous Rx's Medication Instructions Recorded Last Taken Type Aspirin EC [Halfprin EC] 81 mg PO QDAY #30 tablet. 03/20/19 05/17/19 Rx amLODIPine 5 mg PO QDAY #30 tablet 03/20/19 Unknown Rx Docusate Sodium [Colace CAP] 100 mg PO BID PRN #20 capsule 03/26/19 Unknown Rx Nitrofurantoin [place]/M-Cryst 100 mg PO Q12HR #14 capsule 04/06/20 Unknown Rx [Macrobid CAP] Acetaminophen [Acetaminophen TAB] 650 mg PO Q4H PRN tablet 06/17/20 Unknown Rx Tamsulosin [Flomax] 0.4 mg PO QDAY #30 capsule 06/17/20 Unknown Rx Pantoprazole [Protonix TAB] 40 mg PO QDAY #30 tab 06/20/20 Unknown Rx Allergies Allergy/AdvReac Type Severity Reaction Status Date / Time No Known Allergies Allergy Verified 10/06/19 19:47 ED Review of Systems ROS: Stated complaint: ABDOMINAL PAIN Other details as noted in HPI Constitutional: denies: chills, fever Eyes: denies: eye pain, eye discharge, vision change ENT: denies: ear pain, throat pain Respiratory: denies: cough, shortness of breath, wheezing Cardiovascular: denies: chest pain, palpitations Endocrine: no symptoms reported Gastrointestinal: abdominal pain. 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 neck surgery. hernia repair. Prostate seed implant - Family History Family history: no significant - Social History Smoking Status: Never Smoker Substance Use Type: None - Medications Home Medications: Home Medications Medication Instructions Recorded Confirmed Last Taken Type Aspirin EC [Halfprin EC] 81 mg PO QDAY #30 tablet. 03/20/19 05/18/19 05/17/19 Rx amLODIPine 5 mg PO QDAY #30 tablet 03/20/19 05/18/19 Unknown Rx Docusate Sodium [Colace CAP] 100 mg PO BID PRN #20 capsule 03/26/19 05/18/19 Unknown Rx Nitrofurantoin [place]/M-Cryst 100 mg PO Q12HR #14 capsule 04/06/20 Unknown Rx [Macrobid CAP] Acetaminophen [Acetaminophen TAB] 650 mg PO Q4H PRN tablet 06/17/20 Unknown Rx Tamsulosin [Flomax] 0.4 mg PO QDAY #30 capsule 06/17/20 Unknown Rx Pantoprazole [Protonix TAB] 40 mg PO QDAY #30 tab 06/20/20 Unknown Rx ED Physical Exam - General Limitations: No Limitations General appearance: alert, in no apparent distress - Head Head exam: Present: atraumatic, normocephalic - Eye Eye exam: Present: normal appearance - ENT ENT exam: Present: mucous membranes moist - Neck Neck exam: Present: normal inspection - Respiratory Respiratory exam: Present: normal lung sounds bilaterally. Absent: respiratory distress - Cardiovascular Cardiovascular Exam: Present: regular rate, normal rhythm. Absent: systolic murmur, diastolic murmur, rubs, gallop - GI/Abdominal GI/Abdominal exam: Present: soft, tenderness (Epigastric tenderness. Palpation of the epigastric region reproduces symptoms.), normal bowel sounds - Rectal Rectal exam: Present: deferred - Extremities Exam Extremities exam: Present: normal inspection - Back Exam Back exam: Present: normal inspection - Neurological Exam Neurological exam: Present: alert, oriented X3 - Psychiatric Psychiatric exam: Present: normal affect, normal mood - Skin Skin exam: Present: warm, dry, intact, normal color. Absent: rash ED Course Vital Signs 06/20/20 00:49 Temperature 98.3 F Pulse Rate 67 Respiratory 18 Rate Blood Pressure 136/69 O2 Sat by Pulse 97 Oximetry - Reevaluation(s) Reevaluation #1: Patient states he is pain-free. Patient states he is feeling better. I discussed all results and clinical findings with patient. I discussed plan of care with patient. Patient agrees with plan of care. Patient is stable for discharge. Patient will be discharged home. Patient given discharge instructions. Patient voiced understanding of discharge instructions. 06/20/20 04:49 ED Medical Decision Making - Lab Data Result diagrams: 06/20/20 00:57 06/20/20 00:57 - Medical Decision Making Patient is an 89-year-old male that presents emergency room with complaints of epigastric pain after he eats for 1 day. Patient had tenderness over the epigastrium. Patient given a GI cocktail and his symptoms resolved. Patient's labs are essentially unremarkable. Patient's lipase was negative. Patient clinical findings are consistent with GERD with esophagitis and gastritis. Patient not taking any medications for acid reflux. Patient stable for discharge. Patient be sent home with discharge instructions. Patient discharged home with a proton pump inhibitor prescription. Patient instructed to eat a reflux diet. - Differential Diagnosis Gastritis, GERD, abdominal pain, pancreatitis. Critical care attestation.: If time is entered above; I have spent that time in minutes in the direct care of this critically ill patient, excluding procedure time. ED Disposition Clinical Impression: Epigastric abdominal pain, GERD with esophagitis Disposition: TO HOME OR SELFCARE Is pt being admited?: No Does the pt Need Aspirin: No Condition: Stable Instructions: Diet for Ulcers and Gastritis (ED), Gastroesophageal Reflux Disease (ED) Additional Instructions: Patient to follow-up with primary care in 2 to 3 days. Patient to follow-up with chief technician x ray in 2 to 3 days. Patient to rest. Patient to increase water. Patient to eat a reflux diet. Patient to take Tylenol as needed for pain. Patient to take meds as directed. Patient to return to the ER if condition worsens, changes or new symptoms arise. Prescriptions: Pantoprazole [Protonix TAB] 40 mg PO QDAY #30 tab Referrals: PRIMARY CAREMD [Primary Care Provider] - 2-3 Days PETE MARINA MD [Staff Physician] - 2-3 Days Time of Disposition: 04:51
[2020-06-20] MEDS ORDERED: LIDOCAINE VISCOUS 2% 15 ML ORAL LIQD PO ONE (03:30)
[2020-06-20] MEDS ORDERED: ALUM-MAG HYDROXIDE-SIMETHICONE 200-200-20MG/5ML ORAL LIQD 30 ML PO ONE (03:30)
[2020-06-20 05:04] VITALS: BP 125/68
== END 2020-06-20 05:05 | disposition home or self-care (01) ==
LOC: ED 00:02
DX: K21.0 Gastro-esophageal reflux disease with esophagitis (principal); R10.13 Epigastric pain; I10 Essential (primary) hypertension; I25.2 Old myocardial infarction; J44.9 Chronic obstructive pulmonary disease, unspecified; Z86.73 Personal history of transient ischemic attack (TIA), and cerebral infarction without residual deficits; Z79.899 Other long term (current) drug therapy; Z98.890 Other specified postprocedural states
CPT/HCPCS: 36415; 80053; 83690; 85025

== ENCOUNTER 2020-07-09 05:44 | Emergency (ER) | payer MEDICARE ==
--- NOTE | 2020-07-09 08:15 | Emergency Department Report ---
ED Neck Pain/Injury HPI - General Chief Complaint: Neck Pain/Injury Stated Complaint: NECK PAIN Time Seen by Provider: 07/09/20 08:10 Mode of arrival: Ambulatory Limitations: No Limitations - History of Present Illness Initial Comments: 89-year-old [place] male presents emergency department complaining of right- sided neck pain which he says is secondary to a injecting procedure involving his vein a few days ago. Pain is throbbing and worse with palpation and range of motion but however reports no shortness of breath no odynophagia no dysphagia no fever, chills, sweats no nausea, no vomiting no change in voice. MD Complaint: neck pain Radiation: right lateral Severity: mild Consistency: constant Improves With: none Worsens With: none Associated Symptoms: headache (Pain radiates to the right side of the head), other (No tinnitus no change in vision no decreased hearing). denies: vertigo, difficulty walking, swollen glands, difficulty swallowing Treatments Prior to Arrival: none - Related Data Previous Rx's Medication Instructions Recorded Last Taken Type Aspirin EC [Halfprin EC] 81 mg PO QDAY #30 tablet. 03/20/19 05/17/19 Rx amLODIPine 5 mg PO QDAY #30 tablet 03/20/19 Unknown Rx Docusate Sodium [Colace CAP] 100 mg PO BID PRN #20 capsule 03/26/19 Unknown Rx Nitrofurantoin [place]/M-Cryst 100 mg PO Q12HR #14 capsule 04/06/20 Unknown Rx [Macrobid CAP] Acetaminophen [Acetaminophen TAB] 650 mg PO Q4H PRN tablet 06/17/20 Unknown Rx Tamsulosin [Flomax] 0.4 mg PO QDAY #30 capsule 06/17/20 Unknown Rx Pantoprazole [Protonix TAB] 40 mg PO QDAY #30 tab 06/20/20 Unknown Rx Lactulose [Cephulac] 30 gm PO Q6HR #450 ml 07/09/20 Unknown Rx methOCARBAMOL [Robaxin TAB] 500 mg PO Q6H #20 tablet 07/09/20 Unknown Rx Allergies Allergy/AdvReac Type Severity Reaction Status Date / Time No Known Allergies Allergy Verified 06/28/20 15:27 ED Review of Systems ROS: Stated complaint: NECK PAIN Other details as noted in HPI Comment: All other systems reviewed and negative Gastrointestinal: constipation ED Past Medical Hx - Past Medical History Hx Hypertension: Yes Hx CVA: Yes Hx Heart Attack/AMI: Yes Hx Congestive Heart Failure: Yes Hx Diabetes: No Hx Deep Vein Thrombosis: No Hx Pulmonary Embolism: No Hx GERD: Yes Hx Liver Disease: No Hx Renal Disease: No Hx Sickle Cell Disease: No Hx Arthritis: No Hx Headaches / Migraines: No Hx Seizures: No Hx Kidney Stones: No Hx Psychiatric Treatment: No Hx Asthma: Yes Hx COPD: Yes Hx Tuberculosis: No Hx Dementia: No Hx HIV: No - Surgical History Additional Surgical History: Cataract. neck surgery. hernia repair. Prostate seed implant - Social History Smoking Status: Never Smoker Substance Use Type: None - Medications Home Medications: Home Medications Medication Instructions Recorded Confirmed Last Taken Type Aspirin EC [Halfprin EC] 81 mg PO QDAY #30 tablet. 03/20/19 06/28/20 05/17/19 Rx amLODIPine 5 mg PO QDAY #30 tablet 03/20/19 06/28/20 Unknown Rx Docusate Sodium [Colace CAP] 100 mg PO BID PRN #20 capsule 03/26/19 06/28/20 Unknown Rx Nitrofurantoin [place]/M-Cryst 100 mg PO Q12HR #14 capsule 04/06/20 06/28/20 Unknown Rx [Macrobid CAP] Acetaminophen [Acetaminophen TAB] 650 mg PO Q4H PRN tablet 06/17/20 06/28/20 Unknown Rx Tamsulosin [Flomax] 0.4 mg PO QDAY #30 capsule 06/17/20 06/28/20 Unknown Rx Pantoprazole [Protonix TAB] 40 mg PO QDAY #30 tab 06/20/20 06/28/20 Unknown Rx Lactulose [Cephulac] 30 gm PO Q6HR #450 ml 07/09/20 Unknown Rx methOCARBAMOL [Robaxin TAB] 500 mg PO Q6H #20 tablet 07/09/20 Unknown Rx ED Physical Exam - General Limitations: No Limitations General appearance: alert, in no apparent distress - Head Head exam: Present: atraumatic, normocephalic, normal inspection, other (No scalp tenderness no cellulitis to the scalp no tenderness with palpation of the parieto-occipital region of the head.) - Eye Eye exam: Present: normal appearance, PERRL, EOMI. Absent: scleral icterus, conjunctival injection, periorbital swelling, periorbital tenderness Pupils: Present: normal accommodation - ENT ENT exam: Present: normal exam, normal orophraynx, mucous membranes moist, TM's normal bilaterally, normal external ear exam - Neck Neck exam: Present: normal inspection, full ROM, other (No subcutaneous emphysema no hematomas no evidence of any injection site no cellulitis no induration full range of motion is noted on the lateral flexion and axillary rotation for and posterior flexion. Spurling's test is negative. Pulses 2+ no bruits are appreciated no JVD. No tracheal deviation no thyromegaly). Absent: meningismus, lymphadenopathy, thyromegaly - Respiratory Respiratory exam: Present: normal lung sounds bilaterally. Absent: respiratory distress, wheezes, rales, chest wall tenderness, accessory muscle use, decreased breath sounds - Cardiovascular Cardiovascular Exam: Present: regular rate, normal rhythm. Absent: tachycardia, irregular rhythm, systolic murmur, diastolic murmur, rubs, gallop - GI/Abdominal GI/Abdominal exam: Present: soft, normal bowel sounds - Rectal Rectal exam: Present: deferred - Extremities Exam Extremities exam: Present: normal inspection, normal capillary refill - Back Exam Back exam: Present: normal inspection. Absent: CVA tenderness (R), CVA tenderness (L) - Neurological Exam Neurological exam: Present: alert, oriented X3, CN II-XII intact - Psychiatric Psychiatric exam: Present: normal affect, normal mood - Skin Skin exam: Present: warm, dry, intact, normal color. Absent: rash ED Course Vital Signs 07/09/20 05:51 Temperature 98.3 F Pulse Rate 80 Respiratory 17 Rate Blood Pressure 125/74 O2 Sat by Pulse 96 Oximetry ED Medical Decision Making - Medical Decision Making 89-year-old male presents emergency department with neck pain this appears to be musculoskeletal in nature. No evidence of of any infectious process or vascular complication. No voice change no shortness of breath no evidence of any urgent or emergent medical condition is present we will treat this conservatively with ice and muscle relaxers. In regards to his constipation we will give him some lactulose to resolve his constipation issue as he has no abdominal pain or abdominal bloating. Critical care attestation.: If time is entered above; I have spent that time in minutes in the direct care of this critically ill patient, excluding procedure time. ED Disposition Clinical Impression: Constipation, Neck pain on right side Disposition: TO HOME OR SELFCARE Is pt being admited?: No Does the pt Need Aspirin: No Condition: Stable Instructions: High Fiber Diet (ED), Constipation (ED), Musculoskeletal Pain (ED) Prescriptions: Lactulose [Cephulac] 30 gm PO Q6HR #450 ml methOCARBAMOL [Robaxin TAB] 500 mg PO Q6H #20 tablet Referrals: PRIMARY CARE, [Primary Care Provider] - 3-5 Days [facility] [Provider Group] - 3-5 Days
[2020-07-09 09:26] VITALS: BP 121/78
== END 2020-07-09 09:20 | disposition home or self-care (01) ==
LOC: ED 05:44
DX: K59.00 Constipation, unspecified (principal); M54.2 Cervicalgia; I50.9 Heart failure, unspecified; I11.0 Hypertensive heart disease with heart failure; I25.2 Old myocardial infarction; K21.9 Gastro-esophageal reflux disease without esophagitis; J44.9 Chronic obstructive pulmonary disease, unspecified; Z98.890 Other specified postprocedural states; Z79.899 Other long term (current) drug therapy
CPT/HCPCS: 99281

== ENCOUNTER 2020-10-16 11:06 | Emergency (ER) | payer MEDICARE ==
--- NOTE | 2020-10-16 11:23 | Event Note ---
ED Screening Note Date of service: 10/16/20 Time: 11:22 ED Screening Note: Patient complains of headache and neck pain after a fall on 10/11/2020 Denies hitting his head, however states he has had blurry vision and dizziness since Patient is on blood thinners He also complains of bilateral leg achiness He denies any loss of consciousness This initial assessment/diagnostic orders/clinical plan/treatment(s) is/are subject to change based on patients health status, clinical progression and re- assessment by fellow clinical providers in the ED. Further treatment and workup at subsequent clinical providers discretion. Patient/guardian urged not to elope from the ED as their condition may be serious if not clinically assessed and managed. Initial orders include: Labs CT
[2020-10-16 13:23] LABS: Basophils % (Auto) 0.5 % (0.0-1.8); Eosinophils % (Auto) 0.1 % (0.0-4.3); Hematocrit 40.2 % (35.5-45.6); Hemoglobin 13.8 gm/dl (11.8-15.2); Lymphocytes % (Auto) 23.6 % (13.4-35.0); Mean Corpuscular HGB Conc 35 % (32-34); Mean Corpuscular Volume 92 fl (84-94); Monocytes # (Auto) 0.6 K/mm3 (0.0-0.8); Monocytes % (Auto) 14.2 % (0.0-7.3); Platelet Count 121 K/mm3 (140-440); Red Blood Count 4.35 M/mm3 (3.65-5.03); Red Cell Distribution Width 14.4 % (13.2-15.2)
[2020-10-16 13:44] LABS: Alanine Aminotransferase 16 units/L (7-56); Albumin 3.9 g/dL (3.9-5); BUN/Creatinine Ratio 21; Blood Urea Nitrogen 25 mg/dL (9-20); Hemolysis Index 7
--- NOTE | 2020-10-16 14:30 | Cat Scan Report ---
CT CERVICAL SPINE: 10/16/2020 INDICATION / CLINICAL INFORMATION: Trauma. COMPARISON: None available. FINDINGS: CT images of the cervical spine were obtained. Images are evaluated in the axial, coronal, and sagitt al planes. There is no evidence of acute abnormality. Degenerative disc space narrowing and osteophyte formation is present at C5-6 and C6-7. There is evid ence of prior left laminectomy at the C4, C5, and C6 levels. Mild degenerative foraminal narrowing is present on the right side at C3-4. Neural foramina are other nava intact. CRANIOCERVICAL JUNCTION: Unremarkable. PARASPINAL STRUCTURES: Unremarkable Incidental note is made of a small bilateral lateral laryngoceles. IMPRESSION: No acute abnormality. Degenerative and postoperative changes. All CT scans at this location are performed using dose reduction to ALARA by means of automated expos ure control. Signer Name: Harpreet Brice MD Signed: 10/16/2020 2:26 PM Workstation Name: [id number]
--- NOTE | 2020-10-16 14:32 | Cat Scan Report ---
CT BRAIN: 10/16/2020 INDICATION / CLINICAL INFORMATION: Trauma. Visual disturbance.. COMPARISON: 04/05/2020 FINDINGS: BRAIN/INTRACRANIAL STRUCTURES: Unenhanced CT images of the brain demonstrate no evidence of acute abn ormality. Ventricles and sulci are prominent in size, consistent with age-related atrophic change. There is no CT evidence of acute ischemic injury, hemorrhage, or mass. There are no abnormal extra-ax ial fluid collections. Atherosclerotic vascular calcifications are present in the distal internal carotid arteries and verte bral arteries. EXTRACRANIAL STRUCTURES: Unremarkable. IMPRESSION: No acute abnormality. Chronic and age-related changes. Overall, there has been no significant change when compared to 04/05/2020. All CT scans at this location are performed using dose reduction to ALARA by means of automated expos ure control. Signer Name: Harpreet Brice MD Signed: 10/16/2020 2:28 PM Workstation Name: [id number]
[2020-10-16] MEDS ORDERED: HYDROcodone/ACETAMINOPHEN 5-325 MG TAB PO ONE (14:55)
--- NOTE | 2020-10-16 15:01 | Emergency Department Report ---
ED Fall HPI - General Chief Complaint: Fall Stated Complaint: FALL; PAIN ALL OVER Time Seen by Provider: 10/16/20 14:55 Source: patient Mode of arrival: Ambulatory - History of Present Illness Initial Comments: Patient is an 89-year-old male who presents emergency room with complaints of a fall that occurred on 10/11/2020. Patient states that he was outside and fell on the concrete. He states he is not quite sure how he fell. He denies any chest pain, shortness of breath, dizziness prior to the fall. He states after the fall he has had a frontal headache and neck pain. He denies any loss of consciousness, vision changes, vomiting, numbness, weakness, bowel or bladder i ncontinence, any other injury, abrasions, lacerations. he denies hitting his head during the fall. He reports that he believes he is on a blood thinner but does not know what he takes. He denies any medication allergies. 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 - Related Data Previous Rx's Medication Instructions Recorded Last Taken Type Aspirin EC [Halfprin EC] 81 mg PO QDAY #30 tablet. 03/20/19 05/17/19 Rx amLODIPine 5 mg PO QDAY #30 tablet 03/20/19 Unknown Rx Docusate Sodium [Colace CAP] 100 mg PO BID PRN #20 capsule 03/26/19 Unknown Rx Nitrofurantoin [place]/M-Cryst 100 mg PO Q12HR #14 capsule 04/06/20 Unknown Rx [Macrobid CAP] Acetaminophen [Acetaminophen TAB] 650 mg PO Q4H PRN tablet 06/17/20 Unknown Rx Tamsulosin [Flomax] 0.4 mg PO QDAY #30 capsule 06/17/20 Unknown Rx Pantoprazole [Protonix TAB] 40 mg PO QDAY #30 tab 06/20/20 Unknown Rx Lactulose [Cephulac] 30 gm PO Q6HR #450 ml 07/09/20 Unknown Rx methOCARBAMOL [Robaxin TAB] 500 mg PO Q6H #20 tablet 07/09/20 Unknown Rx Acetaminophen [Tylenol] 650 mg PO Q8HR PRN #20 capsule 10/16/20 Unknown Rx Allergies Allergy/AdvReac Type Severity Reaction Status Date / Time No Known Allergies Allergy Verified 06/28/20 15:27 ED Review of Systems ROS: Stated complaint: FALL; PAIN ALL OVER Other details as noted in HPI Comment: All other systems reviewed and negative ED Past Medical Hx - Past Medical History Previous Medical History?: Yes Hx Hypertension: Yes Hx CVA: Yes Hx Heart Attack/AMI: Yes Hx Congestive Heart Failure: Yes Hx Diabetes: No Hx Deep Vein Thrombosis: No Hx Pulmonary Embolism: No Hx GERD: Yes Hx Liver Disease: No Hx Renal Disease: No Hx Sickle Cell Disease: No Hx Arthritis: No Hx Headaches / Migraines: No Hx Seizures: No Hx Kidney Stones: No Hx Psychiatric Treatment: No Hx Asthma: Yes Hx COPD: Yes Hx Tuberculosis: No Hx Dementia: No Hx HIV: No - Surgical History Past Surgical History?: Yes Additional Surgical History: Cataract. neck surgery. hernia repair. Prostate seed implant - Social History Smoking Status: Never Smoker Substance Use Type: None - Medications Home Medications: Home Medications Medication Instructions Recorded Confirmed Last Taken Type Aspirin EC [Halfprin EC] 81 mg PO QDAY #30 tablet. 03/20/19 06/28/20 05/17/19 Rx amLODIPine 5 mg PO QDAY #30 tablet 03/20/19 06/28/20 Unknown Rx Docusate Sodium [Colace CAP] 100 mg PO BID PRN #20 capsule 03/26/19 06/28/20 Unknown Rx Nitrofurantoin [place]/M-Cryst 100 mg PO Q12HR #14 capsule 04/06/20 06/28/20 Unknown Rx [Macrobid CAP] Acetaminophen [Acetaminophen TAB] 650 mg PO Q4H PRN tablet 06/17/20 06/28/20 Unknown Rx Tamsulosin [Flomax] 0.4 mg PO QDAY #30 capsule 06/17/20 06/28/20 Unknown Rx Pantoprazole [Protonix TAB] 40 mg PO QDAY #30 tab 06/20/20 06/28/20 Unknown Rx Lactulose [Cephulac] 30 gm PO Q6HR #450 ml 07/09/20 Unknown Rx methOCARBAMOL [Robaxin TAB] 500 mg PO Q6H #20 tablet 07/09/20 Unknown Rx Acetaminophen [Tylenol] 650 mg PO Q8HR PRN #20 capsule 10/16/20 Unknown Rx ED Physical Exam - General Limitations: No Limitations General appearance: alert, in no apparent distress - Head Head exam: Present: atraumatic, normocephalic - Eye Eye exam: Present: PERRL, EOMI. Absent: periorbital swelling, periorbital tenderness - ENT ENT exam: Present: mucous membranes moist - Neck Neck exam: Present: tenderness (mild bilateral C-spine paraspinal muscular ttp, no midline C-spine ttp, no deformities), full ROM, other (previous healed surgical incision ) - Respiratory Respiratory exam: Present: normal lung sounds bilaterally. Absent: respiratory distress, wheezes, rales, rhonchi, stridor, chest wall tenderness, accessory muscle use, decreased breath sounds, prolonged expiratory - Cardiovascular Cardiovascular Exam: Present: regular rate, normal rhythm, normal heart sounds. Absent: systolic murmur, diastolic murmur, rubs, gallop - Back Exam Back exam: Present: normal inspection, full ROM. Absent: paraspinal tenderness, vertebral tenderness - Neurological Exam Neurological exam: Present: alert, oriented X3, CN II-XII intact, normal gait. Absent: motor sensory deficit - Psychiatric Psychiatric exam: Present: normal affect, normal mood - Skin Skin exam: Present: warm, dry, intact ED Course Vital Signs 10/16/20 10/16/20 11:17 15:48 Temperature 98.1 F Pulse Rate 78 74 Respiratory 16 16 Rate Blood Pressure 134/76 107/76 [Right] O2 Sat by Pulse 94 94 Oximetry ED Medical Decision Making - Lab Data Result diagrams: 10/16/20 13:05 10/16/20 13:05 Labs 10/16/20 10/16/20 13:05 13:05 WBC 4.2 L RBC 4.35 Hgb 13.8 Hct 40.2 MCV 92 MCH 32 MCHC 35 H RDW 14.4 Plt Count 121 L Lymph % (Auto) 23.6 [place] % (Auto) 14.2 H Eos % (Auto) 0.1 Baso % (Auto) 0.5 Lymph # (Auto) 1.0 L [place] # (Auto) 0.6 Eos # (Auto) 0.0 Baso # (Auto) 0.0 Seg Neutrophils % 61.6 Seg Neutrophils # 2.6 Sodium 137 Potassium 4.5 Chloride 102.0 Carbon Dioxide 27 Anion Gap 13 BUN 25 H Creatinine 1.2 Estimated GFR > 60 BUN/Creatinine Ratio 21 Glucose 86 Calcium 9.0 Total Bilirubin 0.40 AST 23 ALT 16 Alkaline Phosphatase 73 Total Protein 7.3 Albumin 3.9 Albumin/Globulin Ratio 1.1 Vital Signs 10/16/20 10/16/20 11:17 15:48 Temperature 98.1 F Pulse Rate 78 74 Respiratory 16 16 Rate Blood Pressure 134/76 107/76 [Right] O2 Sat by Pulse 94 94 Oximetry - Radiology Data Radiology results: report reviewed CT BRAIN: 10/16/2020 INDICATION / CLINICAL INFORMATION: Trauma. Visual disturbance.. COMPARISON: 04/05/2020 FINDINGS: BRAIN/INTRACRANIAL STRUCTURES: Unenhanced CT images of the brain demonstrate no evidence of acute abnormality. Ventricles and sulci are prominent in size, consistent with age-related atrophic change. There is no CT evidence of acute ischemic injury, hemorrhage, or mass. There are no abnormal extra- axial fluid collections. Atherosclerotic vascular calcifications are present in the distal internal carotid arteries and vertebral arteries. EXTRACRANIAL STRUCTURES: Unremarkable. IMPRESSION: No acute abnormality. Chronic and age-related changes. Overall, there has been no significant change when compared to 04/05/2020. All CT scans at this location are performed using dose reduction to ALARA by means of automated exposure control. Signer Name: Harpreet Brice MD Signed: 10/16/2020 2:28 PM Workstation Name: [id number] Transcribed By: AO Dictated By: Harpreet Brice MD Electronically Authenticated By: Harpreet Brice MD Signed Date/Time: 10/16/201427 DD/ 25 TD/TT: Ordering Physician: SUDHAKAR MABRY Date of Service: 10/16/20 Procedure(s): CT cervical spine wo con Accession Number(s): [id number] cc: SUDHAKAR MABRY CT CERVICAL SPINE: 10/16/2020 INDICATION / CLINICAL INFORMATION: Trauma. COMPARISON: None available. FINDINGS: CT images of the cervical spine were obtained. Images are evaluated in the axial, coronal, and sagittal planes. There is no evidence of acute abnormality. Degenerative disc space narrowing and osteophyte formation is present at C5-6 and C6-7. There is evidence of prior left laminectomy at the C4, C5, and C6 levels. Mild degenerative foraminal narrowing is present on the right side at C3-4. Neural foramina are otherwise intact. CRANIOCERVICAL JUNCTION: Unremarkable. PARASPINAL STRUCTURES: Unremarkable Incidental note is made of a small bilateral lateral laryngoceles. IMPRESSION: No acute abnormality. Degenerative and postoperative changes. All CT scans at this location are performed using dose reduction to ALARA by means of automated exposure control. Signer Name: Harpreet Brice MD Signed: 10/16/2020 2:26 PM Workstation Name: [id number] Transcribed By: NOA Dictated By: Harpreet Brice MD Electronically Authenticated By: Harpreet Brice MD Signed Date/Time: 10/16/20 1426 DD/ 1419 TD/TT: - Medical Decision Making Patient is an 89-year-old male who presents emergency room with complaints of a fall that occurred on 10/11/2020. Patient states that he was outside and fell on the concrete. He states he is not quite sure how he fell. He denies any chest pain, shortness of breath, dizziness prior to the fall. He states after the fall he has had a frontal headache and neck pain. He denies any loss of consciousness, vision changes, vomiting, numbness, weakness, bowel or bladder incontinence, any other injury, abrasions, lacerations. he denies hitting his head during the fall. He reports that he believes he is on a blood thinner but does not know what he takes. He denies any medication allergies. 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 VSS. on exam:mild bilateral C- spine paraspinal muscular ttp, no midline C-spine ttp, no deformities, previous healed surgical incision, no focal neuro deficits. Orders placed prior to my examination. Labs are normal. CT head No acute abnormality. Chronic and age- related changes. Overall, there has been no significant change when compared to 04/05/2020. CT cervical spine:No acute abnormality. Degenerative and postoperative changes. Discussed all results with patient and answered questions. Patient given pain medication while in the emergency department as he did not drive and symptoms improved. Patient given prescription for Tylenol. Advised patientPlease take medication as prescribed as needed. May use ice pack, heating pad, rest, Epsom salt bath. Follow-up with your primary care doctor for reexamination. Return to emergency room for any new or worsening symptoms. - Differential Diagnosis Strain, sprain, fx, dislocation, contusion, ICH, SDH, minor head injury Critical care attestation.: If time is entered above; I have spent that time in minutes in the direct care of this critically ill patient, excluding procedure time. ED Disposition Clinical Impression: Fall Qualifiers: Encounter type: initial encounter Qualified Code(s): W19.XXXA - Unspecified fall, initial encounter Cervical strain Qualifiers: Encounter type: initial encounter Qualified Code(s): S16.1XXA - Strain of muscle, fascia and tendon at neck level, initial encounter Headache Qualifiers: Headache type: unspecified Headache chronicity pattern: acute headache Intractability: not intractable Qualified Code(s): R51.9 - Headache, unspecified Disposition: DC- TO HOME OR SELFCARE Is pt being admited?: No Does the pt Need Aspirin: No Condition: Stable Instructions: Muscle Strain, [id number] Additional Instructions: Please take medication as prescribed as needed. May use ice pack, heating pad, rest, Epsom salt bath. Follow-up with your primary care doctor for reexamination. Return to emergency room for any new or worsening symptoms. Prescriptions: Acetaminophen [Tylenol] 650 mg PO Q8HR PRN #20 capsule PRN Reason: pain Referrals: NIKHIL CURRY MD [Primary Care Provider] - 2-3 Days Time of Disposition: 15:00 Print Language: MOHAWK
[2020-10-16 15:48] VITALS: BP 107/76
== END 2020-10-16 17:00 | disposition home or self-care (01) ==
LOC: ED 11:06
DX: S16.1XXA Strain of muscle, fascia and tendon at neck level, initial encounter (principal); R51.9 Headache, unspecified; I50.9 Heart failure, unspecified; I11.0 Hypertensive heart disease with heart failure; I25.2 Old myocardial infarction; K21.9 Gastro-esophageal reflux disease without esophagitis; J44.9 Chronic obstructive pulmonary disease, unspecified; Z98.890 Other specified postprocedural states; Z79.899 Other long term (current) drug therapy; W19.XXXA Unspecified fall, initial encounter; Y93.89 Activity, other specified; Y92.89 Other specified places as the place of occurrence of the external cause; Y99.8 Other external cause status
CPT/HCPCS: 36415; 70450; 72125; 80053; 85025

== ENCOUNTER 2020-12-18 08:14 | Emergency (ER) | payer MEDICARE ==
[2020-12-18 08:25] VITALS: BP 124/75
--- NOTE | 2020-12-18 08:41 | Emergency Department Report ---
ED Headache HPI - General Chief Complaint: Headache Stated Complaint: HEADACHE Time Seen by Provider: 12/18/20 08:36 - History of Present Illness Initial Comments: Chief complaint: Chief complaint: "My head my neck my back all hurt." HPI this is an 89-year-old male with history of hypertension, TIA, CVA, GERD, COPD, coronary artery disease, [place], asthma, diastolic heart failure, hyperlipidemia, glaucoma, abdominal aortic aneurysm, prostate cancer status post radiation seed implant who presents with frontal headache. 9 out of 10 dull throbbing headache. Gradual onset last night. Patient's had similar headache. Patient also has moderate lower back pain. Back pain is chronic. No recent trauma. Patient denies leg weakness or bowel or bladder incontinence. Patient states that he has pain pills from his PCP. He says, "Sometimes they work, sometimes they do not." According to electronic medical record, patient has had previous ED encounters for headache. Timing/Duration: other (Since last night) Quality: moderate Head Injury Location: frontal Recent Head Trauma: frequent headaches Associated Symptoms: other (Back pain) Allergies/Adverse Reactions: Allergies No Known Allergies Allergy (Verified 06/28/20 15:27) Home Medications: Ambulatory Orders Aspirin EC [Halfprin EC] 81 mg PO QDAY #30 tablet. 03/20/19 amLODIPine 5 mg PO QDAY #30 tablet 03/20/19 Docusate Sodium [Colace CAP] 100 mg PO BID PRN #20 capsule 03/26/19 Nitrofurantoin [place]/M-Cryst [Macrobid CAP] 100 mg PO Q12HR #14 capsule 04/06/20 Acetaminophen [Acetaminophen TAB] 650 mg PO Q4H PRN tablet 06/17/20 Tamsulosin [Flomax] 0.4 mg PO QDAY #30 capsule 06/17/20 Pantoprazole [Protonix TAB] 40 mg PO QDAY #30 tab 06/20/20 Lactulose [Cephulac] 30 gm PO Q6HR #450 ml 07/09/20 methOCARBAMOL [Robaxin TAB] 500 mg PO Q6H #20 tablet 07/09/20 Acetaminophen [Tylenol] 650 mg PO Q8HR PRN #20 capsule 10/16/20 traMADoL [Ultram 50 MG tab] 50 mg PO Q6HR PRN #20 tablet 12/18/20 ED Review of Systems ROS: Stated complaint: HEADACHE Other details as noted in HPI Comment: All other systems reviewed and negative Constitutional: denies: fever, malaise Respiratory: denies: cough, shortness of breath Musculoskeletal: back pain Neurological: headache. denies: numbness, paresthesias ED Past Medical Hx - Past Medical History Previous Medical History?: Yes Hx Hypertension: Yes Hx CVA: Yes Hx Heart Attack/AMI: Yes Hx Congestive Heart Failure: Yes Hx Diabetes: No Hx Deep Vein Thrombosis: No Hx Pulmonary Embolism: No Hx GERD: Yes Hx Liver Disease: No Hx Renal Disease: No Hx Sickle Cell Disease: No Hx Arthritis: No Hx Headaches / Migraines: No Hx Seizures: No Hx Kidney Stones: No Hx Psychiatric Treatment: No Hx Asthma: Yes Hx COPD: Yes Hx Tuberculosis: No Hx Dementia: No Hx HIV: No - Surgical History Past Surgical History?: Yes Additional Surgical History: Cataract. neck surgery. hernia repair. Prostate seed implant - Social History Smoking Status: Former Smoker Substance Use Type: None - Medications Home Medications: Home Medications Medication Instructions Recorded Confirmed Last Taken Type Aspirin EC [Halfprin EC] 81 mg PO QDAY #30 tablet. 03/20/19 06/28/20 05/17/19 Rx amLODIPine 5 mg PO QDAY #30 tablet 03/20/19 06/28/20 Unknown Rx Docusate Sodium [Colace CAP] 100 mg PO BID PRN #20 capsule 03/26/19 06/28/20 Unknown Rx Nitrofurantoin [place]/M-Cryst 100 mg PO Q12HR #14 capsule 04/06/20 06/28/20 Unknown Rx [Macrobid CAP] Acetaminophen [Acetaminophen TAB] 650 mg PO Q4H PRN tablet 06/17/20 06/28/20 Unknown Rx Tamsulosin [Flomax] 0.4 mg PO QDAY #30 capsule 06/17/20 06/28/20 Unknown Rx Pantoprazole [Protonix TAB] 40 mg PO QDAY #30 tab 06/20/20 06/28/20 Unknown Rx Lactulose [Cephulac] 30 gm PO Q6HR #450 ml 07/09/20 Unknown Rx methOCARBAMOL [Robaxin TAB] 500 mg PO Q6H #20 tablet 07/09/20 Unknown Rx Acetaminophen [Tylenol] 650 mg PO Q8HR PRN #20 capsule 10/16/20 Unknown Rx traMADoL [Ultram 50 MG tab] 50 mg PO Q6HR PRN #20 tablet 12/18/20 Unknown Rx ED Physical Exam - General Limitations: No Limitations General appearance: alert, in no apparent distress, other (Patient appears comfortable, no acute distress) - Head Head exam: Present: atraumatic, normocephalic - Eye Eye exam: Present: normal appearance - ENT ENT exam: Present: mucous membranes moist - Neck Neck exam: Present: normal inspection, full ROM - Respiratory Respiratory exam: Present: normal lung sounds bilaterally. Absent: respiratory distress, wheezes, rales, rhonchi - Cardiovascular Cardiovascular Exam: Present: regular rate, normal rhythm, normal heart sounds. Absent: systolic murmur, diastolic murmur, rubs, gallop - GI/Abdominal GI/Abdominal exam: Present: soft, normal bowel sounds. Absent: distended, tenderness, guarding, rebound - Rectal Rectal exam: Present: deferred - Extremities Exam Extremities exam: Present: normal inspection - Neurological Exam Neurological exam: Present: alert, oriented X3 - Psychiatric Psychiatric exam: Present: normal affect, normal mood - Skin Skin exam: Present: warm, dry, intact, normal color. Absent: rash ED Course Vital Signs 12/18/20 08:21 Temperature 97.7 F Pulse Rate 76 Respiratory 14 Rate Blood Pressure 124/75 O2 Sat by Pulse 98 Oximetry ED Medical Decision Making - Medical Decision Making Mr. Saavedra is a 10-year-old male who presents with recurrent headache chronic neck and back pain. I do not suspect emergent cause of headache such as intracranial hemorrhage. Patient has well-documented previous encounters for neck and back pain. In October of this year, CT cervical spine without contrast revealed degenerative disc space narrowing osteophyte formation present at C5-C6 and C6 6 7, at that time there is evidence of prior left laminectomy C4-C5-C6, there is mild degenerative foraminal narrowing on the right side C3-C4 Lumbar spine x-ray obtained 05/01/2019 revealed no significant abnormalities I have prescribed tramadol. I referred patient to his PCP. Critical care attestation.: If time is entered above; I have spent that time in minutes in the direct care of this critically ill patient, excluding procedure time. ED Disposition Clinical Impression: Tension headache, Cervical disc disease, Lumbar disc disease Disposition: TO HOME OR SELFCARE Is pt being admited?: No Does the pt Need Aspirin: No Condition: Stable Instructions: Tension Headache, Adult, [id number], Degenerative Disk Disease Prescriptions: traMADoL [Ultram 50 MG tab] 50 mg PO Q6HR PRN #20 tablet PRN Reason: Pain Referrals: PRIMARY CARE,MD [Primary Care Provider] - 3-5 Days
[2020-12-18] MEDS ORDERED: ONDANSETRON 4 MG ODT TAB PO ONE (08:50)
[2020-12-18] MEDS ORDERED: KETOROLAC 30 MG/1 ML INJ IM ONE (08:50)
[2020-12-18] MEDS ORDERED: traMADol 50 MG TAB PO ONE (08:50)
== END 2020-12-18 10:13 | disposition home or self-care (01) ==
LOC: ED 08:14
DX: M50.320 Other cervical disc degeneration, mid-cervical region, unspecified level (principal); M51.9 Unspecified thoracic, thoracolumbar and lumbosacral intervertebral disc disorder; G44.209 Tension-type headache, unspecified, not intractable; I11.0 Hypertensive heart disease with heart failure; I50.9 Heart failure, unspecified; I25.2 Old myocardial infarction; K21.9 Gastro-esophageal reflux disease without esophagitis; J44.9 Chronic obstructive pulmonary disease, unspecified; Z98.890 Other specified postprocedural states; Z87.891 Personal history of nicotine dependence; Z79.899 Other long term (current) drug therapy
CPT/HCPCS: 96372; 99282; J1885; Q0162

== ENCOUNTER 2020-12-22 08:15 | Emergency (ER) | payer MEDICARE ==
[2020-12-22 08:53] LABS: Basophils # (Auto) 0.1 K/mm3 (0.0-0.1); Basophils % (Auto) 1.3 % (0.0-1.8); Eosinophils # (Auto) 0.2 K/mm3 (0.0-0.4); Eosinophils % (Auto) 2.5 % (0.0-4.3); Hematocrit 35.7 % (35.5-45.6); Hemoglobin 11.9 gm/dl (11.8-15.2); Lymphocytes # (Auto) 1.8 K/mm3 (1.2-5.4); Lymphocytes % (Auto) 28.4 % (13.4-35.0); Mean Corpuscular HGB Conc 33 % (32-34); Mean Corpuscular Volume 94 fl (84-94); Monocytes # (Auto) 0.7 K/mm3 (0.0-0.8); Monocytes % (Auto) 11.7 % (0.0-7.3); Platelet Count 162 K/mm3 (140-440); Red Blood Count 3.81 M/mm3 (3.65-5.03); Red Cell Distribution Width 15.2 % (13.2-15.2)
[2020-12-22 09:18] LABS: Alanine Aminotransferase 15 units/L (7-56); Albumin 3.7 g/dL (3.9-5); BUN/Creatinine Ratio 18; Blood Urea Nitrogen 24 mg/dL (9-20); Calcium 9.1 mg/dL (8.4-10.2); Hemolysis Index 4
[2020-12-22] MEDS ORDERED: ACETAMINOPHEN 500 MG TAB PO ONE (10:14)
[2020-12-22] MEDS ORDERED: ALUM-MAG HYDROXIDE-SIMETHICONE 200-200-20MG/5ML ORAL LIQD 30 ML PO ONE (10:14)
--- NOTE | 2020-12-22 10:17 | Emergency Department Report ---
ED Abdominal Pain HPI - General Chief Complaint: Abdominal Pain Stated Complaint: FOOD STUCK, NAUSEA PUI?: No Time Seen by Provider: 12/22/20 09:47 Source: patient Mode of arrival: Ambulatory Limitations: No Limitations - History of Present Illness Initial Comments: CC: "I'm back. It hurts right here. Food gets stuck." HPI: This is an 89 yo male with hx of cervical/lumbar DDD, TIA, HTN, peripheral neuropathy, abdominal aortic aneurysm, heart failure, hyperlipidemia, GERD, COPD, tension headache who presents with epigastric discomfort. He states that he feels as if food just gets stuck. He ate dinner with ease last night. He takes Aleve daily for chronic neck and back pain. MD Complaint: abdominal pain -: Gradual, days(s) (2 days) Location: epigastric Severity: severe Severity scale (0 -10): 10 Quality: dull Consistency: constant Improves With: nothing Worsens With: eating Associated Symptoms: other (2 pound weight loss) - Related Data Previous Rx's Medication Instructions Recorded Last Taken Type Aspirin EC [Halfprin EC] 81 mg PO QDAY #30 tablet. 03/20/19 05/17/19 Rx amLODIPine 5 mg PO QDAY #30 tablet 03/20/19 Unknown Rx Docusate Sodium [Colace CAP] 100 mg PO BID PRN #20 capsule 03/26/19 Unknown Rx Nitrofurantoin [place]/M-Cryst 100 mg PO Q12HR #14 capsule 04/06/20 Unknown Rx [Macrobid CAP] Acetaminophen [Acetaminophen TAB] 650 mg PO Q4H PRN tablet 06/17/20 Unknown Rx Tamsulosin [Flomax] 0.4 mg PO QDAY #30 capsule 06/17/20 Unknown Rx Pantoprazole [Protonix TAB] 40 mg PO QDAY #30 tab 06/20/20 Unknown Rx Lactulose [Cephulac] 30 gm PO Q6HR #450 ml 07/09/20 Unknown Rx methOCARBAMOL [Robaxin TAB] 500 mg PO Q6H #20 tablet 07/09/20 Unknown Rx Acetaminophen [Tylenol] 650 mg PO Q8HR PRN #20 capsule 10/16/20 Unknown Rx traMADoL [Ultram 50 MG tab] 50 mg PO Q6HR PRN #20 tablet 12/18/20 Unknown Rx Omeprazole 1 tab PO DAILY 30 Days #30 12/22/20 Unknown Rx capsule. Allergies Allergy/AdvReac Type Severity Reaction Status Date / Time No Known Allergies Allergy Verified 06/28/20 15:27 ED Review of Systems ROS: Stated complaint: FOOD STUCK, NAUSEA Other details as noted in HPI Comment: All other systems reviewed and negative Constitutional: denies: fever, malaise Respiratory: denies: cough, shortness of breath Cardiovascular: denies: chest pain Gastrointestinal: abdominal pain. denies: nausea, vomiting ED Past Medical Hx - Past Medical History Previous Medical History?: Yes Hx Hypertension: Yes Hx CVA: Yes Hx Heart Attack/AMI: Yes Hx Congestive Heart Failure: Yes Hx Diabetes: No Hx Deep Vein Thrombosis: No Hx Pulmonary Embolism: No Hx GERD: Yes Hx Liver Disease: No Hx Renal Disease: No Hx Sickle Cell Disease: No Hx Arthritis: No Hx Headaches / Migraines: No Hx Seizures: No Hx Kidney Stones: No Hx Psychiatric Treatment: No Hx Asthma: Yes Hx COPD: Yes Hx Tuberculosis: No Hx Dementia: No Hx HIV: No - Surgical History Past Surgical History?: Yes Additional Surgical History: Cataract. neck surgery. hernia repair. Prostate seed implant - Social History Smoking Status: Never Smoker Substance Use Type: None - Medications Home Medications: Home Medications Medication Instructions Recorded Confirmed Last Taken Type Aspirin EC [Halfprin EC] 81 mg PO QDAY #30 tablet. 03/20/19 06/28/20 05/17/19 Rx amLODIPine 5 mg PO QDAY #30 tablet 03/20/19 06/28/20 Unknown Rx Docusate Sodium [Colace CAP] 100 mg PO BID PRN #20 capsule 03/26/19 06/28/20 Unknown Rx Nitrofurantoin [place]/M-Cryst 100 mg PO Q12HR #14 capsule 04/06/20 06/28/20 Unknown Rx [Macrobid CAP] Acetaminophen [Acetaminophen TAB] 650 mg PO Q4H PRN tablet 06/17/20 06/28/20 Unknown Rx Tamsulosin [Flomax] 0.4 mg PO QDAY #30 capsule 06/17/20 06/28/20 Unknown Rx Pantoprazole [Protonix TAB] 40 mg PO QDAY #30 tab 06/20/20 06/28/20 Unknown Rx Lactulose [Cephulac] 30 gm PO Q6HR #450 ml 07/09/20 Unknown Rx methOCARBAMOL [Robaxin TAB] 500 mg PO Q6H #20 tablet 07/09/20 Unknown Rx Acetaminophen [Tylenol] 650 mg PO Q8HR PRN #20 capsule 10/16/20 Unknown Rx traMADoL [Ultram 50 MG tab] 50 mg PO Q6HR PRN #20 tablet 12/18/20 Unknown Rx Omeprazole 1 tab PO DAILY 30 Days #30 12/22/20 Unknown Rx capsule. ED Physical Exam - General Limitations: No Limitations General appearance: alert, in no apparent distress, other (Appears comfortable, nontoxic, in no acute distress) - Head Head exam: Present: atraumatic, normocephalic - Eye Eye exam: Present: normal appearance - ENT ENT exam: Present: mucous membranes moist - Neck Neck exam: Present: normal inspection, full ROM - Respiratory Respiratory exam: Present: normal lung sounds bilaterally. Absent: respiratory distress, wheezes, rales, rhonchi, stridor - Cardiovascular Cardiovascular Exam: Present: regular rate, normal rhythm, normal heart sounds. Absent: systolic murmur, diastolic murmur, rubs, gallop - GI/Abdominal GI/Abdominal exam: Present: soft, normal bowel sounds. Absent: distended, tenderness, guarding, rebound - Rectal Rectal exam: Present: deferred - Extremities Exam Extremities exam: Present: normal inspection - Neurological Exam Neurological exam: Present: alert, oriented X3 - Psychiatric Psychiatric exam: Present: normal affect, normal mood - Skin Skin exam: Present: warm, dry, intact, normal color. Absent: rash ED Course Vital Signs 12/22/20 12/22/20 12/22/20 08:26 09:36 10:19 Temperature 97.8 F Pulse Rate 69 75 67 Respiratory 16 18 18 Rate Blood Pressure 122/65 Blood Pressure 128/74 132/64 [Right] O2 Sat by Pulse 96 98 99 Oximetry 12/22/20 11:52 Temperature Pulse Rate 68 Respiratory 18 Rate Blood Pressure Blood Pressure 136/59 [Right] O2 Sat by Pulse 99 Oximetry ED Medical Decision Making - Lab Data Result diagrams: 12/22/20 08:36 12/22/20 08:36 - Radiology Data Radiology results: report reviewed Findings Reporting MD: Edward Pryor Dictation Time: December 22, 2020 10:11 Phlebotomy Specialist: Not available [employer] Date: CT ABDOMEN AND PELVIS WITHOUT CONTRAST INDICATION / CLINICAL INFORMATION: Epigastric pain dysphagia. TECHNIQUE: Axial CT images were obtained through the abdomen and pelvis without IV contrast. All CT scans at this location are performed using CT dose reduction for ALARA by means of automated exposure control. COMPARISON: CT abdomen and pelvis 06/16/2020 FINDINGS: LOWER CHEST: Mild peripheral interstitial disease lung bases remains with mild worsening. Coronary artery calcification. LIVER: Benign-appearing hepatic cysts. The largest is at the right lower lobe posteriorly measuring 1.7 cm. GALLBLADDER: No significant abnormality. BILE DUCTS: No significant abnormality. PANCREAS: No significant abnormality. SPLEEN: No significant abnormality. ADRENALS: No significant abnormality. RIGHT KIDNEY / URETER: No significant abnormality. LEFT KIDNEY / URETER: No significant abnormality. STOMACH / SMALL BOWEL: No significant abnormality. COLON: No significant abnormality. APPENDIX: Not visualized. PERITONEUM: No free fluid. No free air. No fluid collection. LYMPH NODES: No significant adenopathy. VASCULAR STRUCTURES: Atherosclerotic ectasia remains at the aortoiliac system with more localized aneurysmal dilatation distally. Maximal transverse diameter is approximately 3.4 cm. URINARY BLADDER: No significant abnormality. REPRODUCTIVE ORGANS: Radioactive prostate seeds. ADDITIONAL FINDINGS: Small fat-containing right inguinal hernia SKELETAL SYSTEM: No significant abnormality. IMPRESSION: 1. Negative for obstruction or localized inflammation. 2. Mild increasing interstitial disease at the lung bases. 3. Additional incidental findings unchanged. - Medical Decision Making Discomfort while eating: Patient has known GERD. I reviewed his medications at the bedside. He is not taking PPI at this time. I also suggested to him that naproxen and Aleve will worsen his condition. I encouraged him to take Tylenol for chronic pain. I prescribed omeprazole. He is discharged home. I referred him to GI physician on-call. Critical care attestation.: If time is entered above; I have spent that time in minutes in the direct care of this critically ill patient, excluding procedure time. ED Disposition Clinical Impression: GERD (gastroesophageal reflux disease) Disposition: -01 TO HOME OR SELFCARE Is pt being admited?: No Does the pt Need Aspirin: No Condition: Stable Instructions: Food Choices for Gastroesophageal Reflux Disease, Adult, Gastroesophageal Reflux Disease, Adult, [id number] Prescriptions: Omeprazole 1 tab PO DAILY 30 Days #30 capsule.dr Referrals: DAVONTE CAMPOS MD [Staff Physician] - 3-5 Days
--- NOTE | 2020-12-22 11:15 | Cat Scan Report ---
CT ABDOMEN AND PELVIS WITHOUT CONTRAST INDICATION / CLINICAL INFORMATION: Epigastric pain dysphagia. TECHNIQUE: Axial CT images were obtained through the abdomen and pelvis without IV contrast. All CT scans at this location are performed using CT dose reduction for ALARA by means of automated exposure control. COMPARISON: CT abdomen and pelvis 06/16/2020 FINDINGS: LOWER CHEST: Mild peripheral interstitial disease lung bases remains with mild worsening. Coronary ar [place] calcification. LIVER: Benign-appearing hepatic cysts. The largest is at the right lower lobe posteriorly measuring 1 .7 cm. GALLBLADDER: No significant abnormality. BILE DUCTS: No significant abnormality. PANCREAS: No significant abnormality. SPLEEN: No significant abnormality. ADRENALS: No significant abnormality. RIGHT KIDNEY / URETER: No significant abnormality. LEFT KIDNEY / URETER: No significant abnormality. STOMACH / SMALL BOWEL: No significant abnormality. COLON: No significant abnormality. APPENDIX: Not visualized. PERITONEUM: No free fluid. No free air. No fluid collection. LYMPH NODES: No significant adenopathy. VASCULAR STRUCTURES: Atherosclerotic ectasia remains at the aortoiliac system with more localized ane urysmal dilatation distally. Maximal transverse diameter is approximately 3.4 cm. URINARY BLADDER: No significant abnormality. REPRODUCTIVE ORGANS: Radioactive prostate seeds. ADDITIONAL FINDINGS: Small fat-containing right inguinal hernia SKELETAL SYSTEM: No significant abnormality. IMPRESSION: 1. Negative for obstruction or localized inflammation. 2. Mild increasing interstitial disease at the lung bases. 3. Additional incidental findings unchanged. Signer Name: Edward Pryor MD Signed: 12/22/2020 11:11 AM Workstation Name: [id number]
[2020-12-22 12:36] VITALS: BP 147/63
== END 2020-12-22 12:36 | disposition home or self-care (01) ==
LOC: ED 08:15
DX: K21.9 Gastro-esophageal reflux disease without esophagitis (principal); I11.0 Hypertensive heart disease with heart failure; I50.9 Heart failure, unspecified; I25.2 Old myocardial infarction; J44.9 Chronic obstructive pulmonary disease, unspecified; Z98.890 Other specified postprocedural states; Z79.899 Other long term (current) drug therapy
CPT/HCPCS: 36415; 74176; 80053; 83690; 85025

== ENCOUNTER 2021-01-11 05:36 | Observation (INO) | payer MEDICARE ==
[2021-01-11 06:29] LABS: Basophils % (Auto) 0.7 % (0.0-1.8); Eosinophils # (Auto) 0.2 K/mm3 (0.0-0.4); Eosinophils % (Auto) 3.5 % (0.0-4.3); Hematocrit 36.5 % (35.5-45.6); Hemoglobin 12.1 gm/dl (11.8-15.2); Lymphocytes # (Auto) 1.8 K/mm3 (1.2-5.4); Lymphocytes % (Auto) 35.6 % (13.4-35.0); Mean Corpuscular HGB Conc 33 % (32-34); Mean Corpuscular Volume 94 fl (84-94); Monocytes # (Auto) 0.5 K/mm3 (0.0-0.8); Monocytes % (Auto) 9.4 % (0.0-7.3); Platelet Count 146 K/mm3 (140-440); Red Blood Count 3.89 M/mm3 (3.65-5.03); Red Cell Distribution Width 15.8 % (13.2-15.2)
[2021-01-11 06:50] LABS: Alanine Aminotransferase 13 units/L (7-56); Albumin 3.9 g/dL (3.9-5); BUN/Creatinine Ratio 15; Blood Urea Nitrogen 17 mg/dL (9-20); Calcium 8.8 mg/dL (8.4-10.2); Hemolysis Index 3
--- NOTE | 2021-01-11 07:20 | XRay Report ---
CHEST 2 VIEWS INDICATION / CLINICAL INFORMATION: shortness of breath. COMPARISON: 06/28/2020 FINDINGS: SUPPORT DEVICES: None. HEART / MEDIASTINUM: Unchanged LUNGS / PLEURA: There is blunting of the right costophrenic angle characteristic of a small amount of pleural fluid or pleural thickening. There is mild basilar airspace opacity likely representing atel ectasis.. No pneumothorax. ADDITIONAL FINDINGS: No significant additional findings. IMPRESSION: 1. There is mild left basilar airspace opacity likely representing atelectasis. There is a small amou nt of pleural thickening or pleural fluid on the right. Signer Name: Emre Painting MD Signed: 01/11/2021 7:16 AM Workstation Name: [id number]
--- NOTE | 2021-01-11 10:22 | Electrocardiograph Report ---
[facility] Test Date: 2021-01-11 Test Time: 05:53:29 Pat Name: DAVONTE SEGURA Department: Room: Gender: M Licensed [employer]: : [id number] Requested By: ED DOC Order Number: [id number] Reading MD: Ryan Iqbal Measurements Intervals [place] Rate: 67 P: 74 [place]: 192 QRS: 62 QRSD: 81 T: 50 QT: 412 QTc: 435 Interpretive Statements Sinus rhythm No previous ECG available for comparison Electronically Signed On 01-11-2021 10:21:54 EDT by Ryan Iqbal
--- NOTE | 2021-01-11 11:10 | Emergency Department Report ---
ED Chest Pain HPI - General Chief Complaint: Chest Pain Stated Complaint: CHEST PAIN PUI?: No Time Seen by Provider: 01/11/21 11:06 Source: patient, RN notes reviewed, old records reviewed Mode of arrival: Ambulatory Limitations: No Limitations - History of Present Illness Initial Comments: The patient was evaluated in the emergency department for symptoms described in the history of present illness. He/she was evaluated in the context of the global COVID-19 pandemic, which necessitated consideration that the patient might be at risk for infection with the virus that causes COVID-19. Institutional protocols and algorithms that pertain to the evaluation of patients at risk for COVID-19 are in a state of rapid change based on information released by regulatory bodies including the CDC and federal and state organizations. These policies and algorithms were followed during the patient's care in the emergency department. Please note that these policies, procedures and recommendations changed on a rapid basis. Cardiology: [facility] This is an 89-year-old gentleman. I have evaluated this patient in the past. 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 He also has a history of emphysema, and tiny pneumothorax. He also has a history of 3 CAT scans of the chest at this hospital, since 2018, which have been negative for pulmonary embolism, and aortic dissection. The patient presents to the ER today with a complaint of left-sided chest pain that radiates to the neck. It is present since this morning. There is no vomiting. There is no diaphoresis. There is positive shortness of breath. There is no headache. There is no abdominal pain. There is no hematemesis or bright red blood per rectum. The patient denies Covid symptoms. He had Covid 6 months ago. He denies leg pain, leg swelling, travel, surgery, and immobilization. He took Viagra last night. Uncertain if he has taken aspirin recently. MD Complaint: chest pain -: Gradual, hour(s) Pain Location: left chest Pain Radiation: neck Severity: moderate Severity scale (0 -10): 10 Quality: aching Consistency: constant Improves With: nothing Worsens With: nothing Aspirin use within the Past 7 Days: (0) No - Related Data On Oral Contraceptives: No Home Medications Medication Instructions Recorded Confirmed Last Taken AtorvaSTATin [Lipitor] 20 mg PO QHS 01/11/21 01/11/21 Unknown Metoprolol Xl [Metoprolol 25 mg PO QDAY 01/11/21 01/11/21 Unknown SUCCINATE ER TAB] Previous Rx's Medication Instructions Recorded Last Taken Type amLODIPine 5 mg PO QDAY #30 tablet 03/20/19 Unknown Rx Acetaminophen [Acetaminophen TAB] 650 mg PO Q4H PRN tablet 06/17/20 Unknown Rx Tamsulosin [Flomax] 0.4 mg PO QDAY #30 capsule 06/17/20 Unknown Rx traMADoL [Ultram 50 MG tab] 50 mg PO Q6HR PRN #20 tablet 12/18/20 Unknown Rx Allergies Allergy/AdvReac Type Severity Reaction Status Date / Time No Known Allergies Allergy Verified 06/28/20 15:27 Heart Score - HEART Score History: Slightly suspicious EKG: Non-specific Age: > 65 Risk factors: > 3 risk factors or hx of atherosclerotic disease Troponin: < normal limit HEART Score: 5 - EKG Read Time Time EKG Completed: 05:55 EKG Read Time: 05:55 - Critical Actions Critical Actions: 4-6 pts:12-16.6% risk of adverse cardiac event. Should be admitted ED Review of Systems ROS: Stated complaint: CHEST PAIN Other details as noted in HPI Constitutional: denies: fever Eyes: denies: vision change ENT: denies: epistaxis Respiratory: denies: cough, shortness of breath Cardiovascular: chest pain Gastrointestinal: denies: abdominal pain, nausea, vomiting Genitourinary: denies: dysuria Musculoskeletal: myalgia Neurological: weakness Hematological/Lymphatic: denies: easy bleeding ED Past Medical Hx - Past Medical History Previous Medical History?: Yes Hx Hypertension: Yes Hx CVA: Yes Hx Heart Attack/AMI: Yes Hx Congestive Heart Failure: Yes Hx Diabetes: No Hx Deep Vein Thrombosis: No Hx Pulmonary Embolism: No Hx GERD: Yes Hx Liver Disease: No Hx Renal Disease: No Hx Sickle Cell Disease: No Hx Arthritis: No Hx Headaches / Migraines: No Hx Seizures: No Hx Kidney Stones: No Hx Psychiatric Treatment: No Hx Asthma: Yes Hx COPD: Yes Hx Tuberculosis: No Hx Dementia: No Hx HIV: No - Surgical History Past Surgical History?: Yes Additional Surgical History: Cataract. neck surgery. hernia repair. Prostate seed implant - Social History Smoking Status: Never Smoker - Medications Home Medications: Home Medications Medication Instructions Recorded Confirmed Last Taken Type amLODIPine 5 mg PO QDAY #30 tablet 03/20/19 01/11/21 Unknown Rx Acetaminophen [Acetaminophen TAB] 650 mg PO Q4H PRN tablet 06/17/20 01/11/21 Unknown Rx Tamsulosin [Flomax] 0.4 mg PO QDAY #30 capsule 06/17/20 01/11/21 Unknown Rx traMADoL [Ultram 50 MG tab] 50 mg PO Q6HR PRN #20 tablet 12/18/20 01/11/21 Unknown Rx AtorvaSTATin [Lipitor] 20 mg PO QHS 01/11/21 01/11/21 Unknown History Metoprolol Xl [Metoprolol 25 mg PO QDAY 01/11/21 01/11/21 Unknown History SUCCINATE ER TAB] ED Physical Exam - General Limitations: No Limitations General appearance: alert, in no apparent distress - Head Head exam: Present: atraumatic, normocephalic - Eye Eye exam: Present: normal appearance, EOMI. Absent: nystagmus - ENT ENT exam: Present: normal exam, normal orophraynx, mucous membranes moist, normal external ear exam - Neck Neck exam: Present: normal inspection, full ROM. Absent: tenderness, meningismus - Respiratory Respiratory exam: Present: decreased breath sounds. Absent: respiratory distress, wheezes, rales, rhonchi, stridor - Cardiovascular Cardiovascular Exam: Present: normal rhythm, bradycardia, normal heart sounds. Absent: tachycardia, irregular rhythm, systolic murmur, diastolic murmur, rubs, gallop - GI/Abdominal GI/Abdominal exam: Present: soft, normal bowel sounds. Absent: distended, tenderness, guarding, rebound, rigid, pulsatile mass - Rectal Rectal exam: Present: deferred - Extremities Exam Extremities exam: Present: normal inspection, full ROM, pedal edema (1+ edema bilateral lower extremities), other (2+ pulses noted in the bilateral upper and lower extremities. There is no palpable cord. negative Homans sign. Muscular compartments are soft. The pelvis is stable.). Absent: calf tenderness - Back Exam Back exam: Present: normal inspection, full ROM. Absent: tenderness, CVA tenderness (R), CVA tenderness (L), paraspinal tenderness, vertebral tenderness - Neurological Exam Neurological exam: Present: alert, other (No facial droop. Tongue midline. Extraocular movements intact bilaterally. Facial sensation intact to light touch in V1, V2, V3 distribution bilaterally. 5 and a 5 strength in 4 extremities. Sensation intact to light touch in 4 extremities.). Absent: motor sensory deficit - Psychiatric Psychiatric exam: Present: normal affect, normal mood - Skin Skin exam: Present: warm, dry, intact, normal color. Absent: rash ED Course Vital Signs 01/11/21 01/11/21 01/11/21 11:16 11:19 11:25 Temperature Pulse Rate 58 L 55 L Respiratory 21 15 Rate Blood Pressure Blood Pressure 137/53 [Right] O2 Sat by Pulse 100 100 Oximetry 01/11/21 01/11/21 01/11/21 11:32 11:40 12:46 Temperature 97.7 F Pulse Rate 53 L 53 L 50 L Respiratory 15 14 19 Rate Blood Pressure 129/56 130/60 Blood Pressure 129/56 [Right] O2 Sat by Pulse 100 100 100 Oximetry 01/11/21 01/11/21 01/11/21 14:20 15:16 16:16 Temperature Pulse Rate 62 54 L 56 L Respiratory 15 20 20 Rate Blood Pressure 135/64 142/77 136/76 Blood Pressure [Right] O2 Sat by Pulse 100 99 100 Oximetry 01/11/21 16:47 Temperature 98.1 F Pulse Rate Respiratory Rate Blood Pressure Blood Pressure [Right] O2 Sat by Pulse Oximetry - Reevaluation(s) Reevaluation #1: 01/11/21 11:38 Differential diagnosis, including but not limited to: GERD, gastritis, hiatal hernia, pneumonia, acute coronary syndrome, pulmonary embolism, pneumothorax, cardiac chest pain, noncardiac chest pain Assessment and plan: 89-year-old gentleman, who is not currently tachycardic, tachypneic or hypoxic, denies DVT and pulmonary embolism risk factors, who is low risk by Wells criteria for pulmonary embolism, with EKG unchanged from prior, had a positive cardiac catheterization at this hospital in 2016, troponin negative x1, cannot receive nitroglycerin secondary to taking Viagra within the past 24 hours, with active chest pain. We will treat his pain. Serial EKG, laboratory studies/D-dimer have been ordered. Unlikely to be significant pneumothorax, based off of physical exam. We will request cardiology consultation from [facility], which is the cardiology group that this patient follows with. Given heart score of 5, no recent cardiac risk stratification since 2019, patient will likely require admission to the hospital for cardiac risk ratification. I have discussed this plan of care with the patient, who verbalized understanding, who is in agreement with this plan of care. We are waiting for cardiology to call back at this time Reevaluation #2: 01/11/21 12:25 ekg unchanged troponin, d dimer, pending we are awaiting cardiology consult Reevaluation #3: 01/11/21 12:28 Dr Perez to admit for cardiac risk stratification 01/11/21 19:00 Nuclear medicine study is low probability for pulmonary emboli - Consultations Consultation #1: 01/11/21 13:01 I have discussed the patient's history, physical, pertinent laboratory studies and EKG findings with covering cardiology, Dr. Auguste whose group will follow in consultation and make recommendations for cardiac risk stratification. - Pulse Oximetry Interpretation Digit-Finger Initial Pulse Oximetry Readin O2 Sat by Pulse Oximetry: 99 Actions Taken: none PAL score - Pal Score Age > 65: (1) Yes Aspirin use within the Past 7 Days: (0) No 3 or more CAD Risk Factors: (1) Yes 2 or more Angina events in past 24 hrs: (1) Yes Known CAD with more than 50% Stenosis: (0) No Elevated Cardiac Markers: (0) No ST Deviation Greater than 0.5mm: (0) No PAL Score: 3 ED Medical Decision Making - Lab Data Result diagrams: 01/11/21 06:02 01/11/21 06:02 Vital Signs 01/11/21 01/11/21 01/11/21 11:16 11:19 11:25 Pulse Rate 58 L 55 L Respiratory 21 15 Rate Blood Pressure 137/53 [Right] O2 Sat by Pulse 100 100 Oximetry Lab Results 01/11/21 01/11/21 01/11/21 Range/Units 06:02 06:02 09:02 WBC 4.9 (4.5-11.0) K/mm3 RBC 3.89 (3.65-5.03) M/mm3 Hgb 12.1 (11.8-15.2) gm/dl Hct 36.5 (35.5-45.6) % MCV 94 (84-94) fl MCH 31 (28-32) pg MCHC 33 (32-34) % RDW 15.8 H (13.2-15.2) % Plt Count 146 (140-440) K/mm3 Lymph % (Auto) 35.6 H (13.4-35.0) % [place] % (Auto) 9.4 H (0.0-7.3) % Eos % (Auto) 3.5 (0.0-4.3) % Baso % (Auto) 0.7 (0.0-1.8) % Lymph # (Auto) 1.8 (1.2-5.4) K/mm3 [place] # (Auto) 0.5 (0.0-0.8) K/mm3 Eos # (Auto) 0.2 (0.0-0.4) K/mm3 Baso # (Auto) 0.0 (0.0-0.1) K/mm3 Seg Neutrophils % 50.8 (40.0-70.0) % Seg Neutrophils # 2.5 (1.8-7.7) K/mm3 Sodium 140 (137-145) mmol/L Potassium 4.0 (3.6-5.0) mmol/L Chloride 105.7 (98-107) mmol/L Carbon Dioxide 26 (22-30) mmol/L Anion Gap 12 mmol/L BUN 17 (9-20) mg/dL Creatinine 1.1 (0.8-1.3) mg/dL Estimated GFR > 60 ml/min BUN/Creatinine Ratio 15 % Glucose 100 (75-100) mg/dL Calcium 8.8 (8.4-10.2) mg/dL Total Bilirubin 0.30 (0.1-1.2) mg/dL AST 18 (5-40) units/L ALT 13 (7-56) units/L Alkaline Phosphatase 72 (35-129) units/L Troponin T < 0.010 (0.00-0.029) ng/mL Total Protein 6.2 L (6.3-8.2) g/dL Albumin 3.9 (3.9-5) g/dL Albumin/Globulin Ratio 1.7 % - EKG Data -: EKG Interpreted by Sd EKG shows normal: sinus rhythm Rate: normal - EKG Data 01/11/21 11:38 EKG today's interpreted 5: 55 AM Sinus rhythm, 67 bpm. Normal axis, normal intervals, left ventricular hypertrophy. The EKG is not a STEMI. It appears to be unchanged from prior EKG from June 28. 01/11/21 19:01 - Radiology Data Radiology results: report reviewed, image reviewed CHEST 2 VIEWS INDICATION / CLINICAL INFORMATION: shortness of breath. COMPARISON: 06/28/2020 FINDINGS: SUPPORT DEVICES: None. HEART / MEDIASTINUM: Unchanged LUNGS / PLEURA: There is blunting of the right costophrenic angle characteristic of a small amount of pleural fluid or pleural thickening. There is mild basilar airspace opacity likely representing atelectasis.. No pneumothorax. ADDITIONAL FINDINGS: No significant additional findings. IMPRESSION: 1. There is mild left basilar airspace opacity likely representing atelectasis. There is a small amount of pleural thickening or pleural fluid on the right. Signer Name: Emre Painting MD Signed: 01/11/2021 6:16 AM Workstation Name: [id number] CTA CHEST WITH CONTRAST INDICATION : Recurring chest pain. TECHNIQUE: Axial imaging performed through the chest, with contrast bolus timing set to maximize opacification of the pulmonary arteries. Sagittal and coronal reformatted images. 3-plane MIP reformatted images were obtained. All CT scans at this location are performed using CT dose reduction for ALARA by means of automated exposure control. 100 mL of intravenous contrast administered. COMPARISON: 03/18/2019 FINDINGS: Bolus: Contrast bolus timing is adequate. PTE: No filling defect is present to suggest PTE. Mediastinum: Heart and great vessels appear normal. No pathologic mediastinal adenopathy. Lungs: Mild centrilobular emphysematous changes are identified in the upper lobes. A tiny left apical pneumothorax is identified which is estimated at 1-2%. The remainder of the lungs are clear. No evidence for mass, infiltrate or pleural fluid. Bones: Degenerative changes in the spine with nothing acute. Upper abdomen: Limited imaging of the upper abdomen shows nothing acute. IMPRESSION: No pulmonary embolus is identified. Tiny left apical pneumothorax. Mild emphysematous changes. Signer Name: Jh Richardson Jr, MD Signed: 08/22/2019 2:18 PM NDICATION / CLINICAL INFORMATION: CHEST PAIN WITH SYNCOPE. TECHNIQUE: Axial CT images were obtained through the chest after injection of 100 cc Omnipaque 350 IV contrast. 3 plane MIP and/or 3D reconstructions were produced. All CT scans at this location are performed using CT dose reduction for ALARA by means of automated exposure control. COMPARISON: CTA chest dated 08/22/2019. FINDINGS: PULMONARY ARTERIES: No pulmonary emboli. THORACIC AORTA: No significant abnormality. HEART: Borderline enlarged. CORONARY ARTERIES: Coronary artery calcifications are noted. MEDIASTINUM / ANTHONY: There are partially calcified mediastinal lymph nodes which may represent prior granulomatous disease exposure. PLEURA: No pleural effusion. No pneumothorax. LUNGS: Mild apical predominant centrilobular emphysema. Bibasilar subsegmental atelectasis. No focal airspace consolidation. No suspicious pulmonary mass or nodule. ADDITIONAL FINDINGS: None. UPPER ABDOMEN: No acute findings. SKELETAL STRUCTURES: No significant osseous abnormality. IMPRESSION: 1. No CT evidence for pulmonary embolism or aortic dissection. 2. Mild apical predominant centrilobular emphysema. 3. Borderline cardiomegaly. Signer Name: Star Gould MD Signed: 06/16/2020 3:15 PM FINDINGS: There are no filling defects seen within the pulmonary arterial circulation to suggest pulmonary embolism. There is no aortic dissection seen. There are there are coronary artery atherosclerotic calcifications. There is no significant mediastinal or hilar mass seen. There is mild emphysema. There is some dependent atelectasis at the lung bases. There is no pneumothorax seen. There are no pleural effusions seen. IMPRESSION: There is no pulmonary embolism or aortic dissection seen. Mild emphysema Transcribed By: ALEXANDRO Dictated By: RONAN JUAN MD Electronically Authenticated By: RONAN JUAN MD Signed Date/Time: 12/08/18 1142 DD/ 1240 TD/TT: 09/22/18 124 Critical care attestation.: If time is entered above; I have spent that time in minutes in the direct care of this critically ill patient, excluding procedure time. ED Disposition Clinical Impression: Acute chest pain Coronary artery disease Qualifiers: Associated angina: with stable angina Disposition: OP ADMIT IP TO THIS HOSP Is pt being admited?: Yes Does the pt Need Aspirin: No Condition: Good
[2021-01-11] MEDS ORDERED: ACETAMINOPHEN 325 MG TAB PO ONE (11:31)
[2021-01-11] MEDS ORDERED: FAMOTIDINE 20 MG TAB PO ONE (11:31)
[2021-01-11] MEDS ORDERED: ASPIRIN 325 MG TAB PO ONE (11:31)
[2021-01-11] MEDS ORDERED: SUCRALFATE 1 GM/10 ML ORAL LIQD PO ONE (11:31)
--- NOTE | 2021-01-11 12:56 | History and Physical Report ---
History of Present Illness Chief complaint: I have pain in my chest History of present illness: 89 YO Male with HTN, CAD S/P Caridac Cath, Coronavirus Infection, CVA, GERD, CaP S/P Seed Implant, COPD, UT, Asthma presents to ED for evaluation. Patient states that he had experienced chest pain over the past 1 day with persistent symptoms over the same timeframe. Patient states that his symptoms began around 800 hours yesterday and persisted throughout the night and throughout the day today. Patient states that his pain is 10/10, constant, worsened with exertion, relieved with rest, associated with shortness of breath and diaphoresis, radiates to the left neck. Patient acknowledges decreased exercise tolerance. Patient transported to [facility] via private vehicle for further care and evaluation of the aforementioned symptoms. Patient seen and evaluated in the emergency department. Lab and imaging studies reviewed. Patient found to have angina as well as systems consistent with diastolic CHF. Patient placed in observation status and admitted to telemetry and initiated on chest pain protocol as well as CHF protocol. Patient denies fever, chills, palpitations, productive cough, skin rash, recent ill contacts, unilateral leg swelling, calf pain, prolonged travel/immobility, individual/family history of DVT/PE/bleeding/blood clotting disorder, or known recent exposure to COVID-19. All medication listed at time of admission has been reconciled. Prior admission on 06/28/2020 reviewed. Advanced care planning conducted in ED. Past History Past Medical History: acute UT, CAD, COPD, GERD, heart failure, hypertension, stroke, other (See HPI) Past Surgical History: cataract removal, hernia repair, Other (, Neck surgery, prostate seed implant) Social history: . denies: smoking, alcohol abuse, prescription drug abuse Family history: CAD, diabetes, hypertension Medications and Allergies Allergies Allergy/AdvReac Type Severity Reaction Status Date / Time No Known Allergies Allergy Verified 06/28/20 15:27 Home Medications Medication Instructions Recorded Confirmed Last Taken Type amLODIPine 5 mg PO QDAY #30 tablet 03/20/19 01/11/21 Unknown Rx Acetaminophen [Acetaminophen TAB] 650 mg PO Q4H PRN tablet 06/17/20 01/11/21 Unknown Rx Tamsulosin [Flomax] 0.4 mg PO QDAY #30 capsule 06/17/20 01/11/21 Unknown Rx traMADoL [Ultram 50 MG tab] 50 mg PO Q6HR PRN #20 tablet 12/18/20 01/11/21 Unknown Rx AtorvaSTATin [Lipitor] 20 mg PO QHS 01/11/21 01/11/21 Unknown History Metoprolol Xl [Metoprolol 25 mg PO QDAY 01/11/21 01/11/21 Unknown History SUCCINATE ER TAB] Review of Systems Constitutional: no weight loss, no weight gain, no fever, no chills Ears, nose, mouth and throat: no ear pain, no ear discharge, no tinnitis, no decreased hearing, no nasal congestion Cardiovascular: chest pain, no orthopnea, no rapid/irregular heart beat, no lightheadedness Respiratory: no cough, no cough with sputum, no excessive sputum, no hemoptysis Gastrointestinal: no nausea, no vomiting, no diarrhea, no constipation Genitourinary Male: no hematuria, no flank pain, no discharge, no urinary frequency, no urinary hesitancy Rectal: no pain, no incontinence, no bleeding Musculoskeletal: no neck stiffness, no neck pain, no shooting arm pain, no arm numbness/tingling, no low back pain Integumentary: no rash, no pruritis, no redness, no sores, no wounds, no jaundice Neurological: no head injury, no transient paralysis, no paralysis, no weakness, no numbness, no tingling, no seizures, no syncope, no tremors, no lack of coordination Psychiatric: no anxiety, no memory loss, no change in sleep habits, no sleep disturbances, no insomnia, no change in appetite, no change in libido, no diso rientation Endocrine: no cold intolerance, no heat intolerance, no polyphagia, no excessive thirst, no polydipsia, no polyuria, no nocturia Hematologic/Lymphatic: no easy bruising, no easy bleeding, no lymphadenopathy, no lymphedema Allergic/Immunologic: no urticaria, no allergic rhinitis, no persistent infections Exam - Constitutional Vitals: Temp Pulse Resp BP Pulse Ox 97.7 F 53 L 14 129/56 99 01/11/21 11:40 01/11/21 11:40 01/11/21 11:40 01/11/21 11:40 01/11/21 12:29 General appearance: Present: mild distress - EENT Eyes: Present: PERRL ENT: hearing intact, clear oral mucosa - Neck Neck: Present: supple, normal ROM - Respiratory Respiratory effort: normal Respiratory: bilateral: CTA - Cardiovascular Heart Sounds: Present: S1 & S2. Absent: rub, click - Extremities Extremities: pulses symmetrical, No edema Peripheral Pulses: within normal limits - Abdominal General gastrointestinal: Present: soft, non-tender, non-distended, normal bowel sounds Male genitourinary: Present: normal - Integumentary Integumentary: Present: clear, warm, dry - Musculoskeletal Musculoskeletal: gait normal, strength equal bilaterally - Psychiatric Psychiatric: appropriate mood/affect, intact judgment & insight - Neurologic Neurologic: CNII-XII intact, moves all extremities HEART Score - HEART Score EKG: Non-specific Age: > 65 Risk factors: > 3 risk factors or hx of atherosclerotic disease Troponin: Troponin T < 0.010 ng/mL (0.00-0.029) 01/11/21 11:35 Troponin: < normal limit - Critical Actions Critical Actions: 4-6 pts:12-16.6% risk of adverse cardiac event. Should be admitted Results - Labs CBC & Chem 7: 01/11/21 06:02 01/11/21 06:02 Labs: Abnormal lab results 01/11/21 01/11/21 01/11/21 Range/Units 06:02 06:02 11:35 RDW 15.8 H (13.2-15.2) % Lymph % (Auto) 35.6 H (13.4-35.0) % [place] % (Auto) 9.4 H (0.0-7.3) % Total Creatine Kinase 215 H (55-170) units/L Total Protein 6.2 L (6.3-8.2) g/dL Assessment and Plan - Patient Problems (1) Angina at rest Current Visit: Yes Status: Acute Plan to address problem: Serial cardiac enzymes, EKG, telemetry, supplemental oxygen, morphine, nitro, aspirin, cardiology team consulted. Further care and evaluation as per cardiology team. (2) Diastolic CHF Current Visit: Yes Status: Acute Qualifiers: Heart failure chronicity: acute Qualified Code(s): I50.31 - Acute diastolic (congestive) heart failure Plan to address problem: Strict I/O, monitor urine output every shift, and daily weight, afterload reduction, blood pressure control, cardiology team consulted. Further care and evaluation as per cardiology team. (3) Coronary artery disease Current Visit: Yes Status: Acute Qualifiers: Associated angina: with stable angina Plan to address problem: Low-cholesterol diet, risk factor reduction, statin therapy, supportive care. Antiplatelet therapy. (4) COPD (chronic obstructive pulmonary disease) Current Visit: No Status: Chronic Qualifiers: Chronic bronchitis type: unspecified Plan to address problem: Supportive care, continue medical management, supplemental oxygen as clinically indicated. (5) GERD (gastroesophageal reflux disease) Current Visit: No Status: Chronic Qualifiers: Esophagitis presence: without esophagitis Plan to address problem: PPI therapy, supportive care. (6) HTN (hypertension) Current Visit: No Status: Chronic Qualifiers: Hypertension type: essential hypertension Plan to address problem: Monitor blood pressure every shift, continue medical management (7) D-dimer, elevated Current Visit: Yes Status: Acute Plan to address problem: VQ scan ordered and low probability of pulmonary embolus. (8) DVT prophylaxis Current Visit: No Status: Acute Plan to address problem: SCD to bilateral extremities while in bed, patient is ambulatory (9) Advance care planning Current Visit: Yes Status: Acute Plan to address problem: Disease education conducted, care plan discussed, prognosis discussed, diagnoses discussed, patient is full code, patient knowledges understanding and agreement with care plan, +30 minutes
[2021-01-11] MEDS ORDERED: ACETAMINOPHEN 325 MG TAB PO PRN ×2 (13:13)
[2021-01-11] MEDS ORDERED: ONDANSETRON 4 MG/2 ML INJ IV PRN (13:13)
[2021-01-11] MEDS ORDERED: ALBUTEROL 2.5 MG/3 ML NEBU IH PRN (13:13)
[2021-01-11] MEDS ORDERED: traMADol 50 MG TAB PO PRN (13:13)
[2021-01-11] MEDS ORDERED: ASPIRIN 325 MG TAB ONE (14:09)
[2021-01-11] MEDS ORDERED: FAMOTIDINE 20 MG TAB ONE (14:10)
[2021-01-11] MEDS ORDERED: SUCRALFATE 1 GM/10 ML ORAL LIQD ONE (14:10)
[2021-01-11 14:36] LABS: INR 1.13 (0.87-1.13)
[2021-01-11] MEDS ORDERED: LACTATED RINGERS 500 ML IV ONE (14:39)
--- NOTE | 2021-01-11 18:27 | Nuclear Medicine Report ---
NUCLEAR MEDICINE PERFUSION LUNG SCAN INDICATION / CLINICAL INFORMATION: cp + d dimer. TECHNIQUE: 5.5 mCi of Tc-99m MAA were given by IV. COMPARISON: Chest radiograph dated today. FINDINGS: PERFUSION: No significant perfusion defects. ADDITIONAL FINDINGS: None. IMPRESSION: 1. Low probability for pulmonary embolism. Signer Name: Papito Cade MD Signed: 01/11/2021 6:22 PM Workstation Name: [id number]
[2021-01-12 06:00] LABS: BUN/Creatinine Ratio 13; Blood Urea Nitrogen 14 mg/dL (9-20); Hemolysis Index 5
[2021-01-12 09:53] VITALS: BP 127/65
--- NOTE | 2021-01-12 10:34 | Electrocardiograph Report ---
[facility] Test Date: 2021-01-11 Test Time: 11:46:54 Pat Name: DAVONTE SEGURA Department: Room: A454 Gender: M Quantitative Associate: GINGER : 1930 Requested By: SILVIA ANDERS Order Number: [id number] Reading MD: Ryan Iqbal Measurements Intervals [place] Rate: 53 P: 43 [place]: 194 QRS: 19 QRSD: 86 T: 25 QT: 493 QTc: 455 Interpretive Statements Sinus bradycardia Atrial premature complex Compared to ECG 01/11/2021 05:53:29 Atrial premature complex(es) now present Sinus rhythm no longer present Electronically Signed On 01-12-2021 10:34:00 EDT by Ryan Iqbal
--- NOTE | 2021-01-12 10:40 | Electrocardiograph Report ---
[facility] Test Date: 2021-01-12 Test Time: 07:49:23 Pat Name: DAVONTE SEGURA Department: Room: A454 1 Gender: M Inside Wireman: JANA : 1930 Requested By: NANCY SILVA Order Number: [id number] Reading MD: Ryan Iqbal Measurements Intervals [place] Rate: 56 P: 51 [place]: 207 QRS: 52 QRSD: 89 T: 65 QT: 463 QTc: 449 Interpretive Statements sb Electronically Signed On 01-12-2021 10:40:21 EDT by Ryan Iqbal
--- NOTE | 2021-01-12 10:49 | Consultation ---
History of Present Illness Consult date: 01/12/21 Consult reason: chest pain History of present illness: Patient is an 89-year-old man with a long history of atypical chest pain. He has had extensive cardiac ischemic work-up including a cardiac catheterization 3 years ago that demonstrated mild nonobstructive coronary atherosclerosis. Following that, he has had multiple nonischemic evaluations, most recently 6 weeks ago in the office. A Lexiscan thallium stress test was normal. Serial LV function assessments have reported normal ejection fraction 55 to 60%. He presents to the emergency room at this time with chest pain. This is poorly characterized, nonexertional left chest pain. ECG was sinus rhythm with no acute ST or T wave changes. Serial troponin levels were negative. In the emergency room, he also had a VQ scan that demonstrated low probability for pulmonary embolism. During his 24 hours of telemetry monitoring, there has been no reported dysrhythmias and he has felt well with no further complaints. Past History Past Medical History: CAD, COPD, GERD, hypertension, stroke Past Surgical History: cataract removal, hernia repair, Other (, Neck surgery, prostate seed implant) Social history: . denies: smoking, alcohol abuse, prescription drug abuse Family history: CAD, diabetes, hypertension Medications and Allergies Allergies Allergy/AdvReac Type Severity Reaction Status Date / Time No Known Allergies Allergy Verified 06/28/20 15:27 Home Medications Medication Instructions Recorded Confirmed Last Taken Type amLODIPine 5 mg PO QDAY #30 tablet 03/20/19 01/11/21 Unknown Rx Acetaminophen [Acetaminophen TAB] 650 mg PO Q4H PRN tablet 06/17/20 01/11/21 Unknown Rx Tamsulosin [Flomax] 0.4 mg PO QDAY #30 capsule 06/17/20 01/11/21 Unknown Rx traMADoL [Ultram 50 MG tab] 50 mg PO Q6HR PRN #20 tablet 12/18/20 01/11/21 Unkn own Rx AtorvaSTATin [Lipitor] 20 mg PO QHS 01/11/21 01/11/21 Unknown History Metoprolol Xl [Metoprolol 25 mg PO QDAY 01/11/21 01/11/21 Unknown History SUCCINATE ER TAB] Active Meds: Active Medications Acetaminophen (Acetaminophen 325 Mg Tab) 650 mg PO Q4H PRN PRN Reason: Pain MILD(1-3)/Fever >100.5/HERNANDEZ Albuterol (Albuterol 2.5 Mg/3 Ml Nebu) 2.5 mg IH Q4HRT PRN PRN Reason: Shortness Of Breath Ondansetron HCl (Ondansetron 4 Mg/2 Ml Inj) 4 mg IV Q8H PRN PRN Reason: Nausea And Vomiting Pneumococcal Polyvalent Vaccine (Pneumococcal 23 Valent 0.5 Ml Vial) 0.5 ml IM .ONCE ONE Stop: 01/12/21 12:01 Sodium Chloride (Sodium Chloride 0.9% 10 Ml Flush Syringe) 10 ml IV BID WIL Last Admin: 01/12/21 09:50 Dose: Not Given Documented by: Sodium Chloride (Sodium Chloride 0.9% 10 Ml Flush Syringe) 10 ml IV PRN PRN PRN Reason: LINE FLUSH Last Admin: 01/12/21 09:13 Dose: 10 ml Documented by: Sodium Chloride (Sodium Chloride 0.9% 10 Ml Flush Syringe) 10 ml IV PRN PRN PRN Reason: LINE FLUSH Tramadol HCl (Tramadol 50 Mg Tab) 50 mg PO Q6H PRN PRN Reason: Pain, Moderate (4-6) Review of Systems Cardiovascular: chest pain, no orthopnea, no palpitations, no rapid/irregular heart beat, no edema, no syncope, no lightheadedness, no shortness of breath Physical Examination Vital Signs Pulse Resp BP Pulse Ox 58 L 21 137/53 100 01/11/21 11:16 01/11/21 11:16 01/11/21 11:16 01/11/21 11:16 General appearance: no acute distress HEENT: Positive: PERRL Neck: Positive: neck supple Lungs: Positive: clear to auscultation Neuro: Positive: Grossly Intact Abdomen: Positive: Soft Male genitourinary: Positive: deferred Skin: Positive: Clear Extremities: Absent: edema Results 01/11/21 06:02 01/12/21 05:00 Coagulation 01/11/21 Range/Units 13:17 PT 14.3 (12.2-14.9) Sec. INR 1.13 (0.87-1.13) Comprehensive Metabolic Panel 01/12/21 Range/Units 05:00 Sodium 140 (137-145) mmol/L Potassium 4.0 (3.6-5.0) mmol/L Chloride 103.4 (98-107) mmol/L Carbon Dioxide 28 (22-30) mmol/L BUN 14 (9-20) mg/dL Creatinine 1.1 (0.8-1.3) mg/dL Glucose 96 (75-100) mg/dL Calcium 9.0 (8.4-10.2) mg/dL EKG interpretations - Telemetry EKG Rhythm: Sinus Rhythm Assessment and Plan - Patient Problems (1) Atypical chest pain Current Visit: Yes Status: Acute Plan to address problem: Patient presented with atypical chest pain, ECGs and serial troponin levels were negative. Pulmonary perfusion scan was negative for pulmonary embolism. He had a Lexiscan thallium stress test 6 weeks ago, normal results. No further cardiac work-up is indicated at the current time, patient may be discharged to follow-up in our office in 3 to 5 days.
[2021-01-12] MEDS ORDERED: PNEUMOCOCCAL 23 Valent 0.5 ML VIAL IM ONE (12:00)
[2021-01-12] MEDS ORDERED: FLU VACC QUAD 2020-2021 (6 months +)/PF 60 0.5 ML SYRINGE IM ONE (12:00)
--- NOTE | 2021-01-12 13:46 | Discharge Summary ---
Providers - Providers Date of Admission: 01/11/21 13:14 Date of discharge: 01/12/21 Attending physician: JOY FORMAN 01/11/21 Consult to Cardiac Rehabilitation [CONS] Routine Reason For Exam: Phase I 01/11/21 11:31 Consult to Physician [CONS] Stat Comment: Consulting Provider: YANELIS NELSON Physician Instructions: Reason For Exam: chest pain, known to your practice Primary care physician: [employer] Hospitalization Condition: Good Hospital course: Patient is an 89-year-old man with multiple medical problems a long history of atypical chest pain, had extensive cardiac ischemic work-up including a cardiac catheterization 3 years ago that demonstrated mild nonobstructive coronary atherosclerosis presented to the hospital today with complaints of acute chest pain. he also has had multiple nonischemic evaluations, most recently 6 weeks ago as outpatient. A Lexiscan thallium stress test was normal. Serial LV fun ction assessments have reported normal ejection fraction 55 to 60%. He presents to the emergency room at this time with chest pain which is poorly characterized, nonexertional left chest pain. ECG was sinus rhythm with no acute ST or T wave changes. Serial troponin levels were negative. In the emergency room, he also had a VQ scan that demonstrated low probability for pulmonary embolism. During his 24 hours of telemetry monitoring, there has been no reported dysrhythmias and he has felt well with no further complaints. Cardiology was consulted and recommended no further cardiac work-up is indicated at the current time, patient may be discharged to follow-up in the cardiology office in 3 to 5 days. Patient was then discharged home in stable condition with outpatient follow-up. Disposition: DC/- HOME UNDER HOME [facility] Final Discharge Diagnosis (Prints w/discharge instructions): Atypical chest pain, likely due to GERD, history of acute NE, coronary artery disease, COPD, hypertension, history of CVA, history of COVID-19 infection, elevated d-dimer with a negative VQ scan. Time spent for discharge: 34 minutes Core Measure Documentation - Palliative Care Palliative Care/ Comfort Measures: Not Applicable - Core Measures Any of the following diagnoses?: history only Exam - Physical Exam Narrative exam: GENERAL: Well-developed elderly -Gambian male lying on bed appeared to be in no discomfort. HEENT: Normocephalic. Atraumatic. No conjunctival congestion or icterus. Patient has moist mucous membranes. NECK: Supple. Trachea midline. CHEST/LUNGS: Clear to auscultated bilaterally, breathing nonlabored. No wheezes crackles or rhonchi. HEART/CARDIOVASCULAR: Regular in rate and rhythm. S1 and S2 positive. ABDOMEN: Abdomen is soft, nontender. Patient has normal bowel sounds. SKIN: There is no rash. Warm and dry. NEURO: No focal motor deficit. Follows command. MUSCULOSKELETAL: No joint effusion or tenderness. EXTRIMITY: No edema, no cyanosis or clubbing. PSYCH: Cooperative. - Constitutional Vitals: Temp Pulse Resp BP Pulse Ox 98.0 F 51 L 18 127/65 98 01/12/21 07:51 01/12/21 04:19 01/12/21 07:51 01/12/21 07:51 01/12/21 09:22 Plan Activity: advance as tolerated Weight Bearing Status: Weight Bear as Tolerated Diet: low fat, low salt Additional Instructions: Follow-up with Dr. Nelson in 1 week Follow up with: PRIMARY MD FRANCIS [Primary Care Provider] - 3-5 Days YANELIS NELSON MD [Staff Physician] - 7 Days Prescriptions: Pantoprazole [Protonix] 40 mg PO QDAY #30 tablet
== END 2021-01-12 16:34 | disposition home health service (06) ==
LOC: ED 05:36 → 4A 13:14
PROVIDERS: ADMIT Internal Medicine; ATTEND Internal Medicine
DX: I20.8 Other forms of angina pectoris (principal); I11.0 Hypertensive heart disease with heart failure; I50.31 Acute diastolic (congestive) heart failure; J44.9 Chronic obstructive pulmonary disease, unspecified; K21.9 Gastro-esophageal reflux disease without esophagitis; R77.8 Other specified abnormalities of plasma proteins; I25.2 Old myocardial infarction; Z23 Encounter for immunization; Z86.73 Personal history of transient ischemic attack (TIA), and cerebral infarction without residual deficits; Z98.49 Cataract extraction status, unspecified eye; Z98.890 Other specified postprocedural states; Z86.16 Personal history of COVID-19
CPT/HCPCS: 36415; 71046; 78580; 80048; 80053; 82550; 83735; 84484; 85025; 85379; 85610; 90686; 90732; 93005; 99285; A9540; G0009; G0378; 90471

== ENCOUNTER 2021-05-14 08:43 | Outpatient (CLI) | payer MEDICARE ==
[2021-05-14 09:10] LABS: Basophils # (Auto) 0.1 K/mm3 (0.0-0.1); Basophils % (Auto) 1.3 % (0.0-1.8); Eosinophils # (Auto) 0.2 K/mm3 (0.0-0.4); Eosinophils % (Auto) 3.5 % (0.0-4.3); Hematocrit 36.6 % (35.5-45.6); Hemoglobin 12.6 gm/dl (11.8-15.2); Lymphocytes # (Auto) 1.7 K/mm3 (1.2-5.4); Lymphocytes % (Auto) 37.6 % (13.4-35.0); Mean Corpuscular HGB Conc 34 % (32-34); Mean Corpuscular Volume 93 fl (84-94); Monocytes # (Auto) 0.5 K/mm3 (0.0-0.8); Monocytes % (Auto) 11.1 % (0.0-7.3); Platelet Count 140 K/mm3 (140-440); Red Blood Count 3.96 M/mm3 (3.65-5.03); Red Cell Distribution Width 14.9 % (13.2-15.2)
[2021-05-14 09:50] LABS: Alanine Aminotransferase 11 units/L (7-56); Albumin 3.8 g/dL (3.9-5); BUN/Creatinine Ratio 18; Blood Urea Nitrogen 20 mg/dL (9-20); Calcium 9.5 mg/dL (8.4-10.2); Chol/HDL Ratio 3.33 %; HDL Cholesterol 48 mg/dL (40-59); Hemolysis Index 20; LDL Cholesterol,Direct 95 mg/dL (50-130)
== END 2021-05-14 08:44 | disposition home or self-care (01) ==
LOC: LAB 08:43
PROVIDERS: ATTEND Internal Medicine
DX: Z00.00 Encounter for general adult medical examination without abnormal findings (principal); E03.9 Hypothyroidism, unspecified; I10 Essential (primary) hypertension; E78.5 Hyperlipidemia, unspecified; R73.9 Hyperglycemia, unspecified
CPT/HCPCS: 36415; 80053; 80061; 83036; 84443; 85025

== ENCOUNTER 2021-05-18 08:13 | Emergency (ER) | payer MEDICARE ==
[2021-05-18 11:41] LABS: Basophils % (Auto) 0.4 % (0.0-1.8); Eosinophils # (Auto) 0.1 K/mm3 (0.0-0.4); Eosinophils % (Auto) 2.1 % (0.0-4.3); Hematocrit 39.6 % (35.5-45.6); Hemoglobin 13.3 gm/dl (11.8-15.2); Lymphocytes # (Auto) 1.9 K/mm3 (1.2-5.4); Lymphocytes % (Auto) 35.8 % (13.4-35.0); Mean Corpuscular HGB Conc 34 % (32-34); Mean Corpuscular Volume 94 fl (84-94); Monocytes # (Auto) 0.6 K/mm3 (0.0-0.8); Monocytes % (Auto) 10.7 % (0.0-7.3); Platelet Count 135 K/mm3 (140-440); Red Blood Count 4.23 M/mm3 (3.65-5.03); Red Cell Distribution Width 15.3 % (13.2-15.2)
[2021-05-18 12:10] LABS: Alanine Aminotransferase 9 units/L (7-56); Albumin 3.9 g/dL (3.9-5); BUN/Creatinine Ratio 18; Blood Urea Nitrogen 21 mg/dL (9-20); Calcium 9.6 mg/dL (8.4-10.2); Hemolysis Index 6
[2021-05-18 14:28] LABS: Bilirubin,Urine NEG (Negative); Blood,Urine SM (Negative); Color,Urine Yellow (Yellow); Mucus,Urine FEW /HPF; Protein,Urine <15 mg/dL mg/dL (Negative)
[2021-05-18] MEDS ORDERED: SODIUM CHLORIDE 0.9% 1000 ML 1,000 ML IV ONE (15:01)
--- NOTE | 2021-05-18 15:35 | Emergency Department Report ---
ED General Adult HPI - General Chief complaint: Abdominal Pain Stated complaint: STOMACH AND BACK PAIN Time Seen by Provider: 05/18/21 13:51 Source: patient Mode of arrival: Ambulatory Limitations: No Limitations - History of Present Illness Initial comments: The patient presents to the emergency department with a chief complaint of abdominal pain that started this morning. Patient states that pain is located on the top part of his stomach and denies any radiation. Patient also denies nausea, vomiting, diarrhea. Patient also complains of a separate lower back issue as well. Patient complains of having lower back pain that is chronic in nature and is not the same pain that he is having in his stomach. Patient denies chest pain or shortness of breath. -: Sudden Location: back, abdomen Radiation: non-radiation Severity scale (0 -10): 4 Quality: sharp Consistency: constant Improves with: none Worsens with: none Associated Symptoms: denies other symptoms Treatments Prior to Arrival: none - Related Data Home Medications Medication Instructions Recorded Confirmed Last Taken AtorvaSTATin [Lipitor] 20 mg PO QHS 01/11/21 01/11/21 Unknown Metoprolol Xl [Metoprolol 25 mg PO QDAY 01/11/21 01/11/21 Unknown SUCCINATE ER TAB] Previous Rx's Medication Instructions Recorded Last Taken Type amLODIPine 5 mg PO QDAY #30 tablet 03/20/19 Unknown Rx Acetaminophen [Acetaminophen TAB] 650 mg PO Q4H PRN tablet 06/17/20 Unknown Rx Tamsulosin [Flomax] 0.4 mg PO QDAY #30 capsule 06/17/20 Unknown Rx traMADoL [Ultram 50 MG tab] 50 mg PO Q6HR PRN #20 tablet 12/18/20 Unknown Rx Pantoprazole [Protonix] 40 mg PO QDAY #30 tablet 01/12/21 Unknown Rx traMADoL [Ultram] 50 mg PO Q6HR PRN #15 tablet 05/18/21 Unknown Rx Allergies Allergy/AdvReac Type Severity Reaction Status Date / Time No Known Allergies Allergy Verified 06/28/20 15:27 ED Review of Systems ROS: Stated complaint: STOMACH AND BACK PAIN Other details as noted in HPI Comment: All other systems reviewed and negative Constitutional: denies: chills, fever Eyes: denies: eye pain, eye discharge, vision change ENT: denies: ear pain, throat pain Respiratory: denies: cough, shortness of breath, wheezing Cardiovascular: denies: chest pain, palpitations Endocrine: no symptoms reported Gastrointestinal: abdominal pain. denies: nausea, diarrhea Genitourinary: denies: urgency, dysuria Musculoskeletal: back pain. denies: joint swelling, arthralgia Skin: denies: rash, lesions Neurological: denies: headache, weakness, paresthesias Psychiatric: denies: anxiety, depression Hematological/Lymphatic: denies: easy bleeding, easy bruising ED Past Medical Hx - Past Medical History Previous Medical History?: Yes Hx Hypertension: Yes Hx CVA: Yes Hx Heart Attack/AMI: Yes Hx Congestive Heart Failure: Yes Hx Diabetes: No Hx Deep Vein Thrombosis: No Hx Pulmonary Embolism: No Hx GERD: Yes Hx Liver Disease: No Hx Renal Disease: No Hx Sickle Cell Disease: No Hx Arthritis: No Hx Headaches / Migraines: No Hx Seizures: No Hx Kidney Stones: No Hx Psychiatric Treatment: No Hx Asthma: Yes Hx COPD: Yes Hx Tuberculosis: No Hx Dementia: No Hx HIV: No - Surgical History Past Surgical History?: Yes Additional Surgical History: Cataract. neck surgery. hernia repair. Prostate seed implant - Social History Smoking Status: Never Smoker Substance Use Type: None - Medications Home Medications: Home Medications Medication Instructions Recorded Confirmed Last Taken Type amLODIPine 5 mg PO QDAY #30 tablet 03/20/19 01/11/21 Unknown Rx Acetaminophen [Acetaminophen TAB] 650 mg PO Q4H PRN tablet 06/17/20 01/11/21 Unknown Rx Tamsulosin [Flomax] 0.4 mg PO QDAY #30 capsule 06/17/20 01/11/21 Unknown Rx traMADoL [Ultram 50 MG tab] 50 mg PO Q6HR PRN #20 tablet 12/18/20 01/11/21 Unknown Rx AtorvaSTATin [Lipitor] 20 mg PO QHS 01/11/21 01/11/21 Unknown History Metoprolol Xl [Metoprolol 25 mg PO QDAY 01/11/21 01/11/21 Unknown History SUCCINATE ER TAB] Pantoprazole [Protonix] 40 mg PO QDAY #30 tablet 01/12/21 Unknown Rx traMADoL [Ultram] 50 mg PO Q6HR PRN #15 tablet 05/18/21 Unknown Rx ED Physical Exam - General Limitations: No Limitations General appearance: alert, in no apparent distress - Head Head exam: Present: atraumatic, normocephalic - Eye Eye exam: Present: normal appearance, PERRL, EOMI - ENT ENT exam: Present: mucous membranes moist - Neck Neck exam: Present: normal inspection - Respiratory Respiratory exam: Present: normal lung sounds bilaterally. Absent: respiratory distress - Cardiovascular Cardiovascular Exam: Present: regular rate, normal rhythm. Absent: systolic murmur, diastolic murmur, rubs, gallop - GI/Abdominal GI/Abdominal exam: Present: soft, normal bowel sounds. Absent: distended, tenderness - Rectal Rectal exam: Present: deferred - Extremities Exam Extremities exam: Present: normal inspection - Back Exam Back exam: Present: normal inspection - Neurological Exam Neurological exam: Present: alert, oriented X3, CN II-XII intact. Absent: motor sensory deficit - Psychiatric Psychiatric exam: Present: normal affect, normal mood - Skin Skin exam: Present: warm, dry, intact, normal color. Absent: rash ED Course Vital Signs 05/18/21 05/18/21 05/18/21 09:40 14:00 14:08 Temperature 98.0 F 98.0 F Pulse Rate 65 58 L Respiratory 16 26 H 16 Rate Blood Pressure Blood Pressure 126/72 147/72 [Right] O2 Sat by Pulse 98 98 98 Oximetry 05/18/21 05/18/21 05/18/21 14:15 14:31 14:45 Temperature Pulse Rate 65 68 64 Respiratory 16 21 15 Rate Blood Pressure Blood Pressure [Right] O2 Sat by Pulse 98 98 98 Oximetry 05/18/21 05/18/21 05/18/21 15:01 15:15 15:30 Temperature Pulse Rate 63 68 66 Respiratory 14 17 18 Rate Blood Pressure Blood Pressure [Right] O2 Sat by Pulse 99 99 99 Oximetry 05/18/21 05/18/21 05/18/21 15:45 16:13 16:15 Temperature Pulse Rate 93 H Respiratory 24 Rate Blood Pressure Blood Pressure [Right] O2 Sat by Pulse 99 100 97 Oximetry 05/18/21 05/18/21 05/18/21 16:31 16:45 17:01 Temperature Pulse Rate 62 58 L 64 Respiratory 18 18 22 Rate Blood Pressure Blood Pressure [Right] O2 Sat by Pulse 98 98 100 Oximetry 05/18/21 05/18/21 05/18/21 17:15 17:31 17:45 Temperature Pulse Rate 68 60 57 L Respiratory 22 13 18 Rate Blood Pressure 140/64 Blood Pressure [Right] O2 Sat by Pulse 100 99 98 Oximetry 05/18/21 05/18/21 05/18/21 18:01 18:15 18:30 Temperature Pulse Rate 55 L 53 L 53 L Respiratory 20 14 21 Rate Blood Pressure 141/70 141/70 141/70 Blood Pressure [Right] O2 Sat by Pulse 98 98 99 Oximetry 05/18/21 05/18/21 18:45 19:01 Temperature Pulse Rate 57 L 57 L Respiratory 17 9 L Rate Blood Pressure 127/85 149/65 Blood Pressure [Right] O2 Sat by Pulse 99 99 Oximetry ED Medical Decision Making - Lab Data Result diagrams: 05/18/21 10:43 05/18/21 10:43 - EKG Data -: EKG Interpreted by Me EKG shows normal: sinus rhythm Rate: normal - Medical Decision Making Discussed results with patient Critical care attestation.: If time is entered above; I have spent that time in minutes in the direct care of this critically ill patient, excluding procedure time. ED Disposition Clinical Impression: Abdominal pain, Lower back pain, Arthritis Disposition: - TO HOME OR SELFCARE Is pt being admited?: No Does the pt Need Aspirin: No Condition: Stable Instructions: Abdominal Pain, Adult, [id number] Additional Instructions: return if worse Referrals: PRIMARY CAREMD [Primary Care Provider] - 3-5 Days NIKHIL CURRY MD [Staff Physician] - 3-5 Days Time of Disposition: 19:55
--- NOTE | 2021-05-18 15:54 | XRay Report ---
LUMBOSACRAL SPINE 3 VIEWS INDICATION: back pain. COMPARISON: None. IMPRESSION: Normal alignment. Mild osteopenia is evident. 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 No compression deformity or bone lesion is appreciated. Radiotherapy andrea ds are noted in the prostate bed. Signer Name: hJ Richardson Jr, MD Signed: 05/18/2021 3:49 PM Workstation Name: [email or web address]
--- NOTE | 2021-05-18 16:27 | Cat Scan Report ---
CT ABDOMEN AND PELVIS WITH CONTRAST INDICATION / CLINICAL INFORMATION: abdominal pain 100 ml omni 300. TECHNIQUE: Axial CT images were obtained through the abdomen and pelvis after 100 cc IV contrast. Sagittal and c oronal reformatted images. All CT scans at this location are performed using CT dose reduction for AL LASHWAN by means of automated exposure control. COMPARISON: 12/22/2020 FINDINGS: LOWER CHEST: Mild chronic interstitial changes are again noted and unchanged. Normal heart size. LIVER: No significant abnormality. GALLBLADDER: No significant abnormality. BILE DUCTS: No significant abnormality. PANCREAS: No significant abnormality. SPLEEN: No significant abnormality. ADRENALS: No significant abnormality. RIGHT KIDNEY and URETER: No significant abnormality. LEFT KIDNEY and URETER: No significant abnormality. STOMACH and SMALL BOWEL: No significant abnormality. COLON: No significant abnormality. APPENDIX: No significant abnormality. PERITONEUM: No free fluid. No free air. No fluid collection. LYMPH NODES: No significant adenopathy. AORTA and ARTERIES: Moderate to severe atherosclerotic disease and dilatation in the distal aorta and common iliac arteries is stable. IVC and VEINS: No significant abnormality. URINARY BLADDER: No significant abnormality. REPRODUCTIVE ORGANS: There are multiple radiotherapy beads in the prostate bed. ADDITIONAL FINDINGS: Small bilateral inguinal hernias containing fat, right greater than left. SKELETAL SYSTEM: The bony structures are demineralized with mild degenerative changes in the thoracol umbar spine. No suspicious bony lesions are detected. IMPRESSION: No acute inflammatory process is appreciated. Chronic findings as described which appear unchanged s sriram 12/22/2020 exam. Signer Name: Jh Richardson Jr, MD Signed: 05/18/2021 4:22 PM Workstation Name: [id number]
[2021-05-18 19:13] VITALS: BP 149/65
--- NOTE | 2021-05-21 09:09 | Electrocardiograph Report ---
[facility] Test Date: 2021-05-18 Test Time: 19:42:50 Pat Name: DAVONTE SEGURA Department: Room: Gender: M Supervisor: ED NURSE : 1930 Requested By: MALATHI GUSMAN Order Number: [id number] Reading MD: Cy Polanco Measurements Intervals [place] Rate: 61 P: 69 IN: 206 QRS: 36 QRSD: 85 T: 31 QT: 461 QTc: 465 Interpretive Statements Sinus rhythm Compared to ECG 01/12/2021 07:49:23 No significant changes Electronically Signed On 05-21-2021 9:09:00 EDT by Cy Polanco
== END 2021-05-18 22:01 | disposition home or self-care (01) ==
LOC: ED 08:13
DX: R10.9 Unspecified abdominal pain (principal); M54.5 Low back pain; M19.90 Unspecified osteoarthritis, unspecified site; I11.0 Hypertensive heart disease with heart failure; I63.9 Cerebral infarction, unspecified; J45.909 Unspecified asthma, uncomplicated; K21.9 Gastro-esophageal reflux disease without esophagitis; J44.9 Chronic obstructive pulmonary disease, unspecified; Z98.890 Other specified postprocedural states
CPT/HCPCS: 36415; 72100; 74177; 80053; 81001; 83690; 83880; 84484; 85025; 93005; 96360; 99284; J7030; Q9967